=== PATIENT | female | born 1955 | race Caucasian/White ===

== ENCOUNTER 2018-03-23 17:01 | Inpatient (IN) | payer MEDICARE, OTHER ==
[~2018-03-23] VITALS: Ht 162.6 cm; Wt 110.0 kg
--- NOTE | 2018-03-23 17:32 | PHYS DOC ---
Adult General Chief Complaint Chief Complaint: PSYCH EVALUATION HPI HPI 62-year-old female presents here from [facility] secondary to increased agitation, depression lashing out at staff and refusal to take medication. Patient states she has been depressed and has thoughts of harming herself. She states she does not have any particular plan in place. She states this has happened before. She is just recently changed her antidepressant medication but she is not currently wanting to take anything. She denies any illicit drugs.[] Review of Systems Review of Systems Constitutional: Denies fever or chills [] Eyes: Denies change in visual acuity, redness, or eye pain [] HENT: Denies nasal congestion or sore throat [] Respiratory: Denies cough or shortness of breath [] Cardiovascular: No additional information not addressed in HPI [] GI: Denies abdominal pain, nausea, vomiting, bloody stools or diarrhea [] : Denies dysuria or hematuria [] Musculoskeletal: Denies back pain or joint pain [] Integument: Denies rash or skin lesions [] Neurologic: Denies headache, focal weakness or sensory changes [] Endocrine: Denies polyuria or polydipsia [] Psychiatric: As described above All other systems were reviewed and found to be within normal limits, except as documented in this note. Allergies Allergies Allergies Coded Allergies Type Severity Reaction Last Updated Verified erythromycin base Allergy Intermediate 03/23/18 Yes aspirin Allergy Unknown 03/23/18 Yes codeine Allergy Unknown 03/23/18 Yes hydromorphone Allergy Unknown 03/23/18 Yes nalbuphine Allergy Unknown 03/23/18 Yes Uncoded Allergies Type Severity Reaction Last Updated Verified other Allergy Unknown 03/23/18 Physical Exam Physical Exam Constitutional: Well developed, well nourished, no acute distress, non-toxic appearance, a bit disheveled. [] HENT: Normocephalic, atraumatic, bilateral external ears normal, oropharynx moist, no oral exudates, nose normal. [] Eyes: PERRLA, EOMI, conjunctiva normal, no discharge. [] Neck: Normal range of motion, no tenderness, supple, no stridor. [] Cardiovascular:Heart rate regular rhythm, no murmur [] Lungs & Thorax: Bilateral breath sounds clear to auscultation [] Abdomen: Bowel sounds normal, soft, no tenderness, no masses, no pulsatile masses, morbidly obese. [] Skin: Warm, dry, no erythema, no rash. [] Back: No tenderness, no CVA tenderness. [] Extremities: No tenderness, no cyanosis, no clubbing, ROM intact, no edema. [] Neurologic: Alert and oriented X 3, normal motor function, normal sensory function, no focal deficits noted. [] Psychologic: Depressed affect not currently suicidal or homicidal. [] EKG EKG [EKG: Normal sinus rhythm rate of [address]-T changes] Radiology/Procedures Radiology/Procedures [] Course & Med Decision Making Course & Med Decision Making DX : UTI bactrim DS BID [] Dragon Disclaimer Dragon Disclaimer This electronic medical record was generated, in whole or in part, using a voice recognition dictation system. Departure Departure: Impression: Primary Impression: Depression Additional Impression: Agitation Referrals: NON,STAFF (PCP) Problem Qualifiers Primary Impression: Depression Depression Type: major depressive disorder Major depression recurrence: recurrent Active/Remission status: currently active Major depression episode severity: severe Psychotic features: without psychotic features Qualified Codes: F33.2 - Major depressive disorder, recurrent severe without psychotic features CLAUDETTE LECHUGA DO Mar 23, 2018 17:32 SNEHA MCKEON MD Mar 23, 2018 18:55
[2018-03-23 17:48] LABS: BASO # 0.1 x10^3/uL (0.0-0.2); BASO % 1 % (0-3); EOS # 0.3 x10^3/uL (0.0-0.7); EOS % 3 % (0-3); HEMATOCRIT 39.7 % (36.0-47.0); HEMOGLOBIN 13.1 g/dL (12.0-15.5); LYMPH # 2.5 x10^3/uL (1.0-4.8); LYMPH % 23 % (24-48); MEAN CORPUSCULAR HEMOGLOBIN 30 pg (25-35); MEAN CORPUSCULAR HGB CONC 33 g/dL (31-37); MEAN CORPUSCULAR VOLUME 90 fL (79-100); MONO # 0.4 x10^3/uL (0.0-1.1); MONO % 4 % (0-9); NEUT # 7.7 x10^3uL (1.8-7.7); NEUT % 70 % (31-73); PLATELET COUNT 280 x10^3/uL (140-400); RED BLOOD COUNT 4.39 x10^6/uL (3.50-5.40); RED CELL DISTRIBUTION WIDTH 13.9 % (11.5-14.5)
--- NOTE | 2018-03-23 17:48 | EKG ---
[address] [address] Test Date: 2018-03-23 Test Time: 17:36:59 Pat Name: OMAR CAR Department: Room: Gender: F [employer] Team Member: : [id number] Requested By: CLAUDETTE LECHUGA Order Number: [id number] Reading MD: Milad Lorenzo Measurements Intervals [place] Rate: 70 P: 28 AR: 182 QRS: -14 QRSD: 82 T: 25 QT: 402 QTc: 437 Interpretive Statements SINUS RHYTHM LEFTWARD AXIS Electronically Signed On 03-30-2018 11:01:09 [employer] ADMINISTRATOR by Milad Lorenzo
[2018-03-23 18:02] LABS: ALBUMIN 3.6 g/dL (3.4-5.0); ALBUMIN/GLOBULIN RATIO 0.9 (1.0-1.7); CALCIUM 8.9 mg/dL (8.5-10.1); CREATININE 1.4 mg/dL (0.6-1.0); GFR 37.9; POTASSIUM 4.5 mmol/L (3.5-5.1); TOTAL BILIRUBIN 0.3 mg/dL (0.2-1.0); TOTAL PROTEIN 7.5 g/dL (6.4-8.2)
[2018-03-23 18:36] LABS: BILIRUBIN,URINE NEG (NEG); CLARITY,URINE HAZY; COLOR,URINE YELLOW; GLUCOSE,URINE NEG (NEG); NITRITE,URINE POS (NEG); UROBILINOGEN,URINE 0.2 mg/dL (0.2 mg/dL)
[2018-03-23 18:37] LABS: BACTERIA,URINE MANY /HPF (0-FEW); SQUAMOUS EPITHELIAL CELL,UR MOD /LPF
[2018-03-23 18:38] LABS: AMPHETAMINE/METHAMPHETAMINE NEG (NEG); BARBITURATES NEG (NEG); BENZODIAZEPINES NEG (NEG); CANNABINOIDS NEG (NEG); COCAINE NEG (NEG); METHADONE NEG (NEG); OPIATES NEG (NEG); PHENCYCLIDINE NEG (NEG)
[2018-03-23] MEDS ORDERED: SMZ/TMP 800/160MG TABLET. PO ONE (19:00)
[2018-03-23] MEDS ORDERED: MAGNESIUM HYDROXIDE 2,400 MG/30 ML ORAL.SUSP. PO PRN (21:15)
[2018-03-23] MEDS ORDERED: MAG HYDROX/AL HYDROX/SIMETH 30 ML ORAL.SUSP PO PRN (21:15)
[2018-03-23] MEDS ORDERED: BISA5TAB4 PO (21:25)
[2018-03-23] MEDS ORDERED: ALBU2.5V14 NEB (21:25)
[2018-03-23] MEDS ORDERED: ATOR10TA60 PO (21:25)
[2018-03-23] MEDS ORDERED: HYDR-2765 PO (21:25)
[2018-03-23] MEDS ORDERED: ACET325T9 PO (21:44)
[2018-03-23] MEDS ORDERED: BUPR300T4 PO (21:44)
[2018-03-23] MEDS ORDERED: MELA3TAB2 PO (21:44)
[2018-03-23] MEDS ORDERED: D-ME118S2 PO (21:44)
[2018-03-23] MEDS ORDERED: RANI150T21 PO (21:44)
[2018-03-23] MEDS ORDERED: INSU100I17 SQ (21:44)
[2018-03-23] MEDS ORDERED: INSU100I27 SQ (22:14)
[2018-03-23] MEDS ORDERED: CALC200T3 PO (22:14)
[2018-03-23] MEDS ORDERED: CLON0.5T PO (22:14)
[2018-03-23] MEDS ORDERED: CHLO15MO2 MM (22:14)
[2018-03-23] MEDS ORDERED: GABA-585 PO (22:14)
[2018-03-23] MEDS ORDERED: HYDR-3165 PO (22:14)
[2018-03-23] MEDS ORDERED: GUAI-66 PO (22:14)
[2018-03-23] MEDS ORDERED: DULA0.75 SQ (22:14)
[2018-03-23] MEDS ORDERED: HYDR-3136 PO (22:14)
[2018-03-23] MEDS ORDERED: ESOM40CA PO (22:14)
[2018-03-23] MEDS ORDERED: DICY10CA3 PO (22:14)
[2018-03-23] MEDS ORDERED: LEVO100T5 PO (22:14)
[2018-03-23] MEDS ORDERED: CHOL10003 PO (22:14)
[2018-03-23] MEDS ORDERED: MENT118G TP (22:14)
[2018-03-23] MEDS ORDERED: FLUT9.9S NS (22:14)
[2018-03-23] MEDS ORDERED: MIRT15TA3 PO (22:14)
[2018-03-23] MEDS ORDERED: NON FORMULARY ITEM (Albuterol Sulfate (Albuterol Sulfate Conc Neb Soln) 2.5 MG) NEB PRN (22:30)
[2018-03-23] MEDS ORDERED: DICYCLOMINE HCL 10 MG CAPSULE PO PRN (22:30)
[2018-03-23] MEDS ORDERED: PROMETH HCL PO PRN (22:30)
[2018-03-23] MEDS ORDERED: CALCIUM CARBONATE 500 MG TAB.CHEW PO PRN (22:30)
[2018-03-23] MEDS ORDERED: ACETAMINOPHEN 325 MG TABLET PO PRN (22:30)
[2018-03-23] MEDS ORDERED: D METHORPHAN HB PO PRN (22:30)
[2018-03-23] MEDS ORDERED: BISACODYL TAB 5 MG TABLET.DR. PO PRN (22:30)
--- NOTE | 2018-03-23 22:41 | PDOC ---
Exam Note: Luis Note: Please also refer to the separate dictated note~for this date of service dictated separately. Discussed the patient with Nursing staff reviewed the chart.~Reviewed interim history and current functioning. Reviewed vital signs,~ Labs/ Radiology~and current medications noted below. Continue current treatment with the changes noted in the dictated addendum note Assessment: Vital Signs: Vital Signs Date Time Temp Pulse Resp B/P (MAP) Pulse Ox O2 Delivery O2 Flow Rate FiO2 03/23/18 17:25 97.7 96 16 98 Room Air Labs: Laboratory Tests Test 03/23/18 17:27 03/23/18 18:00 03/23/18 18:10 03/23/18 21:52 White Blood Count 11.0 x10^3/uL (4.0-11.0) Red Blood Count 4.39 x10^6/uL (3.50-5.40) Hemoglobin 13.1 g/dL (12.0-15.5) Hematocrit 39.7 % (36.0-47.0) Mean Corpuscular Volume 90 fL (79-100) Mean Corpuscular Hemoglobin 30 pg (25-35) Mean Corpuscular Hemoglobin Concent 33 g/dL (31-37) Red Cell Distribution Width 13.9 % (11.5-14.5) Platelet Count 280 x10^3/uL (140-400) Neutrophils (%) (Auto) 70 % (31-73) Lymphocytes (%) (Auto) 23 % (24-48) L Monocytes (%) (Auto) 4 % (0-9) Eosinophils (%) (Auto) 3 % (0-3) Basophils (%) (Auto) 1 % (0-3) Neutrophils # (Auto) 7.7 x10^3uL (1.8-7.7) Lymphocytes # (Auto) 2.5 x10^3/uL (1.0-4.8) Monocytes # (Auto) 0.4 x10^3/uL (0.0-1.1) Eosinophils # (Auto) 0.3 x10^3/uL (0.0-0.7) Basophils # (Auto) 0.1 x10^3/uL (0.0-0.2) Sodium Level 138 mmol/L (136-145) Potassium Level 4.5 mmol/L (3.5-5.1) Chloride Level 101 mmol/L (98-107) Carbon Dioxide Level 29 mmol/L (21-32) Anion Gap 8 (6-14) Blood Urea Nitrogen 21 mg/dL (7-20) H Creatinine 1.4 mg/dL (0.6-1.0) H Estimated GFR (Cockcroft-Gault) 37.9 BUN/Creatinine Ratio 15 (6-20) Glucose Level 170 mg/dL (70-99) H Calcium Level 8.9 mg/dL (8.5-10.1) Total Bilirubin 0.3 mg/dL (0.2-1.0) Aspartate Amino Transferase (AST) 19 U/L (15-37) Alanine Aminotransferase (ALT) 33 U/L (14-59) Alkaline Phosphatase 133 U/L (46-116) H Total Protein 7.5 g/dL (6.4-8.2) Albumin 3.6 g/dL (3.4-5.0) Albumin/Globulin Ratio 0.9 (1.0-1.7) L Ethyl Alcohol Level < 10 mg/dL (0-10) Magnesium Level 2.0 mg/dL (1.8-2.4) Urine Collection Type Unknown Urine Color Yellow Urine Clarity Hazy Urine pH 5.5 Urine Specific [place] 1.020 Urine Protein Neg (NEG-TRACE) Urine Glucose (UA) Neg mg/dL (NEG) Urine Ketones (Stick) Trace mg/dL (NEG) Urine Blood Neg (NEG) Urine Nitrite Pos (NEG) Urine Bilirubin Neg (NEG) Urine Urobilinogen Dipstick 0.2 mg/dL (0.2 mg/dL) Urine Leukocyte Esterase Trace (NEG) Urine RBC 1-2 /HPF (0-2) Urine WBC 11-20 /HPF (0-4) Urine Squamous Epithelial Cells Mod /LPF Urine Bacteria Many /HPF (0-FEW) Urine Opiates Screen Neg (NEG) Urine Methadone Screen Neg (NEG) Urine Barbiturates Neg (NEG) Urine Phencyclidine Screen Neg (NEG) Urine Amphetamine/Methamphetamine Neg (NEG) Urine Benzodiazepines Screen Neg (NEG) Urine Cocaine Screen Neg (NEG) Urine Cannabinoids Screen Neg (NEG) Urine Ethyl Alcohol Neg (NEG) Glucose (Fingerstick) 206 mg/dL (70-99) H Current Medications: Meds: Current Medications Trimethoprim/ Sulfamethoxazole (Bactrim Ds) 1 tab 1X ONCE PO Last administered on 03/23/18at 18:56; Start 03/23/18 at 19:00; Stop 03/23/18 at 19:09 ; Status DC Acetaminophen (Tylenol) 650 mg PRN Q6HRS PRN PO PAIN / TEMP; Start 03/23/18 at 21:15 Al Hydroxide/Mg Hydroxide (Mylanta Plus Xs) 15 ml PRN AFTMEALHC PRN PO DYSPEPSIA; Start 03/23/18 at 21:15 Magnesium Hydroxide (Milk Of Magnesia) 2,400 mg PRN QHS PRN PO CONSTIPATION; Start 03/23/18 at 21:15 Bupropion HCl (Wellbutrin Xl) 300 mg DAILY PO ; Start 03/24/18 at 09:00; Status UNV Clonazepam (KlonoPIN) 0.5 mg QHS PO ; Start 03/24/18 at 21:00; Status UNV Non-Formulary Medication (Melatonin ) 10 mg DAILY PO ; Start 03/24/18 at 09:00; Status UNV Non-Formulary Medication (Mirtazapine ) 15 mg DAILY PO ; Start 03/24/18 at 09:00 ; Status UNV Acetaminophen (Tylenol) 650 mg PRN Q6HRS PRN PO PAIN / TEMP; Start 03/23/18 at 22:30; Status UNV Bisacodyl (Dulcolax Tab) 10 mg PRN DAILY PRN PO CONSTIPATION; Start 03/23/18 at 22:30; Status UNV Calcium Carbonate/ Glycine (Tums) 500 mg PRN Q8HRS PRN PO HEARTBURN / GAS; Start 03/23/18 at 22:30; Status UNV Chlorhexidine Gluconate (Peridex) 15 ml Q12HR MM ; Start 03/24/18 at 09:00; Status UNV Vitamin D (Vitamin D3) 2,000 unit DAILY PO ; Start 03/24/18 at 09:00; Status UNV Dicyclomine HCl (Bentyl) 10 mg PRN DAILY PRN PO GI SYMPTOMS; Start 03/23/18 at 22:30; Status UNV Gabapentin (Neurontin) 200 mg TID PO ; Start 03/24/18 at 09:00; Status UNV Guaifenesin (Robitussin) 100 mg PRN Q4HRS PRN PO COUGH; Start 03/23/18 at 22:30 ; Status UNV Levothyroxine Sodium (Synthroid) 100 mcg DAILYAC PO ; Start 03/24/18 at 07:30; Status UNV Non-Formulary Medication (Albuterol Sulfate (Albuterol Sulfate Conc Neb Soln)) 2.5 mg PRN Q6HRS PRN NEB SHORTNESS OF BREATH; Start 03/23/18 at 22:30; Status UNV Non-Formulary Medication (Atorvastatin Calcium ) 10 mg DAILY PO ; Start at 09:00; Status UNV Non-Formulary Medication (D-Methorphan Hb/ Prometh Hcl (Promethazine-Dm Syrup)) 5 ml PRN Q6HRS PRN PO COUGH; Start 03/23/18 at 22:30; Status UNV Non-Formulary Medication (Dulaglutide (Trulicity)) 0.75 mg WEEKLY SQ ; Start at 09:00; Status UNV Non-Formulary Medication (Esomeprazole Magnesium (Nexium Capsule)) 40 mg DAILYAC PO ; Start 03/24/18 at 07:30; Status UNV Non-Formulary Medication (Fluticasone Propionate (Flonase Allergy Relief)) 2 sprays PRN DAILY PRN NS NASAL CONGESTION; Start 03/23/18 at 22:30; Status UNV Non-Formulary Medication (Hydrocodone Bit/ Acetaminophen (Holmes 10-325 Tablet)) 1 tab PRN Q6HRS PRN PO PAIN; Start 03/23/18 at 22:30; Status UNV Non-Formulary Medication (Hydrocodone Bit/ Acetaminophen (Holmes 5-325 Tablet)) 1 tab PRN Q6HRS PRN PO PAIN; Start 03/23/18 at 22:30; Status UNV Non-Formulary Medication (Insulin Aspart (Novolog Flexpen)) 10 unit TIDWMEALS SQ ; Start 03/24/18 at 08:00; Status UNV Non-Formulary Medication (Insulin Detemir (Levemir Flextouch)) 60 unit DAILY SQ ; Start 03/24/18 at 09:00; Status UNV Non-Formulary Medication (Menthol (Biofreeze)) 1 nnamdi PRN TID PRN TP MUSCLE PAIN ; Start 03/23/18 at 22:30; Status UNV Non-Formulary Medication (Ranitidine Hcl (Zantac)) 75 mg PRN Q8HRS PRN PO HEARTBURN / GAS; Start 03/23/18 at 22:30; Status UNV Active Scripts Active Reported Mirtazapine 15 Mg Tablet 15 Mg PO DAILY Abbey-Tussin (Guaifenesin) 100 Mg/5 Ml Liquid 100 Mg PO PRN Q4HRS PRN Holmes 5-325 Tablet (Hydrocodone Bit/Acetaminophen) 1 Each Tablet 1 Tab PO PRN Q6HRS PRN Holmes 10-325 Tablet (Hydrocodone Bit/Acetaminophen) 1 Each Tablet 1 Tab PO PRN Q6HRS PRN Peridex (Chlorhexidine Gluconate) 15 Ml Mouthwash 15 Ml MM Q12HR Trulicity (Dulaglutide) 0.75 Mg/0.5 Ml Pen.injctr 0.75 Mg SQ WEEKLY Levemir Flextouch (Insulin Detemir) 100 Unit/1 Ml Insuln.pen 60 Unit SQ DAILY Nexium Capsule (Esomeprazole Magnesium) 40 Mg Capsule.dr 40 Mg PO DAILYAC Vitamin D3 (Cholecalciferol (Vitamin D3)) 1,000 Unit Tablet 2,000 Unit PO DAILY Flonase Allergy Relief (Fluticasone Propionate) 9.9 Ml [place].susp 2 Sprays NS PRN DAILY PRN Dicyclomine Hcl 10 Mg Capsule 10 Mg PO PRN DAILY PRN Biofreeze (Menthol) 118 Ml Gel..ml. 1 Nnamdi TP PRN TID PRN Klonopin (Clonazepam) 0.5 Mg Tablet 0.5 Mg PO QHS Levothyroxine Sodium 100 Mcg Tablet 100 Mcg PO DAILYAC Gabapentin (Gabapentin) 100 Mg Capsule 200 Mg PO TID Tums (Calcium Carbonate) 200 Mg Tab.chew 500 Mg PO PRN Q8HRS PRN Zantac (Ranitidine Hcl) 150 Mg Tablet 75 Mg PO PRN Q8HRS PRN Promethazine-Dm Syrup (D-Methorphan Hb/Prometh Hcl) 118 Ml Syrup 5 Ml PO PRN Q6HRS PRN Tylenol (Acetaminophen) 325 Mg Tablet 650 Mg PO PRN Q6HRS PRN Bupropion Xl (Bupropion Hcl) 300 Mg Tab.er.24h 300 Mg PO DAILY Melatonin 3 Mg Tablet 10 Mg PO DAILY Novolog Flexpen (Insulin Aspart) 100 Unit/1 Ml Insuln.pen 10 Unit SQ TIDWMEALS Albuterol Sulfate Conc Neb Soln (Albuterol Sulfate) 2.5 Mg/0.5 Ml Vial.neb 2.5 Mg NEB PRN Q6HRS PRN Hydrocodone-Apap 7.5-325 (Hydrocodone Bit/Acetaminophen) 1 Each Tablet 1 Tab PO PRN Q6HRS PRN Bisacodyl 5 Mg Tablet.dr 10 Mg PO PRN DAILY PRN Atorvastatin Calcium 10 Mg Tablet 10 Mg PO DAILY I have reviewed the current psychotropics carefully including drug interactions. Risk benefit ratio favors no change other than as noted in my dictated progress note. FAYE MUNGUIA MD Mar 23, 2018 22:41
[2018-03-23] MEDS ORDERED: FAMOTIDINE 20 MG TABLET PO PRN (23:00)
[2018-03-23] MEDS ORDERED: HYDROcodone/APAP 7.5/325MG 1 TAB TABLET PO PRN (23:00)
[2018-03-23] MEDS ORDERED: HYDROcodone/APAP 10/325 1 TAB TABLET PO PRN (23:00)
[2018-03-23] MEDS ORDERED: ALBUTEROL SULFATE 2.5 MG/3 ML NEBU. NEB PRN (23:15)
[2018-03-23] MEDS ORDERED: METHYL SALICYLATE/MENTHOL TOPICAL OINTMENT 29GM TUBE. TP PRN (23:15)
[2018-03-23] MEDS: guaiFENesin 300 MG/15 ML LIQUID PO PRN (23:50)
[2018-03-24 00:52] VITALS: BP 140/85
[2018-03-24 06:14] VITALS: BP 141/77
[2018-03-24] MEDS: LEVOTHYROXINE 100 MCG TABLET PO SCH (06:16)
[2018-03-24] MEDS ORDERED: FLUTICASONE 50MCG/NASAL SPRAY 16GM BOTTLE. NS PRN (09:00)
[2018-03-24] MEDS ORDERED: MIRTAZAPINE 15 MG TABLET PO SCH (09:00)
[2018-03-24] MEDS: CHLORHEXIDINE 0.12% 15 ML MOUTHWASH. MM SCH ×2 (09:11→19:52)
[2018-03-24] MEDS: ATORVASTATIN CALCIUM 10 MG TABLET. PO SCH (09:12)
[2018-03-24] MEDS: GABAPENTIN 100 MG CAPSULE. PO SCH ×3 (09:12→19:52)
[2018-03-24] MEDS: CHOLECALCIFEROL (VITAMIN D3) 1,000 UNIT TABLET PO SCH (09:12)
[2018-03-24] MEDS: PANTOPRAZOLE 40 MG TABLET. PO SCH (09:12)
[2018-03-24] MEDS: buPROPion XL 300 MG TAB.ER.24H. PO SCH (09:12)
[2018-03-24] MEDS: INSULIN GLARGINE 300 UNITS/3 ML INSULN.PEN. SQ SCH (09:14)
[2018-03-24] MEDS: INSULIN LISPRO 300 UNITS/3 ML INSULN.PEN. SQ SCH ×3 (09:15→18:03)
[2018-03-24 14:22] LABS: BASO % 0 % (0-3); EOS # 0.2 x10^3/uL (0.0-0.7); EOS % 2 % (0-3); HEMATOCRIT 37.7 % (36.0-47.0); HEMOGLOBIN 12.5 g/dL (12.0-15.5); LYMPH % 21 % (24-48); MEAN CORPUSCULAR HEMOGLOBIN 30 pg (25-35); MEAN CORPUSCULAR HGB CONC 33 g/dL (31-37); MEAN CORPUSCULAR VOLUME 91 fL (79-100); MONO # 0.4 x10^3/uL (0.0-1.1); MONO % 4 % (0-9); NEUT % 73 % (31-73); PLATELET COUNT 272 x10^3/uL (140-400); RED BLOOD COUNT 4.15 x10^6/uL (3.50-5.40); RED CELL DISTRIBUTION WIDTH 14.3 % (11.5-14.5); WHITE BLOOD COUNT 9.7 x10^3/uL (4.0-11.0)
[2018-03-24 14:31] LABS: ALBUMIN 3.4 g/dL (3.4-5.0); ALBUMIN/GLOBULIN RATIO 0.9 (1.0-1.7); CREATININE 1.4 mg/dL (0.6-1.0); GFR 37.9; POTASSIUM 4.5 mmol/L (3.5-5.1); TOTAL BILIRUBIN 0.2 mg/dL (0.2-1.0); TOTAL PROTEIN 7.2 g/dL (6.4-8.2)
--- NOTE | 2018-03-24 14:59 | RAD ---
AP abdomen 03/24/2018 CLINICAL INDICATION: Abdominal pain and tenderness. COMPARISON: None. FINDINGS: Elevation of the right hemidiaphragm. Right upper quadrant cholecystectomy clips. There is a nonobstructive bowel gas pattern. Examination is not optimized for valuation of pneumoperitoneum. Multiple pelvic phleboliths. IMPRESSION: No radiographic evidence of bowel obstruction. Electronically signed by: David Tellez MD (03/24/2018 2:55 PM) [id number]
[2018-03-24 16:00] VITALS: BP 129/63
[2018-03-24 17:13] LABS: THYROXINE 6.7 ug/dL (4.5-12.0)
[2018-03-24 19:09] LABS: HEMOGLOBIN A1C 9.5 % (4.8-5.6)
[2018-03-24] MEDS: MIRTAZAPINE 15 MG TABLET PO SCH (19:52)
[2018-03-24] MEDS: MELATONIN 3 MG TABLET PO SCH (19:53)
[2018-03-24] MEDS: clonazePAM 0.5 MG TABLET PO SCH (19:53)
[2018-03-24] MEDS: ONDANSETRON ODT 4 MG TAB.RAPDIS PO PRN (20:05)
--- NOTE | 2018-03-24 22:43 | PDOC ---
Exam Note: Luis Note: Please also refer to the separate dictated note~for this date of service dictated separately.~Patient seen individually. Discussed the patient with Nursing staff reviewed the chart.~Reviewed interim history and current functioning. Reviewed vital signs,~Labs/ Radiology~and current medications noted below. Continue current treatment with the changes noted in the dictated addendum note Assessment: Vital Signs: Vital Signs Date Time Temp Pulse Resp B/P (MAP) Pulse Ox O2 Delivery O2 Flow Rate FiO2 03/24/18 16:00 98.1 79 20 129/63 (85) 100 Room Air Labs: Laboratory Tests Test 03/24/18 07:27 03/24/18 11:34 03/24/18 14:05 03/24/18 16:36 Glucose (Fingerstick) 239 mg/dL (70-99) H 221 mg/dL (70-99) H 146 mg/dL (70-99) H White Blood Count 9.7 x10^3/uL (4.0-11.0) Red Blood Count 4.15 x10^6/uL (3.50-5.40) Hemoglobin 12.5 g/dL (12.0-15.5) Hematocrit 37.7 % (36.0-47.0) Mean Corpuscular Volume 91 fL (79-100) Mean Corpuscular Hemoglobin 30 pg (25-35) Mean Corpuscular Hemoglobin Concent 33 g/dL (31-37) Red Cell Distribution Width 14.3 % (11.5-14.5) Platelet Count 272 x10^3/uL (140-400) Neutrophils (%) (Auto) 73 % (31-73) Lymphocytes (%) (Auto) 21 % (24-48) L Monocytes (%) (Auto) 4 % (0-9) Eosinophils (%) (Auto) 2 % (0-3) Basophils (%) (Auto) 0 % (0-3) Neutrophils # (Auto) 7.0 x10^3uL (1.8-7.7) Lymphocytes # (Auto) 2.0 x10^3/uL (1.0-4.8) Monocytes # (Auto) 0.4 x10^3/uL (0.0-1.1) Eosinophils # (Auto) 0.2 x10^3/uL (0.0-0.7) Basophils # (Auto) 0.0 x10^3/uL (0.0-0.2) Sodium Level 139 mmol/L (136-145) Potassium Level 4.5 mmol/L (3.5-5.1) Chloride Level 101 mmol/L (98-107) Carbon Dioxide Level 27 mmol/L (21-32) Anion Gap 11 (6-14) Blood Urea Nitrogen 23 mg/dL (7-20) H Creatinine 1.4 mg/dL (0.6-1.0) H Estimated GFR (Cockcroft-Gault) 37.9 BUN/Creatinine Ratio 16 (6-20) Glucose Level 262 mg/dL (70-99) H Lactic Acid Level 1.8 mmol/L (0.4-2.0) Calcium Level 9.0 mg/dL (8.5-10.1) Total Bilirubin 0.2 mg/dL (0.2-1.0) Aspartate Amino Transferase (AST) 19 U/L (15-37) Alanine Aminotransferase (ALT) 30 U/L (14-59) Alkaline Phosphatase 129 U/L (46-116) H Lactate Dehydrogenase 144 U/L (81-234) Total Protein 7.2 g/dL (6.4-8.2) Albumin 3.4 g/dL (3.4-5.0) Albumin/Globulin Ratio 0.9 (1.0-1.7) L Lipase 320 U/L (73-393) Test 03/24/18 19:25 Glucose (Fingerstick) 153 mg/dL (70-99) H Current Medications: Meds: Current Medications Trimethoprim/ Sulfamethoxazole (Bactrim Ds) 1 tab 1X ONCE PO Last administered on 03/23/18at 18:56; Start 03/23/18 at 19:00; Stop 03/23/18 at 19:09 ; Status DC Acetaminophen (Tylenol) 650 mg PRN Q6HRS PRN PO PAIN / TEMP; Start 03/23/18 at 21:15 Al Hydroxide/Mg Hydroxide (Mylanta Plus Xs) 15 ml PRN AFTMEALHC PRN PO DYSPEPSIA; Start 03/23/18 at 21:15 Magnesium Hydroxide (Milk Of Magnesia) 2,400 mg PRN QHS PRN PO CONSTIPATION; Start 03/23/18 at 21:15 Bupropion HCl (Wellbutrin Xl) 300 mg DAILY PO Last administered on 03/24/18 09 :12; Start 03/24/18 at 09:00 Clonazepam (KlonoPIN) 0.5 mg QHS PO Last administered on 03/24/18at 19:53; Start 03/24/18 at 21:00 Melatonin 9 mg HS PO Last administered on 03/24/18at 19:53; Start 03/24/18 at 21 :00 Mirtazapine (Remeron) 15 mg DAILY PO ; Start 03/24/18 at 09:00; Stop 03/24/18 at 09:16; Status DC Acetaminophen (Tylenol) 650 mg PRN Q6HRS PRN PO PAIN / TEMP; Start 03/23/18 at 22:30; Status UNV Bisacodyl (Dulcolax Tab) 10 mg PRN DAILY PRN PO CONSTIPATION; Start 03/23/18 at 22:30 Calcium Carbonate/ Glycine (Tums) 500 mg PRN Q8HRS PRN PO HEARTBURN / GAS; Start 03/23/18 at 22:30 Chlorhexidine Gluconate (Peridex) 15 ml Q12HR MM Last administered on at 19:52; Start 03/24/18 at 09:00 Vitamin D (Vitamin D3) 2,000 unit DAILY PO Last administered on 03/24/18at 09:12 ; Start 03/24/18 at 09:00 Dicyclomine HCl (Bentyl) 10 mg PRN DAILY PRN PO GI SYMPTOMS; Start 03/23/18 at 22:30 Gabapentin (Neurontin) 200 mg TID PO Last administered on 03/24/18at 19:52; Start 03/24/18 at 09:00 Guaifenesin (Robitussin) 100 mg PRN Q4HRS PRN PO COUGH Last administered on 03/23/18at 23:50; Start 03/23/18 at 22:30 Levothyroxine Sodium (Synthroid) 100 mcg DAILY06 PO Last administered on at 06:16; Start 03/24/18 at 06:00 Non-Formulary Medication (Albuterol Sulfate (Albuterol Sulfate Conc Neb Soln)) 2.5 mg PRN Q6HRS PRN NEB SHORTNESS OF BREATH; Start 03/23/18 at 22:30; Status UNV Atorvastatin Calcium (Lipitor) 10 mg DAILY PO Last administered on 03/24/18at 09 :12; Start 03/24/18 at 09:00 Non-Formulary Medication (D-Methorphan Hb/ Prometh Hcl (Promethazine-Dm Syrup)) 5 ml PRN Q6HRS PRN PO COUGH; Start 03/23/18 at 22:30; Stop 03/23/18 at 23:45; Status DC Non-Formulary Medication (Dulaglutide (Trulicity)) 0.75 mg WEEKLY SQ ; Start at 09:00; Status UNV Pantoprazole Sodium (Protonix) 40 mg DAILYAC PO Last administered on 03/24/18at 09:12; Start 03/24/18 at 07:30 Fluticasone Propionate (Flonase) 2 spray PRN DAILY PRN NS ALLERGIES; Start 03/24/18 at 09:00 Acetaminophen/ Hydrocodone Bitart (Lortab 10/325) 1 tab PRN Q6HRS PRN PO PAIN; Start 03/23/18 at 23:00; Stop 03/23/18 at 23:19; Status DC Acetaminophen/ Hydrocodone Bitart (Lortab 7.5/325) 1 tab PRN Q6HRS PRN PO PAIN ; Start 03/23/18 at 23:00; Stop 03/23/18 at 23:19; Status DC Insulin Human Lispro (HumaLOG) 10 units TIDWMEALS SQ Last administered on at 13:28; Start 03/24/18 at 08:00 Insulin Glargine (Lantus) 60 units DAILY SQ Last administered on 03/24/18at 09: 14; Start 03/24/18 at 09:00 Multi-Ingredient Ointment (Analgesic [place]) 1 nnamdi PRN TID PRN TP MUSCLE PAIN; Start 03/23/18 at 23:15 Famotidine (Pepcid) 20 mg PRN Q8HRS PRN PO HEARTBURN/GAS; Start 03/23/18 at 23: 00 Albuterol Sulfate (Ventolin) 2.5 mg PRN Q6HRS PRN NEB SHORTNESS OF BREATH; Start 03/23/18 at 23:15 Acetaminophen/ Hydrocodone Bitart (Lortab 7.5/325) 2 tab PRN Q6HRS PRN PO PAIN ; Start 03/23/18 at 23:30 Mirtazapine (Remeron) 15 mg HS PO Last administered on 03/24/18at 19:52; Start 03/24/18 at 21:00 Ondansetron HCl (Zofran Odt) 4 mg PRN Q8HRS PRN PO NAUSEA/VOMITING Last administered on 03/24/18at 20:05; Start 03/24/18 at 15:45 Active Scripts Active Reported Mirtazapine 15 Mg Tablet 15 Mg PO DAILY Abbey-Tussin (Guaifenesin) 100 Mg/5 Ml Liquid 100 Mg PO PRN Q4HRS PRN Peridex (Chlorhexidine Gluconate) 15 Ml Mouthwash 15 Ml MM Q12HR Trulicity (Dulaglutide) 0.75 Mg/0.5 Ml Pen.injctr 0.75 Mg SQ WEEKLY Levemir Flextouch (Insulin Detemir) 100 Unit/1 Ml Insuln.pen 60 Unit SQ DAILY Nexium Capsule (Esomeprazole Magnesium) 40 Mg Capsule.dr 40 Mg PO DAILYAC Vitamin D3 (Cholecalciferol (Vitamin D3)) 1,000 Unit Tablet 2,000 Unit PO DAILY Flonase Allergy Relief (Fluticasone Propionate) 9.9 Ml [place].susp 2 Sprays NS PRN DAILY PRN Dicyclomine Hcl 10 Mg Capsule 10 Mg PO PRN DAILY PRN Biofreeze (Menthol) 118 Ml Gel..ml. 1 Nnamdi TP PRN TID PRN Klonopin (Clonazepam) 0.5 Mg Tablet 0.5 Mg PO QHS Levothyroxine Sodium 100 Mcg Tablet 100 Mcg PO DAILYAC Gabapentin (Gabapentin) 100 Mg Capsule 200 Mg PO TID Tums (Calcium Carbonate) 200 Mg Tab.chew 500 Mg PO PRN Q8HRS PRN Zantac (Ranitidine Hcl) 150 Mg Tablet 75 Mg PO PRN Q8HRS PRN Promethazine-Dm Syrup (D-Methorphan Hb/Prometh Hcl) 118 Ml Syrup 5 Ml PO PRN Q6HRS PRN Tylenol (Acetaminophen) 325 Mg Tablet 650 Mg PO PRN Q6HRS PRN Bupropion Xl (Bupropion Hcl) 300 Mg Tab.er.24h 300 Mg PO DAILY Melatonin 3 Mg Tablet 10 Mg PO DAILY Novolog Flexpen (Insulin Aspart) 100 Unit/1 Ml Insuln.pen 10 Unit SQ TIDWMEALS Albuterol Sulfate Conc Neb Soln (Albuterol Sulfate) 2.5 Mg/0.5 Ml Vial.neb 2.5 Mg NEB PRN Q6HRS PRN Hydrocodone-Apap 7.5-325 (Hydrocodone Bit/Acetaminophen) 1 Each Tablet 2 Tab PO PRN Q6HRS PRN Bisacodyl 5 Mg Tablet.dr 10 Mg PO PRN DAILY PRN Atorvastatin Calcium 10 Mg Tablet 10 Mg PO DAILY I have reviewed the current psychotropics carefully including drug interactions. Risk benefit ratio favors no change other than as noted in my dictated progress note. Diagnosis: Problems: (1) Anxiety disorder (2) Bipolar 1 disorder, manic, moderate (3) Impulse control disorder (4) Schizoaffective disorder, bipolar type FAYE MUNGUIA MD Mar 24, 2018 22:43
--- NOTE | 2018-03-24 23:52 | CONS ---
DATE OF CONSULTATION: 03/23/2018 REASON FOR CONSULTATION: Medical management. HISTORY OF PRESENT ILLNESS: The patient is a 62-year-old female patient, a resident at [facility], who was admitted on account of increased agitation, depression, refusing cares, verbally abusive, saying "I will be better off ," all this in a background of schizoaffective and bipolar disorder. When I saw her this afternoon, she was complaining of abdominal pain, mostly in the right upper quadrant and epigastric area. She has been nauseous this morning, although she ate her breakfast and lunch. She stated that she had her gallbladder removed before, but does not recall any history of pancreatitis. PAST MEDICAL HISTORY: Significant for morbid obesity, hypothyroidism, type 2 diabetes, peripheral neuropathy, vitamin D deficiency, hyperlipidemia, chronic cyclic schizophrenia, hypertension, bronchial asthma, irritable bowel syndrome, insomnia, chronic back pain, sciatica, gastroesophageal reflux disease, COPD, renal agenesis, bipolar disorder, posttraumatic stress disorder, ____ shortness of breath, anxiety, muscle weakness, and borderline personality. Other problems include enthesopathy and dermatitis. ALLERGIES: SHE IS ALLERGIC TO ASPIRIN, CODEINE, TAPE, ADHESIVES, DILAUDID, ERYTHROMYCIN, NALBUPHINE. PAST SURGICAL HISTORY: She is status post cholecystectomy. DIET: Carb-controlled diabetic diet. CODE: She is a full code. FAMILY HISTORY: Unremarkable. SOCIAL HISTORY: She is a resident at [facility] and [facility]. She apparently does not smoke, drink alcohol or use recreational drugs. REVIEW OF SYSTEMS: As per history of present illness. MEDICATIONS: When I saw her, she is currently on following medications: She is on dicyclomine 10 mg daily p.r.n., albuterol sulfate by nebulizer every 6 hours, atorvastatin calcium 10 mg daily, hydrocodone/APAP 7.5/325 one tablet every 6 hours, Tylenol 650 every 6 hours, clonazepam for Klonopin 0.5 mg at bedtime, gabapentin 200 mg 3 times a day, Wellbutrin 300 mg daily, mirtazapine 50 mg at bedtime, promethazine, dextromethorphan syrup 5 mL every 6 hours, guaifenesin 100 mg per 5 mL every 4 hours, chlorhexidine gluconate for Peridex 15 mL every 12 hours. She is on Flonase 2 sprays to each nostril once a day, calcium carbonate 500 mg every 8 hours, bisacodyl 10 mg tablet p.o. daily p.r.n. for constipation, ranitidine 150 mg every 8 hours and Nexium 40 mg daily. She is on Trulicity 0.75 mcg subcutaneously weekly. She is also on NovoLog insulin 10 units before meals and Levemir 60 units at bedtime. She is on levothyroxine 100 mcg daily, Biofreeze 1 application 3 times a day, cholecalciferol 2000 international unit once a day, melatonin 10 mg at bedtime. PHYSICAL EXAMINATION: GENERAL: When I saw her this afternoon, she was resting slightly propped up in bed, complaining of nausea and abdominal pain. She was pale, but no jaundice, cyanosis, or thyromegaly. No jugular venous distension. No limb edema. VITAL SIGNS: Her heart rate was 74, blood pressure was 141/77, temperature was 98, respiratory rate was 18 and oxygen saturation was 97% on room air. HEAD, EYES, EARS, NOSE AND THROAT: Showed normocephalic, atraumatic. NECK: Supple. HEART: Showed normal first and second heart sounds. No gallop, rub or murmur. CHEST: Clear to auscultation. No crepitation or rhonchi. ABDOMEN: Distended, soft with tenderness mostly in the epigastric and right upper quadrant. There is no guarding or rigidity. No organomegaly. All hernial orifice intact. Bowel sounds normal. NEUROLOGIC: She is awake, alert, responding appropriately. All cranial nerves intact. EXTREMITIES: She moves extremities without difficulty, she is able to ambulate without assistance or assistive devices. LABORATORY WORK: As of yesterday showed her white cell count was 11,000, hemoglobin 13, hematocrit 39, MCV 90 and platelet count of 280,000 with normal manual differential. Serum sodium was 138, potassium 4.5, chloride 101, bicarbonate 29, anion gap of 8, BUN 21, creatinine 1.4, estimated GFR was 58 mL per minute. Her glucose 170, calcium was 8.9, magnesium 2. Total bilirubin, AST, ALT were normal. Alkaline phosphatase slightly elevated. Total protein was 7.5, albumin was 3.6. Her urinalysis showed the urine was yellow, hazy with a pH of 5.5, specific gravity of 1.020. The urine was negative for protein, glucose. There was trace of ketones, negative for blood, positive for nitrite. There was trace of leukocyte esterase. There was 1-2 rbc's, 11-20 wbc's and too many bacteria. Her toxic screen was essentially negative. IMPRESSION: In summary, this is a 62-year-old female patient, a resident at [facility] in [place], [place], who was admitted on account of increased agitation, depression, refusing cares, verbally abusive, saying "I will be better off ." All this in a background of schizophrenia and bipolar disorder. When I saw her, she complained of nausea and abdominal pain that is of new onset as of this morning. PLAN: My plan is to arrange for her to have some labs to be done stat as well as KUB. We will arrange for her to have a CBC, CMP, LDH, lipase, lactic acid as well as KUB and decide on further management accordingly, as she might be transferred to [address] [place] [address] if necessary. JAYLYN BENÍTEZ MD DR: KAMRYN/aamir JOB#: [id number] / [id number]
[2018-03-25 06:01] VITALS: BP 120/72
[2018-03-25] MEDS: LEVOTHYROXINE 100 MCG TABLET PO SCH (06:15)
[2018-03-25] MEDS: ATORVASTATIN CALCIUM 10 MG TABLET. PO SCH (09:17)
[2018-03-25] MEDS: CHOLECALCIFEROL (VITAMIN D3) 1,000 UNIT TABLET PO SCH (09:17)
[2018-03-25] MEDS: PANTOPRAZOLE 40 MG TABLET. PO SCH (09:17)
[2018-03-25] MEDS: buPROPion XL 300 MG TAB.ER.24H. PO SCH (09:17)
[2018-03-25] MEDS: GABAPENTIN 100 MG CAPSULE. PO SCH ×3 (09:18→19:47)
[2018-03-25] MEDS: INSULIN GLARGINE 300 UNITS/3 ML INSULN.PEN. SQ SCH (09:19)
[2018-03-25] MEDS: INSULIN LISPRO 300 UNITS/3 ML INSULN.PEN. SQ SCH ×3 (09:20→18:03)
[2018-03-25] MEDS: CHLORHEXIDINE 0.12% 15 ML MOUTHWASH. MM SCH ×2 (09:23→19:47)
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
[2018-03-25 16:42] VITALS: BP 112/82
[2018-03-25] MEDS: MELATONIN 3 MG TABLET PO SCH (19:47)
[2018-03-25] MEDS: DIVALPROEX 125 MG CAP.SPRINK PO SCH (19:47)
[2018-03-25] MEDS: clonazePAM 0.5 MG TABLET PO SCH (19:48)
[2018-03-25] MEDS: MIRTAZAPINE 15 MG TABLET PO SCH (19:48)
[2018-03-25] MEDS: HYDROcodone/APAP 7.5/325MG 1 TAB TABLET PO PRN (20:37)
[2018-03-25] MEDS: ONDANSETRON ODT 4 MG TAB.RAPDIS PO PRN (22:27)
--- NOTE | 2018-03-25 22:31 | PDOC ---
Exam Note: Luis Note: Please also refer to the separate dictated note~for this date of service dictated separately.~Patient seen individually. Discussed the patient with Nursing staff reviewed the chart.~Reviewed interim history and current functioning. Reviewed vital signs,~Labs/ Radiology~and current medications noted below. Continue current treatment with the changes noted in the dictated addendum note Assessment: Vital Signs: Vital Signs Date Time Temp Pulse Resp B/P (MAP) Pulse Ox O2 Delivery O2 Flow Rate FiO2 03/25/18 21:37 97 03/25/18 16:42 97.3 94 20 112/82 (92) Room Air I&O Intake and Output 03/25/18 07:00 Intake Total 1440 ml Balance 1440 ml Intake Oral 1440 ml Labs: Laboratory Tests Test 03/25/18 07:20 03/25/18 12:24 03/25/18 17:11 03/25/18 19:10 Glucose (Fingerstick) 244 mg/dL (70-99) H 161 mg/dL (70-99) H 197 mg/dL (70-99) H 263 mg/dL (70-99) H Current Medications: Meds: Current Medications Trimethoprim/ Sulfamethoxazole (Bactrim Ds) 1 tab 1X ONCE PO Last administered on 03/23/18at 18:56; Start 03/23/18 at 19:00; Stop 03/23/18 at 19:09 ; Status DC Acetaminophen (Tylenol) 650 mg PRN Q6HRS PRN PO PAIN / TEMP; Start 03/23/18 at 21:15 Al Hydroxide/Mg Hydroxide (Mylanta Plus Xs) 15 ml PRN AFTMEALHC PRN PO DYSPEPSIA; Start 03/23/18 at 21:15 Magnesium Hydroxide (Milk Of Magnesia) 2,400 mg PRN QHS PRN PO CONSTIPATION; Start 03/23/18 at 21:15 Bupropion HCl (Wellbutrin Xl) 300 mg DAILY PO Last administered on 03/25/18at 09 :17; Start 03/24/18 at 09:00 Clonazepam (KlonoPIN) 0.5 mg QHS PO Last administered on 03/25/18at 19:48; Start 03/24/18 at 21:00 Melatonin 9 mg HS PO Last administered on 03/25/18at 19:47; Start 03/24/18 at 21 :00 Mirtazapine (Remeron) 15 mg DAILY PO ; Start 03/24/18 at 09:00; Stop 03/24/18 at 09:16; Status DC Acetaminophen (Tylenol) 650 mg PRN Q6HRS PRN PO PAIN / TEMP; Start 03/23/18 at 22:30; Status UNV Bisacodyl (Dulcolax Tab) 10 mg PRN DAILY PRN PO CONSTIPATION; Start 03/23/18 at 22:30 Calcium Carbonate/ Glycine (Tums) 500 mg PRN Q8HRS PRN PO HEARTBURN / GAS; Start 03/23/18 at 22:30 Chlorhexidine Gluconate (Peridex) 15 ml Q12HR MM Last administered on at 19:47; Start 03/24/18 at 09:00 Vitamin D (Vitamin D3) 2,000 unit DAILY PO Last administered on 03/25/18at 09:17 ; Start 03/24/18 at 09:00 Dicyclomine HCl (Bentyl) 10 mg PRN DAILY PRN PO GI SYMPTOMS; Start 03/23/18 at 22:30 Gabapentin (Neurontin) 200 mg TID PO Last administered on 03/25/18at 19:47; Start 03/24/18 at 09:00 Guaifenesin (Robitussin) 100 mg PRN Q4HRS PRN PO COUGH Last administered on 03/23/18at 23:50; Start 03/23/18 at 22:30 Levothyroxine Sodium (Synthroid) 100 mcg DAILY06 PO Last administered on at 06:15; Start 03/24/18 at 06:00 Non-Formulary Medication (Albuterol Sulfate (Albuterol Sulfate Conc Neb Soln)) 2.5 mg PRN Q6HRS PRN NEB SHORTNESS OF BREATH; Start 03/23/18 at 22:30; Status UNV Atorvastatin Calcium (Lipitor) 10 mg DAILY PO Last administered on 03/25/18at 09 :17; Start 03/24/18 at 09:00 Non-Formulary Medication (D-Methorphan Hb/ Prometh Hcl (Promethazine-Dm Syrup)) 5 ml PRN Q6HRS PRN PO COUGH; Start 03/23/18 at 22:30; Stop 03/23/18 at 23:45; Status DC Non-Formulary Medication (Dulaglutide (Trulicity)) 0.75 mg WEEKLY SQ ; Start at 09:00; Status UNV Pantoprazole Sodium (Protonix) 40 mg DAILYAC PO Last administered on 03/25/18at 09:17; Start 03/24/18 at 07:30 Fluticasone Propionate (Flonase) 2 spray PRN DAILY PRN NS ALLERGIES; Start 03/24/18 at 09:00 Acetaminophen/ Hydrocodone Bitart (Lortab 10/325) 1 tab PRN Q6HRS PRN PO PAIN; Start 03/23/18 at 23:00; Stop 03/23/18 at 23:19; Status DC Acetaminophen/ Hydrocodone Bitart (Lortab 7.5/325) 1 tab PRN Q6HRS PRN PO PAIN ; Start 03/23/18 at 23:00; Stop 03/23/18 at 23:19; Status DC Insulin Human Lispro (HumaLOG) 10 units TIDWMEALS SQ Last administered on at 18:03; Start 03/24/18 at 08:00 Insulin Glargine (Lantus) 60 units DAILY SQ Last administered on 03/25/18at 09: 19; Start 03/24/18 at 09:00 Multi-Ingredient Ointment (Analgesic Veteran) 1 nnamdi PRN TID PRN TP MUSCLE PAIN; Start 03/23/18 at 23:15 Famotidine (Pepcid) 20 mg PRN Q8HRS PRN PO HEARTBURN/GAS; Start 03/23/18 at 23: 00 Albuterol Sulfate (Ventolin) 2.5 mg PRN Q6HRS PRN NEB SHORTNESS OF BREATH; Start 03/23/18 at 23:15 Acetaminophen/ Hydrocodone Bitart (Lortab 7.5/325) 2 tab PRN Q6HRS PRN PO PAIN Last administered on 03/25/18at 20:37; Start 03/23/18 at 23:30 Mirtazapine (Remeron) 15 mg HS PO Last administered on 03/25/18at 19:48; Start 03/24/18 at 21:00 Ondansetron HCl (Zofran Odt) 4 mg PRN Q8HRS PRN PO NAUSEA/VOMITING Last administered on 03/25/18at 22:27; Start 03/24/18 at 15:45 Divalproex Sodium (Depakote Sprinkles) 500 mg HS PO Last administered on at 19:47; Start 03/25/18 at 21:00 Active Scripts Active Reported Mirtazapine 15 Mg Tablet 15 Mg PO DAILY Abbey-Tussin (Guaifenesin) 100 Mg/5 Ml Liquid 100 Mg PO PRN Q4HRS PRN Peridex (Chlorhexidine Gluconate) 15 Ml Mouthwash 15 Ml MM Q12HR Trulicity (Dulaglutide) 0.75 Mg/0.5 Ml Pen.injctr 0.75 Mg SQ WEEKLY Levemir Flextouch (Insulin Detemir) 100 Unit/1 Ml Insuln.pen 60 Unit SQ DAILY Nexium Capsule (Esomeprazole Magnesium) 40 Mg Capsule.dr 40 Mg PO DAILYAC Vitamin D3 (Cholecalciferol (Vitamin D3)) 1,000 Unit Tablet 2,000 Unit PO DAILY Flonase Allergy Relief (Fluticasone Propionate) 9.9 Ml [place].susp 2 Sprays NS PRN DAILY PRN Dicyclomine Hcl 10 Mg Capsule 10 Mg PO PRN DAILY PRN Biofreeze (Menthol) 118 Ml Gel..ml. 1 Nnamdi TP PRN TID PRN Klonopin (Clonazepam) 0.5 Mg Tablet 0.5 Mg PO QHS Levothyroxine Sodium 100 Mcg Tablet 100 Mcg PO DAILYAC Gabapentin (Gabapentin) 100 Mg Capsule 200 Mg PO TID Tums (Calcium Carbonate) 200 Mg Tab.chew 500 Mg PO PRN Q8HRS PRN Zantac (Ranitidine Hcl) 150 Mg Tablet 75 Mg PO PRN Q8HRS PRN Promethazine-Dm Syrup (D-Methorphan Hb/Prometh Hcl) 118 Ml Syrup 5 Ml PO PRN Q6HRS PRN Tylenol (Acetaminophen) 325 Mg Tablet 650 Mg PO PRN Q6HRS PRN Bupropion Xl (Bupropion Hcl) 300 Mg Tab.er.24h 300 Mg PO DAILY Melatonin 3 Mg Tablet 10 Mg PO DAILY Novolog Flexpen (Insulin Aspart) 100 Unit/1 Ml Insuln.pen 10 Unit SQ TIDWMEALS Albuterol Sulfate Conc Neb Soln (Albuterol Sulfate) 2.5 Mg/0.5 Ml Vial.neb 2.5 Mg NEB PRN Q6HRS PRN Hydrocodone-Apap 7.5-325 (Hydrocodone Bit/Acetaminophen) 1 Each Tablet 2 Tab PO PRN Q6HRS PRN Bisacodyl 5 Mg Tablet.dr 10 Mg PO PRN DAILY PRN Atorvastatin Calcium 10 Mg Tablet 10 Mg PO DAILY I have reviewed the current psychotropics carefully including drug interactions. Risk benefit ratio favors no change other than as noted in my dictated progress note. Diagnosis: Problems: (1) Anxiety disorder (2) Bipolar 1 disorder, manic, moderate (3) Impulse control disorder (4) Schizoaffective disorder, bipolar type FAYE MUNGUIA MD Mar 25, 2018 22:31
[2018-03-26] MEDS: LEVOTHYROXINE 100 MCG TABLET PO SCH (05:33)
[2018-03-26] MEDS: ACETAMINOPHEN 325 MG TABLET PO PRN (05:33)
[2018-03-26 05:49] VITALS: BP 108/72
[2018-03-26] MEDS: PANTOPRAZOLE 40 MG TABLET. PO SCH (08:00)
[2018-03-26] MEDS: INSULIN LISPRO 300 UNITS/3 ML INSULN.PEN. SQ SCH ×3 (08:00→17:27)
[2018-03-26] MEDS: buPROPion XL 300 MG TAB.ER.24H. PO SCH (08:02)
[2018-03-26] MEDS: ATORVASTATIN CALCIUM 10 MG TABLET. PO SCH (08:02)
[2018-03-26] MEDS: CHOLECALCIFEROL (VITAMIN D3) 1,000 UNIT TABLET PO SCH (08:02)
[2018-03-26] MEDS: CHLORHEXIDINE 0.12% 15 ML MOUTHWASH. MM SCH ×2 (08:02→19:41)
[2018-03-26] MEDS: GABAPENTIN 100 MG CAPSULE. PO SCH ×3 (08:02→19:42)
[2018-03-26] MEDS: INSULIN GLARGINE 300 UNITS/3 ML INSULN.PEN. SQ SCH (08:03)
[2018-03-26] MEDS: HYDROcodone/APAP 7.5/325MG 1 TAB TABLET PO PRN (09:23)
[2018-03-26 15:55] VITALS: BP 102/60
[2018-03-26] MEDS: DIVALPROEX 125 MG CAP.SPRINK PO SCH (19:42)
[2018-03-26] MEDS: MELATONIN 3 MG TABLET PO SCH (19:42)
[2018-03-26] MEDS: MIRTAZAPINE 15 MG TABLET PO SCH (19:42)
[2018-03-26] MEDS: clonazePAM 0.5 MG TABLET PO SCH (19:42)
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
--- NOTE | 2018-03-27 00:54 | PN ---
DATE: 03/26/2018 SUBJECTIVE: The patient was seen today, met with the staff, chart reviewed. The patient was admitted from [facility] because of increased agitation, depression, refusing cares, also verbally abusive, making suicidal statements. OBSERVATION: VITAL SIGNS: Temperature 97.9, blood pressure 108/72, pulse 63, respirations 20, O2 sat 99%. Slept about 7 hours last night. The patient's appetite normal. MEDICATIONS: Reviewed. LABORATORY DATA: Also, lab reviewed. The patient is not having any major side effects from the medications. The patient currently on Wellbutrin, gabapentin, Klonopin, Remeron, and Depakote. The patient is also on p.r.n. hydrocodone. ASSESSMENT: Schizoaffective disorder, bipolar type with psychotic features, probable posttraumatic stress disorder. DIMA PETERSON MD DR: MICHELLE/aamir JOB#: [id number] / [id number]
[2018-03-27] MEDS: LEVOTHYROXINE 100 MCG TABLET PO SCH (05:38)
[2018-03-27 06:06] VITALS: BP 95/57
[2018-03-27] MEDS: buPROPion XL 300 MG TAB.ER.24H. PO SCH (08:02)
[2018-03-27] MEDS: CHLORHEXIDINE 0.12% 15 ML MOUTHWASH. MM SCH ×2 (08:02→19:49)
[2018-03-27] MEDS: PANTOPRAZOLE 40 MG TABLET. PO SCH (08:02)
[2018-03-27] MEDS: GABAPENTIN 100 MG CAPSULE. PO SCH ×3 (08:02→19:50)
[2018-03-27] MEDS: ATORVASTATIN CALCIUM 10 MG TABLET. PO SCH (08:02)
[2018-03-27] MEDS: CHOLECALCIFEROL (VITAMIN D3) 1,000 UNIT TABLET PO SCH (08:02)
[2018-03-27] MEDS: INSULIN LISPRO 300 UNITS/3 ML INSULN.PEN. SQ SCH ×3 (08:04→17:31)
[2018-03-27] MEDS: INSULIN GLARGINE 300 UNITS/3 ML INSULN.PEN. SQ SCH (08:04)
[2018-03-27 16:40] VITALS: BP 153/81
[2018-03-27] MEDS: MIRTAZAPINE 15 MG TABLET PO SCH (19:49)
[2018-03-27] MEDS: MELATONIN 3 MG TABLET PO SCH (19:50)
[2018-03-27] MEDS: DIVALPROEX 125 MG CAP.SPRINK PO SCH (19:50)
[2018-03-27] MEDS: clonazePAM 0.5 MG TABLET PO SCH (19:51)
[2018-03-27] MEDS: DOXYCYCLINE HYCLATE 100 MG TABLET PO SCH (19:52)
[2018-03-27] MEDS: LACTOBACILLUS RHAMNOSUS GG 1 CAPSULE. PO SCH (19:53)
--- NOTE | 2018-03-27 22:35 | PN ---
DATE: 03/27/2018 SUBJECTIVE: The patient was seen today, met with the staff, chart reviewed. The patient apparently not presented with any major behavior problems. Continues to have increased anxiety. The patient apparently had problems with the UTI, waiting for the culture and sensitivity. OBSERVATION: VITAL SIGNS: Temperature 97.5, blood pressure 95/97, pulse 62, respiration 18, O2 sat 96%. Slept about 7 hours last night. The patient's medications reviewed, not having any side effects. ASSESSMENT: Schizoaffective disorder, bipolar type with psychotic features, probable post-traumatic stress disorder. PLAN: To continue with the treatment. DIMA PETERSON MD DR: MICHELLE/aamir JOB#: [id number] / [id number]
[2018-03-28] MEDS: LEVOTHYROXINE 100 MCG TABLET PO SCH (04:45)
[2018-03-28 06:07] VITALS: BP 132/82
[2018-03-28] MEDS: PANTOPRAZOLE 40 MG TABLET. PO SCH (08:18)
[2018-03-28] MEDS: INSULIN LISPRO 300 UNITS/3 ML INSULN.PEN. SQ SCH ×3 (08:18→17:00)
[2018-03-28] MEDS: INSULIN GLARGINE 300 UNITS/3 ML INSULN.PEN. SQ SCH (08:19)
[2018-03-28] MEDS: GABAPENTIN 100 MG CAPSULE. PO SCH ×3 (08:20→20:02)
[2018-03-28] MEDS: DOXYCYCLINE HYCLATE 100 MG TABLET PO SCH ×2 (08:20→20:02)
[2018-03-28] MEDS: ATORVASTATIN CALCIUM 10 MG TABLET. PO SCH (08:20)
[2018-03-28] MEDS: CHLORHEXIDINE 0.12% 15 ML MOUTHWASH. MM SCH ×2 (08:20→20:00)
[2018-03-28] MEDS: CHOLECALCIFEROL (VITAMIN D3) 1,000 UNIT TABLET PO SCH (08:20)
[2018-03-28] MEDS: LACTOBACILLUS RHAMNOSUS GG 1 CAPSULE. PO SCH ×2 (08:20→20:00)
[2018-03-28] MEDS: buPROPion XL 300 MG TAB.ER.24H. PO SCH (08:20)
[2018-03-28 15:56] VITALS: BP 132/78
[2018-03-28] MEDS: DIVALPROEX 125 MG CAP.SPRINK PO SCH (20:01)
[2018-03-28] MEDS: MELATONIN 3 MG TABLET PO SCH (20:01)
[2018-03-28] MEDS: MIRTAZAPINE 15 MG TABLET PO SCH (20:02)
[2018-03-28] MEDS: clonazePAM 0.5 MG TABLET PO SCH (20:03)
[2018-03-28] MEDS: guaiFENesin 300 MG/15 ML LIQUID PO PRN (21:49)
[2018-03-29 05:51] VITALS: BP 134/79
[2018-03-29] MEDS: LEVOTHYROXINE 100 MCG TABLET PO SCH (06:03)
[2018-03-29 06:18] LABS: BASO # 0.1 x10^3/uL (0.0-0.2); BASO % 1 % (0-3); EOS # 0.2 x10^3/uL (0.0-0.7); EOS % 3 % (0-3); HEMATOCRIT 37.6 % (36.0-47.0); HEMOGLOBIN 12.3 g/dL (12.0-15.5); LYMPH # 1.9 x10^3/uL (1.0-4.8); LYMPH % 27 % (24-48); MEAN CORPUSCULAR HEMOGLOBIN 30 pg (25-35); MEAN CORPUSCULAR HGB CONC 33 g/dL (31-37); MEAN CORPUSCULAR VOLUME 92 fL (79-100); MONO # 0.3 x10^3/uL (0.0-1.1); MONO % 5 % (0-9); NEUT # 4.5 x10^3uL (1.8-7.7); NEUT % 64 % (31-73); PLATELET COUNT 263 x10^3/uL (140-400); RED BLOOD COUNT 4.09 x10^6/uL (3.50-5.40); RED CELL DISTRIBUTION WIDTH 14.1 % (11.5-14.5); WHITE BLOOD COUNT 6.9 x10^3/uL (4.0-11.0)
[2018-03-29 06:35] LABS: ALBUMIN/GLOBULIN RATIO 0.8 (1.0-1.7); ALK PHOS 110 U/L (46-116); ALT (SGPT) 26 U/L (14-59); ANION GAP 7 (6-14); AST (SGOT) 16 U/L (15-37); BLOOD UREA NITROGEN 16 mg/dL (7-20); BUN/CREATININE RATIO 15 (6-20); CALCIUM 8.6 mg/dL (8.5-10.1); CARBON DIOXIDE 31 mmol/L (21-32); CHLORIDE 104 mmol/L (98-107); CREATININE 1.1 mg/dL (0.6-1.0); GLUCOSE 154 mg/dL (70-99); POTASSIUM 4.3 mmol/L (3.5-5.1); SODIUM 142 mmol/L (136-145); TOTAL BILIRUBIN 0.2 mg/dL (0.2-1.0); TOTAL PROTEIN 6.6 g/dL (6.4-8.2)
[2018-03-29 06:36] LABS: VAL ACID 39 mcg/mL (50-100)
[2018-03-29] MEDS: INSULIN LISPRO 300 UNITS/3 ML INSULN.PEN. SQ SCH ×3 (08:12→17:00)
[2018-03-29] MEDS: ATORVASTATIN CALCIUM 10 MG TABLET. PO SCH (08:13)
[2018-03-29] MEDS: PANTOPRAZOLE 40 MG TABLET. PO SCH (08:13)
[2018-03-29] MEDS: GABAPENTIN 100 MG CAPSULE. PO SCH ×3 (08:13→19:46)
[2018-03-29] MEDS: LACTOBACILLUS RHAMNOSUS GG 1 CAPSULE. PO SCH ×2 (08:13→19:46)
[2018-03-29] MEDS: DOXYCYCLINE HYCLATE 100 MG TABLET PO SCH ×2 (08:14→19:46)
[2018-03-29] MEDS: buPROPion XL 300 MG TAB.ER.24H. PO SCH (08:15)
[2018-03-29] MEDS: CHOLECALCIFEROL (VITAMIN D3) 1,000 UNIT TABLET PO SCH (08:15)
[2018-03-29] MEDS: INSULIN GLARGINE 300 UNITS/3 ML INSULN.PEN. SQ SCH (08:18)
[2018-03-29] MEDS: CHLORHEXIDINE 0.12% 15 ML MOUTHWASH. MM SCH ×2 (09:00→19:51)
--- NOTE | 2018-03-29 09:34 | PN ---
DATE: 03/28/2018 SUBJECTIVE: The patient was seen today, met with the staff, chart reviewed. The patient continues to show increased agitation, refusing care, also having mood swings, irritability, and impulse control problems. The patient recently was treated for UTI with doxycycline. OBSERVATION: VITAL SIGNS: Temperature 97.4, blood pressure 132/82, pulse 59, respirations 18, O2 sat 99%. Slept about 6 hours last night. CURRENT MEDICATIONS: The patient's medications reviewed. The patient is not having any side effects to the medications. The patient is not presenting with any major medical issues at this time except for the UTI. ASSESSMENT: Schizoaffective disorder, bipolar type, with psychotic features, probable posttraumatic stress disorder. PLAN: To continue with the treatment. DIMA PETERSON MD DR: MICHELLE/aamir JOB#: [id number] / [id number]
[2018-03-29 16:26] VITALS: BP 132/81
[2018-03-29] MEDS: MIRTAZAPINE 15 MG TABLET PO SCH (19:46)
[2018-03-29] MEDS: DIVALPROEX 125 MG CAP.SPRINK PO SCH (19:46)
[2018-03-29] MEDS: MELATONIN 3 MG TABLET PO SCH (19:47)
[2018-03-29] MEDS: clonazePAM 0.5 MG TABLET PO SCH (19:51)
--- NOTE | 2018-03-30 04:57 | PN ---
DATE: 03/29/2018 SUBJECTIVE: The patient was seen today, met with the staff, chart reviewed. The patient's behavior remains the same. No major behavior problems. Continues to have mood swings, irritability. OBSERVATION: VITAL SIGNS: Temperature 97.4, blood pressure 134/79, pulse 70, respirations 20, O2 sat 99%. Slept about 5 hours last night. The patient's medications reviewed, labs reviewed. The patient is not having any side effects to the medications. ASSESSMENT: Schizoaffective disorder, bipolar type with psychotic features. PLAN: To continue with the treatment. DIMA PETERSON MD DR: MICHELLE/aamir JOB#: [id number] / [id number]
[2018-03-30] MEDS: LEVOTHYROXINE 100 MCG TABLET PO SCH (05:51)
[2018-03-30 05:59] VITALS: BP 104/62
[2018-03-30] MEDS: PANTOPRAZOLE 40 MG TABLET. PO SCH (08:00)
[2018-03-30] MEDS: DOXYCYCLINE HYCLATE 100 MG TABLET PO SCH ×2 (08:00→21:00)
[2018-03-30] MEDS: buPROPion XL 300 MG TAB.ER.24H. PO SCH (08:00)
[2018-03-30] MEDS: LACTOBACILLUS RHAMNOSUS GG 1 CAPSULE. PO SCH ×2 (08:00→21:00)
[2018-03-30] MEDS: ATORVASTATIN CALCIUM 10 MG TABLET. PO SCH (08:00)
[2018-03-30] MEDS: GABAPENTIN 100 MG CAPSULE. PO SCH ×3 (08:11→21:00)
[2018-03-30] MEDS: CHLORHEXIDINE 0.12% 15 ML MOUTHWASH. MM SCH ×2 (08:11→21:00)
[2018-03-30] MEDS: CHOLECALCIFEROL (VITAMIN D3) 1,000 UNIT TABLET PO SCH (08:11)
[2018-03-30] MEDS: INSULIN LISPRO 300 UNITS/3 ML INSULN.PEN. SQ SCH ×3 (08:16→17:33)
[2018-03-30] MEDS: INSULIN GLARGINE 300 UNITS/3 ML INSULN.PEN. SQ SCH (08:17)
[2018-03-30] MEDS ORDERED: NON FORMULARY ITEM (Dulaglutide (Trulicity) 0.75 MG) SQ SCH (09:00)
[2018-03-30 21:00] VITALS: BP 98/63
[2018-03-30] MEDS: MIRTAZAPINE 15 MG TABLET PO SCH (21:00)
[2018-03-30] MEDS: MELATONIN 3 MG TABLET PO SCH (21:00)
[2018-03-30] MEDS: DIVALPROEX 125 MG CAP.SPRINK PO SCH (21:00)
[2018-03-30] MEDS: clonazePAM 0.5 MG TABLET PO SCH (21:02)
[2018-03-30] MEDS: guaiFENesin 300 MG/15 ML LIQUID PO PRN (21:36)
[2018-03-31] MEDS: LEVOTHYROXINE 100 MCG TABLET PO SCH (05:08)
[2018-03-31] MEDS: guaiFENesin 300 MG/15 ML LIQUID PO PRN (05:08)
[2018-03-31 06:01] VITALS: BP 106/67
[2018-03-31] MEDS: PANTOPRAZOLE 40 MG TABLET. PO SCH (08:44)
[2018-03-31] MEDS: INSULIN LISPRO 300 UNITS/3 ML INSULN.PEN. SQ SCH ×3 (08:46→17:00)
[2018-03-31] MEDS: CHLORHEXIDINE 0.12% 15 ML MOUTHWASH. MM SCH ×2 (08:46→20:13)
[2018-03-31] MEDS: ATORVASTATIN CALCIUM 10 MG TABLET. PO SCH (08:46)
[2018-03-31] MEDS: DOXYCYCLINE HYCLATE 100 MG TABLET PO SCH ×2 (08:47→20:10)
[2018-03-31] MEDS: GABAPENTIN 100 MG CAPSULE. PO SCH ×3 (08:47→20:10)
[2018-03-31] MEDS: CHOLECALCIFEROL (VITAMIN D3) 1,000 UNIT TABLET PO SCH (08:47)
[2018-03-31] MEDS: buPROPion XL 300 MG TAB.ER.24H. PO SCH (08:47)
[2018-03-31] MEDS: LACTOBACILLUS RHAMNOSUS GG 1 CAPSULE. PO SCH ×2 (08:49→20:09)
[2018-03-31] MEDS: INSULIN GLARGINE 300 UNITS/3 ML INSULN.PEN. SQ SCH (08:49)
--- NOTE | 2018-03-31 11:12 | PN ---
DATE: 03/30/2018 SUBJECTIVE: The patient was seen today, met with the staff, chart reviewed. The patient continues to have some mood swings, but no major behavior problems. OBSERVATION: VITAL SIGNS: Temperature 97.7, blood pressure 104/62, pulse 68, respirations 16 and O2 sat 96%. Slept about 7 hours last night. CURRENT MEDICATIONS: The patient's medications reviewed and also lab reviewed. The patient is not exhibiting any side effects to medications. ASSESSMENT: Schizoaffective disorder, bipolar type with psychotic features. PLAN: Continue with the treatment. DIMA PETERSON MD DR: MICHELLE/nts JOB#: [id number] / [id number]
[2018-03-31 16:38] VITALS: BP 126/79
[2018-03-31] MEDS ORDERED: BENZOCAINE/MENTHOL LOZNGE 18'S BOX. PO PRN (18:00)
--- NOTE | 2018-03-31 18:50 | PN ---
DATE: 03/31/2018 SUBJECTIVE: The patient was seen today, met with the staff, chart reviewed. The patient has multiple physical complaints, complains of severe chest pain and coughing, which is productive. The patient also complains of muscle spasms, states she is not feeling good. OBSERVATION: VITAL SIGNS: Temperature 97.5, blood pressure 106/67, pulse 79, respiration 18, O2 sat 99%. GENERAL: Slept about 3 hours last night. CURRENT MEDICATIONS: The patient's medications reviewed. The patient is not having any side effects from the medications. LABORATORY DATA: Reviewed. ASSESSMENT: Schizoaffective disorder, bipolar type with psychotic features. PLAN: Continue with the treatment. Primary care physician will see her with regard to her chest pain and cough. DIMA PETERSON MD DR: MICHELLE/aamir JOB#: [id number] / [id number]
[2018-03-31] MEDS: ALBUTEROL SULFATE 2.5 MG/3 ML NEBU. NEB SCH (20:00)
[2018-03-31] MEDS: DIVALPROEX 125 MG CAP.SPRINK PO SCH (20:09)
[2018-03-31] MEDS: MELATONIN 3 MG TABLET PO SCH (20:09)
[2018-03-31] MEDS: MIRTAZAPINE 15 MG TABLET PO SCH (20:10)
[2018-03-31] MEDS: clonazePAM 0.5 MG TABLET PO SCH (20:13)
[2018-04-01] MEDS: guaiFENesin DM 200MG/20MG 10 ML SYRUP PO PRN ×3 (04:04→20:38)
[2018-04-01] MEDS: ACETAMINOPHEN 325 MG TABLET PO PRN (04:04)
[2018-04-01] MEDS: ALBUTEROL SULFATE 2.5 MG/3 ML NEBU. NEB SCH ×6 (05:25→21:49)
[2018-04-01] MEDS: LEVOTHYROXINE 100 MCG TABLET PO SCH (06:06)
[2018-04-01 06:40] VITALS: BP 150/83
[2018-04-01] MEDS: CHOLECALCIFEROL (VITAMIN D3) 1,000 UNIT TABLET PO SCH (08:06)
[2018-04-01] MEDS: ATORVASTATIN CALCIUM 10 MG TABLET. PO SCH (08:06)
[2018-04-01] MEDS: DOXYCYCLINE HYCLATE 100 MG TABLET PO SCH ×2 (08:06→20:36)
[2018-04-01] MEDS: buPROPion XL 300 MG TAB.ER.24H. PO SCH (08:06)
[2018-04-01] MEDS: PANTOPRAZOLE 40 MG TABLET. PO SCH (08:06)
[2018-04-01] MEDS: LACTOBACILLUS RHAMNOSUS GG 1 CAPSULE. PO SCH ×2 (08:06→20:36)
[2018-04-01] MEDS: CHLORHEXIDINE 0.12% 15 ML MOUTHWASH. MM SCH ×2 (08:07→20:37)
[2018-04-01] MEDS: GABAPENTIN 100 MG CAPSULE. PO SCH ×3 (08:10→20:36)
[2018-04-01] MEDS: INSULIN LISPRO 300 UNITS/3 ML INSULN.PEN. SQ SCH ×3 (08:11→16:45)
[2018-04-01] MEDS: INSULIN GLARGINE 300 UNITS/3 ML INSULN.PEN. SQ SCH (08:13)
[2018-04-01 16:04] VITALS: BP 115/75
[2018-04-01] MEDS: HYDROcodone/APAP 7.5/325MG 1 TAB TABLET PO PRN (16:43)
[2018-04-01] MEDS: clonazePAM 0.5 MG TABLET PO SCH (20:35)
[2018-04-01] MEDS: DIVALPROEX 125 MG CAP.SPRINK PO SCH (20:36)
[2018-04-01] MEDS: MIRTAZAPINE 15 MG TABLET PO SCH (20:36)
[2018-04-01] MEDS: MELATONIN 3 MG TABLET PO SCH (20:36)
--- NOTE | 2018-04-01 21:52 | PN ---
DATE: 04/01/2018 SUBJECTIVE: The patient was seen today, met with the staff, chart reviewed. The patient is not presenting with any major behavioral problems today. The patient denies of having any chest pain and not having problems with a cough, basically improved. The patient is not exhibiting any major behavior problems at this time. OBSERVATION: VITAL SIGNS: Temperature 98.6, blood pressure 115/75, pulse 84, respiration 18, O2 sat 95%. The patient slept about 7 hours last night. CURRENT MEDICATIONS: The patient's medications reviewed. The patient is not having any side effects to medications. LABORATORY DATA: Reviewed. ASSESSMENT: Schizoaffective disorder, bipolar type, with psychotic features. PLAN: To continue with treatment. DIMA PETERSON MD DR: MICHELLE/aamir JOB#: [id number] / [id number]
[2018-04-02] MEDS: LEVOTHYROXINE 100 MCG TABLET PO SCH (02:59)
[2018-04-02] MEDS: ALBUTEROL SULFATE 2.5 MG/3 ML NEBU. NEB SCH ×6 (04:58→20:03)
[2018-04-02 06:02] VITALS: BP 106/68
[2018-04-02] MEDS: PANTOPRAZOLE 40 MG TABLET. PO SCH (07:52)
[2018-04-02] MEDS: LACTOBACILLUS RHAMNOSUS GG 1 CAPSULE. PO SCH ×2 (07:55→19:43)
[2018-04-02] MEDS: INSULIN LISPRO 300 UNITS/3 ML INSULN.PEN. SQ SCH ×3 (07:55→17:08)
[2018-04-02] MEDS: CHLORHEXIDINE 0.12% 15 ML MOUTHWASH. MM SCH ×2 (07:55→19:42)
[2018-04-02] MEDS: DOXYCYCLINE HYCLATE 100 MG TABLET PO SCH ×2 (07:56→19:42)
[2018-04-02] MEDS: CHOLECALCIFEROL (VITAMIN D3) 1,000 UNIT TABLET PO SCH (07:56)
[2018-04-02] MEDS: GABAPENTIN 100 MG CAPSULE. PO SCH ×3 (07:56→19:43)
[2018-04-02] MEDS: ATORVASTATIN CALCIUM 10 MG TABLET. PO SCH (07:56)
[2018-04-02] MEDS: buPROPion XL 300 MG TAB.ER.24H. PO SCH (07:57)
[2018-04-02] MEDS: INSULIN GLARGINE 300 UNITS/3 ML INSULN.PEN. SQ SCH (07:59)
[2018-04-02] MEDS: HYDROcodone/APAP 7.5/325MG 1 TAB TABLET PO PRN ×2 (10:25→19:43)
[2018-04-02 16:13] VITALS: BP 120/76
[2018-04-02] MEDS: DIVALPROEX 125 MG CAP.SPRINK PO SCH (19:42)
[2018-04-02] MEDS: MIRTAZAPINE 15 MG TABLET PO SCH (19:42)
[2018-04-02] MEDS: MELATONIN 3 MG TABLET PO SCH (19:42)
[2018-04-02] MEDS: clonazePAM 0.5 MG TABLET PO SCH (19:44)
[2018-04-03] MEDS: ALBUTEROL SULFATE 2.5 MG/3 ML NEBU. NEB SCH ×6 (04:45→21:21)
[2018-04-03 05:51] VITALS: BP 139/74
[2018-04-03] MEDS: LEVOTHYROXINE 100 MCG TABLET PO SCH (06:01)
[2018-04-03] MEDS: INSULIN LISPRO 300 UNITS/3 ML INSULN.PEN. SQ SCH ×3 (07:48→17:12)
[2018-04-03] MEDS: INSULIN GLARGINE 300 UNITS/3 ML INSULN.PEN. SQ SCH (07:51)
[2018-04-03] MEDS: LACTOBACILLUS RHAMNOSUS GG 1 CAPSULE. PO SCH ×2 (07:57→19:49)
[2018-04-03] MEDS: ATORVASTATIN CALCIUM 10 MG TABLET. PO SCH (07:57)
[2018-04-03] MEDS: DOXYCYCLINE HYCLATE 100 MG TABLET PO SCH ×2 (07:57→19:50)
[2018-04-03] MEDS: buPROPion XL 300 MG TAB.ER.24H. PO SCH (07:57)
[2018-04-03] MEDS: GABAPENTIN 100 MG CAPSULE. PO SCH ×3 (07:57→19:49)
[2018-04-03] MEDS: PANTOPRAZOLE 40 MG TABLET. PO SCH (07:57)
[2018-04-03] MEDS: CHLORHEXIDINE 0.12% 15 ML MOUTHWASH. MM SCH ×2 (07:57→19:50)
[2018-04-03] MEDS: CHOLECALCIFEROL (VITAMIN D3) 1,000 UNIT TABLET PO SCH (07:57)
[2018-04-03 09:30] LABS: BASO % 1 % (0-3); EOS # 0.4 x10^3/uL (0.0-0.7); EOS % 5 % (0-3); HEMATOCRIT 36.3 % (36.0-47.0); HEMOGLOBIN 11.9 g/dL (12.0-15.5); LYMPH # 2.7 x10^3/uL (1.0-4.8); LYMPH % 34 % (24-48); MEAN CORPUSCULAR HEMOGLOBIN 30 pg (25-35); MEAN CORPUSCULAR HGB CONC 33 g/dL (31-37); MEAN CORPUSCULAR VOLUME 92 fL (79-100); MONO # 0.3 x10^3/uL (0.0-1.1); MONO % 4 % (0-9); NEUT # 4.4 x10^3uL (1.8-7.7); NEUT % 56 % (31-73); PLATELET COUNT 244 x10^3/uL (140-400); RED BLOOD COUNT 3.95 x10^6/uL (3.50-5.40); RED CELL DISTRIBUTION WIDTH 14.4 % (11.5-14.5); WHITE BLOOD COUNT 7.9 x10^3/uL (4.0-11.0)
[2018-04-03 09:38] LABS: ALBUMIN 3.2 g/dL (3.4-5.0); ALBUMIN/GLOBULIN RATIO 0.9 (1.0-1.7); CALCIUM 8.4 mg/dL (8.5-10.1); CREATININE 1.2 mg/dL (0.6-1.0); GFR 45.2; POTASSIUM 4.4 mmol/L (3.5-5.1); TOTAL BILIRUBIN 0.3 mg/dL (0.2-1.0); TOTAL PROTEIN 6.9 g/dL (6.4-8.2)
[2018-04-03 17:19] VITALS: BP 123/80
--- NOTE | 2018-04-03 18:35 | PN ---
DATE: 04/03/2018 SUBJECTIVE: The patient was seen today, met with the staff, chart reviewed. The patient's behavior remains the same. The patient is not having any major physical complaints. She is pleasant. Denies of feeling depressed. OBSERVATION: VITAL SIGNS: Temperature 97.6, blood pressure 129/74, pulse 63, respirations 16, O2 sat 95%. Slept about 7 hours last night. CURRENT MEDICATIONS: The patient's medications reviewed. Labs reviewed. The patient denies of any side effects to the medications. ASSESSMENT: Schizoaffective disorder, bipolar type, psychotic features. PLAN: To continue with the treatment. DIMA PETERSON MD DR: MICHELLE/aamir JOB#: [id number] / [id number]
[2018-04-03] MEDS: DIVALPROEX 125 MG CAP.SPRINK PO SCH (19:49)
[2018-04-03] MEDS: MELATONIN 3 MG TABLET PO SCH (19:49)
[2018-04-03] MEDS: clonazePAM 0.5 MG TABLET PO SCH (19:49)
[2018-04-03] MEDS: MIRTAZAPINE 15 MG TABLET PO SCH (19:49)
[2018-04-04] MEDS: ALBUTEROL SULFATE 2.5 MG/3 ML NEBU. NEB SCH ×6 (04:37→20:29)
[2018-04-04 06:13] VITALS: BP 105/58
[2018-04-04] MEDS: LEVOTHYROXINE 100 MCG TABLET PO SCH (06:17)
[2018-04-04] MEDS: INSULIN LISPRO 300 UNITS/3 ML INSULN.PEN. SQ SCH ×3 (08:25→17:19)
[2018-04-04] MEDS: INSULIN GLARGINE 300 UNITS/3 ML INSULN.PEN. SQ SCH (08:26)
[2018-04-04] MEDS: CHLORHEXIDINE 0.12% 15 ML MOUTHWASH. MM SCH ×2 (08:28→19:40)
[2018-04-04] MEDS: LACTOBACILLUS RHAMNOSUS GG 1 CAPSULE. PO SCH ×2 (08:28→19:39)
[2018-04-04] MEDS: PANTOPRAZOLE 40 MG TABLET. PO SCH (08:28)
[2018-04-04] MEDS: ATORVASTATIN CALCIUM 10 MG TABLET. PO SCH (08:29)
[2018-04-04] MEDS: CHOLECALCIFEROL (VITAMIN D3) 1,000 UNIT TABLET PO SCH (08:29)
[2018-04-04] MEDS: buPROPion XL 300 MG TAB.ER.24H. PO SCH (08:29)
[2018-04-04] MEDS: DOXYCYCLINE HYCLATE 100 MG TABLET PO SCH ×2 (08:29→19:38)
[2018-04-04] MEDS: GABAPENTIN 100 MG CAPSULE. PO SCH ×3 (08:29→19:39)
[2018-04-04 15:55] VITALS: BP 147/84
[2018-04-04] MEDS: clonazePAM 0.5 MG TABLET PO SCH (19:38)
[2018-04-04] MEDS: MELATONIN 3 MG TABLET PO SCH (19:38)
[2018-04-04] MEDS: DIVALPROEX 125 MG CAP.SPRINK PO SCH (19:39)
[2018-04-04] MEDS: MIRTAZAPINE 15 MG TABLET PO SCH (19:39)
--- NOTE | 2018-04-04 19:58 | PDOC ---
Exam Note: Luis Note: Please also refer to the separate dictated note~for this date of service dictated separately.~Patient seen individually. Discussed the patient with Nursing staff reviewed the chart.~Reviewed interim history and current functioning. Reviewed vital signs,~Labs/ Radiology~and current medications noted below. Continue current treatment with the changes noted in the dictated addendum note Assessment: Vital Signs: Vital Signs Date Time Temp Pulse Resp B/P (MAP) Pulse Ox O2 Delivery O2 Flow Rate FiO2 04/04/18 16:37 98 Room Air 04/04/18 15:55 97.9 85 20 147/84 (105) I&O Intake and Output 04/04/18 07:00 Intake Total 1560 ml Balance 1560 ml Intake Oral 1560 ml Labs: Laboratory Tests Test 04/04/18 07:18 04/04/18 11:45 04/04/18 17:02 04/04/18 19:23 Glucose (Fingerstick) 165 mg/dL (70-99) H 167 mg/dL (70-99) H 125 mg/dL (70-99) H 169 mg/dL (70-99) H Current Medications: Meds: Current Medications Trimethoprim/ Sulfamethoxazole (Bactrim Ds) 1 tab 1X ONCE PO Last administered on 03/23/18at 18:56; Start 03/23/18 at 19:00; Stop 03/23/18 at 19:09 ; Status DC Acetaminophen (Tylenol) 650 mg PRN Q6HRS PRN PO PAIN / TEMP Last administered on 04/01/18at 04:04; Start 03/23/18 at 21:15 Al Hydroxide/Mg Hydroxide (Mylanta Plus Xs) 15 ml PRN AFTMEALHC PRN PO DYSPEPSIA; Start 03/23/18 at 21:15 Magnesium Hydroxide (Milk Of Magnesia) 2,400 mg PRN QHS PRN PO CONSTIPATION; Start 03/23/18 at 21:15 Bupropion HCl (Wellbutrin Xl) 300 mg DAILY PO Last administered on 04/04/18at 08:29; Start 03/24/18 at 09:00 Clonazepam (KlonoPIN) 0.5 mg QHS PO Last administered on 04/04/18at 19:38; Start 03/24/18 at 21:00 Melatonin 9 mg HS PO Last administered on 04/04/18at 19:38; Start 03/24/18 at 21:00 Mirtazapine (Remeron) 15 mg DAILY PO ; Start 03/24/18 at 09:00; Stop 03/24/18 at 09:16; Status DC Acetaminophen (Tylenol) 650 mg PRN Q6HRS PRN PO PAIN / TEMP; Start 03/23/18 at 22:30; Status UNV Bisacodyl (Dulcolax Tab) 10 mg PRN DAILY PRN PO CONSTIPATION; Start 03/23/18 at 22:30 Calcium Carbonate/ Glycine (Tums) 500 mg PRN Q8HRS PRN PO HEARTBURN / GAS; Start 03/23/18 at 22:30 Chlorhexidine Gluconate (Peridex) 15 ml Q12HR MM Last administered on at 19:40; Start 03/24/18 at 09:00 Vitamin D (Vitamin D3) 2,000 unit DAILY PO Last administered on 04/04/18at 08: 29; Start 03/24/18 at 09:00 Dicyclomine HCl (Bentyl) 10 mg PRN DAILY PRN PO GI SYMPTOMS; Start 03/23/18 at 22:30 Gabapentin (Neurontin) 200 mg TID PO Last administered on 04/04/18at 19:39; Start 03/24/18 at 09:00 Guaifenesin (Robitussin) 100 mg PRN Q4HRS PRN PO COUGH Last administered on at 05:08; Start 03/23/18 at 22:30; Stop 03/31/18 at 17:54; Status DC Levothyroxine Sodium (Synthroid) 100 mcg DAILY06 PO Last administered on at 06:17; Start 03/24/18 at 06:00 Non-Formulary Medication (Albuterol Sulfate (Albuterol Sulfate Conc Neb Soln)) 2.5 mg PRN Q6HRS PRN NEB SHORTNESS OF BREATH; Start 03/23/18 at 22:30; Status UNV Atorvastatin Calcium (Lipitor) 10 mg DAILY PO Last administered on 04/04/18at 08:29; Start 03/24/18 at 09:00 Non-Formulary Medication (D-Methorphan Hb/ Prometh Hcl (Promethazine-Dm Syrup)) 5 ml PRN Q6HRS PRN PO COUGH; Start 03/23/18 at 22:30; Stop 03/23/18 at 23:45; Status DC Non-Formulary Medication (Dulaglutide (Trulicity)) 0.75 mg WEEKLY SQ ; Start at 09:00; Stop 04/01/18 at 10:44; Status DC Pantoprazole Sodium (Protonix) 40 mg DAILYAC PO Last administered on at 08:28; Start 03/24/18 at 07:30 Fluticasone Propionate (Flonase) 2 spray PRN DAILY PRN NS ALLERGIES; Start 03/24/18 at 09:00 Acetaminophen/ Hydrocodone Bitart (Lortab 10/325) 1 tab PRN Q6HRS PRN PO PAIN; Start 03/23/18 at 23:00; Stop 03/23/18 at 23:19; Status DC Acetaminophen/ Hydrocodone Bitart (Lortab 7.5/325) 1 tab PRN Q6HRS PRN PO PAIN ; Start 03/23/18 at 23:00; Stop 03/23/18 at 23:19; Status DC Insulin Human Lispro (HumaLOG) 10 units TIDWMEALS SQ Last administered on 04/04at 17:19; Start 03/24/18 at 08:00 Insulin Glargine (Lantus) 60 units DAILY SQ Last administered on 04/04/18at 08: 26; Start 03/24/18 at 09:00 Multi-Ingredient Ointment (Analgesic [place]) 1 nnamdi PRN TID PRN TP MUSCLE PAIN; Start 03/23/18 at 23:15 Famotidine (Pepcid) 20 mg PRN Q8HRS PRN PO HEARTBURN/GAS; Start 03/23/18 at 23: 00 Albuterol Sulfate (Ventolin) 2.5 mg PRN Q6HRS PRN NEB SHORTNESS OF BREATH; Start 03/23/18 at 23:15; Stop 03/31/18 at 17:50; Status DC Acetaminophen/ Hydrocodone Bitart (Lortab 7.5/325) 2 tab PRN Q6HRS PRN PO PAIN Last administered on 04/02/18at 19:43; Start 03/23/18 at 23:30 Mirtazapine (Remeron) 15 mg HS PO Last administered on 04/04/18 19:39; Start 03/24/18 at 21:00 Ondansetron HCl (Zofran Odt) 4 mg PRN Q8HRS PRN PO NAUSEA/VOMITING Last administered on 03/25/18at 22:27; Start 03/24/18 at 15:45 Divalproex Sodium (Depakote Sprinkles) 500 mg HS PO Last administered on 19:39; Start 03/25/18 at 21:00 Doxycycline Hyclate (Vibra-Tab) 100 mg BID PO Last administered on 04/04/18 19:38; Start 03/27/18 at 21:00; Stop 04/05/18 at 20:59 Lactobacillus Rhamnosus (Culturelle) 1 cap BID PO Last administered on 19:39; Start 03/27/18 at 21:00 Albuterol Sulfate (Ventolin) 2.5 mg Q4HRS NEB Last administered on 04/04/18at 16:37; Start 03/31/18 at 20:00 Throat Lozenges (Cepacol Sore Throat Lozenge) 1 richard PRN Q2HR PRN PO SORE THROAT ; Start 03/31/18 at 18:00 Guaifenesin (Robitussin Dm) 10 ml PRN Q6HRS PRN PO COUGH Last administered on 04/01/18at 20:38; Start 03/31/18 at 18:00 Divalproex Sodium (Depakote Sprinkles) 250 mg DAILY PO ; Start 04/05/18 at 09: 00 Active Scripts Active Reported Mirtazapine 15 Mg Tablet 15 Mg PO DAILY Abbey-Tussin (Guaifenesin) 100 Mg/5 Ml Liquid 100 Mg PO PRN Q4HRS PRN Peridex (Chlorhexidine Gluconate) 15 Ml Mouthwash 15 Ml MM Q12HR Trulicity (Dulaglutide) 0.75 Mg/0.5 Ml Pen.injctr 0.75 Mg SQ WEEKLY Levemir Flextouch (Insulin Detemir) 100 Unit/1 Ml Insuln.pen 60 Unit SQ DAILY Nexium Capsule (Esomeprazole Magnesium) 40 Mg Capsule.dr 40 Mg PO DAILYAC Vitamin D3 (Cholecalciferol (Vitamin D3)) 1,000 Unit Tablet 2,000 Unit PO DAILY Flonase Allergy Relief (Fluticasone Propionate) 9.9 Ml [place].susp 2 Sprays NS PRN DAILY PRN Dicyclomine Hcl 10 Mg Capsule 10 Mg PO PRN DAILY PRN Biofreeze (Menthol) 118 Ml Gel..ml. 1 Nnamdi TP PRN TID PRN Klonopin (Clonazepam) 0.5 Mg Tablet 0.5 Mg PO QHS Levothyroxine Sodium 100 Mcg Tablet 100 Mcg PO DAILYAC Gabapentin (Gabapentin) 100 Mg Capsule 200 Mg PO TID Tums (Calcium Carbonate) 200 Mg Tab.chew 500 Mg PO PRN Q8HRS PRN Zantac (Ranitidine Hcl) 150 Mg Tablet 75 Mg PO PRN Q8HRS PRN Promethazine-Dm Syrup (D-Methorphan Hb/Prometh Hcl) 118 Ml Syrup 5 Ml PO PRN Q6HRS PRN Tylenol (Acetaminophen) 325 Mg Tablet 650 Mg PO PRN Q6HRS PRN Bupropion Xl (Bupropion Hcl) 300 Mg Tab.er.24h 300 Mg PO DAILY Melatonin 3 Mg Tablet 10 Mg PO DAILY Novolog Flexpen (Insulin Aspart) 100 Unit/1 Ml Insuln.pen 10 Unit SQ TIDWMEALS Albuterol Sulfate Conc Neb Soln (Albuterol Sulfate) 2.5 Mg/0.5 Ml Vial.neb 2.5 Mg NEB PRN Q6HRS PRN Hydrocodone-Apap 7.5-325 (Hydrocodone Bit/Acetaminophen) 1 Each Tablet 2 Tab PO PRN Q6HRS PRN Bisacodyl 5 Mg Tablet.dr 10 Mg PO PRN DAILY PRN Atorvastatin Calcium 10 Mg Tablet 10 Mg PO DAILY I have reviewed the current psychotropics carefully including drug interactions. Risk benefit ratio favors no change other than as noted in my dictated progress note. Diagnosis: Problems: (1) Anxiety disorder (2) Bipolar 1 disorder, manic, moderate (3) Impulse control disorder (4) Schizoaffective disorder, bipolar type FAYE MUNGUIA MD Apr 04, 2018 19:58
[2018-04-05] MEDS: ALBUTEROL SULFATE 2.5 MG/3 ML NEBU. NEB SCH ×6 (00:12→20:29)
[2018-04-05] MEDS: LEVOTHYROXINE 100 MCG TABLET PO SCH (06:01)
[2018-04-05 06:38] VITALS: BP 104/71
[2018-04-05] MEDS: ATORVASTATIN CALCIUM 10 MG TABLET. PO SCH (08:11)
[2018-04-05] MEDS: LACTOBACILLUS RHAMNOSUS GG 1 CAPSULE. PO SCH ×2 (08:11→19:34)
[2018-04-05] MEDS: CHOLECALCIFEROL (VITAMIN D3) 1,000 UNIT TABLET PO SCH (08:11)
[2018-04-05] MEDS: PANTOPRAZOLE 40 MG TABLET. PO SCH (08:12)
[2018-04-05] MEDS: buPROPion XL 300 MG TAB.ER.24H. PO SCH (08:12)
[2018-04-05] MEDS: DOXYCYCLINE HYCLATE 100 MG TABLET PO SCH (08:12)
[2018-04-05] MEDS: CHLORHEXIDINE 0.12% 15 ML MOUTHWASH. MM SCH ×2 (08:14→19:39)
[2018-04-05] MEDS: GABAPENTIN 100 MG CAPSULE. PO SCH ×3 (08:14→19:35)
[2018-04-05] MEDS: DIVALPROEX 125 MG CAP.SPRINK PO SCH ×2 (08:15→19:34)
[2018-04-05] MEDS: INSULIN LISPRO 300 UNITS/3 ML INSULN.PEN. SQ SCH ×3 (08:17→16:58)
[2018-04-05] MEDS: INSULIN GLARGINE 300 UNITS/3 ML INSULN.PEN. SQ SCH (08:19)
[2018-04-05] MEDS: HYDROcodone/APAP 7.5/325MG 1 TAB TABLET PO PRN (11:33)
[2018-04-05] MEDS: ACETAMINOPHEN 325 MG TABLET PO PRN (14:15)
[2018-04-05 16:31] VITALS: BP 112/67
[2018-04-05] MEDS: MELATONIN 3 MG TABLET PO SCH (19:35)
[2018-04-05] MEDS: MIRTAZAPINE 15 MG TABLET PO SCH (19:35)
[2018-04-05] MEDS: clonazePAM 0.5 MG TABLET PO SCH (19:39)
--- NOTE | 2018-04-05 19:49 | PDOC ---
Exam Note: Luis Note: Please also refer to the separate dictated note~for this date of service dictated separately.~Patient seen individually. Discussed the patient with Nursing staff reviewed the chart.~Reviewed interim history and current functioning. Reviewed vital signs,~Labs/ Radiology~and current medications noted below. Continue current treatment with the changes noted in the dictated addendum note Assessment: Vital Signs: Vital Signs Date Time Temp Pulse Resp B/P (MAP) Pulse Ox O2 Delivery O2 Flow Rate FiO2 04/05/18 16:46 97 Room Air 04/05/18 16:31 97.6 70 18 112/67 (82) I&O Intake and Output 04/05/18 07:00 Intake Total 1320 ml Balance 1320 ml Intake Oral 1320 ml # Voids 1 Labs: Laboratory Tests Test 04/05/18 07:23 04/05/18 12:01 04/05/18 16:02 04/05/18 19:26 Glucose (Fingerstick) 201 mg/dL (70-99) H 192 mg/dL (70-99) H 240 mg/dL (70-99) H 156 mg/dL (70-99) H Current Medications: Meds: Current Medications Trimethoprim/ Sulfamethoxazole (Bactrim Ds) 1 tab 1X ONCE PO Last administered on 03/23/18at 18:56; Start 03/23/18 at 19:00; Stop 03/23/18 at 19:09 ; Status DC Acetaminophen (Tylenol) 650 mg PRN Q6HRS PRN PO PAIN / TEMP Last administered on 04/05/18at 14:15; Start 03/23/18 at 21:15 Al Hydroxide/Mg Hydroxide (Mylanta Plus Xs) 15 ml PRN AFTMEALHC PRN PO DYSPEPSIA; Start 03/23/18 at 21:15 Magnesium Hydroxide (Milk Of Magnesia) 2,400 mg PRN QHS PRN PO CONSTIPATION; Start 03/23/18 at 21:15 Bupropion HCl (Wellbutrin Xl) 300 mg DAILY PO Last administered on 04/05/18at 08:12; Start 03/24/18 at 09:00 Clonazepam (KlonoPIN) 0.5 mg QHS PO Last administered on 04/05/18at 19:39; Start 03/24/18 at 21:00 Melatonin 9 mg HS PO Last administered on 04/05/18at 19:35; Start 03/24/18 at 21:00 Mirtazapine (Remeron) 15 mg DAILY PO ; Start 03/24/18 at 09:00; Stop 03/24/18 at 09:16; Status DC Acetaminophen (Tylenol) 650 mg PRN Q6HRS PRN PO PAIN / TEMP; Start 03/23/18 at 22:30; Status UNV Bisacodyl (Dulcolax Tab) 10 mg PRN DAILY PRN PO CONSTIPATION; Start 03/23/18 at 22:30 Calcium Carbonate/ Glycine (Tums) 500 mg PRN Q8HRS PRN PO HEARTBURN / GAS Last administered on 04/05/18at 09:05; Start 03/23/18 at 22:30 Chlorhexidine Gluconate (Peridex) 15 ml Q12HR MM Last administered on at 19:39; Start 03/24/18 at 09:00 Vitamin D (Vitamin D3) 2,000 unit DAILY PO Last administered on 04/05/18at 08: 11; Start 03/24/18 at 09:00 Dicyclomine HCl (Bentyl) 10 mg PRN DAILY PRN PO GI SYMPTOMS; Start 03/23/18 at 22:30 Gabapentin (Neurontin) 200 mg TID PO Last administered on 04/05/18at 19:35; Start 03/24/18 at 09:00 Guaifenesin (Robitussin) 100 mg PRN Q4HRS PRN PO COUGH Last administered on at 05:08; Start 03/23/18 at 22:30; Stop 03/31/18 at 17:54; Status DC Levothyroxine Sodium (Synthroid) 100 mcg DAILY06 PO Last administered on at 06:01; Start 03/24/18 at 06:00 Non-Formulary Medication (Albuterol Sulfate (Albuterol Sulfate Conc Neb Soln)) 2.5 mg PRN Q6HRS PRN NEB SHORTNESS OF BREATH; Start 03/23/18 at 22:30; Status UNV Atorvastatin Calcium (Lipitor) 10 mg DAILY PO Last administered on 04/05/18at 08:11; Start 03/24/18 at 09:00 Non-Formulary Medication (D-Methorphan Hb/ Prometh Hcl (Promethazine-Dm Syrup)) 5 ml PRN Q6HRS PRN PO COUGH; Start 03/23/18 at 22:30; Stop 03/23/18 at 23:45; Status DC Non-Formulary Medication (Dulaglutide (Trulicity)) 0.75 mg WEEKLY SQ ; Start at 09:00; Stop 04/01/18 at 10:44; Status DC Pantoprazole Sodium (Protonix) 40 mg DAILYAC PO Last administered on at 08:12; Start 03/24/18 at 07:30 Fluticasone Propionate (Flonase) 2 spray PRN DAILY PRN NS ALLERGIES; Start 03/24/18 at 09:00 Acetaminophen/ Hydrocodone Bitart (Lortab 10/325) 1 tab PRN Q6HRS PRN PO PAIN; Start 03/23/18 at 23:00; Stop 03/23/18 at 23:19; Status DC Acetaminophen/ Hydrocodone Bitart (Lortab 7.5/325) 1 tab PRN Q6HRS PRN PO PAIN ; Start 03/23/18 at 23:00; Stop 03/23/18 at 23:19; Status DC Insulin Human Lispro (HumaLOG) 10 units TIDWMEALS SQ Last administered on 04/05at 16:58; Start 03/24/18 at 08:00 Insulin Glargine (Lantus) 60 units DAILY SQ Last administered on 04/05/18at 08: 19; Start 03/24/18 at 09:00 Multi-Ingredient Ointment (Analgesic [place]) 1 nnamdi PRN TID PRN TP MUSCLE PAIN; Start 03/23/18 at 23:15 Famotidine (Pepcid) 20 mg PRN Q8HRS PRN PO HEARTBURN/GAS; Start 03/23/18 at 23: 00 Albuterol Sulfate (Ventolin) 2.5 mg PRN Q6HRS PRN NEB SHORTNESS OF BREATH; Start 03/23/18 at 23:15; Stop 03/31/18 at 17:50; Status DC Acetaminophen/ Hydrocodone Bitart (Lortab 7.5/325) 2 tab PRN Q6HRS PRN PO PAIN Last administered on 04/05/18at 11:33; Start 03/23/18 at 23:30 Mirtazapine (Remeron) 15 mg HS PO Last administered on 04/05/18at 19:35; Start 03/24/18 at 21:00 Ondansetron HCl (Zofran Odt) 4 mg PRN Q8HRS PRN PO NAUSEA/VOMITING Last administered on 03/25/18at 22:27; Start 03/24/18 at 15:45 Divalproex Sodium (Depakote Sprinkles) 500 mg HS PO Last administered on at 19:34; Start 03/25/18 at 21:00 Doxycycline Hyclate (Vibra-Tab) 100 mg BID PO Last administered on 04/05/18 08:12; Start 03/27/18 at 21:00; Stop 04/05/18 at 20:59 Lactobacillus Rhamnosus (Culturelle) 1 cap BID PO Last administered on at 19:34; Start 03/27/18 at 21:00 Albuterol Sulfate (Ventolin) 2.5 mg Q4HRS NEB Last administered on 04/05/18at 16:46; Start 03/31/18 at 20:00 Throat Lozenges (Cepacol Sore Throat Lozenge) 1 richard PRN Q2HR PRN PO SORE THROAT ; Start 03/31/18 at 18:00 Guaifenesin (Robitussin Dm) 10 ml PRN Q6HRS PRN PO COUGH Last administered on 04/01/18at 20:38; Start 03/31/18 at 18:00 Divalproex Sodium (Depakote Sprinkles) 250 mg DAILY PO Last administered on at 08:15; Start 04/05/18 at 09:00 Active Scripts Active Reported Mirtazapine 15 Mg Tablet 15 Mg PO DAILY Abbey-Tussin (Guaifenesin) 100 Mg/5 Ml Liquid 100 Mg PO PRN Q4HRS PRN Peridex (Chlorhexidine Gluconate) 15 Ml Mouthwash 15 Ml MM Q12HR Trulicity (Dulaglutide) 0.75 Mg/0.5 Ml Pen.injctr 0.75 Mg SQ WEEKLY Levemir Flextouch (Insulin Detemir) 100 Unit/1 Ml Insuln.pen 60 Unit SQ DAILY Nexium Capsule (Esomeprazole Magnesium) 40 Mg Capsule.dr 40 Mg PO DAILYAC Vitamin D3 (Cholecalciferol (Vitamin D3)) 1,000 Unit Tablet 2,000 Unit PO DAILY Flonase Allergy Relief (Fluticasone Propionate) 9.9 Ml [place].susp 2 Sprays NS PRN DAILY PRN Dicyclomine Hcl 10 Mg Capsule 10 Mg PO PRN DAILY PRN Biofreeze (Menthol) 118 Ml Gel..ml. 1 Nnamdi TP PRN TID PRN Klonopin (Clonazepam) 0.5 Mg Tablet 0.5 Mg PO QHS Levothyroxine Sodium 100 Mcg Tablet 100 Mcg PO DAILYAC Gabapentin (Gabapentin) 100 Mg Capsule 200 Mg PO TID Tums (Calcium Carbonate) 200 Mg Tab.chew 500 Mg PO PRN Q8HRS PRN Zantac (Ranitidine Hcl) 150 Mg Tablet 75 Mg PO PRN Q8HRS PRN Promethazine-Dm Syrup (D-Methorphan Hb/Prometh Hcl) 118 Ml Syrup 5 Ml PO PRN Q6HRS PRN Tylenol (Acetaminophen) 325 Mg Tablet 650 Mg PO PRN Q6HRS PRN Bupropion Xl (Bupropion Hcl) 300 Mg Tab.er.24h 300 Mg PO DAILY Melatonin 3 Mg Tablet 10 Mg PO DAILY Novolog Flexpen (Insulin Aspart) 100 Unit/1 Ml Insuln.pen 10 Unit SQ TIDWMEALS Albuterol Sulfate Conc Neb Soln (Albuterol Sulfate) 2.5 Mg/0.5 Ml Vial.neb 2.5 Mg NEB PRN Q6HRS PRN Hydrocodone-Apap 7.5-325 (Hydrocodone Bit/Acetaminophen) 1 Each Tablet 2 Tab PO PRN Q6HRS PRN Bisacodyl 5 Mg Tablet.dr 10 Mg PO PRN DAILY PRN Atorvastatin Calcium 10 Mg Tablet 10 Mg PO DAILY I have reviewed the current psychotropics carefully including drug interactions. Risk benefit ratio favors no change other than as noted in my dictated progress note. Diagnosis: Problems: (1) Anxiety disorder (2) Bipolar 1 disorder, manic, moderate (3) Impulse control disorder (4) Schizoaffective disorder, bipolar type FAYE MUNGUIA MD Apr 05, 2018 19:49
--- NOTE | 2018-04-06 01:27 | PN ---
DATE: 04/04/2018 PSYCHIATRIC PROGRESS NOTE This late entry 04/04/2018 covers elements not covered in my initial note. SUBJECTIVE: I met with the patient in the evening. The patient slept 5-1/2 hours previous night. Discussed with Dr. Seals who had covered for me over the past 1 week or so. She remains somewhat anxious with mood lability, wanting some neurological clarification on her CVA causing some of her psychiatric symptoms. We will consult Dr. Daigle for Neurology. REVIEW OF SYSTEMS: Ambulation impaired with walker. No CV, , pulmonary, eye, ENT system symptoms on review. MENTAL STATUS EXAM: Oriented to herself and situation. Speech coherent, at times a little pressured. Abstraction fair, computation impaired, language function intact, attention span short. Mood and affect remain somewhat labile, anxious. LABORATORY DATA: Reviewed. IMPRESSION: Schizoaffective disorder, bipolar type, mixed with psychotic features; anxiety disorder, unspecified; impulse control disorder, unspecified. Rest unchanged. PLAN: Valproic acid level subtherapeutic at 39; on Depakote Sprinkles 500 at bedtime, we will increase to 250 a.m., 500 at bedtime. Check CBC, CMP, valproic acid level in 3 days. Rest unchanged from initial note including Wellbutrin, melatonin, Neurontin, Klonopin, Remeron. MAN Jose Alfredo MUNGUIA MD DR: MINOR/aamir JOB#: [id number] / [id number]
[2018-04-06] MEDS: LEVOTHYROXINE 100 MCG TABLET PO SCH (04:56)
[2018-04-06] MEDS: ACETAMINOPHEN 325 MG TABLET PO PRN (04:56)
[2018-04-06] MEDS: ALBUTEROL SULFATE 2.5 MG/3 ML NEBU. NEB SCH ×6 (05:19→20:29)
[2018-04-06 05:57] VITALS: BP 133/80
[2018-04-06] MEDS: DIVALPROEX 125 MG CAP.SPRINK PO SCH ×2 (08:04→20:03)
[2018-04-06] MEDS: CHOLECALCIFEROL (VITAMIN D3) 1,000 UNIT TABLET PO SCH (08:05)
[2018-04-06] MEDS: buPROPion XL 300 MG TAB.ER.24H. PO SCH (08:05)
[2018-04-06] MEDS: ATORVASTATIN CALCIUM 10 MG TABLET. PO SCH (08:05)
[2018-04-06] MEDS: LACTOBACILLUS RHAMNOSUS GG 1 CAPSULE. PO SCH ×2 (08:05→20:02)
[2018-04-06] MEDS: GABAPENTIN 100 MG CAPSULE. PO SCH ×3 (08:05→20:05)
[2018-04-06] MEDS: PANTOPRAZOLE 40 MG TABLET. PO SCH (08:07)
[2018-04-06] MEDS: CHLORHEXIDINE 0.12% 15 ML MOUTHWASH. MM SCH ×2 (08:12→20:34)
[2018-04-06] MEDS: INSULIN GLARGINE 300 UNITS/3 ML INSULN.PEN. SQ SCH (08:14)
[2018-04-06] MEDS: INSULIN LISPRO 300 UNITS/3 ML INSULN.PEN. SQ SCH ×3 (08:15→17:38)
[2018-04-06 16:08] VITALS: BP 113/69
[2018-04-06] MEDS: MIRTAZAPINE 15 MG TABLET PO SCH (20:02)
[2018-04-06] MEDS: MELATONIN 3 MG TABLET PO SCH (20:03)
[2018-04-06] MEDS: clonazePAM 0.5 MG TABLET PO SCH (20:05)
--- NOTE | 2018-04-06 20:06 | PDOC ---
Exam Note: Luis Note: Please also refer to the separate dictated note~for this date of service dictated separately.~Patient seen individually. Discussed the patient with Nursing staff reviewed the chart.~Reviewed interim history and current functioning. Reviewed vital signs,~Labs/ Radiology~and current medications noted below. Continue current treatment with the changes noted in the dictated addendum note Assessment: Vital Signs: Vital Signs Date Time Temp Pulse Resp B/P (MAP) Pulse Ox O2 Delivery O2 Flow Rate FiO2 04/06/18 16:39 98 Room Air 04/06/18 16:08 97.8 75 20 113/69 (84) I&O Intake and Output 04/06/18 07:00 Intake Total 1080 ml Balance 1080 ml Intake Oral 1080 ml Labs: Laboratory Tests Test 04/06/18 07:15 04/06/18 11:31 04/06/18 17:11 04/06/18 19:08 Glucose (Fingerstick) 155 mg/dL (70-99) H 140 mg/dL (70-99) H 227 mg/dL (70-99) H 192 mg/dL (70-99) H Current Medications: Meds: Current Medications Trimethoprim/ Sulfamethoxazole (Bactrim Ds) 1 tab 1X ONCE PO Last administered on 03/23/18at 18:56; Start 03/23/18 at 19:00; Stop 03/23/18 at 19:09 ; Status DC Acetaminophen (Tylenol) 650 mg PRN Q6HRS PRN PO PAIN / TEMP Last administered on 04/06/18at 04:56; Start 03/23/18 at 21:15 Al Hydroxide/Mg Hydroxide (Mylanta Plus Xs) 15 ml PRN AFTMEALHC PRN PO DYSPEPSIA; Start 03/23/18 at 21:15 Magnesium Hydroxide (Milk Of Magnesia) 2,400 mg PRN QHS PRN PO CONSTIPATION; Start 03/23/18 at 21:15 Bupropion HCl (Wellbutrin Xl) 300 mg DAILY PO Last administered on 04/06/18at 08:05; Start 03/24/18 at 09:00 Clonazepam (KlonoPIN) 0.5 mg QHS PO Last administered on 04/06/18at 20:05; Start 03/24/18 at 21:00 Melatonin 9 mg HS PO Last administered on 04/06/18at 20:03; Start 03/24/18 at 21:00 Mirtazapine (Remeron) 15 mg DAILY PO ; Start 03/24/18 at 09:00; Stop 03/24/18 at 09:16; Status DC Acetaminophen (Tylenol) 650 mg PRN Q6HRS PRN PO PAIN / TEMP; Start 03/23/18 at 22:30; Status UNV Bisacodyl (Dulcolax Tab) 10 mg PRN DAILY PRN PO CONSTIPATION; Start 03/23/18 at 22:30 Calcium Carbonate/ Glycine (Tums) 500 mg PRN Q8HRS PRN PO HEARTBURN / GAS Last administered on 04/05/18at 09:05; Start 03/23/18 at 22:30 Chlorhexidine Gluconate (Peridex) 15 ml Q12HR MM Last administered on at 08:12; Start 03/24/18 at 09:00 Vitamin D (Vitamin D3) 2,000 unit DAILY PO Last administered on 04/06/18at 08: 05; Start 03/24/18 at 09:00 Dicyclomine HCl (Bentyl) 10 mg PRN DAILY PRN PO GI SYMPTOMS; Start 03/23/18 at 22:30 Gabapentin (Neurontin) 200 mg TID PO Last administered on 04/06/18at 20:05; Start 03/24/18 at 09:00 Guaifenesin (Robitussin) 100 mg PRN Q4HRS PRN PO COUGH Last administered on at 05:08; Start 03/23/18 at 22:30; Stop 03/31/18 at 17:54; Status DC Levothyroxine Sodium (Synthroid) 100 mcg DAILY06 PO Last administered on at 04:56; Start 03/24/18 at 06:00 Non-Formulary Medication (Albuterol Sulfate (Albuterol Sulfate Conc Neb Soln)) 2.5 mg PRN Q6HRS PRN NEB SHORTNESS OF BREATH; Start 03/23/18 at 22:30; Status UNV Atorvastatin Calcium (Lipitor) 10 mg DAILY PO Last administered on 04/06/18at 08:05; Start 03/24/18 at 09:00 Non-Formulary Medication (D-Methorphan Hb/ Prometh Hcl (Promethazine-Dm Syrup)) 5 ml PRN Q6HRS PRN PO COUGH; Start 03/23/18 at 22:30; Stop 03/23/18 at 23:45; Status DC Non-Formulary Medication (Dulaglutide (Trulicity)) 0.75 mg WEEKLY SQ ; Start at 09:00; Stop 04/01/18 at 10:44; Status DC Pantoprazole Sodium (Protonix) 40 mg DAILYAC PO Last administered on at 08:07; Start 03/24/18 at 07:30 Fluticasone Propionate (Flonase) 2 spray PRN DAILY PRN NS ALLERGIES; Start 03/24/18 at 09:00 Acetaminophen/ Hydrocodone Bitart (Lortab 10/325) 1 tab PRN Q6HRS PRN PO PAIN; Start 03/23/18 at 23:00; Stop 03/23/18 at 23:19; Status DC Acetaminophen/ Hydrocodone Bitart (Lortab 7.5/325) 1 tab PRN Q6HRS PRN PO PAIN ; Start 03/23/18 at 23:00; Stop 03/23/18 at 23:19; Status DC Insulin Human Lispro (HumaLOG) 10 units TIDWMEALS SQ Last administered on 04/06at 17:38; Start 03/24/18 at 08:00 Insulin Glargine (Lantus) 60 units DAILY SQ Last administered on 04/06/18at 08: 14; Start 03/24/18 at 09:00 Multi-Ingredient Ointment (Analgesic [place]) 1 nnamdi PRN TID PRN TP MUSCLE PAIN; Start 03/23/18 at 23:15 Famotidine (Pepcid) 20 mg PRN Q8HRS PRN PO HEARTBURN/GAS; Start 03/23/18 at 23: 00 Albuterol Sulfate (Ventolin) 2.5 mg PRN Q6HRS PRN NEB SHORTNESS OF BREATH; Start 03/23/18 at 23:15; Stop 03/31/18 at 17:50; Status DC Acetaminophen/ Hydrocodone Bitart (Lortab 7.5/325) 2 tab PRN Q6HRS PRN PO PAIN Last administered on 04/05/18at 11:33; Start 03/23/18 at 23:30 Mirtazapine (Remeron) 15 mg HS PO Last administered on 04/06/18 20:02; Start 03/24/18 at 21:00 Ondansetron HCl (Zofran Odt) 4 mg PRN Q8HRS PRN PO NAUSEA/VOMITING Last administered on 03/25/18at 22:27; Start 03/24/18 at 15:45 Divalproex Sodium (Depakote Sprinkles) 500 mg HS PO Last administered on at 20:03; Start 03/25/18 at 21:00 Doxycycline Hyclate (Vibra-Tab) 100 mg BID PO Last administered on 04/05/18 08:12; Start 03/27/18 at 21:00; Stop 04/05/18 at 20:59; Status DC Lactobacillus Rhamnosus (Culturelle) 1 cap BID PO Last administered on 20:02; Start 03/27/18 at 21:00 Albuterol Sulfate (Ventolin) 2.5 mg Q4HRS NEB Last administered on 04/06/18at 16:39; Start 03/31/18 at 20:00 Throat Lozenges (Cepacol Sore Throat Lozenge) 1 richard PRN Q2HR PRN PO SORE THROAT ; Start 03/31/18 at 18:00 Guaifenesin (Robitussin Dm) 10 ml PRN Q6HRS PRN PO COUGH Last administered on 04/01/18at 20:38; Start 03/31/18 at 18:00 Divalproex Sodium (Depakote Sprinkles) 250 mg DAILY PO Last administered on at 08:04; Start 04/05/18 at 09:00 Active Scripts Active Reported Mirtazapine 15 Mg Tablet 15 Mg PO DAILY Abbey-Tussin (Guaifenesin) 100 Mg/5 Ml Liquid 100 Mg PO PRN Q4HRS PRN Peridex (Chlorhexidine Gluconate) 15 Ml Mouthwash 15 Ml MM Q12HR Trulicity (Dulaglutide) 0.75 Mg/0.5 Ml Pen.injctr 0.75 Mg SQ WEEKLY Levemir Flextouch (Insulin Detemir) 100 Unit/1 Ml Insuln.pen 60 Unit SQ DAILY Nexium Capsule (Esomeprazole Magnesium) 40 Mg Capsule.dr 40 Mg PO DAILYAC Vitamin D3 (Cholecalciferol (Vitamin D3)) 1,000 Unit Tablet 2,000 Unit PO DAILY Flonase Allergy Relief (Fluticasone Propionate) 9.9 Ml [place].susp 2 Sprays NS PRN DAILY PRN Dicyclomine Hcl 10 Mg Capsule 10 Mg PO PRN DAILY PRN Biofreeze (Menthol) 118 Ml Gel..ml. 1 Nnamdi TP PRN TID PRN Klonopin (Clonazepam) 0.5 Mg Tablet 0.5 Mg PO QHS Levothyroxine Sodium 100 Mcg Tablet 100 Mcg PO DAILYAC Gabapentin (Gabapentin) 100 Mg Capsule 200 Mg PO TID Tums (Calcium Carbonate) 200 Mg Tab.chew 500 Mg PO PRN Q8HRS PRN Zantac (Ranitidine Hcl) 150 Mg Tablet 75 Mg PO PRN Q8HRS PRN Promethazine-Dm Syrup (D-Methorphan Hb/Prometh Hcl) 118 Ml Syrup 5 Ml PO PRN Q6HRS PRN Tylenol (Acetaminophen) 325 Mg Tablet 650 Mg PO PRN Q6HRS PRN Bupropion Xl (Bupropion Hcl) 300 Mg Tab.er.24h 300 Mg PO DAILY Melatonin 3 Mg Tablet 10 Mg PO DAILY Novolog Flexpen (Insulin Aspart) 100 Unit/1 Ml Insuln.pen 10 Unit SQ TIDWMEALS Albuterol Sulfate Conc Neb Soln (Albuterol Sulfate) 2.5 Mg/0.5 Ml Vial.neb 2.5 Mg NEB PRN Q6HRS PRN Hydrocodone-Apap 7.5-325 (Hydrocodone Bit/Acetaminophen) 1 Each Tablet 2 Tab PO PRN Q6HRS PRN Bisacodyl 5 Mg Tablet.dr 10 Mg PO PRN DAILY PRN Atorvastatin Calcium 10 Mg Tablet 10 Mg PO DAILY I have reviewed the current psychotropics carefully including drug interactions. Risk benefit ratio favors no change other than as noted in my dictated progress note. Diagnosis: Problems: (1) Anxiety disorder (2) Bipolar 1 disorder, manic, moderate (3) Impulse control disorder (4) Schizoaffective disorder, bipolar type FAYE MUNGUIA MD Apr 06, 2018 20:06
--- NOTE | 2018-04-06 21:54 | PN ---
DATE: 04/05/2018 PSYCHIATRIC PROGRESS NOTE This late entry 04/05/2018 covers elements not covered in my initial note. SUBJECTIVE: I met with the patient in the evening. The patient slept 8 hours previous night, has been pleasant, trying to get to the day room, but refused to go to groups, went to them later, asking for pain medications. REVIEW OF SYSTEMS: No CV, , pulmonary, eye, ENT system symptoms on review. Reliability varies. MENTAL STATUS EXAM: Oriented to herself and situation. I met with her in her room. Speech coherent, somewhat pressured at times. Abstraction fair, computation impaired, language function intact, attention span short. Mood and affect remain somewhat labile and she is quite distractable. LABORATORY DATA: Reviewed. IMPRESSION: Schizoaffective disorder, bipolar type, mixed with psychotic features; cognitive disorder, unspecified. Rest unchanged. PLAN: Continue psychotropics from initial note. Depakote was increased. We will follow labs level to reach therapeutic levels. FAYE MUNGUIA MD DR: MINOR/aamir JOB#: [id number] / [id number]
[2018-04-07] MEDS: ALBUTEROL SULFATE 2.5 MG/3 ML NEBU. NEB SCH ×6 (05:22→20:25)
[2018-04-07] MEDS: LEVOTHYROXINE 100 MCG TABLET PO SCH (05:33)
[2018-04-07 05:42] VITALS: BP 108/68
[2018-04-07] MEDS: buPROPion XL 300 MG TAB.ER.24H. PO SCH (08:06)
[2018-04-07] MEDS: DIVALPROEX 125 MG CAP.SPRINK PO SCH ×2 (08:06→19:11)
[2018-04-07] MEDS: CHOLECALCIFEROL (VITAMIN D3) 1,000 UNIT TABLET PO SCH (08:06)
[2018-04-07] MEDS: ATORVASTATIN CALCIUM 10 MG TABLET. PO SCH (08:06)
[2018-04-07] MEDS: LACTOBACILLUS RHAMNOSUS GG 1 CAPSULE. PO SCH ×2 (08:10→19:12)
[2018-04-07] MEDS: PANTOPRAZOLE 40 MG TABLET. PO SCH (08:10)
[2018-04-07] MEDS: GABAPENTIN 100 MG CAPSULE. PO SCH ×3 (08:10→19:12)
[2018-04-07] MEDS: CHLORHEXIDINE 0.12% 15 ML MOUTHWASH. MM SCH ×2 (08:10→20:31)
[2018-04-07] MEDS: INSULIN GLARGINE 300 UNITS/3 ML INSULN.PEN. SQ SCH (08:11)
[2018-04-07] MEDS: INSULIN LISPRO 300 UNITS/3 ML INSULN.PEN. SQ SCH ×3 (08:13→17:00)
[2018-04-07] MEDS: guaiFENesin DM 200MG/20MG 10 ML SYRUP PO PRN (10:03)
[2018-04-07 15:45] VITALS: BP 105/72
[2018-04-07] MEDS: MIRTAZAPINE 15 MG TABLET PO SCH (19:11)
[2018-04-07] MEDS: clonazePAM 0.5 MG TABLET PO SCH (19:12)
[2018-04-07] MEDS: MELATONIN 3 MG TABLET PO SCH (19:12)
--- NOTE | 2018-04-07 23:10 | PDOC ---
Exam Note: Luis Note: Please also refer to the separate dictated note~for this date of service dictated separately.~Patient seen individually. Discussed the patient with Nursing staff reviewed the chart.~Reviewed interim history and current functioning. Reviewed vital signs,~Labs/ Radiology~and current medications noted below. Continue current treatment with the changes noted in the dictated addendum note Assessment: Vital Signs: Vital Signs Date Time Temp Pulse Resp B/P (MAP) Pulse Ox O2 Delivery O2 Flow Rate FiO2 04/07/18 19:45 98 Room Air 04/07/18 15:45 98.2 64 18 105/72 (83) I&O Intake and Output 04/07/18 07:01 Intake Total 1080 ml Balance 1080 ml Intake Oral 1080 ml # Voids 1 # Bowel Movements 1 Labs: Laboratory Tests Test 04/07/18 07:13 04/07/18 11:37 04/07/18 16:44 04/07/18 19:16 Glucose (Fingerstick) 139 mg/dL (70-99) H 203 mg/dL (70-99) H 101 mg/dL (70-99) H 142 mg/dL (70-99) H Current Medications: Meds: Current Medications Trimethoprim/ Sulfamethoxazole (Bactrim Ds) 1 tab 1X ONCE PO Last administered on 03/23/18at 18:56; Start 03/23/18 at 19:00; Stop 03/23/18 at 19:09 ; Status DC Acetaminophen (Tylenol) 650 mg PRN Q6HRS PRN PO PAIN / TEMP Last administered on 04/06/18at 04:56; Start 03/23/18 at 21:15 Al Hydroxide/Mg Hydroxide (Mylanta Plus Xs) 15 ml PRN AFTMEALHC PRN PO DYSPEPSIA; Start 03/23/18 at 21:15 Magnesium Hydroxide (Milk Of Magnesia) 2,400 mg PRN QHS PRN PO CONSTIPATION; Start 03/23/18 at 21:15 Bupropion HCl (Wellbutrin Xl) 300 mg DAILY PO Last administered on 04/07/18at 08:06; Start 03/24/18 at 09:00 Clonazepam (KlonoPIN) 0.5 mg QHS PO Last administered on 04/07/18at 19:12; Start 03/24/18 at 21:00 Melatonin 9 mg HS PO Last administered on 04/07/18at 19:12; Start 03/24/18 at 21:00 Mirtazapine (Remeron) 15 mg DAILY PO ; Start 03/24/18 at 09:00; Stop 03/24/18 at 09:16; Status DC Acetaminophen (Tylenol) 650 mg PRN Q6HRS PRN PO PAIN / TEMP; Start 03/23/18 at 22:30; Status UNV Bisacodyl (Dulcolax Tab) 10 mg PRN DAILY PRN PO CONSTIPATION; Start 03/23/18 at 22:30 Calcium Carbonate/ Glycine (Tums) 500 mg PRN Q8HRS PRN PO HEARTBURN / GAS Last administered on 04/05/18at 09:05; Start 03/23/18 at 22:30 Chlorhexidine Gluconate (Peridex) 15 ml Q12HR MM Last administered on at 08:12; Start 03/24/18 at 09:00 Vitamin D (Vitamin D3) 2,000 unit DAILY PO Last administered on 04/07/18at 08: 06; Start 03/24/18 at 09:00 Dicyclomine HCl (Bentyl) 10 mg PRN DAILY PRN PO GI SYMPTOMS; Start 03/23/18 at 22:30 Gabapentin (Neurontin) 200 mg TID PO Last administered on 04/07/18at 19:12; Start 03/24/18 at 09:00 Guaifenesin (Robitussin) 100 mg PRN Q4HRS PRN PO COUGH Last administered on at 05:08; Start 03/23/18 at 22:30; Stop 03/31/18 at 17:54; Status DC Levothyroxine Sodium (Synthroid) 100 mcg DAILY06 PO Last administered on at 05:33; Start 03/24/18 at 06:00 Non-Formulary Medication (Albuterol Sulfate (Albuterol Sulfate Conc Neb Soln)) 2.5 mg PRN Q6HRS PRN NEB SHORTNESS OF BREATH; Start 03/23/18 at 22:30; Status UNV Atorvastatin Calcium (Lipitor) 10 mg DAILY PO Last administered on 04/07/18at 08:06; Start 03/24/18 at 09:00 Non-Formulary Medication (D-Methorphan Hb/ Prometh Hcl (Promethazine-Dm Syrup)) 5 ml PRN Q6HRS PRN PO COUGH; Start 03/23/18 at 22:30; Stop 03/23/18 at 23:45; Status DC Non-Formulary Medication (Dulaglutide (Trulicity)) 0.75 mg WEEKLY SQ ; Start at 09:00; Stop 04/01/18 at 10:44; Status DC Pantoprazole Sodium (Protonix) 40 mg DAILYAC PO Last administered on at 08:10; Start 03/24/18 at 07:30 Fluticasone Propionate (Flonase) 2 spray PRN DAILY PRN NS ALLERGIES; Start 03/24/18 at 09:00 Acetaminophen/ Hydrocodone Bitart (Lortab 10/325) 1 tab PRN Q6HRS PRN PO PAIN; Start 03/23/18 at 23:00; Stop 03/23/18 at 23:19; Status DC Acetaminophen/ Hydrocodone Bitart (Lortab 7.5/325) 1 tab PRN Q6HRS PRN PO PAIN ; Start 03/23/18 at 23:00; Stop 03/23/18 at 23:19; Status DC Insulin Human Lispro (HumaLOG) 10 units TIDWMEALS SQ Last administered on 04/07at 12:35; Start 03/24/18 at 08:00 Insulin Glargine (Lantus) 60 units DAILY SQ Last administered on 04/07/18at 08: 11; Start 03/24/18 at 09:00 Multi-Ingredient Ointment (Analgesic [place]) 1 nnamdi PRN TID PRN TP MUSCLE PAIN; Start 03/23/18 at 23:15 Famotidine (Pepcid) 20 mg PRN Q8HRS PRN PO HEARTBURN/GAS; Start 03/23/18 at 23: 00 Albuterol Sulfate (Ventolin) 2.5 mg PRN Q6HRS PRN NEB SHORTNESS OF BREATH; Start 03/23/18 at 23:15; Stop 03/31/18 at 17:50; Status DC Acetaminophen/ Hydrocodone Bitart (Lortab 7.5/325) 2 tab PRN Q6HRS PRN PO PAIN Last administered on 04/05/18at 11:33; Start 03/23/18 at 23:30 Mirtazapine (Remeron) 15 mg HS PO Last administered on 04/07/18 19:11; Start 03/24/18 at 21:00 Ondansetron HCl (Zofran Odt) 4 mg PRN Q8HRS PRN PO NAUSEA/VOMITING Last administered on 03/25/18at 22:27; Start 03/24/18 at 15:45 Divalproex Sodium (Depakote Sprinkles) 500 mg HS PO Last administered on at 19:11; Start 03/25/18 at 21:00 Doxycycline Hyclate (Vibra-Tab) 100 mg BID PO Last administered on 04/05/18 08:12; Start 03/27/18 at 21:00; Stop 04/05/18 at 20:59; Status DC Lactobacillus Rhamnosus (Culturelle) 1 cap BID PO Last administered on at 19:12; Start 03/27/18 at 21:00 Albuterol Sulfate (Ventolin) 2.5 mg Q4HRS NEB Last administered on 04/07/18at 20:25; Start 03/31/18 at 20:00 Throat Lozenges (Cepacol Sore Throat Lozenge) 1 richard PRN Q2HR PRN PO SORE THROAT ; Start 03/31/18 at 18:00 Guaifenesin (Robitussin Dm) 10 ml PRN Q6HRS PRN PO COUGH Last administered on 04/07/18at 10:03; Start 03/31/18 at 18:00 Divalproex Sodium (Depakote Sprinkles) 250 mg DAILY PO Last administered on at 08:06; Start 04/05/18 at 09:00 Active Scripts Active Reported Mirtazapine 15 Mg Tablet 15 Mg PO DAILY Abbey-Tussin (Guaifenesin) 100 Mg/5 Ml Liquid 100 Mg PO PRN Q4HRS PRN Peridex (Chlorhexidine Gluconate) 15 Ml Mouthwash 15 Ml MM Q12HR Trulicity (Dulaglutide) 0.75 Mg/0.5 Ml Pen.injctr 0.75 Mg SQ WEEKLY Levemir Flextouch (Insulin Detemir) 100 Unit/1 Ml Insuln.pen 60 Unit SQ DAILY Nexium Capsule (Esomeprazole Magnesium) 40 Mg Capsule.dr 40 Mg PO DAILYAC Vitamin D3 (Cholecalciferol (Vitamin D3)) 1,000 Unit Tablet 2,000 Unit PO DAILY Flonase Allergy Relief (Fluticasone Propionate) 9.9 Ml [place].susp 2 Sprays NS PRN DAILY PRN Dicyclomine Hcl 10 Mg Capsule 10 Mg PO PRN DAILY PRN Biofreeze (Menthol) 118 Ml Gel..ml. 1 Nnamdi TP PRN TID PRN Klonopin (Clonazepam) 0.5 Mg Tablet 0.5 Mg PO QHS Levothyroxine Sodium 100 Mcg Tablet 100 Mcg PO DAILYAC Gabapentin (Gabapentin) 100 Mg Capsule 200 Mg PO TID Tums (Calcium Carbonate) 200 Mg Tab.chew 500 Mg PO PRN Q8HRS PRN Zantac (Ranitidine Hcl) 150 Mg Tablet 75 Mg PO PRN Q8HRS PRN Promethazine-Dm Syrup (D-Methorphan Hb/Prometh Hcl) 118 Ml Syrup 5 Ml PO PRN Q6HRS PRN Tylenol (Acetaminophen) 325 Mg Tablet 650 Mg PO PRN Q6HRS PRN Bupropion Xl (Bupropion Hcl) 300 Mg Tab.er.24h 300 Mg PO DAILY Melatonin 3 Mg Tablet 10 Mg PO DAILY Novolog Flexpen (Insulin Aspart) 100 Unit/1 Ml Insuln.pen 10 Unit SQ TIDWMEALS Albuterol Sulfate Conc Neb Soln (Albuterol Sulfate) 2.5 Mg/0.5 Ml Vial.neb 2.5 Mg NEB PRN Q6HRS PRN Hydrocodone-Apap 7.5-325 (Hydrocodone Bit/Acetaminophen) 1 Each Tablet 2 Tab PO PRN Q6HRS PRN Bisacodyl 5 Mg Tablet.dr 10 Mg PO PRN DAILY PRN Atorvastatin Calcium 10 Mg Tablet 10 Mg PO DAILY I have reviewed the current psychotropics carefully including drug interactions. Risk benefit ratio favors no change other than as noted in my dictated progress note. Diagnosis: Problems: (1) Anxiety disorder (2) Bipolar 1 disorder, manic, moderate (3) Impulse control disorder (4) Schizoaffective disorder, bipolar type FAYE MUNGUIA MD Apr 07, 2018 23:10
[2018-04-08] MEDS ORDERED: BENZ1LOZ48 MM (02:37)
[2018-04-08] MEDS ORDERED: DIVA125C2 PO ×2 (02:41→02:42)
[2018-04-08] MEDS ORDERED: LACT1CAP19 PO (02:52)
[2018-04-08] MEDS ORDERED: MAG30ORA2 PO (02:53)
[2018-04-08] MEDS ORDERED: MAGN400O7 PO (02:54)
[2018-04-08] MEDS ORDERED: ONDA4TAB7 PO (03:00)
[2018-04-08] MEDS ORDERED: GUAI5SYR PO (03:05)
[2018-04-08] MEDS: guaiFENesin DM 200MG/20MG 10 ML SYRUP PO PRN (04:27)
[2018-04-08] MEDS: ALBUTEROL SULFATE 2.5 MG/3 ML NEBU. NEB SCH ×2 (05:07)
[2018-04-08] MEDS: LEVOTHYROXINE 100 MCG TABLET PO SCH (05:55)
[2018-04-08 06:35] VITALS: BP 105/70
[2018-04-08 07:08] LABS: BASO % 0 % (0-3); EOS # 0.2 x10^3/uL (0.0-0.7); EOS % 3 % (0-3); HEMATOCRIT 36.8 % (36.0-47.0); HEMOGLOBIN 12.3 g/dL (12.0-15.5); LYMPH # 1.9 x10^3/uL (1.0-4.8); LYMPH % 25 % (24-48); MEAN CORPUSCULAR HEMOGLOBIN 30 pg (25-35); MEAN CORPUSCULAR HGB CONC 34 g/dL (31-37); MEAN CORPUSCULAR VOLUME 91 fL (79-100); MONO # 0.4 x10^3/uL (0.0-1.1); MONO % 6 % (0-9); NEUT # 4.8 x10^3uL (1.8-7.7); NEUT % 66 % (31-73); PLATELET COUNT 207 x10^3/uL (140-400); RED BLOOD COUNT 4.05 x10^6/uL (3.50-5.40); RED CELL DISTRIBUTION WIDTH 13.9 % (11.5-14.5); WHITE BLOOD COUNT 7.3 x10^3/uL (4.0-11.0)
[2018-04-08 07:23] LABS: ALBUMIN 3.1 g/dL (3.4-5.0); ALBUMIN/GLOBULIN RATIO 0.9 (1.0-1.7); ALK PHOS 93 U/L (46-116); ALT (SGPT) 24 U/L (14-59); ANION GAP 6 (6-14); AST (SGOT) 14 U/L (15-37); BLOOD UREA NITROGEN 16 mg/dL (7-20); BUN/CREATININE RATIO 13 (6-20); CALCIUM 8.9 mg/dL (8.5-10.1); CARBON DIOXIDE 32 mmol/L (21-32); CHLORIDE 104 mmol/L (98-107); CREATININE 1.2 mg/dL (0.6-1.0); GFR 45.2; GLUCOSE 137 mg/dL (70-99); POTASSIUM 4.4 mmol/L (3.5-5.1); SODIUM 142 mmol/L (136-145); TOTAL BILIRUBIN 0.3 mg/dL (0.2-1.0); TOTAL PROTEIN 6.6 g/dL (6.4-8.2)
[2018-04-08 07:25] LABS: VAL ACID 52 mcg/mL (50-100)
[2018-04-08] MEDS: PANTOPRAZOLE 40 MG TABLET. PO SCH (07:43)
[2018-04-08] MEDS: DIVALPROEX 125 MG CAP.SPRINK PO SCH (08:02)
[2018-04-08] MEDS: LACTOBACILLUS RHAMNOSUS GG 1 CAPSULE. PO SCH (08:03)
[2018-04-08] MEDS: GABAPENTIN 100 MG CAPSULE. PO SCH (08:03)
[2018-04-08] MEDS: CHOLECALCIFEROL (VITAMIN D3) 1,000 UNIT TABLET PO SCH (08:03)
[2018-04-08] MEDS: ATORVASTATIN CALCIUM 10 MG TABLET. PO SCH (08:03)
[2018-04-08] MEDS: buPROPion XL 300 MG TAB.ER.24H. PO SCH (08:03)
[2018-04-08] MEDS: CHLORHEXIDINE 0.12% 15 ML MOUTHWASH. MM SCH (08:03)
[2018-04-08] MEDS: INSULIN GLARGINE 300 UNITS/3 ML INSULN.PEN. SQ SCH (08:06)
[2018-04-08] MEDS: INSULIN LISPRO 300 UNITS/3 ML INSULN.PEN. SQ SCH (08:17)
--- NOTE | 2018-04-08 09:09 | RAD ---
Right lower extremity venous doppler ultrasound History: Lower extremity swelling bilaterally, history of 2 right ankle surgeries Comparison: None Findings: Multiple grayscale, color, and duplex spectral analysis sonographic images were acquired of the right lower extremity veins to evaluate for the presence of DVT. There is normal phasicity. Normal compression, color-flow, and augmentation is demonstrated from the right common femoral to the popliteal veins. There is normal color flow of the proximal greater saphenous and profunda femoris veins. There is normal color flow of segments of the calf veins. Impression: 1. There is no evidence of deep venous thrombosis from the right common femoral to popliteal veins. Electronically signed by: Khai Layne MD (04/08/2018 9:06 AM) [id number]
[2018-04-08] MEDS ORDERED: FAMO20TA5 PO (09:49)
--- NOTE | 2018-04-08 21:35 | PN ---
DATE: 04/07/2018 This late entry 04/07/2018 covers elements not covered in my initial note. SUBJECTIVE: I met with the patient in the evening and staffed at a treatment team meeting with the entire team in the morning. The patient slept reasonably well previous night. Reviewed her history and she has been treated at the [facility] in the past with a diagnosis of bipolar disorder and borderline personality. REVIEW OF SYSTEMS: Ambulation impaired with walker. No CV, , pulmonary, eye system symptoms on review. MENTAL STATUS EXAM: Oriented to herself and situation. Speech, low in volume. Abstraction fair, computation impaired, language function intact, attention span short. Mood and affect somewhat anxious, labile. LABORATORY DATA: Reviewed. IMPRESSION: Unchanged from initial note. PLAN: No change from initial note. She does have a UTI and is currently doxycycline. MAN Jose Alfredo MUNGUIA MD DR: MINOR/aamir JOB#: [id number] / [id number]
--- NOTE | 2018-04-09 11:43 | PN ---
DATE: 04/06/2018 PSYCHIATRIC PROGRESS NOTE This late entry 04/06/2018 covers elements not covered in my initial note. SUBJECTIVE: I met with the patient in the evening. The patient slept 7 hours previous night. She has attended some groups and done some puzzles. REVIEW OF SYSTEMS: No CV, , pulmonary, eye system symptoms on review. MENTAL STATUS EXAM: Oriented to herself and situation. Speech is low in volume, at times a little pressured. Abstraction fair, computation impaired, language function intact, attention span short. Mood and affect remain somewhat anxious, labile. LABORATORY DATA: Reviewed. IMPRESSION: Schizoaffective disorder, bipolar type, mixed with psychotic features, in partial remission; cognitive disorder, unspecified. PLAN: No change from initial note. MAN Jose Alfredo MUNGUIA MD DR: MINOR/aamir JOB#: [id number] / [id number]
--- NOTE | 2018-04-09 21:56 | PDOC ---
Exam Note: Luis Note: Late entry for date of service March.Please also refer to the separate dictated note~for this date of service dictated separately.~Patient seen individually. Discussed the patient with Nursing staff reviewed the chart.~ Reviewed interim history and current functioning. Reviewed vital signs,~Labs/ Radiology~and current medications noted below. Continue current treatment with the changes noted in the dictated addendum note Assessment: Vital Signs: VS - Last 72 Hours, by Label Date Time Temp Pulse Resp B/P (MAP) Pulse Ox O2 Delivery O2 Flow Rate FiO2 04/08/18 06:35 97.6 75 20 105/70 (82) 95 Room Air 04/08/18 04:55 96 Room Air 04/07/18 19:45 98 Room Air 04/07/18 15:45 98.2 64 18 105/72 (83) 98 Room Air 04/07/18 10:47 97 Room Air 04/07/18 05:42 97.4 61 21 108/68 (81) 96 04/07/18 04:58 98 Room Air Vital Signs Date Time Temp Pulse Resp B/P (MAP) Pulse Ox O2 Delivery O2 Flow Rate FiO2 04/08/18 06:35 97.6 75 20 105/70 (82) 95 Room Air I&O Intake and Output 04/09/18 07:01 Intake Total 360 ml Balance 360 ml Intake Oral 360 ml Current Medications: Meds: Current Medications Trimethoprim/ Sulfamethoxazole (Bactrim Ds) 1 tab 1X ONCE PO Last administered on 03/23/18at 18:56; Start 03/23/18 at 19:00; Stop 03/23/18 at 19:09 ; Status DC Acetaminophen (Tylenol) 650 mg PRN Q6HRS PRN PO PAIN / TEMP Last administered on 04/06/18at 04:56; Start 03/23/18 at 21:15; Stop 04/08/18 at 10:48; Status DC Al Hydroxide/Mg Hydroxide (Mylanta Plus Xs) 15 ml PRN AFTMEALHC PRN PO DYSPEPSIA; Start 03/23/18 at 21:15; Stop 04/08/18 at 10:48; Status DC Magnesium Hydroxide (Milk Of Magnesia) 2,400 mg PRN QHS PRN PO CONSTIPATION; Start 03/23/18 at 21:15; Stop 04/08/18 at 10:48; Status DC Bupropion HCl (Wellbutrin Xl) 300 mg DAILY PO Last administered on 04/08/18at 08:03; Start 03/24/18 at 09:00; Stop 04/08/18 at 10:48; Status DC Clonazepam (KlonoPIN) 0.5 mg QHS PO Last administered on 04/07/18at 19:12; Start 03/24/18 at 21:00; Stop 04/08/18 at 10:48; Status DC Melatonin 9 mg HS PO Last administered on 04/07/18at 19:12; Start 03/24/18 at 21:00; Stop 04/08/18 at 10:48; Status DC Mirtazapine (Remeron) 15 mg DAILY PO ; Start 03/24/18 at 09:00; Stop 03/24/18 at 09:16; Status DC Acetaminophen (Tylenol) 650 mg PRN Q6HRS PRN PO PAIN / TEMP; Start 03/23/18 at 22:30; Status UNV Bisacodyl (Dulcolax Tab) 10 mg PRN DAILY PRN PO CONSTIPATION; Start 03/23/18 at 22:30; Stop 04/08/18 at 10:48; Status DC Calcium Carbonate/ Glycine (Tums) 500 mg PRN Q8HRS PRN PO HEARTBURN / GAS Last administered on 04/05/18at 09:05; Start 03/23/18 at 22:30; Stop 04/08/18 at 10: 48; Status DC Chlorhexidine Gluconate (Peridex) 15 ml Q12HR MM Last administered on at 08:03; Start 03/24/18 at 09:00; Stop 04/08/18 at 10:48; Status DC Vitamin D (Vitamin D3) 2,000 unit DAILY PO Last administered on 04/08/18at 08: 03; Start 03/24/18 at 09:00; Stop 04/08/18 at 10:48; Status DC Dicyclomine HCl (Bentyl) 10 mg PRN DAILY PRN PO GI SYMPTOMS Last administered on 04/08/18at 09:27; Start 03/23/18 at 22:30; Stop 04/08/18 at 10:48; Status DC Gabapentin (Neurontin) 200 mg TID PO Last administered on 04/08/18at 08:03; Start 03/24/18 at 09:00; Stop 04/08/18 at 10:48; Status DC Guaifenesin (Robitussin) 100 mg PRN Q4HRS PRN PO COUGH Last administered on at 05:08; Start 03/23/18 at 22:30; Stop 03/31/18 at 17:54; Status DC Levothyroxine Sodium (Synthroid) 100 mcg DAILY06 PO Last administered on at 05:55; Start 03/24/18 at 06:00; Stop 04/08/18 at 10:48; Status DC Non-Formulary Medication (Albuterol Sulfate (Albuterol Sulfate Conc Neb Soln)) 2.5 mg PRN Q6HRS PRN NEB SHORTNESS OF BREATH; Start 03/23/18 at 22:30; Status UNV Atorvastatin Calcium (Lipitor) 10 mg DAILY PO Last administered on 04/08/18at 08:03; Start 03/24/18 at 09:00; Stop 04/08/18 at 10:48; Status DC Non-Formulary Medication (D-Methorphan Hb/ Prometh Hcl (Promethazine-Dm Syrup)) 5 ml PRN Q6HRS PRN PO COUGH; Start 03/23/18 at 22:30; Stop 03/23/18 at 23:45; Status DC Non-Formulary Medication (Dulaglutide (Trulicity)) 0.75 mg WEEKLY SQ ; Start at 09:00; Stop 04/01/18 at 10:44; Status DC Pantoprazole Sodium (Protonix) 40 mg DAILYAC PO Last administered on at 07:43; Start 03/24/18 at 07:30; Stop 04/08/18 at 10:48; Status DC Fluticasone Propionate (Flonase) 2 spray PRN DAILY PRN NS ALLERGIES; Start 03/24/18 at 09:00; Stop 04/08/18 at 10:48; Status DC Acetaminophen/ Hydrocodone Bitart (Lortab 10/325) 1 tab PRN Q6HRS PRN PO PAIN; Start 03/23/18 at 23:00; Stop 03/23/18 at 23:19; Status DC Acetaminophen/ Hydrocodone Bitart (Lortab 7.5/325) 1 tab PRN Q6HRS PRN PO PAIN ; Start 03/23/18 at 23:00; Stop 03/23/18 at 23:19; Status DC Insulin Human Lispro (HumaLOG) 10 units TIDWMEALS SQ Last administered on 04/08at 08:17; Start 03/24/18 at 08:00; Stop 04/08/18 at 10:48; Status DC Insulin Glargine (Lantus) 60 units DAILY SQ Last administered on 04/08/18at 08: 06; Start 03/24/18 at 09:00; Stop 04/08/18 at 10:48; Status DC Multi-Ingredient Ointment (Analgesic [place]) 1 nnamdi PRN TID PRN TP MUSCLE PAIN; Start 03/23/18 at 23:15; Stop 04/08/18 at 10:48; Status DC Famotidine (Pepcid) 20 mg PRN Q8HRS PRN PO HEARTBURN/GAS; Start 03/23/18 at 23: 00; Stop 04/08/18 at 10:48; Status DC Albuterol Sulfate (Ventolin) 2.5 mg PRN Q6HRS PRN NEB SHORTNESS OF BREATH; Start 03/23/18 at 23:15; Stop 03/31/18 at 17:50; Status DC Acetaminophen/ Hydrocodone Bitart (Lortab 7.5/325) 2 tab PRN Q6HRS PRN PO PAIN Last administered on 04/05/18at 11:33; Start 03/23/18 at 23:30; Stop 04/08/18 at 10:48; Status DC Mirtazapine (Remeron) 15 mg HS PO Last administered on 04/07/18at 19:11; Start 03/24/18 at 21:00; Stop 04/08/18 at 10:48; Status DC Ondansetron HCl (Zofran Odt) 4 mg PRN Q8HRS PRN PO NAUSEA/VOMITING Last administered on 03/25/18at 22:27; Start 03/24/18 at 15:45; Stop 04/08/18 at 10: 48; Status DC Divalproex Sodium (Depakote Sprinkles) 500 mg HS PO Last administered on at 19:11; Start 03/25/18 at 21:00; Stop 04/08/18 at 10:48; Status DC Doxycycline Hyclate (Vibra-Tab) 100 mg BID PO Last administered on 04/05/18at 08:12; Start 03/27/18 at 21:00; Stop 04/05/18 at 20:59; Status DC Lactobacillus Rhamnosus (Culturelle) 1 cap BID PO Last administered on at 08:03; Start 03/27/18 at 21:00; Stop 04/08/18 at 10:48; Status DC Albuterol Sulfate (Ventolin) 2.5 mg Q4HRS NEB Last administered on 04/08/18at 05:07; Start 03/31/18 at 20:00; Stop 04/08/18 at 10:48; Status DC Throat Lozenges (Cepacol Sore Throat Lozenge) 1 richard PRN Q2HR PRN PO SORE THROAT ; Start 03/31/18 at 18:00; Stop 04/08/18 at 10:48; Status DC Guaifenesin (Robitussin Dm) 10 ml PRN Q6HRS PRN PO COUGH Last administered on 04/08/18at 04:27; Start 03/31/18 at 18:00; Stop 04/08/18 at 10:48; Status DC Divalproex Sodium (Depakote Sprinkles) 250 mg DAILY PO Last administered on at 08:02; Start 04/05/18 at 09:00; Stop 04/08/18 at 10:48; Status DC Active Scripts Active Reported Famotidine 20 Mg Tablet 20 Mg PO Q8HRS PRN Guaifenesin Dm Syrup (Guaifenesin/Dextromethorphan) 5 Ml Syrup 10 Ml PO PRN Q6- 8HRS PRN Zofran (Ondansetron Hcl) 4 Mg Tablet 4 Mg PO PRN Q8HRS PRN Milk Of Magnesia (Magnesium Hydroxide) 400 Mg/5 Ml Oral.susp 2,400 Mg PO PRN QHS PRN Mag-Al Plus Xs Suspension (Mag Hydrox/Al Hydrox/Simeth) 30 Ml Oral.susp 15 Ml PO PRN AFTMEALHC PRN Culturelle (Lactobacillus Rhamnosus Gg) 1 Each Cap.sprink 1 Each PO BID Depakote Sprinkle (Divalproex Sodium) 125 Mg Cap.sprink 250 Mg PO DAILY Depakote Sprinkle (Divalproex Sodium) 125 Mg Cap.sprink 500 Mg PO QHS Cepacol Sore Throat Lozenge (Benzocaine/Menthol) 1 Each Lozenge 1 Each MM PRN Q2HR PRN Mirtazapine 15 Mg Tablet 15 Mg PO DAILY Peridex (Chlorhexidine Gluconate) 15 Ml Mouthwash 15 Ml MM Q12HR Levemir Flextouch (Insulin Detemir) 100 Unit/1 Ml Insuln.pen 60 Unit SQ DAILY Nexium Capsule (Esomeprazole Magnesium) 40 Mg Capsule.dr 40 Mg PO DAILYAC Vitamin D3 (Cholecalciferol (Vitamin D3)) 1,000 Unit Tablet 2,000 Unit PO DAILY Flonase Allergy Relief (Fluticasone Propionate) 9.9 Ml [place].susp 2 Sprays NS PRN DAILY PRN Dicyclomine Hcl 10 Mg Capsule 10 Mg PO PRN DAILY PRN Biofreeze (Menthol) 118 Ml Gel..ml. 1 Nnamdi TP PRN TID PRN Klonopin (Clonazepam) 0.5 Mg Tablet 0.5 Mg PO QHS Levothyroxine Sodium 100 Mcg Tablet 100 Mcg PO DAILYAC Gabapentin (Gabapentin) 100 Mg Capsule 200 Mg PO TID Tums (Calcium Carbonate) 200 Mg Tab.chew 500 Mg PO PRN Q8HRS PRN Zantac (Ranitidine Hcl) 150 Mg Tablet 75 Mg PO PRN Q8HRS PRN Tylenol (Acetaminophen) 325 Mg Tablet 650 Mg PO PRN Q6HRS PRN Bupropion Xl (Bupropion Hcl) 300 Mg Tab.er.24h 300 Mg PO DAILY Melatonin 3 Mg Tablet 10 Mg PO DAILY Novolog Flexpen (Insulin Aspart) 100 Unit/1 Ml Insuln.pen 10 Unit SQ TIDWMEALS Albuterol Sulfate Conc Neb Soln (Albuterol Sulfate) 2.5 Mg/0.5 Ml Vial.neb 2.5 Mg NEB PRN Q4HRS PRN Hydrocodone-Apap 7.5-325 (Hydrocodone Bit/Acetaminophen) 1 Each Tablet 2 Tab PO PRN Q6HRS PRN Bisacodyl 5 Mg Tablet.dr 10 Mg PO PRN DAILY PRN Atorvastatin Calcium 10 Mg Tablet 10 Mg PO DAILY I have reviewed the current psychotropics carefully including drug interactions. Risk benefit ratio favors no change other than as noted in my dictated progress note. Diagnosis: Problems: (1) Anxiety disorder (2) Bipolar 1 disorder, manic, moderate (3) Impulse control disorder (4) Schizoaffective disorder, bipolar type FAYE MUNGUIA MD Apr 09, 2018 21:56
--- NOTE | 2018-04-10 10:11 | DS ---
DATE OF DISCHARGE: 04/08/2018 DISCHARGE SUMMARY/PSYCHIATRIC PROGRESS NOTE This is a late entry, date of service 04/08/2018, covers elements not covered in my initial note. IDENTIFYING DATA: The patient is a 62-year-old female referred to us from [facility] by her primary care physician on account of an exacerbation of her schizoaffective disorder, bipolar type. She has been getting increasingly agitated, depressed, refusing cares, verbally abusive and making statements, "I would be better off ." SIGNIFICANT FINDINGS AND CLINICAL COURSE: Following admission, the patient was seen daily individually from a psychiatric standpoint by myself and by Dr. Odonnell during my absence. She is followed medically per Dr. Aguilera. She was noted to be depressed. She did have a UTI, which was treated on doxycycline. She was withdrawn, isolative, admitted to feeling hopeless and worthless. Adjustments were made in her psychotropics and she seemed to respond to a combination of Wellbutrin-XL 300 mg a day, Neurontin 200 mg 3 times a day, melatonin 9 mg at bedtime, Klonopin 0.5 mg at bedtime, Remeron 15 mg at bedtime, Depakote Sprinkles 250 a.m., 500 at bedtime with a valproic acid level of 39. Gradually mood appeared to improve. She was more interactive, cooperative. Denied suicidal ideation and was discharged back to [facility] with outpatient followup at [facility]. CONDITION AT DISCHARGE: Improved. REVIEW OF SYSTEMS: Prior to discharge, ambulation impaired with walker. No CV, , pulmonary, eye, ENT system symptoms on review. MENTAL STATUS EXAM: Oriented to herself and situation. Speech coherent, abstraction fair, computation impaired, language function intact, attention span short. Mood and affect less labile. No suicidal or homicidal ideation. LABORATORY DATA: Reviewed. FINAL DIAGNOSES: Schizoaffective disorder, bipolar type, mixed with psychotic features, in partial remission; anxiety disorder, unspecified; impulse control disorder, unspecified; history of borderline personality disorder. Rest unchanged from admission. DISCHARGE MEDICATIONS: Please refer to the [facility]. DISCHARGE INSTRUCTIONS: Outpatient psychiatric and [facility] at [facility]. Time for discharge day management greater than 30 minutes. MAN Jose Alfredo MUNGUIA MD DR: Zara JOB#: [id number] / [id number]
== END 2018-04-08 10:35 | DRG 885 ==
LOC: ER 17:01 → GEROPSY 20:46 → ER 20:47 → GEROPSY 03-25 21:10
PROVIDERS: ADMIT Psychiatry & Neurology Psychiatry; ATTEND Psychiatry & Neurology Psychiatry
DX: F25.0 Schizoaffective disorder, bipolar type (principal); Q60.2 Renal agenesis, unspecified; E03.9 Hypothyroidism, unspecified; E11.42 Type 2 diabetes mellitus with diabetic polyneuropathy; E78.5 Hyperlipidemia, unspecified; F09 Unspecified mental disorder due to known physiological condition; F43.10 Post-traumatic stress disorder, unspecified; F60.3 Borderline personality disorder; F63.9 Impulse disorder, unspecified; G40.909 Epilepsy, unspecified, not intractable, without status epilepticus; I10 Essential (primary) hypertension; J44.9 Chronic obstructive pulmonary disease, unspecified; K21.9 Gastro-esophageal reflux disease without esophagitis; K58.9 Irritable bowel syndrome, unspecified; Z90.49 Acquired absence of other specified parts of digestive tract; E66.01 Morbid (severe) obesity due to excess calories; G47.00 Insomnia, unspecified; G89.29 Other chronic pain; Z87.440 Personal history of urinary (tract) infections; Z88.8 Allergy status to other drugs, medicaments and biological substances
CPT/HCPCS: 36415; 74018; 80053; 80061; 80164; 80307; 81001; 82306; 82607; 82947; 83036; 83540; 83550; 83605; 83615; 83690; 83735; 84436; 84443; 84480; 85025; 86592; 87086; 87186; 93005; 93971; 94640; G0480; J1815; J7613; Q0162; 99285-25

== ENCOUNTER 2018-05-30 17:54 | Inpatient (IN) | payer MEDICAID, MEDICARE, OTHER ==
[~2018-05-30] VITALS: Ht 162.6 cm; Wt 117.9 kg
[~2018-05-30 17:54] MED LIST: ACET325T9 PO; ALBU2.5V14 NEB; ATOR10TA60 PO; BENZ1LOZ48 MM; BISA5TAB4 PO; BUPR300T4 PO; CALC200T3 PO; CHLO15MO2 MM; CHOL10003 PO; CLON0.5T PO; D-ME118S2 PO; DICY10CA3 PO; DIVA125C2 PO; DULA0.75 SQ; ESOM40CA PO; FAMO20TA5 PO; FLUT9.9S NS; GABA-585 PO; GUAI-66 PO; GUAI5SYR PO; HYDR-2765 PO; HYDR-3136 PO; HYDR-3165 PO; INSU100I17 SQ; INSU100I27 SQ; LACT1CAP19 PO; LEVO100T5 PO; MAG30ORA2 PO; MAGN400O7 PO; MELA3TAB2 PO; MENT118G TP; MIRT15TA3 PO; ONDA4TAB7 PO; RANI150T21 PO
[2018-05-30] MEDS ORDERED: IV RINGERS SOLUTION,LACTATED 1,000 ML IV SCH (18:15)
--- NOTE | 2018-05-30 18:40 | ED.ADGEN ---
Past History Past Medical History: Anxiety, Bipolar, COPD, Dementia, Depression, Diabetes, GERD, IBS, Seizure, Schizophrenia, UTI Past Surgical History: Cholecystectomy Alcohol Use: Occasionally Drug Use: None Adult General Chief Complaint Chief Complaint "... " Whatever... I am here...".." I ve been thinking about cutting my wrists... long and deep..." HPI HPI Patient is a 62 year old female who presents with mental status change. A resident of [facility] since 01/01/2017. . Patient has a history of schizophrenia affective disorder, bipolar, psychosis, anxiety, borderline personality, hypothyroid, seizure disorder, deconditioning, COPD, diabetes, PTSD, insomnia, diabetic neuropathy, GERD, depression, impulsive and aggressive behavior. Patient presents emergency department for medical evaluation before admission to [facility]. Patient recently reportedly increased depression and suicidal ideation. Does admit to lots of cutting her wrist. No history significant trauma. No history of baseline med changes at her half-way. No recent travel. No specific ill contacts. Patient normally follows with Dr. Grajeda. Patient has been previously admitted for her depressive episodes. Review of Systems Review of Systems Constitutional: Denies fever or chills [] Eyes: Denies change in visual acuity, redness, or eye pain [] HENT: Denies nasal congestion or sore throat [] Respiratory: Denies cough or shortness of breath [] Cardiovascular: No additional information not addressed in HPI [] GI: Denies abdominal pain, nausea, vomiting, bloody stools or diarrhea [] : Denies dysuria or hematuria [] Musculoskeletal: Denies back pain or joint pain []complains of generalized fatigue Integument: Denies rash or skin lesions [] Neurologic: Denies headache, focal weakness or sensory changes [] Endocrine: Denies polyuria or polydipsia [] All other systems were reviewed and found to be within normal limits, except as documented in this note. Family History Family History Not currently supplied by the Pt. - refuses to talk about family. Current Medications Current Medications Current Medications Medications (Trade) Dose Ordered Sig/Jayme Start Time Stop Time Status Last Admin Dose Admin Cephalexin HCl (Keflex) 500 mg TID 05/30/18 21:00 UNV Lactated Ringer's 1,000 ml @ 100 mls/hr Q10H 2/11/19 18:15 05/31/18 04:14 Allergies Allergies Allergies Coded Allergies Type Severity Reaction Last Updated Verified aspirin Allergy Intermediate 03/30/18 Yes codeine Allergy Intermediate 03/30/18 Yes erythromycin base Allergy Intermediate 03/23/18 Yes hydromorphone Allergy Intermediate 03/30/18 Yes nalbuphine Allergy Intermediate 03/30/18 Yes Physical Exam Physical Exam Constitutional: Moderate emotional distress, non-toxic appearance. [] HENT: Normocephalic, atraumatic, bilateral external ears normal, oropharynx moist, no oral exudates, nose normal. [] Eyes: PERRLA, EOMI, conjunctiva normal, no discharge. [] Neck: Normal range of motion, no tenderness, supple, no stridor. [] Cardiovascular:Heart rate regular rhythm, no murmur []PMI to the left Lungs & Thorax: Bilateral breath sounds equal at apexes on auscultation [] Abdomen: Bowel sounds normal, soft, no tenderness, no masses, no pulsatile masses. Obese. Old surgery scars Skin: Warm, dry, no erythema, no rash. Poor turgor Back: No tenderness, no CVA tenderness. [] Extremities: No tenderness, no cyanosis, no clubbing, ROM intact, ankle edema. [ Arthritic complaints Neurologic: Alert and oriented X 3, moves extremities on request , some plantar sensory loss, no gross focal deficits noted. [] Psychologic: Affect flat, depressed mood Current Patient Data Lab Results Laboratory Tests Test 05/30/18 18:32 White Blood Count 10.3 x10^3/uL (4.0-11.0) Red Blood Count 4.35 x10^6/uL (3.50-5.40) Hemoglobin 13.3 g/dL (12.0-15.5) Hematocrit 40.2 % (36.0-47.0) Mean Corpuscular Volume 92 fL (79-100) Mean Corpuscular Hemoglobin 31 pg (25-35) Mean Corpuscular Hemoglobin Concent 33 g/dL (31-37) Red Cell Distribution Width 14.8 % (11.5-14.5) H Platelet Count 215 x10^3/uL (140-400) Neutrophils (%) (Auto) 74 % (31-73) H Lymphocytes (%) (Auto) 19 % (24-48) L Monocytes (%) (Auto) 5 % (0-9) Eosinophils (%) (Auto) 2 % (0-3) Basophils (%) (Auto) 0 % (0-3) Neutrophils # (Auto) 7.5 x10^3uL (1.8-7.7) Lymphocytes # (Auto) 2.0 x10^3/uL (1.0-4.8) Monocytes # (Auto) 0.5 x10^3/uL (0.0-1.1) Eosinophils # (Auto) 0.2 x10^3/uL (0.0-0.7) Basophils # (Auto) 0.0 x10^3/uL (0.0-0.2) Erythrocyte Sedimentation Rate 24 (0-25) Prothrombin Time 9.8 SEC (9.4-11.4) Prothrombin Time INR 1.0 (0.9-1.1) PTT 28 SEC (23-33) Urine Collection Type Unknown Urine Color Straw Urine Clarity Cloudy Urine pH 6.0 Urine Specific [place] 1.025 Urine Protein Neg (NEG-TRACE) Urine Glucose (UA) Neg mg/dL (NEG) Urine Ketones (Stick) Neg mg/dL (NEG) Urine Blood Mod (NEG) Urine Nitrite Pos (NEG) Urine Bilirubin Neg (NEG) Urine Urobilinogen Dipstick 0.2 mg/dL (0.2 mg/dL) Urine Leukocyte Esterase Trace (NEG) Urine RBC 3-5 /HPF (0-2) Urine WBC 1-4 /HPF (0-4) Urine Squamous Epithelial Cells Few /LPF Urine Bacteria Many /HPF (0-FEW) Urine Mucus Slight /LPF Sodium Level 140 mmol/L (136-145) Potassium Level 4.4 mmol/L (3.5-5.1) Chloride Level 103 mmol/L (98-107) Carbon Dioxide Level 29 mmol/L (21-32) Anion Gap 8 (6-14) Blood Urea Nitrogen 24 mg/dL (7-20) H Creatinine 1.4 mg/dL (0.6-1.0) H Estimated GFR (Cockcroft-Gault) 37.9 Glucose Level 164 mg/dL (70-99) H Calcium Level 8.6 mg/dL (8.5-10.1) Magnesium Level 2.3 mg/dL (1.8-2.4) Total Bilirubin 0.2 mg/dL (0.2-1.0) Direct Bilirubin 0.1 mg/dL (0.0-0.2) Aspartate Amino Transferase (AST) 18 U/L (15-37) Alanine Aminotransferase (ALT) 23 U/L (14-59) Alkaline Phosphatase 109 U/L (46-116) Creatine Kinase 126 U/L (26-192) Troponin I Quantitative < 0.017 ng/mL (0-0.055) LV-Ioy-O-Type Natriuretic Peptide 21 pg/mL (0-124) Total Protein 7.3 g/dL (6.4-8.2) Albumin 3.8 g/dL (3.4-5.0) Lipase 267 U/L (73-393) Salicylates Level 0.7 mg/dL (2.8-20.0) L Salicylate Last Dose Date Unknown Salicylate Last Dose Time Unknown Urine Opiates Screen Neg (NEG) Urine Methadone Screen Neg (NEG) Acetaminophen Level < 2.0 mcg/mL (10-30) L Acetaminophen Last Dose Date Unknown Acetaminophen Last Dose Time Unknown Urine Barbiturates Neg (NEG) Urine Phencyclidine Screen Neg (NEG) Urine Amphetamine/Methamphetamine Neg (NEG) Urine Benzodiazepines Screen Neg (NEG) Urine Cocaine Screen Neg (NEG) Urine Cannabinoids Screen Neg (NEG) Ethyl Alcohol Level < 10 mg/dL (0-10) Urine Ethyl Alcohol Neg (NEG) EKG EKG My interpretation EKG shows a sinus rhythm at 74 bpm. Mild leftward axis. No acute findings of STEMI with contralateral changes.[] Radiology/Procedures Radiology/Procedures My interpretation of chest x-ray shows chronic changes consistent with COPD no large infiltrate no acute blockage sensations Cardiomegaly. My interpretation CT head shows no shift, mass, edema, bleed, or fracture. Does have some nonspecific chronic white matter disease changes. See formal report when available[] Course & Med Decision Making Course & Med Decision Making Pertinent Labs and Imaging studies reviewed. (See chart for details) Patient admitted to Dr.Anand SANDOVAL - Dr. Aguilera consult for medical issues. [] Final Impression Final Impression 1.Depression 2.Suicidal Ideation 3. Mental Status change 4. Dementia 5. Elevated Creat/ Bun =Dehydration 6. UTI[] 7. Hypothyroid - TSH 22,346 8. Subtherapeutic valproic level of 44 Dragon Disclaimer Dragon Disclaimer This electronic medical record was generated, in whole or in part, using a voice recognition dictation system. Dragon Disclaimer This chart was dictated in whole or in part using Voice Recognition software in a busy, high-work load, and often noisy Emergency Department environment. It may contain unintended and wholly unrecognized errors or omissions. Discharge Summary Brief Hospital Course Allergies Allergies Coded Allergies Type Severity Reaction Last Updated Verified aspirin Allergy Intermediate 03/30/18 Yes codeine Allergy Intermediate 03/30/18 Yes erythromycin base Allergy Intermediate 03/23/18 Yes hydromorphone Allergy Intermediate 03/30/18 Yes nalbuphine Allergy Intermediate 03/30/18 Yes Vital Signs Vital Signs Date Time Temp Pulse Resp B/P (MAP) Pulse Ox O2 Delivery O2 Flow Rate FiO2 05/31/18 15:07 97.4 82 20 106/57 (73) 96 05/30/18 18:10 Room Air Lab Results Laboratory Tests Test 05/30/18 18:25 05/30/18 18:32 05/30/18 22:30 05/31/18 07:15 Iron Level 46 ug/dL (50-170) Total Iron Binding Capacity 347 ug/dL (250-450) Iron Saturation 13 % (15-34) Triglycerides Level 138 mg/dL (0-150) Cholesterol Level 142 mg/dL (0-200) LDL Cholesterol, Calculated 69 mg/dL (0-100) VLDL Cholesterol, Calculated 27 mg/dL (0-40) Non-HDL Cholesterol Calculated 96 mg/dL (0-129) HDL Cholesterol 46 mg/dL (40-60) Cholesterol/HDL Ratio 3.0 25-Hydroxy Vitamin D Total 31.0 ng/mL (30-100) Thyroxine (T4) 6.4 ug/dL (4.5-12.0) Total Triiodothyronine 69 ng/dL (71-180) Valproic Acid (Depakene) Level 44 mcg/mL (50-100) Valproic Acid Last Dose Date 05/29/2018 Valproic Acid Last Dose Time 2100 Treponema pallidum Antibody Nonreactive (Nonreactive) White Blood Count 10.3 x10^3/uL (4.0-11.0) Red Blood Count 4.35 x10^6/uL (3.50-5.40) Hemoglobin 13.3 g/dL (12.0-15.5) Hematocrit 40.2 % (36.0-47.0) Mean Corpuscular Volume 92 fL (79-100) Mean Corpuscular Hemoglobin 31 pg (25-35) Mean Corpuscular Hemoglobin Concent 33 g/dL (31-37) Red Cell Distribution Width 14.8 % (11.5-14.5) Platelet Count 215 x10^3/uL (140-400) Neutrophils (%) (Auto) 74 % (31-73) Lymphocytes (%) (Auto) 19 % (24-48) Monocytes (%) (Auto) 5 % (0-9) Eosinophils (%) (Auto) 2 % (0-3) Basophils (%) (Auto) 0 % (0-3) Neutrophils # (Auto) 7.5 x10^3uL (1.8-7.7) Lymphocytes # (Auto) 2.0 x10^3/uL (1.0-4.8) Monocytes # (Auto) 0.5 x10^3/uL (0.0-1.1) Eosinophils # (Auto) 0.2 x10^3/uL (0.0-0.7) Basophils # (Auto) 0.0 x10^3/uL (0.0-0.2) Erythrocyte Sedimentation Rate 24 (0-25) Prothrombin Time 9.8 SEC (9.4-11.4) Prothromb Time International Ratio 1.0 (0.9-1.1) Activated Partial Thromboplast Time 28 SEC (23-33) Urine Collection Type Unknown Urine Color Straw Urine Clarity Cloudy Urine pH 6.0 Urine Specific [place] 1.025 Urine Protein Neg (NEG-TRACE) Urine Glucose (UA) Neg mg/dL (NEG) Urine Ketones (Stick) Neg mg/dL (NEG) Urine Blood Mod (NEG) Urine Nitrite Pos (NEG) Urine Bilirubin Neg (NEG) Urine Urobilinogen Dipstick 0.2 mg/dL (0.2 mg/dL) Urine Leukocyte Esterase Trace (NEG) Urine RBC 3-5 /HPF (0-2) Urine WBC 1-4 /HPF (0-4) Urine Squamous Epithelial Cells Few /LPF Urine Bacteria Many /HPF (0-FEW) Urine Mucus Slight /LPF Sodium Level 140 mmol/L (136-145) Potassium Level 4.4 mmol/L (3.5-5.1) Chloride Level 103 mmol/L (98-107) Carbon Dioxide Level 29 mmol/L (21-32) Anion Gap 8 (6-14) Blood Urea Nitrogen 24 mg/dL (7-20) Creatinine 1.4 mg/dL (0.6-1.0) Estimated GFR (Cockcroft-Gault) 37.9 Glucose Level 164 mg/dL (70-99) Calcium Level 8.6 mg/dL (8.5-10.1) Magnesium Level 2.3 mg/dL (1.8-2.4) Total Bilirubin 0.2 mg/dL (0.2-1.0) Direct Bilirubin 0.1 mg/dL (0.0-0.2) Aspartate Amino Transf (AST/SGOT) 18 U/L (15-37) Alanine Aminotransferase (ALT/SGPT) 23 U/L (14-59) Alkaline Phosphatase 109 U/L (46-116) Creatine Kinase 126 U/L (26-192) Troponin I Quantitative < 0.017 ng/mL (0-0.055) SS-Zyz-A-Type Natriuretic Peptide 21 pg/mL (0-124) Total Protein 7.3 g/dL (6.4-8.2) Albumin 3.8 g/dL (3.4-5.0) Lipase 267 U/L (73-393) Thyroid Stimulating Hormone (TSH) 22.346 uIU/mL (0.358-3.740) Salicylates Level 0.7 mg/dL (2.8-20.0) Salicylate Last Dose Date Unknown Salicylate Last Dose Time Unknown Urine Opiates Screen Neg (NEG) Urine Methadone Screen Neg (NEG) Acetaminophen Level < 2.0 mcg/mL (10-30) Acetaminophen Last Dose Date Unknown Acetaminophen Last Dose Time Unknown Urine Barbiturates Neg (NEG) Urine Phencyclidine Screen Neg (NEG) Urine Amphetamine/Methamphetamine Neg (NEG) Urine Benzodiazepines Screen Neg (NEG) Urine Cocaine Screen Neg (NEG) Urine Cannabinoids Screen Neg (NEG) Ethyl Alcohol Level < 10 mg/dL (0-10) Urine Ethyl Alcohol Neg (NEG) Glucose (Fingerstick) 122 mg/dL (70-99) 216 mg/dL (70-99) Test 05/31/18 11:49 05/31/18 17:03 05/31/18 19:32 Glucose (Fingerstick) 143 mg/dL (70-99) 87 mg/dL (70-99) 100 mg/dL (70-99) Brief Hospital Course Ms. Drew is a 62 old female who presented with mental status changes and SI . Admitted to [facility]. Dr. Aguilera consult for medical issues. Discharge Information Condition at Discharge: Stable Dischare Medications Current Medications Lactated Ringer's 1,000 ml @ 100 mls/hr Q10H IV ; Start 05/30/18 at 18:15; Stop 05/31/18 at 02:26; Status DC Cephalexin HCl (Keflex) 500 mg 1X ONCE PO Last administered on 05/30/18at 20:47 ; Start 05/30/18 at 20:45; Stop 05/30/18 at 20:46; Status DC Cephalexin HCl (Keflex) 500 mg TID PO Last administered on 05/31/18at 20:45; Start 05/31/18 at 09:00 Bupropion HCl (Wellbutrin Xl) 300 mg DAILY PO Last administered on 05/31/18at 09 :38; Start 05/31/18 at 09:00 Clonazepam (KlonoPIN) 0.5 mg PRN DAILY PRN PO ANXIETY / AGITATION; Start at 21:30 Divalproex Sodium (Depakote Sprinkles) 250 mg DAILY PO Last administered on 04/06at 09:37; Start 05/31/18 at 09:00; Stop 05/31/18 at 17:19; Status DC Divalproex Sodium (Depakote Sprinkles) 500 mg BID PO Last administered on at 20:49; Start 05/31/18 at 21:00 Melatonin 9 mg QHS PO Last administered on 05/31/18 20:49; Start 05/31/18 at 21:00 Mirtazapine (Remeron) 15 mg QHS PO Last administered on 05/31/18 20:49; Start 05/31/18 at 21:00 Acetaminophen (Tylenol) 650 mg PRN Q6HRS PRN PO PAIN / TEMP Last administered on 05/31/18 11:16; Start 05/30/18 at 21:45 Throat Lozenges (Cepacol Sore Throat Lozenge) 1 richard PRN Q2HR PRN MM sore throat ; Start 05/30/18 at 21:45 Bisacodyl (Dulcolax Tab) 10 mg PRN DAILY PRN PO CONSTIPATION; Start 05/30/18 at 21:45 Calcium Carbonate/ Glycine (Tums) 500 mg PRN Q8HRS PRN PO HEARTBURN / GAS; Start 05/30/18 at 21:45 Vitamin D (Vitamin D3) 2,000 unit DAILY PO Last administered on 05/31/18 09:37 ; Start 05/31/18 at 09:00 Dicyclomine HCl (Bentyl) 10 mg DAILY PO Last administered on 05/31/18 09:37; Start 05/31/18 at 09:00 Gabapentin (Neurontin) 200 mg TID PO Last administered on 05/31/18at 20:46; Start 05/31/18 at 09:00 Guaifenesin (Robitussin Dm) 10 ml PRN Q6HRS PRN PO COUGH; Start 05/30/18 at 21: 45 Lactobacillus Rhamnosus (Culturelle) 1 cap BID PO Last administered on at 20:45; Start 05/31/18 at 09:00 Levothyroxine Sodium (Synthroid) 100 mcg DAILY06 PO Last administered on at 05:47; Start 05/31/18 at 06:00 Magnesium Hydroxide (Milk Of Magnesia) 2,400 mg PRN QHS PRN PO CONSTIPATION; Start 05/30/18 at 21:45 Albuterol Sulfate (Ventolin) 2.5 mg PRN Q4HRS PRN NEB SHORTNESS OF BREATH; Start 05/30/18 at 21:45 Atorvastatin Calcium (Lipitor) 10 mg QHS PO Last administered on 05/31/18at 20: 49; Start 05/31/18 at 21:00 Pantoprazole Sodium (Protonix) 40 mg DAILYAC PO Last administered on 05/31/18at 09:38; Start 05/31/18 at 07:30 Famotidine (Pepcid) 20 mg PRN Q8HRS PRN PO HEARTBURN / GAS; Start 05/30/18 at 21:45 Fluticasone Propionate (Flonase) 2 spray PRN DAILY PRN NS NASAL INFLAMATION; Start 05/30/18 at 21:45 Insulin Human Lispro (HumaLOG) 10 units TIDWMEALS SQ Last administered on at 17:34; Start 05/31/18 at 08:00 Insulin Glargine (Lantus) 60 units DAILY SQ Last administered on 05/31/18at 09: 39; Start 05/31/18 at 09:00 Multi-Ingredient Ointment (Analgesic [place]) 1 nnamdi PRN TID PRN TP MUSCLE PAIN Last administered on 05/31/18at 11:16; Start 05/31/18 at 07:45 Ondansetron HCl (Zofran Odt) 4 mg PRN Q8HRS PRN PO NAUSEA/VOMITING; Start 05/30 at 21:45 Non-Formulary Medication (Ranitidine Hcl (Zantac)) 75 mg PRN Q8HRS PRN PO HEARTBURN / GAS; Start 05/30/18 at 21:45; Status UNV Acetaminophen (Tylenol) 650 mg PRN Q6HRS PRN PO PAIN / TEMP; Start 05/30/18 at 21:45; Status Cancel Al Hydroxide/Mg Hydroxide (Mylanta Plus Xs) 15 ml PRN AFTMEALHC PRN PO DYSPEPSIA; Start 05/30/18 at 21:45 Magnesium Hydroxide (Milk Of Magnesia) 2,400 mg PRN QHS PRN PO CONSTIPATION; Start 05/30/18 at 21:45; Status Cancel Insulin Human Lispro (HumaLOG) 0-5 UNITS TIDWMEALS SQ ; Start 05/31/18 at 17:00 Dextrose 12.5 gm PRN Q15MIN PRN IV SEE COMMENTS; Start 05/31/18 at 15:30 Active Scripts Active Reported Famotidine 20 Mg Tablet 20 Mg PO Q8HRS PRN Guaifenesin Dm Syrup (Guaifenesin/Dextromethorphan) 5 Ml Syrup 10 Ml PO PRN Q6HRS PRN Zofran (Ondansetron Hcl) 4 Mg Tablet 4 Mg PO PRN Q8HRS PRN Milk Of Magnesia (Magnesium Hydroxide) 400 Mg/5 Ml Oral.susp 2,400 Mg PO PRN QHS PRN Culturelle (Lactobacillus Rhamnosus Gg) 1 Each Cap.sprink 1 Each PO BID Depakote Sprinkle (Divalproex Sodium) 125 Mg Cap.sprink 250 Mg PO DAILY Depakote Sprinkle (Divalproex Sodium) 125 Mg Cap.sprink 500 Mg PO QHS Cepacol Sore Throat Lozenge (Benzocaine/Menthol) 1 Each Lozenge 1 Each MM PRN Q2HR PRN Mirtazapine 15 Mg Tablet 15 Mg PO QHS Levemir Flextouch (Insulin Detemir) 100 Unit/1 Ml Insuln.pen 60 Unit SQ DAILY Nexium Capsule (Esomeprazole Magnesium) 40 Mg Capsule.dr 40 Mg PO DAILYAC Vitamin D3 (Cholecalciferol (Vitamin D3)) 1,000 Unit Tablet 2,000 Unit PO DAILY Flonase Allergy Relief (Fluticasone Propionate) 9.9 Ml [place].susp 2 Sprays NS PRN DAILY PRN Dicyclomine Hcl 10 Mg Capsule 10 Mg PO DAILY Biofreeze (Menthol) 118 Ml Gel..ml. 1 Nnamdi TP PRN TID PRN Klonopin (Clonazepam) 0.5 Mg Tablet 0.5 Mg PO PRN DAILY PRN Levothyroxine Sodium 100 Mcg Tablet 100 Mcg PO DAILYAC Gabapentin (Gabapentin) 100 Mg Capsule 200 Mg PO TID Tums (Calcium Carbonate) 200 Mg Tab.chew 500 Mg PO PRN Q8HRS PRN Zantac (Ranitidine Hcl) 150 Mg Tablet 75 Mg PO PRN Q8HRS PRN Tylenol (Acetaminophen) 325 Mg Tablet 650 Mg PO PRN Q6HRS PRN Bupropion Xl (Bupropion Hcl) 300 Mg Tab.er.24h 300 Mg PO DAILY Melatonin 3 Mg Tablet 10 Mg PO DAILY Novolog Flexpen (Insulin Aspart) 100 Unit/1 Ml Insuln.pen 10 Unit SQ TIDWMEALS Albuterol Sulfate Conc Neb Soln (Albuterol Sulfate) 2.5 Mg/0.5 Ml Vial.neb 2.5 Mg NEB PRN Q4HRS PRN Hydrocodone-Apap 7.5-325 (Hydrocodone Bit/Acetaminophen) 1 Each Tablet 2 Tab PO PRN Q6HRS PRN Bisacodyl 5 Mg Tablet.dr 10 Mg PO PRN DAILY PRN Atorvastatin Calcium 10 Mg Tablet 10 Mg PO QHS MEETA HOPKINS MD May 30, 2018 18:40
[2018-05-30 18:49] LABS: BASO % 0 % (0-3); EOS # 0.2 x10^3/uL (0.0-0.7); EOS % 2 % (0-3); HEMATOCRIT 40.2 % (36.0-47.0); HEMOGLOBIN 13.3 g/dL (12.0-15.5); LYMPH % 19 % (24-48); MEAN CORPUSCULAR HEMOGLOBIN 31 pg (25-35); MEAN CORPUSCULAR HGB CONC 33 g/dL (31-37); MEAN CORPUSCULAR VOLUME 92 fL (79-100); MONO # 0.5 x10^3/uL (0.0-1.1); MONO % 5 % (0-9); NEUT # 7.5 x10^3uL (1.8-7.7); NEUT % 74 % (31-73); PLATELET COUNT 215 x10^3/uL (140-400); RED BLOOD COUNT 4.35 x10^6/uL (3.50-5.40); RED CELL DISTRIBUTION WIDTH 14.8 % (11.5-14.5); WHITE BLOOD COUNT 10.3 x10^3/uL (4.0-11.0)
[2018-05-30 18:52] LABS: AMPHETAMINE/METHAMPHETAMINE NEG (NEG); BARBITURATES NEG (NEG); BENZODIAZEPINES NEG (NEG); CANNABINOIDS NEG (NEG); COCAINE NEG (NEG); METHADONE NEG (NEG); OPIATES NEG (NEG); PHENCYCLIDINE NEG (NEG)
[2018-05-30 19:04] LABS: COLOR,URINE STRAW
[2018-05-30 19:05] LABS: BACTERIA,URINE MANY /HPF (0-FEW); BILIRUBIN,URINE NEG (NEG); CLARITY,URINE CLOUDY; GLUCOSE,URINE NEG (NEG); NITRITE,URINE POS (NEG); SQUAMOUS EPITHELIAL CELL,UR FEW /LPF; UROBILINOGEN,URINE 0.2 mg/dL (0.2 mg/dL)
[2018-05-30 19:07] LABS: ETHANOL < 10 mg/dL (0-10); SALIC 0.7 mg/dL (2.8-20.0)
[2018-05-30 19:15] LABS: ALBUMIN 3.8 g/dL (3.4-5.0); CALCIUM 8.6 mg/dL (8.5-10.1); CREATININE 1.4 mg/dL (0.6-1.0); DIRECT BILIRUBIN 0.1 mg/dL (0.0-0.2); GFR 37.9; MAGNESIUM 2.3 mg/dL (1.8-2.4); POTASSIUM 4.4 mmol/L (3.5-5.1); TOTAL BILIRUBIN 0.2 mg/dL (0.2-1.0); TOTAL PROTEIN 7.3 g/dL (6.4-8.2)
[2018-05-30 19:19] LABS: ACETAMIN < 2.0 mcg/mL (10-30)
[2018-05-30 19:53] LABS: SEDIMENTATION RATE 24 (0-25)
[2018-05-30] MEDS ORDERED: CEPHALEXIN 250 MG CAPSULE PO ONE (20:45)
[2018-05-30] MEDS ORDERED: clonazePAM 0.5 MG TABLET PO PRN (21:30)
[2018-05-30] MEDS ORDERED: BISACODYL TAB 5 MG TABLET.DR. PO PRN (21:45)
[2018-05-30] MEDS ORDERED: ONDANSETRON ODT 4 MG TAB.RAPDIS PO PRN (21:45)
[2018-05-30] MEDS ORDERED: FLUTICASONE 50MCG/NASAL SPRAY 16GM BOTTLE. NS PRN (21:45)
[2018-05-30] MEDS ORDERED: guaiFENesin DM 200MG/20MG 10 ML SYRUP PO PRN (21:45)
[2018-05-30] MEDS ORDERED: ACETAMINOPHEN 325 MG TABLET PO PRN (21:45)
[2018-05-30] MEDS ORDERED: BENZOCAINE/MENTHOL LOZNGE 18'S BOX. MM PRN (21:45)
[2018-05-30] MEDS ORDERED: ALBUTEROL SULFATE 2.5 MG/3 ML NEBU. NEB PRN (21:45)
[2018-05-30] MEDS ORDERED: MAGNESIUM HYDROXIDE 2,400 MG/30 ML ORAL.SUSP. PO PRN ×2 (21:45)
[2018-05-30] MEDS ORDERED: MAG HYDROX/AL HYDROX/SIMETH 30 ML ORAL.SUSP PO PRN (21:45)
[2018-05-30] MEDS ORDERED: CALCIUM CARBONATE 500 MG TAB.CHEW PO PRN (21:45)
[2018-05-30] MEDS ORDERED: RANITIDINE HCL 75 MG PO PRN (21:45)
--- NOTE | 2018-05-31 01:31 | RAD ---
CT HEAD WO CONTRAST History: Mental status changes Comparison: None. Technique: Noncontrast CT imaging was performed of the head. Exposure: One or more of the following individualized dose reduction techniques were utilized for this examination: 1. Automated exposure control 2. Adjustment of the mA and/or kV according to patient size 3. Use of iterative reconstruction technique. Findings: No acute extra-axial or parenchymal hemorrhage is identified. There is no significant intra-axial mass effect, midline shift, or extra-axial fluid collection. The singh-white differentiation of the major vascular territories is preserved. The ventricles, sulci, and cisterns are within normal limits in size and configuration. The mastoid air cells and the visualized paranasal sinuses are aerated. No acute calvarial abnormality is identified. Impression: 1. No acute intracranial abnormality is identified. Electronically signed by: Khai Layne MD (05/30/2018 9:47 PM) [facility]
--- NOTE | 2018-05-31 01:31 | RAD ---
PORTABLE CHEST 1V History: Cough Comparison: None. Findings: AP view the chest is submitted. There is no infiltrate, pleural fluid or pneumothorax. Heart size is within normal limits. There is mild elevation of the right hemidiaphragm. Impression: 1. No acute radiographic abnormality is identified. Electronically signed by: Khai Layne MD (05/30/2018 10:11 PM) [facility]
[2018-05-31 02:26] VITALS: BP 125/76
[2018-05-31 03:25] LABS: VAL ACID 44 mcg/mL (50-100)
[2018-05-31 05:44] VITALS: BP 106/63
[2018-05-31] MEDS: LEVOTHYROXINE 100 MCG TABLET PO SCH (05:47)
[2018-05-31] MEDS ORDERED: DIVALPROEX 125 MG CAP.SPRINK PO SCH (09:00)
--- NOTE | 2018-05-31 09:16 | PDOC ---
Exam Note: Luis Note: Late entry for DOS 05.30.2018. Please also refer to the separate dictated note~ for this date of service dictated separately.~Patient seen individually. Discussed the patient with Nursing staff reviewed the chart.~Reviewed interim history and current functioning. Reviewed vital signs,~Labs/ Radiology~and current medications noted below. Continue current treatment with the changes noted in the dictated addendum note Assessment: Vital Signs: VS - Last 72 Hours, by Label Date Time Temp Pulse Resp B/P (MAP) Pulse Ox O2 Delivery O2 Flow Rate FiO2 05/31/18 05:44 97.5 68 20 106/63 (77) 96 05/31/18 02:26 98.0 70 18 125/76 (92) 96 05/30/18 18:10 98.1 78 20 95 Room Air Vital Signs Date Time Temp Pulse Resp B/P (MAP) Pulse Ox O2 Delivery O2 Flow Rate FiO2 05/31/18 05:44 97.5 68 20 106/63 (77) 96 05/30/18 18:10 Room Air Labs: Laboratory Tests Test 05/30/18 18:25 05/30/18 18:32 05/30/18 22:30 05/31/18 07:15 Valproic Acid Level 44 mcg/mL (50-100) L Valproic Acid Last Dose Date 05/29/2018 Valproic Acid Last Dose Time 2100 White Blood Count 10.3 x10^3/uL (4.0-11.0) Red Blood Count 4.35 x10^6/uL (3.50-5.40) Hemoglobin 13.3 g/dL (12.0-15.5) Hematocrit 40.2 % (36.0-47.0) Mean Corpuscular Volume 92 fL (79-100) Mean Corpuscular Hemoglobin 31 pg (25-35) Mean Corpuscular Hemoglobin Concent 33 g/dL (31-37) Red Cell Distribution Width 14.8 % (11.5-14.5) H Platelet Count 215 x10^3/uL (140-400) Neutrophils (%) (Auto) 74 % (31-73) H Lymphocytes (%) (Auto) 19 % (24-48) L Monocytes (%) (Auto) 5 % (0-9) Eosinophils (%) (Auto) 2 % (0-3) Basophils (%) (Auto) 0 % (0-3) Neutrophils # (Auto) 7.5 x10^3uL (1.8-7.7) Lymphocytes # (Auto) 2.0 x10^3/uL (1.0-4.8) Monocytes # (Auto) 0.5 x10^3/uL (0.0-1.1) Eosinophils # (Auto) 0.2 x10^3/uL (0.0-0.7) Basophils # (Auto) 0.0 x10^3/uL (0.0-0.2) Erythrocyte Sedimentation Rate 24 (0-25) Prothrombin Time 9.8 SEC (9.4-11.4) Prothrombin Time INR 1.0 (0.9-1.1) PTT 28 SEC (23-33) Urine Collection Type Unknown Urine Color Straw Urine Clarity Cloudy Urine pH 6.0 Urine Specific [place] 1.025 Urine Protein Neg (NEG-TRACE) Urine Glucose (UA) Neg mg/dL (NEG) Urine Ketones (Stick) Neg mg/dL (NEG) Urine Blood Mod (NEG) Urine Nitrite Pos (NEG) Urine Bilirubin Neg (NEG) Urine Urobilinogen Dipstick 0.2 mg/dL (0.2 mg/dL) Urine Leukocyte Esterase Trace (NEG) Urine RBC 3-5 /HPF (0-2) Urine WBC 1-4 /HPF (0-4) Urine Squamous Epithelial Cells Few /LPF Urine Bacteria Many /HPF (0-FEW) Urine Mucus Slight /LPF Sodium Level 140 mmol/L (136-145) Potassium Level 4.4 mmol/L (3.5-5.1) Chloride Level 103 mmol/L (98-107) Carbon Dioxide Level 29 mmol/L (21-32) Anion Gap 8 (6-14) Blood Urea Nitrogen 24 mg/dL (7-20) H Creatinine 1.4 mg/dL (0.6-1.0) H Estimated GFR (Cockcroft-Gault) 37.9 Glucose Level 164 mg/dL (70-99) H Calcium Level 8.6 mg/dL (8.5-10.1) Magnesium Level 2.3 mg/dL (1.8-2.4) Total Bilirubin 0.2 mg/dL (0.2-1.0) Direct Bilirubin 0.1 mg/dL (0.0-0.2) Aspartate Amino Transferase (AST) 18 U/L (15-37) Alanine Aminotransferase (ALT) 23 U/L (14-59) Alkaline Phosphatase 109 U/L (46-116) Creatine Kinase 126 U/L (26-192) Troponin I Quantitative < 0.017 ng/mL (0-0.055) GE-Wgs-F-Type Natriuretic Peptide 21 pg/mL (0-124) Total Protein 7.3 g/dL (6.4-8.2) Albumin 3.8 g/dL (3.4-5.0) Lipase 267 U/L (73-393) Salicylates Level 0.7 mg/dL (2.8-20.0) L Salicylate Last Dose Date Unknown Salicylate Last Dose Time Unknown Urine Opiates Screen Neg (NEG) Urine Methadone Screen Neg (NEG) Acetaminophen Level < 2.0 mcg/mL (10-30) L Acetaminophen Last Dose Date Unknown Acetaminophen Last Dose Time Unknown Urine Barbiturates Neg (NEG) Urine Phencyclidine Screen Neg (NEG) Urine Amphetamine/Methamphetamine Neg (NEG) Urine Benzodiazepines Screen Neg (NEG) Urine Cocaine Screen Neg (NEG) Urine Cannabinoids Screen Neg (NEG) Ethyl Alcohol Level < 10 mg/dL (0-10) Urine Ethyl Alcohol Neg (NEG) Glucose (Fingerstick) 122 mg/dL (70-99) H 216 mg/dL (70-99) H Current Medications: Meds: Current Medications Lactated Ringer's 1,000 ml @ 100 mls/hr Q10H IV ; Start 05/30/18 at 18:15; Stop 05/31/18 at 02:26; Status DC Cephalexin HCl (Keflex) 500 mg 1X ONCE PO Last administered on 05/30/18at 20:47 ; Start 05/30/18 at 20:45; Stop 05/30/18 at 20:46; Status DC Cephalexin HCl (Keflex) 500 mg TID PO ; Start 05/31/18 at 09:00 Bupropion HCl (Wellbutrin Xl) 300 mg DAILY PO ; Start 05/31/18 at 09:00 Clonazepam (KlonoPIN) 0.5 mg PRN DAILY PRN PO ANXIETY / AGITATION; Start at 21:30 Divalproex Sodium (Depakote Sprinkles) 250 mg DAILY PO ; Start 05/31/18 at 09:00 Divalproex Sodium (Depakote Sprinkles) 500 mg QHS PO ; Start 05/31/18 at 21:00 Melatonin 9 mg QHS PO ; Start 05/31/18 at 21:00 Mirtazapine (Remeron) 15 mg QHS PO ; Start 05/31/18 at 21:00 Acetaminophen (Tylenol) 650 mg PRN Q6HRS PRN PO PAIN / TEMP; Start 05/30/18 at 21:45 Throat Lozenges (Cepacol Sore Throat Lozenge) 1 richard PRN Q2HR PRN MM sore throat ; Start 05/30/18 at 21:45 Bisacodyl (Dulcolax Tab) 10 mg PRN DAILY PRN PO CONSTIPATION; Start 05/30/18 at 21:45 Calcium Carbonate/ Glycine (Tums) 500 mg PRN Q8HRS PRN PO HEARTBURN / GAS; Start 05/30/18 at 21:45 Vitamin D (Vitamin D3) 2,000 unit DAILY PO ; Start 05/31/18 at 09:00 Dicyclomine HCl (Bentyl) 10 mg DAILY PO ; Start 05/31/18 at 09:00 Gabapentin (Neurontin) 200 mg TID PO ; Start 05/31/18 at 09:00 Guaifenesin (Robitussin Dm) 10 ml PRN Q6HRS PRN PO COUGH; Start 05/30/18 at 21: 45 Lactobacillus Rhamnosus (Culturelle) 1 cap BID PO ; Start 05/31/18 at 09:00 Levothyroxine Sodium (Synthroid) 100 mcg DAILY06 PO Last administered on at 05:47; Start 05/31/18 at 06:00 Magnesium Hydroxide (Milk Of Magnesia) 2,400 mg PRN QHS PRN PO CONSTIPATION; Start 05/30/18 at 21:45 Albuterol Sulfate (Ventolin) 2.5 mg PRN Q4HRS PRN NEB SHORTNESS OF BREATH; Start 05/30/18 at 21:45 Atorvastatin Calcium (Lipitor) 10 mg QHS PO ; Start 05/31/18 at 21:00 Pantoprazole Sodium (Protonix) 40 mg DAILYAC PO ; Start 05/31/18 at 07:30 Famotidine (Pepcid) 20 mg PRN Q8HRS PRN PO HEARTBURN / GAS; Start 05/30/18 at 21:45 Fluticasone Propionate (Flonase) 2 spray PRN DAILY PRN NS NASAL INFLAMATION; Start 05/30/18 at 21:45 Insulin Human Lispro (HumaLOG) 10 units TIDWMEALS SQ ; Start 05/31/18 at 08:00 Insulin Glargine (Lantus) 60 units DAILY SQ ; Start 05/31/18 at 09:00 Multi-Ingredient Ointment (Analgesic [place]) 1 nnamdi PRN TID PRN TP MUSCLE PAIN; Start 05/31/18 at 07:45 Ondansetron HCl (Zofran Odt) 4 mg PRN Q8HRS PRN PO NAUSEA/VOMITING; Start 05/30 at 21:45 Non-Formulary Medication (Ranitidine Hcl (Zantac)) 75 mg PRN Q8HRS PRN PO HEARTBURN / GAS; Start 05/30/18 at 21:45; Status UNV Acetaminophen (Tylenol) 650 mg PRN Q6HRS PRN PO PAIN / TEMP; Start 05/30/18 at 21:45; Status Cancel Al Hydroxide/Mg Hydroxide (Mylanta Plus Xs) 15 ml PRN AFTMEALHC PRN PO DYSPEPSIA; Start 05/30/18 at 21:45 Magnesium Hydroxide (Milk Of Magnesia) 2,400 mg PRN QHS PRN PO CONSTIPATION; Start 05/30/18 at 21:45; Status Cancel Active Scripts Active Reported Famotidine 20 Mg Tablet 20 Mg PO Q8HRS PRN Guaifenesin Dm Syrup (Guaifenesin/Dextromethorphan) 5 Ml Syrup 10 Ml PO PRN Q6HRS PRN Zofran (Ondansetron Hcl) 4 Mg Tablet 4 Mg PO PRN Q8HRS PRN Milk Of Magnesia (Magnesium Hydroxide) 400 Mg/5 Ml Oral.susp 2,400 Mg PO PRN QHS PRN Culturelle (Lactobacillus Rhamnosus Gg) 1 Each Cap.sprink 1 Each PO BID Depakote Sprinkle (Divalproex Sodium) 125 Mg Cap.sprink 250 Mg PO DAILY Depakote Sprinkle (Divalproex Sodium) 125 Mg Cap.sprink 500 Mg PO QHS Cepacol Sore Throat Lozenge (Benzocaine/Menthol) 1 Each Lozenge 1 Each MM PRN Q2HR PRN Mirtazapine 15 Mg Tablet 15 Mg PO QHS Levemir Flextouch (Insulin Detemir) 100 Unit/1 Ml Insuln.pen 60 Unit SQ DAILY Nexium Capsule (Esomeprazole Magnesium) 40 Mg Capsule.dr 40 Mg PO DAILYAC Vitamin D3 (Cholecalciferol (Vitamin D3)) 1,000 Unit Tablet 2,000 Unit PO DAILY Flonase Allergy Relief (Fluticasone Propionate) 9.9 Ml [place].susp 2 Sprays NS PRN DAILY PRN Dicyclomine Hcl 10 Mg Capsule 10 Mg PO DAILY Biofreeze (Menthol) 118 Ml Gel..ml. 1 Nnamdi TP PRN TID PRN Klonopin (Clonazepam) 0.5 Mg Tablet 0.5 Mg PO PRN DAILY PRN Levothyroxine Sodium 100 Mcg Tablet 100 Mcg PO DAILYAC Gabapentin (Gabapentin) 100 Mg Capsule 200 Mg PO TID Tums (Calcium Carbonate) 200 Mg Tab.chew 500 Mg PO PRN Q8HRS PRN Zantac (Ranitidine Hcl) 150 Mg Tablet 75 Mg PO PRN Q8HRS PRN Tylenol (Acetaminophen) 325 Mg Tablet 650 Mg PO PRN Q6HRS PRN Bupropion Xl (Bupropion Hcl) 300 Mg Tab.er.24h 300 Mg PO DAILY Melatonin 3 Mg Tablet 10 Mg PO DAILY Novolog Flexpen (Insulin Aspart) 100 Unit/1 Ml Insuln.pen 10 Unit SQ TIDWMEALS Albuterol Sulfate Conc Neb Soln (Albuterol Sulfate) 2.5 Mg/0.5 Ml Vial.neb 2.5 Mg NEB PRN Q4HRS PRN Hydrocodone-Apap 7.5-325 (Hydrocodone Bit/Acetaminophen) 1 Each Tablet 2 Tab PO PRN Q6HRS PRN Bisacodyl 5 Mg Tablet.dr 10 Mg PO PRN DAILY PRN Atorvastatin Calcium 10 Mg Tablet 10 Mg PO QHS I have reviewed the current psychotropics carefully including drug interactions. Risk benefit ratio favors no change other than as noted in my dictated progress note. Diagnosis: Problems: (1) Anxiety disorder (2) Bipolar 1 disorder, manic, moderate (3) Impulse control disorder (4) Schizoaffective disorder, bipolar type EZRA,MAN M MD May 31, 2018 09:16
[2018-05-31] MEDS: GABAPENTIN 100 MG CAPSULE. PO SCH ×3 (09:37→20:46)
[2018-05-31] MEDS: CHOLECALCIFEROL (VITAMIN D3) 1,000 UNIT TABLET PO SCH (09:37)
[2018-05-31] MEDS: DICYCLOMINE HCL 10 MG CAPSULE PO SCH (09:37)
[2018-05-31] MEDS: PANTOPRAZOLE 40 MG TABLET. PO SCH (09:38)
[2018-05-31] MEDS: LACTOBACILLUS RHAMNOSUS GG 1 CAPSULE. PO SCH ×2 (09:38→20:45)
[2018-05-31] MEDS: CEPHALEXIN 250 MG CAPSULE PO SCH ×3 (09:38→20:45)
[2018-05-31] MEDS: buPROPion XL 300 MG TAB.ER.24H. PO SCH (09:38)
[2018-05-31] MEDS: INSULIN GLARGINE 300 UNITS/3 ML INSULN.PEN. SQ SCH (09:39)
[2018-05-31] MEDS: INSULIN LISPRO 300 UNITS/3 ML INSULN.PEN. SQ SCH ×4 (09:41→17:34)
[2018-05-31] MEDS: METHYL SALICYLATE/MENTHOL TOPICAL OINTMENT 29GM TUBE. TP PRN ×2 (11:16→22:30)
[2018-05-31] MEDS: ACETAMINOPHEN 325 MG TABLET PO PRN (11:16)
[2018-05-31 15:07] VITALS: BP 106/57
[2018-05-31] MEDS ORDERED: DEXTROSE 50% 25 GM / 50ML DISP.SYRIN. IV PRN (15:30)
--- NOTE | 2018-05-31 17:41 | EKG ---
[address] [address] Test Date: 2018-05-30 Test Time: 18:17:53 Pat Name: OMAR CAR Department: Room: [address] [place] [address] Gender: F Software Applications Architect: : [id number] Requested By: MEETA HOPKINS Order Number: [id number] Reading MD: Jani Mathur MD Measurements Intervals [place] Rate: 74 P: 30 TX: 188 QRS: -13 QRSD: 86 T: 91 QT: 392 QTc: 436 Interpretive Statements SINUS RHYTHM Electronically Signed On 06-02-2018 13:50:18 HE[employer]ARE FACILITIES INSPECTOR by Jani Mathur MD
[2018-05-31 18:07] LABS: THYROXINE 6.4 ug/dL (4.5-12.0)
[2018-05-31] MEDS: MELATONIN 3 MG TABLET PO SCH (20:49)
[2018-05-31] MEDS: ATORVASTATIN CALCIUM 10 MG TABLET. PO SCH (20:49)
[2018-05-31] MEDS: DIVALPROEX 125 MG CAP.SPRINK PO SCH (20:49)
[2018-05-31] MEDS: MIRTAZAPINE 15 MG TABLET PO SCH (20:49)
--- NOTE | 2018-05-31 22:39 | PDOC ---
Exam Note: Luis Note: Please also refer to the separate dictated note~for this date of service dictated separately.~Patient seen individually. Discussed the patient with Nursing staff reviewed the chart.~Reviewed interim history and current functioning. Reviewed vital signs,~Labs/ Radiology~and current medications noted below. Continue current treatment with the changes noted in the dictated addendum note Assessment: Vital Signs: Vital Signs Date Time Temp Pulse Resp B/P (MAP) Pulse Ox O2 Delivery O2 Flow Rate FiO2 05/31/18 15:07 97.4 82 20 106/57 (73) 96 05/30/18 18:10 Room Air Labs: Laboratory Tests Test 05/31/18 07:15 05/31/18 11:49 05/31/18 17:03 05/31/18 19:32 Glucose (Fingerstick) 216 mg/dL (70-99) H 143 mg/dL (70-99) H 87 mg/dL (70-99) 100 mg/dL (70-99) H Current Medications: Meds: Current Medications Lactated Ringer's 1,000 ml @ 100 mls/hr Q10H IV ; Start 05/30/18 at 18:15; Stop 05/31/18 at 02:26; Status DC Cephalexin HCl (Keflex) 500 mg 1X ONCE PO Last administered on 05/30/18at 20:47 ; Start 05/30/18 at 20:45; Stop 05/30/18 at 20:46; Status DC Cephalexin HCl (Keflex) 500 mg TID PO Last administered on 05/31/18at 20:45; Start 05/31/18 at 09:00 Bupropion HCl (Wellbutrin Xl) 300 mg DAILY PO Last administered on 05/31/18at 09 :38; Start 05/31/18 at 09:00 Clonazepam (KlonoPIN) 0.5 mg PRN DAILY PRN PO ANXIETY / AGITATION; Start at 21:30 Divalproex Sodium (Depakote Sprinkles) 250 mg DAILY PO Last administered on 04/06at 09:37; Start 05/31/18 at 09:00; Stop 05/31/18 at 17:19; Status DC Divalproex Sodium (Depakote Sprinkles) 500 mg BID PO Last administered on at 20:49; Start 05/31/18 at 21:00 Melatonin 9 mg QHS PO Last administered on 05/31/18 20:49; Start 05/31/18 at 21:00 Mirtazapine (Remeron) 15 mg QHS PO Last administered on 05/31/18 20:49; Start 05/31/18 at 21:00 Acetaminophen (Tylenol) 650 mg PRN Q6HRS PRN PO PAIN / TEMP Last administered on 05/31/18 11:16; Start 05/30/18 at 21:45 Throat Lozenges (Cepacol Sore Throat Lozenge) 1 richard PRN Q2HR PRN MM sore throat ; Start 05/30/18 at 21:45 Bisacodyl (Dulcolax Tab) 10 mg PRN DAILY PRN PO CONSTIPATION; Start 05/30/18 at 21:45 Calcium Carbonate/ Glycine (Tums) 500 mg PRN Q8HRS PRN PO HEARTBURN / GAS; Start 05/30/18 at 21:45 Vitamin D (Vitamin D3) 2,000 unit DAILY PO Last administered on 05/31/18 09:37 ; Start 05/31/18 at 09:00 Dicyclomine HCl (Bentyl) 10 mg DAILY PO Last administered on 05/31/18 09:37; Start 05/31/18 at 09:00 Gabapentin (Neurontin) 200 mg TID PO Last administered on 05/31/18 20:46; Start 05/31/18 at 09:00 Guaifenesin (Robitussin Dm) 10 ml PRN Q6HRS PRN PO COUGH; Start 05/30/18 at 21: 45 Lactobacillus Rhamnosus (Culturelle) 1 cap BID PO Last administered on 20:45; Start 05/31/18 at 09:00 Levothyroxine Sodium (Synthroid) 100 mcg DAILY06 PO Last administered on 05:47; Start 05/31/18 at 06:00 Magnesium Hydroxide (Milk Of Magnesia) 2,400 mg PRN QHS PRN PO CONSTIPATION; Start 05/30/18 at 21:45 Albuterol Sulfate (Ventolin) 2.5 mg PRN Q4HRS PRN NEB SHORTNESS OF BREATH; Start 05/30/18 at 21:45 Atorvastatin Calcium (Lipitor) 10 mg QHS PO Last administered on 05/31/18at 20: 49; Start 05/31/18 at 21:00 Pantoprazole Sodium (Protonix) 40 mg DAILYAC PO Last administered on 05/31/18at 09:38; Start 05/31/18 at 07:30 Famotidine (Pepcid) 20 mg PRN Q8HRS PRN PO HEARTBURN / GAS; Start 05/30/18 at 21:45 Fluticasone Propionate (Flonase) 2 spray PRN DAILY PRN NS NASAL INFLAMATION; Start 05/30/18 at 21:45 Insulin Human Lispro (HumaLOG) 10 units TIDWMEALS SQ Last administered on at 17:34; Start 05/31/18 at 08:00 Insulin Glargine (Lantus) 60 units DAILY SQ Last administered on 05/31/18at 09: 39; Start 05/31/18 at 09:00 Multi-Ingredient Ointment (Analgesic [place]) 1 nnamdi PRN TID PRN TP MUSCLE PAIN Last administered on 05/31/18at 22:30; Start 05/31/18 at 07:45 Ondansetron HCl (Zofran Odt) 4 mg PRN Q8HRS PRN PO NAUSEA/VOMITING; Start 05/30 at 21:45 Non-Formulary Medication (Ranitidine Hcl (Zantac)) 75 mg PRN Q8HRS PRN PO HEARTBURN / GAS; Start 05/30/18 at 21:45; Status UNV Acetaminophen (Tylenol) 650 mg PRN Q6HRS PRN PO PAIN / TEMP; Start 05/30/18 at 21:45; Status Cancel Al Hydroxide/Mg Hydroxide (Mylanta Plus Xs) 15 ml PRN AFTMEALHC PRN PO DYSPEPSIA; Start 05/30/18 at 21:45 Magnesium Hydroxide (Milk Of Magnesia) 2,400 mg PRN QHS PRN PO CONSTIPATION; Start 05/30/18 at 21:45; Status Cancel Insulin Human Lispro (HumaLOG) 0-5 UNITS TIDWMEALS SQ ; Start 05/31/18 at 17:00 Dextrose 12.5 gm PRN Q15MIN PRN IV SEE COMMENTS; Start 2/12/19 at 15:30 Active Scripts Active Reported Famotidine 20 Mg Tablet 20 Mg PO Q8HRS PRN Guaifenesin Dm Syrup (Guaifenesin/Dextromethorphan) 5 Ml Syrup 10 Ml PO PRN Q6HRS PRN Zofran (Ondansetron Hcl) 4 Mg Tablet 4 Mg PO PRN Q8HRS PRN Milk Of Magnesia (Magnesium Hydroxide) 400 Mg/5 Ml Oral.susp 2,400 Mg PO PRN QHS PRN Culturelle (Lactobacillus Rhamnosus Gg) 1 Each Cap.sprink 1 Each PO BID Depakote Sprinkle (Divalproex Sodium) 125 Mg Cap.sprink 250 Mg PO DAILY Depakote Sprinkle (Divalproex Sodium) 125 Mg Cap.sprink 500 Mg PO QHS Cepacol Sore Throat Lozenge (Benzocaine/Menthol) 1 Each Lozenge 1 Each MM PRN Q2HR PRN Mirtazapine 15 Mg Tablet 15 Mg PO QHS Levemir Flextouch (Insulin Detemir) 100 Unit/1 Ml Insuln.pen 60 Unit SQ DAILY Nexium Capsule (Esomeprazole Magnesium) 40 Mg Capsule.dr 40 Mg PO DAILYAC Vitamin D3 (Cholecalciferol (Vitamin D3)) 1,000 Unit Tablet 2,000 Unit PO DAILY Flonase Allergy Relief (Fluticasone Propionate) 9.9 Ml [place].susp 2 Sprays NS PRN DAILY PRN Dicyclomine Hcl 10 Mg Capsule 10 Mg PO DAILY Biofreeze (Menthol) 118 Ml Gel..ml. 1 Nnamdi TP PRN TID PRN Klonopin (Clonazepam) 0.5 Mg Tablet 0.5 Mg PO PRN DAILY PRN Levothyroxine Sodium 100 Mcg Tablet 100 Mcg PO DAILYAC Gabapentin (Gabapentin) 100 Mg Capsule 200 Mg PO TID Tums (Calcium Carbonate) 200 Mg Tab.chew 500 Mg PO PRN Q8HRS PRN Zantac (Ranitidine Hcl) 150 Mg Tablet 75 Mg PO PRN Q8HRS PRN Tylenol (Acetaminophen) 325 Mg Tablet 650 Mg PO PRN Q6HRS PRN Bupropion Xl (Bupropion Hcl) 300 Mg Tab.er.24h 300 Mg PO DAILY Melatonin 3 Mg Tablet 10 Mg PO DAILY Novolog Flexpen (Insulin Aspart) 100 Unit/1 Ml Insuln.pen 10 Unit SQ TIDWMEALS Albuterol Sulfate Conc Neb Soln (Albuterol Sulfate) 2.5 Mg/0.5 Ml Vial.neb 2.5 Mg NEB PRN Q4HRS PRN Hydrocodone-Apap 7.5-325 (Hydrocodone Bit/Acetaminophen) 1 Each Tablet 2 Tab PO PRN Q6HRS PRN Bisacodyl 5 Mg Tablet.dr 10 Mg PO PRN DAILY PRN Atorvastatin Calcium 10 Mg Tablet 10 Mg PO QHS I have reviewed the current psychotropics carefully including drug interactions. Risk benefit ratio favors no change other than as noted in my dictated progress note. Diagnosis: Problems: (1) Anxiety disorder (2) Bipolar 1 disorder, manic, moderate (3) Impulse control disorder (4) Schizoaffective disorder, bipolar type FAYE MUNGUIA MD May 31, 2018 22:39
[2018-05-31 23:07] LABS: HEMOGLOBIN A1C 8.4 % (4.8-5.6)
--- NOTE | 2018-05-31 23:25 | HP ---
ADMIT DATE: 05/30/2018 PSYCHIATRIC ADMISSION HISTORY/EVALUATION This note covers elements not covered in my initial note of 05/30/2018. IDENTIFYING DATA: The patient is a 62-year-old female referred to us back from [facility] by her primary care physician, Dr. Elisabet Grajeda and from the [facility] where she has been followed by the psychiatrist for her bipolar disorder. The patient was voicing suicidal with a plan to slash her wrist and throat, was increasingly withdrawn, isolative, intermittently noncompliant with the treatment, extremely distractible, anxious. Having failed outpatient psychiatric interventions especially since she was voicing suicidal ideation, she is referred back for inpatient psychiatric stabilization. CHIEF COMPLAINT: "I get frustrated with the people there." I have reviewed current past records, met with the patient individually in her room, discussed with nursing staff on a couple of occasions, and Tammie Thrasher, membership coordinator, as well on a couple of occasions" HISTORY OF PRESENT ILLNESS: The patient has a history of bipolar disorder mixed with psychotic features, schizoaffective disorder, PTSD, borderline personality disorder. She has been here with us in the past 03/2018 and was returned back to the facility. Over the last several days, she has been increasingly anxious, depressed with marked mood lability, voicing suicidal ideation. She has had sleep and appetite changes, withdrawal, isolativeness. No active homicidal ideation. Cognitively, she is reasonably intact. PAST PSYCHIATRIC HISTORY: As noted above. PAST MEDICAL HISTORY: Medical history is positive for obesity, diabetes mellitus, neuropathy, gastroesophageal reflux disease, chronic diarrhea with irritable bowel syndrome, gastritis, duodenal ulcer, unilateral kidney, renal agenesis, recurrent UTIs, hypothyroidism, seizure disorder, last known seizure 20 years ago, no meds for this. She has a history of cholecystectomy, vitamin D deficiency, chronic back pain, sciatica, chronic obstructive pulmonary disease, dermatitis, hyperlipidemia. Accu-Cheks: A.c. and bedtime. CODE STATUS: Full code. ALLERGIES: ASPIRIN, TAPE, CODEINE, ERYTHROMYCIN BASE, NUBAIN. FAMILY HISTORY: Noncontributory. CURRENT PSYCHOTROPICS: Klonopin 0.5 mg at bedtime, melatonin 10 mg at bedtime, Remeron 15 mg at bedtime, Wellbutrin XL 300 mg daily, Depakote Sprinkles 500 b.i.d. FAMILY HISTORY: Noncontributory. SOCIAL HISTORY: No history of alcohol, drug abuse, physical, sexual or elder abuse history is noted. Not known to be a perpetrator. REACTION TO HOSPITALIZATION: The patient accepting of it. ASSETS: Stable living at the above facility. The patient is being admitted voluntarily. REVIEW OF SYSTEMS: No CV, , pulmonary, eye, ENT system symptoms on review. MENTAL STATUS EXAMINATION: Oriented to herself and situation. Speech is coherent, abstraction fair, computation impaired, language function intact, attention span short. Mood and affect remain somewhat depressed, anxious, labile at times and she was quite verbal, open, forthcoming about it, but denied active suicidal ideation. Attention span is short. Language function is intact. LABORATORY DATA: Reviewed. IMPRESSION: Bipolar 1 disorder, mixed with psychotic features; history of schizoaffective disorder, bipolar type; posttraumatic stress disorder; borderline personality disorder; anxiety disorder, unspecified. Rest as above. PLAN: Admit to Geropsychiatry Unit at [facility]. I will see the patient daily individually from a psychiatric standpoint, medical followup with Dr. Aguilera. Continue the patient on her current psychotropics. Check a valproic acid level, at the time of this dictation level is 44 subtherapeutic. We will gradually adjust the Depakote and the rest of her psychotropics. Estimated length of stay is 10-12 days. DISPOSITION: Plan back to [facility] at discharge. FAYE MUNGUIA MD DR: MINOR/aamir JOB#: [id number] / [id number]
--- NOTE | 2018-06-01 03:47 | CONS ---
DATE OF CONSULTATION: REASON FOR CONSULTATION: Consult for medical management. HISTORY OF PRESENT ILLNESS: The patient is a 62-year-old female patient, a resident at [facility], who was admitted on account of suicidal ideation with the plan to slit her wrist or throat, decreased interest in activities and poor appetite, all these on the background of bipolar disorder, schizoaffective, posttraumatic stress disorder, and borderline personality. However, when I saw her this afternoon, her main complaint was pain in her left shoulder, inability to lift the shoulder up and pain severe at nighttime that she cannot find a comfortable position. PAST MEDICAL HISTORY: Her past medical history is significant for morbid obesity, hypothyroidism, type 2 diabetes, peripheral neuropathy, vitamin D deficiency, hyperlipidemia, chronic cyclic schizophrenia, hypertension, bronchial asthma, irritable bowel syndrome, insomnia, chronic back pain, sciatica, gastroesophageal reflux disease, chronic obstructive pulmonary disease, renal agenesis, bipolar disorder, posttraumatic disorder, shortness of breath, anxiety, muscle weakness, and borderline personality. She also has enthesopathy and dermatitis. PAST SURGICAL HISTORY: Past surgical history is positive for cholecystectomy. ALLERGIES: She is ALLERGIC TO ASPIRIN, CODEINE, TAPE, ADHESIVES, DILAUDID, ERYTHROMYCIN, and NALBUPHINE. FAMILY HISTORY: Unremarkable. SOCIAL HISTORY: She is a resident at [facility]. She apparently does not smoke, drink alcohol, or use any recreational drugs. REVIEW OF SYSTEMS: As per the history of present illness. MEDICATIONS: She is currently on following medication: She is on dicyclomine 10 mg daily, albuterol sulfate 2.5 mg by nebulizer every 4 hours, atorvastatin calcium 10 mg at bedtime, hydrocodone/APAP 7.5/325 two tablets every 6 hours, Tylenol 650 mg every 6 hours, clonazepam 0.5 mg daily, divalproex sodium 500 mg at bedtime, divalproex sodium 250 mg daily, gabapentin 200 mg 3 times a day, Wellbutrin 300 mg daily, mirtazapine 15 mg p.o. at bedtime. She is on guaifenesin/dextromethorphan 10 mL every 6 hours, Flonase 2 sprays to each nostril once a day, benzocaine, menthol, Cepacol sore throat lozenges 1 every 2 hours, calcium carbonate 500 mg every 8 hours, bisacodyl 10 mg p.o. daily p.r.n. for constipation, magnesium hydroxide for milk of magnesia 30 mL p.o. daily p.r.n. for constipation, ondansetron 4 mg every 8 hours as needed, famotidine 20 mg every 8 hours, ranitidine 75 mg every 8 hours, and Nexium 40 mg daily before meals. She is on NovoLog FlexPen 10 units subcutaneously 3 times a day and detemir insulin 60 units daily. She is on levothyroxine sodium 100 mcg once a day, Biofreeze 1 application 3 times a day, cholecalciferol 2000 units p.o. daily, and melatonin 3 mg at bedtime. PHYSICAL EXAMINATION: GENERAL: When I saw her, she was resting comfortably in her chair, in no apparent respiratory distress. There was no pallor, jaundice, cyanosis, or thyromegaly. No jugular venous distension. No lower limb edema. VITAL SIGNS: Heart rate was 82, blood pressure was 106/57, temperature was 97.4, respiratory rate 20 and oxygen saturation was 96%. HEENT: Examination of the head, eyes, ears, nose and throat showed normocephalic, atraumatic. NECK: Supple. HEART: Showed normal first and second heart sounds. No gallop, rub, or murmur. CHEST: Clear to auscultation. No crepitation or rhonchi. ABDOMEN: Distended, soft, nontender. No guarding or rigidity. No organomegaly. Her hernial orifices are intact and bowel sounds are normal. NEUROLOGIC: She was awake, alert, responding appropriately. All her cranial nerves are intact. EXTREMITIES: She moves extremities without difficulty. She ambulates without assistance or assistive devices. She does have pain and limitation of movement to her left shoulder. LABORATORY DATA AND IMAGING STUDIES: Her lab work showed a white cell count of 10,300, hemoglobin 13.3, hematocrit 40, MCV 92, and platelet count 215,000 with normal manual differential. Her chemistry showed that her serum sodium was 140, potassium 4.4, chloride 103, bicarbonate 29, anion gap of 8, BUN 24, creatinine 1.4, estimated GFR was 58 mL per minute, glucose 164, calcium was 8.6, magnesium was 2.3, serum iron 46, TIBC was high at 447. Iron saturation was 13. Total bilirubin, AST, ALT, alkaline phosphatase were normal. Her total protein was 7.3, albumin 3.8. Serum triglycerides were 138, total cholesterol 142, LDL cholesterol was 69, VLDL was 27, HDL cholesterol was 46, serum lipase was 267, 25-hydroxy vitamin D was 31. She was within normal range. Her TSH is high at 22.346. Her prothrombin time, INR, and aPTT are all within normal range. Her urinalysis showed the urine was straw colored and cloudy, with a pH of 6 and specific gravity of 1.025. The urine was negative for glucose, ketones, and blood. However, it was positive for nitrite. There was trace leukocyte esterase, 3-5 rbc's, 1-4 wbc's, and many bacteria. Her Treponema pallidum antibodies were nonreactive. Toxic screen showed that her valproic acid was only 44, it was otherwise negative for other drugs. IMAGING STUDIES: She has had the CT scan of the head, which basically shows no acute extraaxial or parenchymal hemorrhage is identified. There is no significant intraaxial mass effect, midline shift, or extraaxial fluid collection. The singh-white differentiation of the major vascular territory is preserved. Ventricles, sulci, and cisterns are all within normal limits in size and configuration. The mastoid air cells and visualized paranasal sinuses are aerated. No acute calvarial abnormalities are identified. The chest x-ray shows there is no infiltrate, pleural effusion, or pneumothorax. The heart size is within normal limits. There is mild elevation of the right hemidiaphragm. IMPRESSION AND PLAN: So, in summary, this is a 62-year-old female patient who was admitted to from [facility] in [place], [place], on account of suicidal ideation with the plan to slit her wrist or throat, decreased interest in activities, and decrease meal intake. Medically, she has a multitude of medical problems, including hypertension, hyperlipidemia, morbid obesity, type 2 diabetes, peripheral neuropathy, and chronic obstructive pulmonary disease. However, reviewing her vital signs, they seem to be well within acceptable range. Her thyroid function and kidney function are slightly impaired. Her TSH was high at 22. I would wait for the result of the T3, T4, free T4, and as far as her kidney function is concerned, her serum creatinine has been at the same level when she was here in 03/2018. I will obviously follow all her labs that are still pending and make any necessary adjustment or recommendation. Thank you, Dr. Harper, for allowing me to participate in the care of this patient. JAYLYN BENÍTEZ MD DR: KAMRNY/aamir JOB#: [id number] / [id number]
[2018-06-01 05:58] VITALS: BP 120/78
[2018-06-01] MEDS: LEVOTHYROXINE 100 MCG TABLET PO SCH (06:04)
[2018-06-01] MEDS: ACETAMINOPHEN 325 MG TABLET PO PRN (06:04)
[2018-06-01] MEDS: buPROPion XL 300 MG TAB.ER.24H. PO SCH (07:58)
[2018-06-01] MEDS: LACTOBACILLUS RHAMNOSUS GG 1 CAPSULE. PO SCH ×2 (07:59→20:55)
[2018-06-01] MEDS: CEPHALEXIN 250 MG CAPSULE PO SCH ×3 (07:59→20:55)
[2018-06-01] MEDS: CHOLECALCIFEROL (VITAMIN D3) 1,000 UNIT TABLET PO SCH (07:59)
[2018-06-01] MEDS: DICYCLOMINE HCL 10 MG CAPSULE PO SCH (07:59)
[2018-06-01] MEDS: PANTOPRAZOLE 40 MG TABLET. PO SCH (07:59)
[2018-06-01] MEDS: DIVALPROEX 125 MG CAP.SPRINK PO SCH ×2 (08:00→20:55)
[2018-06-01] MEDS: GABAPENTIN 100 MG CAPSULE. PO SCH ×3 (08:02→20:55)
[2018-06-01] MEDS: INSULIN GLARGINE 300 UNITS/3 ML INSULN.PEN. SQ SCH (08:03)
[2018-06-01] MEDS: INSULIN LISPRO 300 UNITS/3 ML INSULN.PEN. SQ SCH ×6 (08:05→17:40)
[2018-06-01 16:10] VITALS: BP 151/79
[2018-06-01] MEDS: ATORVASTATIN CALCIUM 10 MG TABLET. PO SCH (20:54)
[2018-06-01] MEDS: MIRTAZAPINE 15 MG TABLET PO SCH (20:54)
[2018-06-01] MEDS: MELATONIN 3 MG TABLET PO SCH (20:54)
[2018-06-01] MEDS: risperiDONE 0.5 MG TABLET. PO SCH (20:55)
--- NOTE | 2018-06-01 22:19 | PDOC ---
Exam Note: Luis Note: Please also refer to the separate dictated note~for this date of service dictated separately.~Patient seen individually. Discussed the patient with Nursing staff reviewed the chart.~Reviewed interim history and current functioning. Reviewed vital signs,~Labs/ Radiology~and current medications noted below. Continue current treatment with the changes noted in the dictated addendum note Assessment: Vital Signs: Vital Signs Date Time Temp Pulse Resp B/P (MAP) Pulse Ox O2 Delivery O2 Flow Rate FiO2 06/01/18 16:10 98.1 86 20 151/79 (103) 98 05/30/18 18:10 Room Air I&O Intake and Output 06/01/18 07:00 Intake Total 960 ml Balance 960 ml Intake Oral 960 ml Labs: Laboratory Tests Test 06/01/18 05:42 06/01/18 07:41 06/01/18 11:33 06/01/18 16:28 Glucose (Fingerstick) 90 mg/dL (70-99) 158 mg/dL (70-99) H 71 mg/dL (70-99) 131 mg/dL (70-99) H Test 06/01/18 19:18 Glucose (Fingerstick) 184 mg/dL (70-99) H Current Medications: Meds: Current Medications Lactated Ringer's 1,000 ml @ 100 mls/hr Q10H IV ; Start 05/30/18 at 18:15; Stop 05/31/18 at 02:26; Status DC Cephalexin HCl (Keflex) 500 mg 1X ONCE PO Last administered on 05/30/18at 20:47 ; Start 05/30/18 at 20:45; Stop 05/30/18 at 20:46; Status DC Cephalexin HCl (Keflex) 500 mg TID PO Last administered on 06/01/18at 20:55; Start 05/31/18 at 09:00 Bupropion HCl (Wellbutrin Xl) 300 mg DAILY PO Last administered on 06/01/18at 07 :58; Start 05/31/18 at 09:00 Clonazepam (KlonoPIN) 0.5 mg PRN DAILY PRN PO ANXIETY / AGITATION; Start at 21:30 Divalproex Sodium (Depakote Sprinkles) 250 mg DAILY PO Last administered on 04/06at 09:37; Start 05/31/18 at 09:00; Stop 05/31/18 at 17:19; Status DC Divalproex Sodium (Depakote Sprinkles) 500 mg BID PO Last administered on 20:55; Start 05/31/18 at 21:00 Melatonin 9 mg QHS PO Last administered on 06/01/18 20:54; Start 05/31/18 at 21:00 Mirtazapine (Remeron) 15 mg QHS PO Last administered on 06/01/18 20:54; Start 05/31/18 at 21:00 Acetaminophen (Tylenol) 650 mg PRN Q6HRS PRN PO PAIN / TEMP Last administered on 06/01/18 06:04; Start 05/30/18 at 21:45 Throat Lozenges (Cepacol Sore Throat Lozenge) 1 richard PRN Q2HR PRN MM sore throat ; Start 05/30/18 at 21:45 Bisacodyl (Dulcolax Tab) 10 mg PRN DAILY PRN PO CONSTIPATION; Start 05/30/18 at 21:45 Calcium Carbonate/ Glycine (Tums) 500 mg PRN Q8HRS PRN PO HEARTBURN / GAS; Start 05/30/18 at 21:45 Vitamin D (Vitamin D3) 2,000 unit DAILY PO Last administered on 06/01/18 07:59 ; Start 05/31/18 at 09:00 Dicyclomine HCl (Bentyl) 10 mg DAILY PO Last administered on 06/01/18 07:59; Start 05/31/18 at 09:00 Gabapentin (Neurontin) 200 mg TID PO Last administered on 06/01/18 20:55; Start 05/31/18 at 09:00 Guaifenesin (Robitussin Dm) 10 ml PRN Q6HRS PRN PO COUGH; Start 05/30/18 at 21: 45 Lactobacillus Rhamnosus (Culturelle) 1 cap BID PO Last administered on 20:55; Start 05/31/18 at 09:00 Levothyroxine Sodium (Synthroid) 100 mcg DAILY06 PO Last administered on 06:04; Start 05/31/18 at 06:00 Magnesium Hydroxide (Milk Of Magnesia) 2,400 mg PRN QHS PRN PO CONSTIPATION; Start 05/30/18 at 21:45 Albuterol Sulfate (Ventolin) 2.5 mg PRN Q4HRS PRN NEB SHORTNESS OF BREATH; Start 05/30/18 at 21:45 Atorvastatin Calcium (Lipitor) 10 mg QHS PO Last administered on 06/01/18at 20: 54; Start 05/31/18 at 21:00 Pantoprazole Sodium (Protonix) 40 mg DAILYAC PO Last administered on 06/01/18at 07:59; Start 05/31/18 at 07:30 Famotidine (Pepcid) 20 mg PRN Q8HRS PRN PO HEARTBURN / GAS; Start 05/30/18 at 21:45 Fluticasone Propionate (Flonase) 2 spray PRN DAILY PRN NS NASAL INFLAMATION; Start 05/30/18 at 21:45 Insulin Human Lispro (HumaLOG) 10 units TIDWMEALS SQ Last administered on at 08:05; Start 05/31/18 at 08:00 Insulin Glargine (Lantus) 60 units DAILY SQ Last administered on 06/01/18at 08: 03; Start 05/31/18 at 09:00 Multi-Ingredient Ointment (Analgesic [place]) 1 nnamdi PRN TID PRN TP MUSCLE PAIN Last administered on 05/31/18at 22:30; Start 05/31/18 at 07:45 Ondansetron HCl (Zofran Odt) 4 mg PRN Q8HRS PRN PO NAUSEA/VOMITING; Start 05/30 at 21:45 Non-Formulary Medication (Ranitidine Hcl (Zantac)) 75 mg PRN Q8HRS PRN PO HEARTBURN / GAS; Start 05/30/18 at 21:45; Status UNV Acetaminophen (Tylenol) 650 mg PRN Q6HRS PRN PO PAIN / TEMP; Start 05/30/18 at 21:45; Status Cancel Al Hydroxide/Mg Hydroxide (Mylanta Plus Xs) 15 ml PRN AFTMEALHC PRN PO DYSPEPSIA; Start 05/30/18 at 21:45 Magnesium Hydroxide (Milk Of Magnesia) 2,400 mg PRN QHS PRN PO CONSTIPATION; Start 05/30/18 at 21:45; Status Cancel Insulin Human Lispro (HumaLOG) 0-5 UNITS TIDWMEALS SQ Last administered on 06/01at 08:06; Start 05/31/18 at 17:00 Dextrose 12.5 gm PRN Q15MIN PRN IV SEE COMMENTS; Start 05/31/18 at 15:30 Risperidone (RisperDAL) 0.5 mg HS PO Last administered on 06/01/18at 20:55; Start 06/01/18 at 21:00 Active Scripts Active Reported Famotidine 20 Mg Tablet 20 Mg PO Q8HRS PRN Guaifenesin Dm Syrup (Guaifenesin/Dextromethorphan) 5 Ml Syrup 10 Ml PO PRN Q6HRS PRN Zofran (Ondansetron Hcl) 4 Mg Tablet 4 Mg PO PRN Q8HRS PRN Milk Of Magnesia (Magnesium Hydroxide) 400 Mg/5 Ml Oral.susp 2,400 Mg PO PRN QHS PRN Culturelle (Lactobacillus Rhamnosus Gg) 1 Each Cap.sprink 1 Each PO BID Depakote Sprinkle (Divalproex Sodium) 125 Mg Cap.sprink 250 Mg PO DAILY Depakote Sprinkle (Divalproex Sodium) 125 Mg Cap.sprink 500 Mg PO QHS Cepacol Sore Throat Lozenge (Benzocaine/Menthol) 1 Each Lozenge 1 Each MM PRN Q2HR PRN Mirtazapine 15 Mg Tablet 15 Mg PO QHS Levemir Flextouch (Insulin Detemir) 100 Unit/1 Ml Insuln.pen 60 Unit SQ DAILY Nexium Capsule (Esomeprazole Magnesium) 40 Mg Capsule.dr 40 Mg PO DAILYAC Vitamin D3 (Cholecalciferol (Vitamin D3)) 1,000 Unit Tablet 2,000 Unit PO DAILY Flonase Allergy Relief (Fluticasone Propionate) 9.9 Ml [place].susp 2 Sprays NS PRN DAILY PRN Dicyclomine Hcl 10 Mg Capsule 10 Mg PO DAILY Biofreeze (Menthol) 118 Ml Gel..ml. 1 Nnamdi TP PRN TID PRN Klonopin (Clonazepam) 0.5 Mg Tablet 0.5 Mg PO PRN DAILY PRN Levothyroxine Sodium 100 Mcg Tablet 100 Mcg PO DAILYAC Gabapentin (Gabapentin) 100 Mg Capsule 200 Mg PO TID Tums (Calcium Carbonate) 200 Mg Tab.chew 500 Mg PO PRN Q8HRS PRN Zantac (Ranitidine Hcl) 150 Mg Tablet 75 Mg PO PRN Q8HRS PRN Tylenol (Acetaminophen) 325 Mg Tablet 650 Mg PO PRN Q6HRS PRN Bupropion Xl (Bupropion Hcl) 300 Mg Tab.er.24h 300 Mg PO DAILY Melatonin 3 Mg Tablet 10 Mg PO DAILY Novolog Flexpen (Insulin Aspart) 100 Unit/1 Ml Insuln.pen 10 Unit SQ TIDWMEALS Albuterol Sulfate Conc Neb Soln (Albuterol Sulfate) 2.5 Mg/0.5 Ml Vial.neb 2.5 Mg NEB PRN Q4HRS PRN Hydrocodone-Apap 7.5-325 (Hydrocodone Bit/Acetaminophen) 1 Each Tablet 2 Tab PO PRN Q6HRS PRN Bisacodyl 5 Mg Tablet.dr 10 Mg PO PRN DAILY PRN Atorvastatin Calcium 10 Mg Tablet 10 Mg PO QHS I have reviewed the current psychotropics carefully including drug interactions. Risk benefit ratio favors no change other than as noted in my dictated progress note. Diagnosis: Problems: (1) Anxiety disorder (2) Bipolar 1 disorder, manic, moderate (3) Impulse control disorder (4) Schizoaffective disorder, bipolar type FAYE MUNGUIA MD Jun 01, 2018 22:19
[2018-06-02 05:42] VITALS: BP 100/64
[2018-06-02] MEDS: LEVOTHYROXINE 100 MCG TABLET PO SCH (06:26)
[2018-06-02] MEDS: DIVALPROEX 125 MG CAP.SPRINK PO SCH ×2 (07:48→20:13)
[2018-06-02] MEDS: CEPHALEXIN 250 MG CAPSULE PO SCH ×3 (07:48→20:13)
[2018-06-02] MEDS: DICYCLOMINE HCL 10 MG CAPSULE PO SCH (07:48)
[2018-06-02] MEDS: PANTOPRAZOLE 40 MG TABLET. PO SCH (07:48)
[2018-06-02] MEDS: buPROPion XL 300 MG TAB.ER.24H. PO SCH (07:48)
[2018-06-02] MEDS: LACTOBACILLUS RHAMNOSUS GG 1 CAPSULE. PO SCH ×2 (07:48→20:12)
[2018-06-02] MEDS: CHOLECALCIFEROL (VITAMIN D3) 1,000 UNIT TABLET PO SCH (07:48)
[2018-06-02] MEDS: GABAPENTIN 100 MG CAPSULE. PO SCH ×3 (07:55→20:14)
[2018-06-02] MEDS: INSULIN LISPRO 300 UNITS/3 ML INSULN.PEN. SQ SCH ×6 (08:00→18:34)
[2018-06-02] MEDS: FAMOTIDINE 20 MG TABLET PO PRN (09:14)
[2018-06-02] MEDS: INSULIN GLARGINE 300 UNITS/3 ML INSULN.PEN. SQ SCH (09:17)
[2018-06-02 16:36] VITALS: BP 100/60
[2018-06-02] MEDS: MELATONIN 3 MG TABLET PO SCH (20:12)
[2018-06-02] MEDS: risperiDONE 0.5 MG TABLET. PO SCH (20:12)
[2018-06-02] MEDS: MIRTAZAPINE 15 MG TABLET PO SCH (20:12)
[2018-06-02] MEDS: ATORVASTATIN CALCIUM 10 MG TABLET. PO SCH (20:13)
--- NOTE | 2018-06-02 22:39 | PDOC ---
Exam Note: Luis Note: Please also refer to the separate dictated note~for this date of service dictated separately.~Patient seen individually. Discussed the patient with Nursing staff reviewed the chart.~Reviewed interim history and current functioning. Reviewed vital signs,~Labs/ Radiology~and current medications noted below. Continue current treatment with the changes noted in the dictated addendum note Assessment: Vital Signs: Vital Signs Date Time Temp Pulse Resp B/P (MAP) Pulse Ox O2 Delivery O2 Flow Rate FiO2 06/02/18 16:36 97.2 64 20 100/60 (73) 97 05/30/18 18:10 Room Air I&O Intake and Output 06/02/18 06:59 Intake Total 960 ml Balance 960 ml Intake Oral 960 ml Labs: Laboratory Tests Test 06/02/18 07:19 06/02/18 11:57 06/02/18 16:50 06/02/18 19:20 Glucose (Fingerstick) 96 mg/dL (70-99) 85 mg/dL (70-99) 117 mg/dL (70-99) H 165 mg/dL (70-99) H Current Medications: Meds: Current Medications Lactated Ringer's 1,000 ml @ 100 mls/hr Q10H IV ; Start 05/30/18 at 18:15; Stop 05/31/18 at 02:26; Status DC Cephalexin HCl (Keflex) 500 mg 1X ONCE PO Last administered on 05/30/18at 20:47 ; Start 05/30/18 at 20:45; Stop 05/30/18 at 20:46; Status DC Cephalexin HCl (Keflex) 500 mg TID PO Last administered on 06/02/18at 20:13; Start 05/31/18 at 09:00 Bupropion HCl (Wellbutrin Xl) 300 mg DAILY PO Last administered on 06/02/18at 07 :48; Start 05/31/18 at 09:00 Clonazepam (KlonoPIN) 0.5 mg PRN DAILY PRN PO ANXIETY / AGITATION; Start at 21:30 Divalproex Sodium (Depakote Sprinkles) 250 mg DAILY PO Last administered on 04/06at 09:37; Start 05/31/18 at 09:00; Stop 05/31/18 at 17:19; Status DC Divalproex Sodium (Depakote Sprinkles) 500 mg BID PO Last administered on 20:13; Start 05/31/18 at 21:00 Melatonin 9 mg QHS PO Last administered on 06/02/18 20:12; Start 05/31/18 at 21:00 Mirtazapine (Remeron) 15 mg QHS PO Last administered on 06/02/18 20:12; Start 05/31/18 at 21:00 Acetaminophen (Tylenol) 650 mg PRN Q6HRS PRN PO PAIN / TEMP Last administered on 06/01/18 06:04; Start 05/30/18 at 21:45 Throat Lozenges (Cepacol Sore Throat Lozenge) 1 richard PRN Q2HR PRN MM sore throat ; Start 05/30/18 at 21:45 Bisacodyl (Dulcolax Tab) 10 mg PRN DAILY PRN PO CONSTIPATION; Start 05/30/18 at 21:45 Calcium Carbonate/ Glycine (Tums) 500 mg PRN Q8HRS PRN PO HEARTBURN / GAS; Start 05/30/18 at 21:45 Vitamin D (Vitamin D3) 2,000 unit DAILY PO Last administered on 06/02/18 07:48 ; Start 05/31/18 at 09:00 Dicyclomine HCl (Bentyl) 10 mg DAILY PO Last administered on 06/02/18 07:48; Start 05/31/18 at 09:00 Gabapentin (Neurontin) 200 mg TID PO Last administered on 06/02/18 20:14; Start 05/31/18 at 09:00 Guaifenesin (Robitussin Dm) 10 ml PRN Q6HRS PRN PO COUGH; Start 05/30/18 at 21: 45 Lactobacillus Rhamnosus (Culturelle) 1 cap BID PO Last administered on 20:12; Start 05/31/18 at 09:00 Levothyroxine Sodium (Synthroid) 100 mcg DAILY06 PO Last administered on 06:26; Start 05/31/18 at 06:00 Magnesium Hydroxide (Milk Of Magnesia) 2,400 mg PRN QHS PRN PO CONSTIPATION; Start 05/30/18 at 21:45 Albuterol Sulfate (Ventolin) 2.5 mg PRN Q4HRS PRN NEB SHORTNESS OF BREATH; Start 05/30/18 at 21:45 Atorvastatin Calcium (Lipitor) 10 mg QHS PO Last administered on 06/02/18 20: 13; Start 05/31/18 at 21:00 Pantoprazole Sodium (Protonix) 40 mg DAILYAC PO Last administered on 06/02/18 07:48; Start 05/31/18 at 07:30 Famotidine (Pepcid) 20 mg PRN Q8HRS PRN PO HEARTBURN / GAS Last administered on 06/02/18 09:14; Start 05/30/18 at 21:45 Fluticasone Propionate (Flonase) 2 spray PRN DAILY PRN NS NASAL INFLAMATION; Start 05/30/18 at 21:45 Insulin Human Lispro (HumaLOG) 10 units TIDWMEALS SQ Last administered on 18:34; Start 05/31/18 at 08:00 Insulin Glargine (Lantus) 60 units DAILY SQ Last administered on 06/02/18 09: 17; Start 05/31/18 at 09:00 Multi-Ingredient Ointment (Analgesic [place]) 1 nnamdi PRN TID PRN TP MUSCLE PAIN Last administered on 05/31/18 22:30; Start 05/31/18 at 07:45 Ondansetron HCl (Zofran Odt) 4 mg PRN Q8HRS PRN PO NAUSEA/VOMITING; Start 05/30 at 21:45 Non-Formulary Medication (Ranitidine Hcl (Zantac)) 75 mg PRN Q8HRS PRN PO HEARTBURN / GAS; Start 05/30/18 at 21:45; Status UNV Acetaminophen (Tylenol) 650 mg PRN Q6HRS PRN PO PAIN / TEMP; Start 05/30/18 at 21:45; Status Cancel Al Hydroxide/Mg Hydroxide (Mylanta Plus Xs) 15 ml PRN AFTMEALHC PRN PO DYSPEPSIA; Start 05/30/18 at 21:45 Magnesium Hydroxide (Milk Of Magnesia) 2,400 mg PRN QHS PRN PO CONSTIPATION; Start 05/30/18 at 21:45; Status Cancel Insulin Human Lispro (HumaLOG) 0-5 UNITS TIDWMEALS SQ Last administered on 06/01at 08:06; Start 05/31/18 at 17:00 Dextrose 12.5 gm PRN Q15MIN PRN IV SEE COMMENTS; Start 05/31/18 at 15:30 Risperidone (RisperDAL) 0.5 mg HS PO Last administered on 06/02/18at 20:12; Start 06/01/18 at 21:00 Active Scripts Active Reported Famotidine 20 Mg Tablet 20 Mg PO Q8HRS PRN Guaifenesin Dm Syrup (Guaifenesin/Dextromethorphan) 5 Ml Syrup 10 Ml PO PRN Q6HRS PRN Zofran (Ondansetron Hcl) 4 Mg Tablet 4 Mg PO PRN Q8HRS PRN Milk Of Magnesia (Magnesium Hydroxide) 400 Mg/5 Ml Oral.susp 2,400 Mg PO PRN QHS PRN Culturelle (Lactobacillus Rhamnosus Gg) 1 Each Cap.sprink 1 Each PO BID Depakote Sprinkle (Divalproex Sodium) 125 Mg Cap.sprink 250 Mg PO DAILY Depakote Sprinkle (Divalproex Sodium) 125 Mg Cap.sprink 500 Mg PO QHS Cepacol Sore Throat Lozenge (Benzocaine/Menthol) 1 Each Lozenge 1 Each MM PRN Q2HR PRN Mirtazapine 15 Mg Tablet 15 Mg PO QHS Levemir Flextouch (Insulin Detemir) 100 Unit/1 Ml Insuln.pen 60 Unit SQ DAILY Nexium Capsule (Esomeprazole Magnesium) 40 Mg Capsule.dr 40 Mg PO DAILYAC Vitamin D3 (Cholecalciferol (Vitamin D3)) 1,000 Unit Tablet 2,000 Unit PO DAILY Flonase Allergy Relief (Fluticasone Propionate) 9.9 Ml [place].susp 2 Sprays NS PRN DAILY PRN Dicyclomine Hcl 10 Mg Capsule 10 Mg PO DAILY Biofreeze (Menthol) 118 Ml Gel..ml. 1 Nnamdi TP PRN TID PRN Klonopin (Clonazepam) 0.5 Mg Tablet 0.5 Mg PO PRN DAILY PRN Levothyroxine Sodium 100 Mcg Tablet 100 Mcg PO DAILYAC Gabapentin (Gabapentin) 100 Mg Capsule 200 Mg PO TID Tums (Calcium Carbonate) 200 Mg Tab.chew 500 Mg PO PRN Q8HRS PRN Zantac (Ranitidine Hcl) 150 Mg Tablet 75 Mg PO PRN Q8HRS PRN Tylenol (Acetaminophen) 325 Mg Tablet 650 Mg PO PRN Q6HRS PRN Bupropion Xl (Bupropion Hcl) 300 Mg Tab.er.24h 300 Mg PO DAILY Melatonin 3 Mg Tablet 10 Mg PO DAILY Novolog Flexpen (Insulin Aspart) 100 Unit/1 Ml Insuln.pen 10 Unit SQ TIDWMEALS Albuterol Sulfate Conc Neb Soln (Albuterol Sulfate) 2.5 Mg/0.5 Ml Vial.neb 2.5 Mg NEB PRN Q4HRS PRN Hydrocodone-Apap 7.5-325 (Hydrocodone Bit/Acetaminophen) 1 Each Tablet 2 Tab PO PRN Q6HRS PRN Bisacodyl 5 Mg Tablet.dr 10 Mg PO PRN DAILY PRN Atorvastatin Calcium 10 Mg Tablet 10 Mg PO QHS I have reviewed the current psychotropics carefully including drug interactions. Risk benefit ratio favors no change other than as noted in my dictated progress note. Diagnosis: Problems: (1) Anxiety disorder (2) Bipolar 1 disorder, manic, moderate (3) Impulse control disorder (4) Schizoaffective disorder, bipolar type FAYE MUNGUIA MD Jun 02, 2018 22:39
[2018-06-03] MEDS: LEVOTHYROXINE 100 MCG TABLET PO SCH (05:01)
[2018-06-03 06:24] VITALS: BP 94/61
[2018-06-03 07:53] LABS: BASO % 1 % (0-3); EOS # 0.3 x10^3/uL (0.0-0.7); EOS % 3 % (0-3); HEMATOCRIT 40.5 % (36.0-47.0); HEMOGLOBIN 13.4 g/dL (12.0-15.5); LYMPH # 2.1 x10^3/uL (1.0-4.8); LYMPH % 27 % (24-48); MEAN CORPUSCULAR HEMOGLOBIN 31 pg (25-35); MEAN CORPUSCULAR HGB CONC 33 g/dL (31-37); MEAN CORPUSCULAR VOLUME 92 fL (79-100); MONO # 0.3 x10^3/uL (0.0-1.1); MONO % 4 % (0-9); NEUT # 5.3 x10^3uL (1.8-7.7); NEUT % 66 % (31-73); PLATELET COUNT 213 x10^3/uL (140-400); RED BLOOD COUNT 4.39 x10^6/uL (3.50-5.40); RED CELL DISTRIBUTION WIDTH 14.7 % (11.5-14.5)
[2018-06-03] MEDS: INSULIN LISPRO 300 UNITS/3 ML INSULN.PEN. SQ SCH ×6 (08:00→17:00)
[2018-06-03 08:12] LABS: ALBUMIN 3.5 g/dL (3.4-5.0); ALBUMIN/GLOBULIN RATIO 0.9 (1.0-1.7); ALK PHOS 89 U/L (46-116); ALT (SGPT) 23 U/L (14-59); ANION GAP 5 (6-14); AST (SGOT) 18 U/L (15-37); BLOOD UREA NITROGEN 23 mg/dL (7-20); BUN/CREATININE RATIO 19 (6-20); CALCIUM 8.5 mg/dL (8.5-10.1); CARBON DIOXIDE 33 mmol/L (21-32); CHLORIDE 104 mmol/L (98-107); CREATININE 1.2 mg/dL (0.6-1.0); GFR 45.2; GLUCOSE 119 mg/dL (70-99); POTASSIUM 4.5 mmol/L (3.5-5.1); SODIUM 142 mmol/L (136-145); TOTAL BILIRUBIN 0.3 mg/dL (0.2-1.0); TOTAL PROTEIN 7.3 g/dL (6.4-8.2)
[2018-06-03 08:15] LABS: VAL ACID 51 mcg/mL (50-100)
[2018-06-03] MEDS: buPROPion XL 300 MG TAB.ER.24H. PO SCH (09:16)
[2018-06-03] MEDS: PANTOPRAZOLE 40 MG TABLET. PO SCH (09:16)
[2018-06-03] MEDS: DICYCLOMINE HCL 10 MG CAPSULE PO SCH (09:16)
[2018-06-03] MEDS: LACTOBACILLUS RHAMNOSUS GG 1 CAPSULE. PO SCH ×2 (09:16→20:36)
[2018-06-03] MEDS: CEPHALEXIN 250 MG CAPSULE PO SCH ×3 (09:17→20:36)
[2018-06-03] MEDS: CHOLECALCIFEROL (VITAMIN D3) 1,000 UNIT TABLET PO SCH (09:17)
[2018-06-03] MEDS: DIVALPROEX 125 MG CAP.SPRINK PO SCH ×2 (09:17→20:35)
[2018-06-03] MEDS: INSULIN GLARGINE 300 UNITS/3 ML INSULN.PEN. SQ SCH (09:19)
[2018-06-03] MEDS: GABAPENTIN 100 MG CAPSULE. PO SCH ×3 (09:19→20:36)
[2018-06-03 16:50] VITALS: BP 109/75
[2018-06-03] MEDS: MIRTAZAPINE 15 MG TABLET PO SCH (20:36)
[2018-06-03] MEDS: MELATONIN 3 MG TABLET PO SCH (20:36)
[2018-06-03] MEDS: ATORVASTATIN CALCIUM 10 MG TABLET. PO SCH (20:36)
[2018-06-03] MEDS: risperiDONE 0.5 MG TABLET. PO SCH (20:36)
--- NOTE | 2018-06-03 22:38 | PDOC ---
Exam Note: Luis Note: Please also refer to the separate dictated note~for this date of service dictated separately.~Patient seen individually. Discussed the patient with Nursing staff reviewed the chart.~Reviewed interim history and current functioning. Reviewed vital signs,~Labs/ Radiology~and current medications noted below. Continue current treatment with the changes noted in the dictated addendum note Assessment: Vital Signs: Vital Signs Date Time Temp Pulse Resp B/P (MAP) Pulse Ox O2 Delivery O2 Flow Rate FiO2 06/03/18 16:50 98.4 69 18 109/75 (86) 98 Room Air I&O Intake and Output 06/03/18 07:00 Intake Total 1205 ml Balance 1205 ml Intake Oral 1205 ml Labs: Laboratory Tests Test 06/03/18 07:05 06/03/18 07:18 06/03/18 07:21 06/03/18 11:42 Glucose (Fingerstick) 93 mg/dL (70-99) 137 mg/dL (70-99) H White Blood Count 8.0 x10^3/uL (4.0-11.0) Red Blood Count 4.39 x10^6/uL (3.50-5.40) Hemoglobin 13.4 g/dL (12.0-15.5) Hematocrit 40.5 % (36.0-47.0) Mean Corpuscular Volume 92 fL (79-100) Mean Corpuscular Hemoglobin 31 pg (25-35) Mean Corpuscular Hemoglobin Concent 33 g/dL (31-37) Red Cell Distribution Width 14.7 % (11.5-14.5) H Platelet Count 213 x10^3/uL (140-400) Neutrophils (%) (Auto) 66 % (31-73) Lymphocytes (%) (Auto) 27 % (24-48) Monocytes (%) (Auto) 4 % (0-9) Eosinophils (%) (Auto) 3 % (0-3) Basophils (%) (Auto) 1 % (0-3) Neutrophils # (Auto) 5.3 x10^3uL (1.8-7.7) Lymphocytes # (Auto) 2.1 x10^3/uL (1.0-4.8) Monocytes # (Auto) 0.3 x10^3/uL (0.0-1.1) Eosinophils # (Auto) 0.3 x10^3/uL (0.0-0.7) Basophils # (Auto) 0.0 x10^3/uL (0.0-0.2) Sodium Level 142 mmol/L (136-145) Potassium Level 4.5 mmol/L (3.5-5.1) Chloride Level 104 mmol/L (98-107) Carbon Dioxide Level 33 mmol/L (21-32) H Anion Gap 5 (6-14) L Blood Urea Nitrogen 23 mg/dL (7-20) H Creatinine 1.2 mg/dL (0.6-1.0) H Estimated GFR (Cockcroft-Gault) 45.2 BUN/Creatinine Ratio 19 (6-20) Glucose Level 119 mg/dL (70-99) H Calcium Level 8.5 mg/dL (8.5-10.1) Total Bilirubin 0.3 mg/dL (0.2-1.0) Aspartate Amino Transferase (AST) 18 U/L (15-37) Alanine Aminotransferase (ALT) 23 U/L (14-59) Alkaline Phosphatase 89 U/L (46-116) Total Protein 7.3 g/dL (6.4-8.2) Albumin 3.5 g/dL (3.4-5.0) Albumin/Globulin Ratio 0.9 (1.0-1.7) L Valproic Acid Level 51 mcg/mL (50-100) Valproic Acid Last Dose Date 06/02/18 Valproic Acid Last Dose Time 2100 Test 06/03/18 17:18 06/03/18 19:34 Glucose (Fingerstick) 87 mg/dL (70-99) 148 mg/dL (70-99) H Current Medications: Meds: Current Medications Lactated Ringer's 1,000 ml @ 100 mls/hr Q10H IV ; Start 05/30/18 at 18:15; Stop 05/31/18 at 02:26; Status DC Cephalexin HCl (Keflex) 500 mg 1X ONCE PO Last administered on 05/30/18at 20:47 ; Start 05/30/18 at 20:45; Stop 05/30/18 at 20:46; Status DC Cephalexin HCl (Keflex) 500 mg TID PO Last administered on 06/03/18at 20:36; Start 05/31/18 at 09:00 Bupropion HCl (Wellbutrin Xl) 300 mg DAILY PO Last administered on 06/03/18 09 :16; Start 05/31/18 at 09:00 Clonazepam (KlonoPIN) 0.5 mg PRN DAILY PRN PO ANXIETY / AGITATION; Start at 21:30 Divalproex Sodium (Depakote Sprinkles) 250 mg DAILY PO Last administered on 09:37; Start 05/31/18 at 09:00; Stop 05/31/18 at 17:19; Status DC Divalproex Sodium (Depakote Sprinkles) 500 mg BID PO Last administered on 20:35; Start 05/31/18 at 21:00 Melatonin 9 mg QHS PO Last administered on 06/03/18 20:36; Start 05/31/18 at 21:00 Mirtazapine (Remeron) 15 mg QHS PO Last administered on 06/03/18 20:36; Start 05/31/18 at 21:00 Acetaminophen (Tylenol) 650 mg PRN Q6HRS PRN PO PAIN / TEMP Last administered on 06/01/18 06:04; Start 05/30/18 at 21:45 Throat Lozenges (Cepacol Sore Throat Lozenge) 1 richard PRN Q2HR PRN MM sore throat ; Start 05/30/18 at 21:45 Bisacodyl (Dulcolax Tab) 10 mg PRN DAILY PRN PO CONSTIPATION; Start 05/30/18 at 21:45 Calcium Carbonate/ Glycine (Tums) 500 mg PRN Q8HRS PRN PO HEARTBURN / GAS; Start 05/30/18 at 21:45 Vitamin D (Vitamin D3) 2,000 unit DAILY PO Last administered on 06/03/18 09:17 ; Start 05/31/18 at 09:00 Dicyclomine HCl (Bentyl) 10 mg DAILY PO Last administered on 06/03/18 09:16; Start 05/31/18 at 09:00 Gabapentin (Neurontin) 200 mg TID PO Last administered on 06/03/18 20:36; Start 05/31/18 at 09:00 Guaifenesin (Robitussin Dm) 10 ml PRN Q6HRS PRN PO COUGH; Start 05/30/18 at 21: 45 Lactobacillus Rhamnosus (Culturelle) 1 cap BID PO Last administered on 20:36; Start 05/31/18 at 09:00 Levothyroxine Sodium (Synthroid) 100 mcg DAILY06 PO Last administered on 05:01; Start 05/31/18 at 06:00 Magnesium Hydroxide (Milk Of Magnesia) 2,400 mg PRN QHS PRN PO CONSTIPATION; Start 05/30/18 at 21:45 Albuterol Sulfate (Ventolin) 2.5 mg PRN Q4HRS PRN NEB SHORTNESS OF BREATH; Start 05/30/18 at 21:45 Atorvastatin Calcium (Lipitor) 10 mg QHS PO Last administered on 06/03/18 20: 36; Start 05/31/18 at 21:00 Pantoprazole Sodium (Protonix) 40 mg DAILYAC PO Last administered on 06/03/18 09:16; Start 05/31/18 at 07:30 Famotidine (Pepcid) 20 mg PRN Q8HRS PRN PO HEARTBURN / GAS Last administered on 06/02/18 09:14; Start 05/30/18 at 21:45 Fluticasone Propionate (Flonase) 2 spray PRN DAILY PRN NS NASAL INFLAMATION; Start 05/30/18 at 21:45 Insulin Human Lispro (HumaLOG) 10 units TIDWMEALS SQ Last administered on 12:31; Start 05/31/18 at 08:00 Insulin Glargine (Lantus) 60 units DAILY SQ Last administered on 06/03/18 09: 19; Start 05/31/18 at 09:00 Multi-Ingredient Ointment (Analgesic [place]) 1 nnamdi PRN TID PRN TP MUSCLE PAIN Last administered on 05/31/18 22:30; Start 05/31/18 at 07:45 Ondansetron HCl (Zofran Odt) 4 mg PRN Q8HRS PRN PO NAUSEA/VOMITING; Start 05/30 at 21:45 Non-Formulary Medication (Ranitidine Hcl (Zantac)) 75 mg PRN Q8HRS PRN PO HEARTBURN / GAS; Start 05/30/18 at 21:45; Status UNV Acetaminophen (Tylenol) 650 mg PRN Q6HRS PRN PO PAIN / TEMP; Start 05/30/18 at 21:45; Status Cancel Al Hydroxide/Mg Hydroxide (Mylanta Plus Xs) 15 ml PRN AFTMEALHC PRN PO DYSPEPSIA; Start 05/30/18 at 21:45 Magnesium Hydroxide (Milk Of Magnesia) 2,400 mg PRN QHS PRN PO CONSTIPATION; Start 05/30/18 at 21:45; Status Cancel Insulin Human Lispro (HumaLOG) 0-5 UNITS TIDWMEALS SQ Last administered on 06/01at 08:06; Start 05/31/18 at 17:00 Dextrose 12.5 gm PRN Q15MIN PRN IV SEE COMMENTS; Start 05/31/18 at 15:30 Risperidone (RisperDAL) 0.5 mg HS PO Last administered on 06/03/18at 20:36; Start 06/01/18 at 21:00 Active Scripts Active Reported Famotidine 20 Mg Tablet 20 Mg PO Q8HRS PRN Guaifenesin Dm Syrup (Guaifenesin/Dextromethorphan) 5 Ml Syrup 10 Ml PO PRN Q6HRS PRN Zofran (Ondansetron Hcl) 4 Mg Tablet 4 Mg PO PRN Q8HRS PRN Milk Of Magnesia (Magnesium Hydroxide) 400 Mg/5 Ml Oral.susp 2,400 Mg PO PRN QHS PRN Culturelle (Lactobacillus Rhamnosus Gg) 1 Each Cap.sprink 1 Each PO BID Depakote Sprinkle (Divalproex Sodium) 125 Mg Cap.sprink 250 Mg PO DAILY Depakote Sprinkle (Divalproex Sodium) 125 Mg Cap.sprink 500 Mg PO QHS Cepacol Sore Throat Lozenge (Benzocaine/Menthol) 1 Each Lozenge 1 Each MM PRN Q2HR PRN Mirtazapine 15 Mg Tablet 15 Mg PO QHS Levemir Flextouch (Insulin Detemir) 100 Unit/1 Ml Insuln.pen 60 Unit SQ DAILY Nexium Capsule (Esomeprazole Magnesium) 40 Mg Capsule.dr 40 Mg PO DAILYAC Vitamin D3 (Cholecalciferol (Vitamin D3)) 1,000 Unit Tablet 2,000 Unit PO DAILY Flonase Allergy Relief (Fluticasone Propionate) 9.9 Ml [place].susp 2 Sprays NS PRN DAILY PRN Dicyclomine Hcl 10 Mg Capsule 10 Mg PO DAILY Biofreeze (Menthol) 118 Ml Gel..ml. 1 Nnamdi TP PRN TID PRN Klonopin (Clonazepam) 0.5 Mg Tablet 0.5 Mg PO PRN DAILY PRN Levothyroxine Sodium 100 Mcg Tablet 100 Mcg PO DAILYAC Gabapentin (Gabapentin) 100 Mg Capsule 200 Mg PO TID Tums (Calcium Carbonate) 200 Mg Tab.chew 500 Mg PO PRN Q8HRS PRN Zantac (Ranitidine Hcl) 150 Mg Tablet 75 Mg PO PRN Q8HRS PRN Tylenol (Acetaminophen) 325 Mg Tablet 650 Mg PO PRN Q6HRS PRN Bupropion Xl (Bupropion Hcl) 300 Mg Tab.er.24h 300 Mg PO DAILY Melatonin 3 Mg Tablet 10 Mg PO DAILY Novolog Flexpen (Insulin Aspart) 100 Unit/1 Ml Insuln.pen 10 Unit SQ TIDWMEALS Albuterol Sulfate Conc Neb Soln (Albuterol Sulfate) 2.5 Mg/0.5 Ml Vial.neb 2.5 Mg NEB PRN Q4HRS PRN Hydrocodone-Apap 7.5-325 (Hydrocodone Bit/Acetaminophen) 1 Each Tablet 2 Tab PO PRN Q6HRS PRN Bisacodyl 5 Mg Tablet.dr 10 Mg PO PRN DAILY PRN Atorvastatin Calcium 10 Mg Tablet 10 Mg PO QHS I have reviewed the current psychotropics carefully including drug interactions. Risk benefit ratio favors no change other than as noted in my dictated progress note. Diagnosis: Problems: (1) Anxiety disorder (2) Bipolar 1 disorder, manic, moderate (3) Impulse control disorder (4) Schizoaffective disorder, bipolar type FAYE MUNGUIA MD Jun 03, 2018 22:38
--- NOTE | 2018-06-04 00:21 | PN ---
DATE: 06/02/2018 PSYCHIATRIC PROGRESS NOTE This late entry 06/02/2018 covers elements not covered in my initial note. SUBJECTIVE: I met with the patient in the evening and staffed at treatment team meeting with the entire team in the morning. Reviewed her history, diagnosis, progress at length. The patient slept 7-1/4 hours previous night. Appetite is fair. Complains of some nausea with medications and I addressed this with her individually. Educated her on her psychotropics. We discussed the situation, option, consequences, choices, protocol as well for cognitive behavioral therapy to help improve impulse control. REVIEW OF SYSTEMS: No CV, , pulmonary, eye system symptoms on review. MENTAL STATUS EXAM: Oriented reasonably. Speech is coherent, a little pressured at times. Abstraction fair, computation impaired, language function intact, attention span short. Mood and affect remain somewhat anxious, labile, but improved. LABORATORY DATA: Reviewed. IMPRESSION: Unchanged from initial note. PLAN: No change from initial note. FAYE MUNGUIA MD DR: MINOR/aamir JOB#: [id number] / [id number]
[2018-06-04] MEDS: LEVOTHYROXINE 100 MCG TABLET PO SCH (06:07)
[2018-06-04 06:52] VITALS: BP 127/77
[2018-06-04] MEDS: LACTOBACILLUS RHAMNOSUS GG 1 CAPSULE. PO SCH ×2 (07:48→20:01)
[2018-06-04] MEDS: DICYCLOMINE HCL 10 MG CAPSULE PO SCH (07:48)
[2018-06-04] MEDS: PANTOPRAZOLE 40 MG TABLET. PO SCH (07:48)
[2018-06-04] MEDS: CEPHALEXIN 250 MG CAPSULE PO SCH ×3 (07:48→20:01)
[2018-06-04] MEDS: CHOLECALCIFEROL (VITAMIN D3) 1,000 UNIT TABLET PO SCH (07:49)
[2018-06-04] MEDS: GABAPENTIN 100 MG CAPSULE. PO SCH ×3 (07:49→20:01)
[2018-06-04] MEDS: buPROPion XL 300 MG TAB.ER.24H. PO SCH (07:49)
[2018-06-04] MEDS: DIVALPROEX 125 MG CAP.SPRINK PO SCH ×2 (07:49→20:01)
[2018-06-04] MEDS: INSULIN GLARGINE 300 UNITS/3 ML INSULN.PEN. SQ SCH (07:52)
[2018-06-04] MEDS: INSULIN LISPRO 300 UNITS/3 ML INSULN.PEN. SQ SCH ×6 (07:53→17:23)
[2018-06-04] MEDS: ACETAMINOPHEN 325 MG TABLET PO PRN (09:28)
[2018-06-04 16:09] VITALS: BP 109/75
[2018-06-04] MEDS: MIRTAZAPINE 15 MG TABLET PO SCH (20:01)
[2018-06-04] MEDS: risperiDONE 0.5 MG TABLET. PO SCH (20:01)
[2018-06-04] MEDS: ATORVASTATIN CALCIUM 10 MG TABLET. PO SCH (20:01)
[2018-06-04] MEDS: MELATONIN 3 MG TABLET PO SCH (20:01)
--- NOTE | 2018-06-04 21:54 | PDOC ---
Exam Note: Luis Note: Please also refer to the separate dictated note~for this date of service dictated separately.~Patient seen individually. Discussed the patient with Nursing staff reviewed the chart.~Reviewed interim history and current functioning. Reviewed vital signs,~Labs/ Radiology~and current medications noted below. Continue current treatment with the changes noted in the dictated addendum note Assessment: Vital Signs: Vital Signs Date Time Temp Pulse Resp B/P (MAP) Pulse Ox O2 Delivery O2 Flow Rate FiO2 06/04/18 16:09 98.3 67 20 109/75 (86) 97 06/03/18 16:50 Room Air I&O Intake and Output 06/04/18 07:00 Intake Total 1205 ml Balance 1205 ml Intake Oral 1205 ml Labs: Laboratory Tests Test 06/04/18 07:18 06/04/18 11:53 06/04/18 16:42 06/04/18 19:16 Glucose (Fingerstick) 92 mg/dL (70-99) 154 mg/dL (70-99) H 75 mg/dL (70-99) 116 mg/dL (70-99) H Current Medications: Meds: Current Medications Lactated Ringer's 1,000 ml @ 100 mls/hr Q10H IV ; Start 05/30/18 at 18:15; Stop 05/31/18 at 02:26; Status DC Cephalexin HCl (Keflex) 500 mg 1X ONCE PO Last administered on 05/30/18at 20:47 ; Start 05/30/18 at 20:45; Stop 05/30/18 at 20:46; Status DC Cephalexin HCl (Keflex) 500 mg TID PO Last administered on 06/04/18at 20:01; Start 05/31/18 at 09:00 Bupropion HCl (Wellbutrin Xl) 300 mg DAILY PO Last administered on 06/04/18at 07 :49; Start 05/31/18 at 09:00 Clonazepam (KlonoPIN) 0.5 mg PRN DAILY PRN PO ANXIETY / AGITATION; Start at 21:30 Divalproex Sodium (Depakote Sprinkles) 250 mg DAILY PO Last administered on 04/06at 09:37; Start 05/31/18 at 09:00; Stop 05/31/18 at 17:19; Status DC Divalproex Sodium (Depakote Sprinkles) 500 mg BID PO Last administered on 20:01; Start 05/31/18 at 21:00 Melatonin 9 mg QHS PO Last administered on 06/04/18 20:01; Start 05/31/18 at 21:00 Mirtazapine (Remeron) 15 mg QHS PO Last administered on 06/04/18 20:01; Start 05/31/18 at 21:00 Acetaminophen (Tylenol) 650 mg PRN Q6HRS PRN PO PAIN / TEMP Last administered on 06/04/18 09:28; Start 05/30/18 at 21:45 Throat Lozenges (Cepacol Sore Throat Lozenge) 1 richard PRN Q2HR PRN MM sore throat ; Start 05/30/18 at 21:45 Bisacodyl (Dulcolax Tab) 10 mg PRN DAILY PRN PO CONSTIPATION; Start 05/30/18 at 21:45 Calcium Carbonate/ Glycine (Tums) 500 mg PRN Q8HRS PRN PO HEARTBURN / GAS; Start 05/30/18 at 21:45 Vitamin D (Vitamin D3) 2,000 unit DAILY PO Last administered on 06/04/18 07:49 ; Start 05/31/18 at 09:00 Dicyclomine HCl (Bentyl) 10 mg DAILY PO Last administered on 06/04/18 07:48; Start 05/31/18 at 09:00 Gabapentin (Neurontin) 200 mg TID PO Last administered on 06/04/18 20:01; Start 05/31/18 at 09:00 Guaifenesin (Robitussin Dm) 10 ml PRN Q6HRS PRN PO COUGH; Start 05/30/18 at 21: 45 Lactobacillus Rhamnosus (Culturelle) 1 cap BID PO Last administered on 20:01; Start 05/31/18 at 09:00 Levothyroxine Sodium (Synthroid) 100 mcg DAILY06 PO Last administered on 06:07; Start 05/31/18 at 06:00 Magnesium Hydroxide (Milk Of Magnesia) 2,400 mg PRN QHS PRN PO CONSTIPATION; Start 05/30/18 at 21:45 Albuterol Sulfate (Ventolin) 2.5 mg PRN Q4HRS PRN NEB SHORTNESS OF BREATH; Start 05/30/18 at 21:45 Atorvastatin Calcium (Lipitor) 10 mg QHS PO Last administered on 06/04/18at 20: 01; Start 05/31/18 at 21:00 Pantoprazole Sodium (Protonix) 40 mg DAILYAC PO Last administered on 06/04/18at 07:48; Start 05/31/18 at 07:30 Famotidine (Pepcid) 20 mg PRN Q8HRS PRN PO HEARTBURN / GAS Last administered on 06/02/18at 09:14; Start 05/30/18 at 21:45 Fluticasone Propionate (Flonase) 2 spray PRN DAILY PRN NS NASAL INFLAMATION; Start 05/30/18 at 21:45 Insulin Human Lispro (HumaLOG) 10 units TIDWMEALS SQ Last administered on 17:23; Start 05/31/18 at 08:00 Insulin Glargine (Lantus) 60 units DAILY SQ Last administered on 06/04/18 07: 52; Start 05/31/18 at 09:00 Multi-Ingredient Ointment (Analgesic [place]) 1 nnamdi PRN TID PRN TP MUSCLE PAIN Last administered on 05/31/18 22:30; Start 05/31/18 at 07:45 Ondansetron HCl (Zofran Odt) 4 mg PRN Q8HRS PRN PO NAUSEA/VOMITING; Start 05/30 at 21:45 Non-Formulary Medication (Ranitidine Hcl (Zantac)) 75 mg PRN Q8HRS PRN PO HEARTBURN / GAS; Start 05/30/18 at 21:45; Status UNV Acetaminophen (Tylenol) 650 mg PRN Q6HRS PRN PO PAIN / TEMP; Start 05/30/18 at 21:45; Status Cancel Al Hydroxide/Mg Hydroxide (Mylanta Plus Xs) 15 ml PRN AFTMEALHC PRN PO DYSPEPSIA; Start 05/30/18 at 21:45 Magnesium Hydroxide (Milk Of Magnesia) 2,400 mg PRN QHS PRN PO CONSTIPATION; Start 05/30/18 at 21:45; Status Cancel Insulin Human Lispro (HumaLOG) 0-5 UNITS TIDWMEALS SQ Last administered on 06/04at 12:02; Start 05/31/18 at 17:00 Dextrose 12.5 gm PRN Q15MIN PRN IV SEE COMMENTS; Start 05/31/18 at 15:30 Risperidone (RisperDAL) 0.5 mg HS PO Last administered on 06/04/18at 20:01; Start 06/01/18 at 21:00 Active Scripts Active Reported Famotidine 20 Mg Tablet 20 Mg PO Q8HRS PRN Guaifenesin Dm Syrup (Guaifenesin/Dextromethorphan) 5 Ml Syrup 10 Ml PO PRN Q6HRS PRN Zofran (Ondansetron Hcl) 4 Mg Tablet 4 Mg PO PRN Q8HRS PRN Milk Of Magnesia (Magnesium Hydroxide) 400 Mg/5 Ml Oral.susp 2,400 Mg PO PRN QHS PRN Culturelle (Lactobacillus Rhamnosus Gg) 1 Each Cap.sprink 1 Each PO BID Depakote Sprinkle (Divalproex Sodium) 125 Mg Cap.sprink 250 Mg PO DAILY Depakote Sprinkle (Divalproex Sodium) 125 Mg Cap.sprink 500 Mg PO QHS Cepacol Sore Throat Lozenge (Benzocaine/Menthol) 1 Each Lozenge 1 Each MM PRN Q2HR PRN Mirtazapine 15 Mg Tablet 15 Mg PO QHS Levemir Flextouch (Insulin Detemir) 100 Unit/1 Ml Insuln.pen 60 Unit SQ DAILY Nexium Capsule (Esomeprazole Magnesium) 40 Mg Capsule.dr 40 Mg PO DAILYAC Vitamin D3 (Cholecalciferol (Vitamin D3)) 1,000 Unit Tablet 2,000 Unit PO DAILY Flonase Allergy Relief (Fluticasone Propionate) 9.9 Ml [place].susp 2 Sprays NS PRN DAILY PRN Dicyclomine Hcl 10 Mg Capsule 10 Mg PO DAILY Biofreeze (Menthol) 118 Ml Gel..ml. 1 Nnamdi TP PRN TID PRN Klonopin (Clonazepam) 0.5 Mg Tablet 0.5 Mg PO PRN DAILY PRN Levothyroxine Sodium 100 Mcg Tablet 100 Mcg PO DAILYAC Gabapentin (Gabapentin) 100 Mg Capsule 200 Mg PO TID Tums (Calcium Carbonate) 200 Mg Tab.chew 500 Mg PO PRN Q8HRS PRN Zantac (Ranitidine Hcl) 150 Mg Tablet 75 Mg PO PRN Q8HRS PRN Tylenol (Acetaminophen) 325 Mg Tablet 650 Mg PO PRN Q6HRS PRN Bupropion Xl (Bupropion Hcl) 300 Mg Tab.er.24h 300 Mg PO DAILY Melatonin 3 Mg Tablet 10 Mg PO DAILY Novolog Flexpen (Insulin Aspart) 100 Unit/1 Ml Insuln.pen 10 Unit SQ TIDWMEALS Albuterol Sulfate Conc Neb Soln (Albuterol Sulfate) 2.5 Mg/0.5 Ml Vial.neb 2.5 Mg NEB PRN Q4HRS PRN Hydrocodone-Apap 7.5-325 (Hydrocodone Bit/Acetaminophen) 1 Each Tablet 2 Tab PO PRN Q6HRS PRN Bisacodyl 5 Mg Tablet.dr 10 Mg PO PRN DAILY PRN Atorvastatin Calcium 10 Mg Tablet 10 Mg PO QHS I have reviewed the current psychotropics carefully including drug interactions. Risk benefit ratio favors no change other than as noted in my dictated progress note. Diagnosis: Problems: (1) Anxiety disorder (2) Bipolar 1 disorder, manic, moderate (3) Impulse control disorder (4) Schizoaffective disorder, bipolar type FAYE MUNGUIA MD Jun 04, 2018 21:54
[2018-06-05] MEDS: ACETAMINOPHEN 325 MG TABLET PO PRN (00:43)
[2018-06-05 05:54] VITALS: BP 102/67
[2018-06-05] MEDS: LEVOTHYROXINE 100 MCG TABLET PO SCH (06:14)
[2018-06-05] MEDS: PANTOPRAZOLE 40 MG TABLET. PO SCH (07:38)
[2018-06-05] MEDS: INSULIN LISPRO 300 UNITS/3 ML INSULN.PEN. SQ SCH ×6 (07:46→17:13)
[2018-06-05] MEDS: LACTOBACILLUS RHAMNOSUS GG 1 CAPSULE. PO SCH ×2 (08:45→20:02)
[2018-06-05] MEDS: CEPHALEXIN 250 MG CAPSULE PO SCH ×3 (08:46→20:02)
[2018-06-05] MEDS: CHOLECALCIFEROL (VITAMIN D3) 1,000 UNIT TABLET PO SCH (08:46)
[2018-06-05] MEDS: DIVALPROEX 125 MG CAP.SPRINK PO SCH ×2 (08:46→20:02)
[2018-06-05] MEDS: DICYCLOMINE HCL 10 MG CAPSULE PO SCH (08:46)
[2018-06-05] MEDS: buPROPion XL 300 MG TAB.ER.24H. PO SCH (08:46)
[2018-06-05] MEDS: GABAPENTIN 100 MG CAPSULE. PO SCH (08:47)
[2018-06-05] MEDS: INSULIN GLARGINE 300 UNITS/3 ML INSULN.PEN. SQ SCH (08:50)
[2018-06-05 16:14] VITALS: BP 118/75
--- NOTE | 2018-06-05 16:40 | RAD ---
Left foot 3 views: Reason for examination: Left great toe pain. No acute fracture or dislocation is seen. The bone density is normal. No abnormal periosteal reaction is seen. There is an exostosis present medially on the distal phalanx of the great toe. Joint spaces are maintained. There is calcaneal spurring on the plantar surface of the calcaneus and in the region of the Achilles tendon. IMPRESSION: Spurs on the calcaneus. Exostosis on the distal phalanx of the great toe medially. No other focal abnormality seen in the left foot. Electronically signed by: Tanja Enciso MD (06/05/2018 4:37 PM) [facility]
[2018-06-05] MEDS: MIRTAZAPINE 15 MG TABLET PO SCH (20:01)
[2018-06-05] MEDS: risperiDONE 0.5 MG TABLET. PO SCH (20:02)
[2018-06-05] MEDS: ATORVASTATIN CALCIUM 10 MG TABLET. PO SCH (20:02)
[2018-06-05] MEDS: MELATONIN 3 MG TABLET PO SCH (20:02)
[2018-06-05] MEDS: GABAPENTIN 400 MG CAPSULE. PO SCH (20:03)
--- NOTE | 2018-06-05 22:37 | PDOC ---
Exam Note: Luis Note: Please also refer to the separate dictated note~for this date of service dictated separately.~Patient seen individually. Discussed the patient with Nursing staff reviewed the chart.~Reviewed interim history and current functioning. Reviewed vital signs,~Labs/ Radiology~and current medications noted below. Continue current treatment with the changes noted in the dictated addendum note Assessment: Vital Signs: Vital Signs Date Time Temp Pulse Resp B/P (MAP) Pulse Ox O2 Delivery O2 Flow Rate FiO2 06/05/18 16:14 97.8 70 18 118/75 (89) 99 06/03/18 16:50 Room Air I&O Intake and Output 06/05/18 07:00 Intake Total 1320 ml Balance 1320 ml Intake Oral 1320 ml Labs: Laboratory Tests Test 06/05/18 07:32 06/05/18 11:05 06/05/18 16:48 06/05/18 19:18 Glucose (Fingerstick) 96 mg/dL (70-99) 124 mg/dL (70-99) H 117 mg/dL (70-99) H 121 mg/dL (70-99) H Current Medications: Meds: Current Medications Lactated Ringer's 1,000 ml @ 100 mls/hr Q10H IV ; Start 05/30/18 at 18:15; Stop 05/31/18 at 02:26; Status DC Cephalexin HCl (Keflex) 500 mg 1X ONCE PO Last administered on 05/30/18at 20:47 ; Start 05/30/18 at 20:45; Stop 05/30/18 at 20:46; Status DC Cephalexin HCl (Keflex) 500 mg TID PO Last administered on 06/05/18at 20:02; Start 05/31/18 at 09:00 Bupropion HCl (Wellbutrin Xl) 300 mg DAILY PO Last administered on 06/05/18at 08 :46; Start 05/31/18 at 09:00 Clonazepam (KlonoPIN) 0.5 mg PRN DAILY PRN PO ANXIETY / AGITATION; Start at 21:30 Divalproex Sodium (Depakote Sprinkles) 250 mg DAILY PO Last administered on 04/06at 09:37; Start 05/31/18 at 09:00; Stop 05/31/18 at 17:19; Status DC Divalproex Sodium (Depakote Sprinkles) 500 mg BID PO Last administered on 20:02; Start 05/31/18 at 21:00 Melatonin 9 mg QHS PO Last administered on 06/05/18 20:02; Start 05/31/18 at 21:00 Mirtazapine (Remeron) 15 mg QHS PO Last administered on 06/05/18at 20:01; Start 05/31/18 at 21:00 Acetaminophen (Tylenol) 650 mg PRN Q6HRS PRN PO PAIN / TEMP Last administered on 06/05/18at 00:43; Start 05/30/18 at 21:45 Throat Lozenges (Cepacol Sore Throat Lozenge) 1 richard PRN Q2HR PRN MM sore throat ; Start 05/30/18 at 21:45 Bisacodyl (Dulcolax Tab) 10 mg PRN DAILY PRN PO CONSTIPATION; Start 05/30/18 at 21:45 Calcium Carbonate/ Glycine (Tums) 500 mg PRN Q8HRS PRN PO HEARTBURN / GAS; Start 05/30/18 at 21:45 Vitamin D (Vitamin D3) 2,000 unit DAILY PO Last administered on 06/05/18 08:46 ; Start 05/31/18 at 09:00 Dicyclomine HCl (Bentyl) 10 mg DAILY PO Last administered on 06/05/18at 08:46; Start 05/31/18 at 09:00 Gabapentin (Neurontin) 200 mg TID PO Last administered on 06/05/18 08:47; Start 05/31/18 at 09:00; Stop 06/05/18 at 14:05; Status DC Guaifenesin (Robitussin Dm) 10 ml PRN Q6HRS PRN PO COUGH; Start 05/30/18 at 21: 45 Lactobacillus Rhamnosus (Culturelle) 1 cap BID PO Last administered on at 20:02; Start 05/31/18 at 09:00 Levothyroxine Sodium (Synthroid) 100 mcg DAILY06 PO Last administered on 06:14; Start 05/31/18 at 06:00 Magnesium Hydroxide (Milk Of Magnesia) 2,400 mg PRN QHS PRN PO CONSTIPATION; Start 05/30/18 at 21:45 Albuterol Sulfate (Ventolin) 2.5 mg PRN Q4HRS PRN NEB SHORTNESS OF BREATH; Start 05/30/18 at 21:45 Atorvastatin Calcium (Lipitor) 10 mg QHS PO Last administered on 06/05/18at 20: 02; Start 05/31/18 at 21:00 Pantoprazole Sodium (Protonix) 40 mg DAILYAC PO Last administered on 06/05/18at 07:38; Start 05/31/18 at 07:30 Famotidine (Pepcid) 20 mg PRN Q8HRS PRN PO HEARTBURN / GAS Last administered on 06/02/18at 09:14; Start 05/30/18 at 21:45 Fluticasone Propionate (Flonase) 2 spray PRN DAILY PRN NS NASAL INFLAMATION; Start 05/30/18 at 21:45 Insulin Human Lispro (HumaLOG) 10 units TIDWMEALS SQ Last administered on at 17:13; Start 05/31/18 at 08:00 Insulin Glargine (Lantus) 60 units DAILY SQ Last administered on 06/05/18at 08: 50; Start 05/31/18 at 09:00 Multi-Ingredient Ointment (Analgesic [place]) 1 nnamdi PRN TID PRN TP MUSCLE PAIN Last administered on 05/31/18at 22:30; Start 05/31/18 at 07:45 Ondansetron HCl (Zofran Odt) 4 mg PRN Q8HRS PRN PO NAUSEA/VOMITING; Start 05/30 at 21:45 Non-Formulary Medication (Ranitidine Hcl (Zantac)) 75 mg PRN Q8HRS PRN PO HEARTBURN / GAS; Start 05/30/18 at 21:45; Status UNV Acetaminophen (Tylenol) 650 mg PRN Q6HRS PRN PO PAIN / TEMP; Start 05/30/18 at 21:45; Status Cancel Al Hydroxide/Mg Hydroxide (Mylanta Plus Xs) 15 ml PRN AFTMEALHC PRN PO DYSPEPSIA; Start 05/30/18 at 21:45 Magnesium Hydroxide (Milk Of Magnesia) 2,400 mg PRN QHS PRN PO CONSTIPATION; Start 05/30/18 at 21:45; Status Cancel Insulin Human Lispro (HumaLOG) 0-5 UNITS TIDWMEALS SQ Last administered on 06/04at 12:02; Start 05/31/18 at 17:00 Dextrose 12.5 gm PRN Q15MIN PRN IV SEE COMMENTS; Start 05/31/18 at 15:30 Risperidone (RisperDAL) 0.5 mg HS PO Last administered on 06/05/18at 20:02; Start 06/01/18 at 21:00 Gabapentin (Neurontin) 400 mg TID PO Last administered on 06/05/18at 20:03; Start 06/05/18 at 21:00 Trazodone HCl (Desyrel) 50 mg PRN QHS PRN PO INSOMNIA, MAY REPEAT X1; Start at 22:30 Active Scripts Active Reported Famotidine 20 Mg Tablet 20 Mg PO Q8HRS PRN Guaifenesin Dm Syrup (Guaifenesin/Dextromethorphan) 5 Ml Syrup 10 Ml PO PRN Q6HRS PRN Zofran (Ondansetron Hcl) 4 Mg Tablet 4 Mg PO PRN Q8HRS PRN Milk Of Magnesia (Magnesium Hydroxide) 400 Mg/5 Ml Oral.susp 2,400 Mg PO PRN QHS PRN Culturelle (Lactobacillus Rhamnosus Gg) 1 Each Cap.sprink 1 Each PO BID Depakote Sprinkle (Divalproex Sodium) 125 Mg Cap.sprink 250 Mg PO DAILY Depakote Sprinkle (Divalproex Sodium) 125 Mg Cap.sprink 500 Mg PO QHS Cepacol Sore Throat Lozenge (Benzocaine/Menthol) 1 Each Lozenge 1 Each MM PRN Q2HR PRN Mirtazapine 15 Mg Tablet 15 Mg PO QHS Levemir Flextouch (Insulin Detemir) 100 Unit/1 Ml Insuln.pen 60 Unit SQ DAILY Nexium Capsule (Esomeprazole Magnesium) 40 Mg Capsule.dr 40 Mg PO DAILYAC Vitamin D3 (Cholecalciferol (Vitamin D3)) 1,000 Unit Tablet 2,000 Unit PO DAILY Flonase Allergy Relief (Fluticasone Propionate) 9.9 Ml [place].susp 2 Sprays NS PRN DAILY PRN Dicyclomine Hcl 10 Mg Capsule 10 Mg PO DAILY Biofreeze (Menthol) 118 Ml Gel..ml. 1 Nnamdi TP PRN TID PRN Klonopin (Clonazepam) 0.5 Mg Tablet 0.5 Mg PO PRN DAILY PRN Levothyroxine Sodium 100 Mcg Tablet 100 Mcg PO DAILYAC Gabapentin (Gabapentin) 100 Mg Capsule 200 Mg PO TID Tums (Calcium Carbonate) 200 Mg Tab.chew 500 Mg PO PRN Q8HRS PRN Zantac (Ranitidine Hcl) 150 Mg Tablet 75 Mg PO PRN Q8HRS PRN Tylenol (Acetaminophen) 325 Mg Tablet 650 Mg PO PRN Q6HRS PRN Bupropion Xl (Bupropion Hcl) 300 Mg Tab.er.24h 300 Mg PO DAILY Melatonin 3 Mg Tablet 10 Mg PO DAILY Novolog Flexpen (Insulin Aspart) 100 Unit/1 Ml Insuln.pen 10 Unit SQ TIDWMEALS Albuterol Sulfate Conc Neb Soln (Albuterol Sulfate) 2.5 Mg/0.5 Ml Vial.neb 2.5 Mg NEB PRN Q4HRS PRN Hydrocodone-Apap 7.5-325 (Hydrocodone Bit/Acetaminophen) 1 Each Tablet 2 Tab PO PRN Q6HRS PRN Bisacodyl 5 Mg Tablet.dr 10 Mg PO PRN DAILY PRN Atorvastatin Calcium 10 Mg Tablet 10 Mg PO QHS I have reviewed the current psychotropics carefully including drug interactions. Risk benefit ratio favors no change other than as noted in my dictated progress note. Diagnosis: Problems: (1) Anxiety disorder (2) Bipolar 1 disorder, manic, moderate (3) Impulse control disorder (4) Schizoaffective disorder, bipolar type FAYE MUNGUIA MD Jun 05, 2018 22:37
--- NOTE | 2018-06-05 23:58 | PN ---
DATE: 06/04/2018 PSYCHIATRIC PROGRESS NOTE This late entry 06/04/2018 covers elements not covered in my initial note. SUBJECTIVE: I met with the patient in the evening. The patient slept 6 hours previous evening. Overall, she has been appropriate, doing well on the unit. She gets a little impulsive still and we again discussed the situation options, consequence, choice protocol and she was very appreciative of this. REVIEW OF SYSTEMS: No CV, , pulmonary, eye, ENT system symptoms on review. MENTAL STATUS EXAM: Oriented to herself, situation, date, time, well oriented. Speech is coherent, has some latency. Abstraction fair, computation impaired, language function intact, attention span short. Mood and affect is improved. No suicidal or homicidal ideation. LABORATORY DATA: Reviewed. IMPRESSION: Unchanged from initial note. PLAN: No change from initial note. Maintain Depakote. Valproic acid level therapeutic. Continue melatonin, Klonopin, Remeron, Wellbutrin, Risperdal at current dosage. MAN Jose Alfredo MUNGUIA MD DR: MINOR/aamir JOB#: [id number] / [id number]
--- NOTE | 2018-06-05 23:58 | PN ---
DATE: 06/03/2018 PSYCHIATRIC PROGRESS NOTE This late entry 06/03/2018 covers elements not covered in my initial note. SUBJECTIVE: I met with the patient in the evening. The patient generally has done well. She slept well the previous night. Valproic acid level was 51 on 06/03/2018, therapeutic. She gets a little anxious, impulsive and we processed situation options consequence, choices, behavior modification protocol at some length. No CV, , pulmonary, eye system symptoms on review. MENTAL STATUS EXAM: Oriented to herself reasonably. Speech is coherent, abstraction fair, computation impaired, language function intact, attention span short. Mood and affect were improved. LABORATORY DATA: Reviewed. IMPRESSION: Unchanged from initial note. PLAN: No change from initial note. MAN Jose Alfredo MUNGUIA MD DR: MINOR/aamir JOB#: [id number] / [id number]
[2018-06-06] MEDS: LEVOTHYROXINE 100 MCG TABLET PO SCH (06:08)
[2018-06-06 06:15] VITALS: BP 117/59
[2018-06-06 07:12] LABS: BASO % 1 % (0-3); EOS # 0.3 x10^3/uL (0.0-0.7); EOS % 4 % (0-3); HEMATOCRIT 39.9 % (36.0-47.0); HEMOGLOBIN 13.3 g/dL (12.0-15.5); LYMPH # 1.8 x10^3/uL (1.0-4.8); LYMPH % 24 % (24-48); MEAN CORPUSCULAR HEMOGLOBIN 31 pg (25-35); MEAN CORPUSCULAR HGB CONC 34 g/dL (31-37); MEAN CORPUSCULAR VOLUME 92 fL (79-100); MONO # 0.4 x10^3/uL (0.0-1.1); MONO % 5 % (0-9); NEUT # 5.2 x10^3uL (1.8-7.7); NEUT % 67 % (31-73); PLATELET COUNT 195 x10^3/uL (140-400); RED BLOOD COUNT 4.34 x10^6/uL (3.50-5.40); RED CELL DISTRIBUTION WIDTH 14.7 % (11.5-14.5); WHITE BLOOD COUNT 7.7 x10^3/uL (4.0-11.0)
[2018-06-06 07:25] LABS: ALBUMIN 3.4 g/dL (3.4-5.0); ALBUMIN/GLOBULIN RATIO 0.9 (1.0-1.7); C REACTIVE PROTEIN 10.5 mg/L (0-3.3); CALCIUM 8.6 mg/dL (8.5-10.1); CREATININE 1.2 mg/dL (0.6-1.0); GFR 45.2; POTASSIUM 4.5 mmol/L (3.5-5.1); TOTAL BILIRUBIN 0.4 mg/dL (0.2-1.0); TOTAL PROTEIN 7.1 g/dL (6.4-8.2); URIC ACID 6.4 mg/dL (2.6-6.0)
[2018-06-06] MEDS: LACTOBACILLUS RHAMNOSUS GG 1 CAPSULE. PO SCH ×2 (07:44→20:18)
[2018-06-06] MEDS: buPROPion XL 300 MG TAB.ER.24H. PO SCH (07:44)
[2018-06-06] MEDS: PANTOPRAZOLE 40 MG TABLET. PO SCH (07:44)
[2018-06-06] MEDS: DICYCLOMINE HCL 10 MG CAPSULE PO SCH (07:44)
[2018-06-06] MEDS: CEPHALEXIN 250 MG CAPSULE PO SCH ×3 (07:44→20:18)
[2018-06-06] MEDS: CHOLECALCIFEROL (VITAMIN D3) 1,000 UNIT TABLET PO SCH (07:44)
[2018-06-06] MEDS: GABAPENTIN 400 MG CAPSULE. PO SCH ×3 (07:44→20:19)
[2018-06-06] MEDS: DIVALPROEX 125 MG CAP.SPRINK PO SCH ×2 (07:45→20:18)
[2018-06-06] MEDS: INSULIN LISPRO 300 UNITS/3 ML INSULN.PEN. SQ SCH ×6 (07:45→17:52)
[2018-06-06 08:21] LABS: SEDIMENTATION RATE 19 (0-25)
[2018-06-06] MEDS: INSULIN GLARGINE 300 UNITS/3 ML INSULN.PEN. SQ SCH (08:48)
[2018-06-06 16:21] VITALS: BP 138/81
[2018-06-06] MEDS: MIRTAZAPINE 15 MG TABLET PO SCH (20:18)
[2018-06-06] MEDS: MELATONIN 3 MG TABLET PO SCH (20:18)
[2018-06-06] MEDS: ATORVASTATIN CALCIUM 10 MG TABLET. PO SCH (20:18)
[2018-06-06] MEDS: risperiDONE 0.5 MG TABLET. PO SCH (20:18)
[2018-06-06] MEDS: traZODone 50 MG TABLET. PO PRN (20:33)
--- NOTE | 2018-06-06 22:25 | PDOC ---
Exam Note: Luis Note: Please also refer to the separate dictated note~for this date of service dictated separately.~Patient seen individually. Discussed the patient with Nursing staff reviewed the chart.~Reviewed interim history and current functioning. Reviewed vital signs,~Labs/ Radiology~and current medications noted below. Continue current treatment with the changes noted in the dictated addendum note Assessment: Vital Signs: Vital Signs Date Time Temp Pulse Resp B/P (MAP) Pulse Ox O2 Delivery O2 Flow Rate FiO2 06/06/18 16:21 97.4 75 18 138/81 (100) 97 06/03/18 16:50 Room Air I&O Intake and Output 06/06/18 07:00 Intake Total 1320 ml Balance 1320 ml Intake Oral 1320 ml Labs: Laboratory Tests Test 06/06/18 07:01 06/06/18 07:02 06/06/18 11:39 06/06/18 16:40 Glucose (Fingerstick) 95 mg/dL (70-99) 98 mg/dL (70-99) 122 mg/dL (70-99) H White Blood Count 7.7 x10^3/uL (4.0-11.0) Red Blood Count 4.34 x10^6/uL (3.50-5.40) Hemoglobin 13.3 g/dL (12.0-15.5) Hematocrit 39.9 % (36.0-47.0) Mean Corpuscular Volume 92 fL (79-100) Mean Corpuscular Hemoglobin 31 pg (25-35) Mean Corpuscular Hemoglobin Concent 34 g/dL (31-37) Red Cell Distribution Width 14.7 % (11.5-14.5) H Platelet Count 195 x10^3/uL (140-400) Neutrophils (%) (Auto) 67 % (31-73) Lymphocytes (%) (Auto) 24 % (24-48) Monocytes (%) (Auto) 5 % (0-9) Eosinophils (%) (Auto) 4 % (0-3) H Basophils (%) (Auto) 1 % (0-3) Neutrophils # (Auto) 5.2 x10^3uL (1.8-7.7) Lymphocytes # (Auto) 1.8 x10^3/uL (1.0-4.8) Monocytes # (Auto) 0.4 x10^3/uL (0.0-1.1) Eosinophils # (Auto) 0.3 x10^3/uL (0.0-0.7) Basophils # (Auto) 0.0 x10^3/uL (0.0-0.2) Erythrocyte Sedimentation Rate 19 (0-25) Sodium Level 143 mmol/L (136-145) Potassium Level 4.5 mmol/L (3.5-5.1) Chloride Level 105 mmol/L (98-107) Carbon Dioxide Level 33 mmol/L (21-32) H Anion Gap 5 (6-14) L Blood Urea Nitrogen 21 mg/dL (7-20) H Creatinine 1.2 mg/dL (0.6-1.0) H Estimated GFR (Cockcroft-Gault) 45.2 BUN/Creatinine Ratio 18 (6-20) Glucose Level 113 mg/dL (70-99) H Uric Acid 6.4 mg/dL (2.6-6.0) H Calcium Level 8.6 mg/dL (8.5-10.1) Total Bilirubin 0.4 mg/dL (0.2-1.0) Aspartate Amino Transferase (AST) 18 U/L (15-37) Alanine Aminotransferase (ALT) 26 U/L (14-59) Alkaline Phosphatase 89 U/L (46-116) C-Reactive Protein 10.5 mg/L (0-3.3) H Total Protein 7.1 g/dL (6.4-8.2) Albumin 3.4 g/dL (3.4-5.0) Albumin/Globulin Ratio 0.9 (1.0-1.7) L Test 06/06/18 19:17 Glucose (Fingerstick) 137 mg/dL (70-99) H Current Medications: Meds: Current Medications Lactated Ringer's 1,000 ml @ 100 mls/hr Q10H IV ; Start 05/30/18 at 18:15; Stop 05/31/18 at 02:26; Status DC Cephalexin HCl (Keflex) 500 mg 1X ONCE PO Last administered on 05/30/18at 20:47 ; Start 05/30/18 at 20:45; Stop 05/30/18 at 20:46; Status DC Cephalexin HCl (Keflex) 500 mg TID PO Last administered on 06/06/18 20:18; Start 05/31/18 at 09:00 Bupropion HCl (Wellbutrin Xl) 300 mg DAILY PO Last administered on 06/06/18 07 :44; Start 05/31/18 at 09:00 Clonazepam (KlonoPIN) 0.5 mg PRN DAILY PRN PO ANXIETY / AGITATION; Start at 21:30 Divalproex Sodium (Depakote Sprinkles) 250 mg DAILY PO Last administered on 04/06at 09:37; Start 05/31/18 at 09:00; Stop 05/31/18 at 17:19; Status DC Divalproex Sodium (Depakote Sprinkles) 500 mg BID PO Last administered on 20:18; Start 05/31/18 at 21:00 Melatonin 9 mg QHS PO Last administered on 06/06/18 20:18; Start 05/31/18 at 21:00 Mirtazapine (Remeron) 15 mg QHS PO Last administered on 06/06/18 20:18; Start 05/31/18 at 21:00 Acetaminophen (Tylenol) 650 mg PRN Q6HRS PRN PO PAIN / TEMP Last administered on 06/05/18 00:43; Start 05/30/18 at 21:45 Throat Lozenges (Cepacol Sore Throat Lozenge) 1 richard PRN Q2HR PRN MM sore throat ; Start 05/30/18 at 21:45 Bisacodyl (Dulcolax Tab) 10 mg PRN DAILY PRN PO CONSTIPATION; Start 05/30/18 at 21:45 Calcium Carbonate/ Glycine (Tums) 500 mg PRN Q8HRS PRN PO HEARTBURN / GAS; Start 05/30/18 at 21:45 Vitamin D (Vitamin D3) 2,000 unit DAILY PO Last administered on 06/06/18 07:44 ; Start 05/31/18 at 09:00 Dicyclomine HCl (Bentyl) 10 mg DAILY PO Last administered on 06/06/18 07:44; Start 05/31/18 at 09:00 Gabapentin (Neurontin) 200 mg TID PO Last administered on 06/05/18 08:47; Start 05/31/18 at 09:00; Stop 06/05/18 at 14:05; Status DC Guaifenesin (Robitussin Dm) 10 ml PRN Q6HRS PRN PO COUGH; Start 05/30/18 at 21: 45 Lactobacillus Rhamnosus (Culturelle) 1 cap BID PO Last administered on at 20:18; Start 05/31/18 at 09:00 Levothyroxine Sodium (Synthroid) 100 mcg DAILY06 PO Last administered on 06:08; Start 05/31/18 at 06:00 Magnesium Hydroxide (Milk Of Magnesia) 2,400 mg PRN QHS PRN PO CONSTIPATION; Start 05/30/18 at 21:45 Albuterol Sulfate (Ventolin) 2.5 mg PRN Q4HRS PRN NEB SHORTNESS OF BREATH; Start 05/30/18 at 21:45 Atorvastatin Calcium (Lipitor) 10 mg QHS PO Last administered on 06/06/18at 20: 18; Start 05/31/18 at 21:00 Pantoprazole Sodium (Protonix) 40 mg DAILYAC PO Last administered on 06/06/18at 07:44; Start 05/31/18 at 07:30 Famotidine (Pepcid) 20 mg PRN Q8HRS PRN PO HEARTBURN / GAS Last administered on 06/02/18at 09:14; Start 05/30/18 at 21:45 Fluticasone Propionate (Flonase) 2 spray PRN DAILY PRN NS NASAL INFLAMATION; Start 05/30/18 at 21:45 Insulin Human Lispro (HumaLOG) 10 units TIDWMEALS SQ Last administered on 17:52; Start 05/31/18 at 08:00 Insulin Glargine (Lantus) 60 units DAILY SQ Last administered on 06/06/18 08: 48; Start 05/31/18 at 09:00 Multi-Ingredient Ointment (Analgesic [place]) 1 nnamdi PRN TID PRN TP MUSCLE PAIN Last administered on 05/31/18at 22:30; Start 05/31/18 at 07:45 Ondansetron HCl (Zofran Odt) 4 mg PRN Q8HRS PRN PO NAUSEA/VOMITING; Start 05/30 at 21:45 Non-Formulary Medication (Ranitidine Hcl (Zantac)) 75 mg PRN Q8HRS PRN PO HEARTBURN / GAS; Start 05/30/18 at 21:45; Status UNV Acetaminophen (Tylenol) 650 mg PRN Q6HRS PRN PO PAIN / TEMP; Start 05/30/18 at 21:45; Status Cancel Al Hydroxide/Mg Hydroxide (Mylanta Plus Xs) 15 ml PRN AFTMEALHC PRN PO DYSPEPSIA; Start 05/30/18 at 21:45 Magnesium Hydroxide (Milk Of Magnesia) 2,400 mg PRN QHS PRN PO CONSTIPATION; Start 05/30/18 at 21:45; Status Cancel Insulin Human Lispro (HumaLOG) 0-5 UNITS TIDWMEALS SQ Last administered on 06/04at 12:02; Start 05/31/18 at 17:00 Dextrose 12.5 gm PRN Q15MIN PRN IV SEE COMMENTS; Start 05/31/18 at 15:30 Risperidone (RisperDAL) 0.5 mg HS PO Last administered on 06/06/18at 20:18; Start 06/01/18 at 21:00 Gabapentin (Neurontin) 400 mg TID PO Last administered on 06/06/18at 20:19; Start 06/05/18 at 21:00 Trazodone HCl (Desyrel) 50 mg PRN QHS PRN PO INSOMNIA, MAY REPEAT X1 Last administered on 06/06/18at 20:33; Start 06/05/18 at 22:30 Active Scripts Active Reported Famotidine 20 Mg Tablet 20 Mg PO Q8HRS PRN Guaifenesin Dm Syrup (Guaifenesin/Dextromethorphan) 5 Ml Syrup 10 Ml PO PRN Q6HRS PRN Zofran (Ondansetron Hcl) 4 Mg Tablet 4 Mg PO PRN Q8HRS PRN Milk Of Magnesia (Magnesium Hydroxide) 400 Mg/5 Ml Oral.susp 2,400 Mg PO PRN QHS PRN Culturelle (Lactobacillus Rhamnosus Gg) 1 Each Cap.sprink 1 Each PO BID Depakote Sprinkle (Divalproex Sodium) 125 Mg Cap.sprink 250 Mg PO DAILY Depakote Sprinkle (Divalproex Sodium) 125 Mg Cap.sprink 500 Mg PO QHS Cepacol Sore Throat Lozenge (Benzocaine/Menthol) 1 Each Lozenge 1 Each MM PRN Q2HR PRN Mirtazapine 15 Mg Tablet 15 Mg PO QHS Levemir Flextouch (Insulin Detemir) 100 Unit/1 Ml Insuln.pen 60 Unit SQ DAILY Nexium Capsule (Esomeprazole Magnesium) 40 Mg Capsule.dr 40 Mg PO DAILYAC Vitamin D3 (Cholecalciferol (Vitamin D3)) 1,000 Unit Tablet 2,000 Unit PO DAILY Flonase Allergy Relief (Fluticasone Propionate) 9.9 Ml [place].susp 2 Sprays NS PRN DAILY PRN Dicyclomine Hcl 10 Mg Capsule 10 Mg PO DAILY Biofreeze (Menthol) 118 Ml Gel..ml. 1 Nnamdi TP PRN TID PRN Klonopin (Clonazepam) 0.5 Mg Tablet 0.5 Mg PO PRN DAILY PRN Levothyroxine Sodium 100 Mcg Tablet 100 Mcg PO DAILYAC Gabapentin (Gabapentin) 100 Mg Capsule 200 Mg PO TID Tums (Calcium Carbonate) 200 Mg Tab.chew 500 Mg PO PRN Q8HRS PRN Zantac (Ranitidine Hcl) 150 Mg Tablet 75 Mg PO PRN Q8HRS PRN Tylenol (Acetaminophen) 325 Mg Tablet 650 Mg PO PRN Q6HRS PRN Bupropion Xl (Bupropion Hcl) 300 Mg Tab.er.24h 300 Mg PO DAILY Melatonin 3 Mg Tablet 10 Mg PO DAILY Novolog Flexpen (Insulin Aspart) 100 Unit/1 Ml Insuln.pen 10 Unit SQ TIDWMEALS Albuterol Sulfate Conc Neb Soln (Albuterol Sulfate) 2.5 Mg/0.5 Ml Vial.neb 2.5 Mg NEB PRN Q4HRS PRN Hydrocodone-Apap 7.5-325 (Hydrocodone Bit/Acetaminophen) 1 Each Tablet 2 Tab PO PRN Q6HRS PRN Bisacodyl 5 Mg Tablet.dr 10 Mg PO PRN DAILY PRN Atorvastatin Calcium 10 Mg Tablet 10 Mg PO QHS I have reviewed the current psychotropics carefully including drug interactions. Risk benefit ratio favors no change other than as noted in my dictated progress note. Diagnosis: Problems: (1) Anxiety disorder (2) Bipolar 1 disorder, manic, moderate (3) Impulse control disorder (4) Schizoaffective disorder, bipolar type FAYE MUNGUIA MDb 18, 2019 22:25
[2018-06-07] MEDS: ACETAMINOPHEN 325 MG TABLET PO PRN (04:31)
[2018-06-07] MEDS: LEVOTHYROXINE 100 MCG TABLET PO SCH (04:32)
[2018-06-07 05:57] VITALS: BP 112/64
[2018-06-07] MEDS: INSULIN LISPRO 300 UNITS/3 ML INSULN.PEN. SQ SCH ×6 (08:00→17:00)
[2018-06-07] MEDS: GABAPENTIN 400 MG CAPSULE. PO SCH ×3 (08:38→20:22)
[2018-06-07] MEDS: buPROPion XL 300 MG TAB.ER.24H. PO SCH (08:38)
[2018-06-07] MEDS: DIVALPROEX 125 MG CAP.SPRINK PO SCH ×2 (08:38→20:20)
[2018-06-07] MEDS: DICYCLOMINE HCL 10 MG CAPSULE PO SCH (08:39)
[2018-06-07] MEDS: CHOLECALCIFEROL (VITAMIN D3) 1,000 UNIT TABLET PO SCH (08:39)
[2018-06-07] MEDS: PANTOPRAZOLE 40 MG TABLET. PO SCH (08:39)
[2018-06-07] MEDS: LACTOBACILLUS RHAMNOSUS GG 1 CAPSULE. PO SCH ×2 (08:39→20:20)
[2018-06-07] MEDS: CEPHALEXIN 250 MG CAPSULE PO SCH ×3 (08:39→20:20)
[2018-06-07] MEDS: INSULIN GLARGINE 300 UNITS/3 ML INSULN.PEN. SQ SCH (09:00)
[2018-06-07 16:29] VITALS: BP 106/73
[2018-06-07 17:02] LABS: ALBUMIN 3.5 g/dL (3.4-5.0); ALBUMIN/GLOBULIN RATIO 0.9 (1.0-1.7); CALCIUM 8.8 mg/dL (8.5-10.1); CREATININE 1.4 mg/dL (0.6-1.0); GFR 37.9; POTASSIUM 4.2 mmol/L (3.5-5.1); TOTAL BILIRUBIN 0.2 mg/dL (0.2-1.0); TOTAL PROTEIN 7.3 g/dL (6.4-8.2)
[2018-06-07 17:07] LABS: HEMOGLOBIN 12.8 g/dL (12.0-15.5); RED BLOOD COUNT 4.23 x10^6/uL (3.50-5.40); RED CELL DISTRIBUTION WIDTH 14.5 % (11.5-14.5); WHITE BLOOD COUNT 8.5 x10^3/uL (4.0-11.0)
[2018-06-07] MEDS: risperiDONE 0.5 MG TABLET. PO SCH (20:20)
[2018-06-07] MEDS: MELATONIN 3 MG TABLET PO SCH (20:20)
[2018-06-07] MEDS: ATORVASTATIN CALCIUM 10 MG TABLET. PO SCH (20:20)
[2018-06-07] MEDS: MIRTAZAPINE 15 MG TABLET PO SCH (20:22)
--- NOTE | 2018-06-07 22:15 | PN ---
DATE: 06/06/2018 PSYCHIATRIC PROGRESS NOTE This late entry OF 06/06/2018 covers elements not covered in my initial note. SUBJECTIVE: I met with the patient in the evening. The patient slept 4-1/2 hours previous night. She has been somewhat anxious, attention seeking per nursing report, but appropriate. She has been coloring and was showing me several of the pictures she had colored very, very nicely. REVIEW OF SYSTEMS: No CV, , pulmonary, eye, ENT system symptoms on review. She seems well focused. MENTAL STATUS EXAM: Oriented reasonably. Speech is coherent, has some latency. Abstraction fair, computation impaired, language function intact, attention span short. Mood and affect showing improvement, less labile. LABORATORY DATA: Reviewed. IMPRESSION: Unchanged from initial note. PLAN: No change from initial note. MAN Jose Alfredo MUNGUIA MD DR: MINOR/aamir JOB#: [id number] / [id number]
--- NOTE | 2018-06-07 22:16 | PN ---
DATE: 06/05/2018 PSYCHIATRIC PROGRESS NOTE This late entry of 06/05/2018 covers elements not covered in my initial note. SUBJECTIVE: I met with the patient in the evening. The patient slept 3-3/4 hours previous night, compliant with medications, somewhat attention seeking per nursing report. She does have symptoms of neuropathy, gabapentin has been increased for this. REVIEW OF SYSTEMS: No CV, , pulmonary, eye system symptoms on review. MENTAL STATUS EXAM: Oriented to herself, reasonably oriented. Speech is coherent, abstraction fair, computation impaired, language function intact, attention span short. Mood and affect is improved and we processed the situation options, consequences, choice, behavior modification at some length individually. LABORATORY DATA: Reviewed. IMPRESSION: Unchanged from initial note. PLAN: No change from initial note. Start trazodone 50 mg at bedtime, may repeat x 1 for insomnia. Rest unchanged. MAN Jose Alfredo MUNGUIA MD DR: MINOR/aamir JOB#: [id number] / [id number]
[2018-06-07] MEDS: traZODone 50 MG TABLET. PO PRN (22:26)
--- NOTE | 2018-06-07 22:40 | PDOC ---
Exam Note: Luis Note: Please also refer to the separate dictated note~for this date of service dictated separately.~Patient seen individually. Discussed the patient with Nursing staff reviewed the chart.~Reviewed interim history and current functioning. Reviewed vital signs,~Labs/ Radiology~and current medications noted below. Continue current treatment with the changes noted in the dictated addendum note Assessment: Vital Signs: Vital Signs Date Time Temp Pulse Resp B/P (MAP) Pulse Ox O2 Delivery O2 Flow Rate FiO2 06/07/18 16:29 97.4 68 18 106/73 (84) 98 Room Air I&O Intake and Output 06/07/18 07:00 Intake Total 1560 ml Balance 1560 ml Intake Oral 1560 ml Labs: Laboratory Tests Test 06/07/18 07:28 06/07/18 11:44 06/07/18 16:36 06/07/18 17:07 Glucose (Fingerstick) 107 mg/dL (70-99) H 123 mg/dL (70-99) H 73 mg/dL (70-99) White Blood Count 8.5 x10^3/uL (4.0-11.0) Red Blood Count 4.23 x10^6/uL (3.50-5.40) Hemoglobin 12.8 g/dL (12.0-15.5) Hematocrit 39.0 % (36.0-47.0) Mean Corpuscular Volume 92 fL (79-100) Mean Corpuscular Hemoglobin 30 pg (25-35) Mean Corpuscular Hemoglobin Concent 33 g/dL (31-37) Red Cell Distribution Width 14.5 % (11.5-14.5) Platelet Count 208 x10^3/uL (140-400) Sodium Level 142 mmol/L (136-145) Potassium Level 4.2 mmol/L (3.5-5.1) Chloride Level 103 mmol/L (98-107) Carbon Dioxide Level 33 mmol/L (21-32) H Anion Gap 6 (6-14) Blood Urea Nitrogen 24 mg/dL (7-20) H Creatinine 1.4 mg/dL (0.6-1.0) H Estimated GFR (Cockcroft-Gault) 37.9 BUN/Creatinine Ratio 17 (6-20) Glucose Level 71 mg/dL (70-99) Calcium Level 8.8 mg/dL (8.5-10.1) Total Bilirubin 0.2 mg/dL (0.2-1.0) Aspartate Amino Transferase (AST) 19 U/L (15-37) Alanine Aminotransferase (ALT) 25 U/L (14-59) Alkaline Phosphatase 92 U/L (46-116) Lactate Dehydrogenase 173 U/L (81-234) Total Protein 7.3 g/dL (6.4-8.2) Albumin 3.5 g/dL (3.4-5.0) Albumin/Globulin Ratio 0.9 (1.0-1.7) L Lipase 211 U/L (73-393) Test 06/07/18 19:21 Glucose (Fingerstick) 120 mg/dL (70-99) H Current Medications: Meds: Current Medications Lactated Ringer's 1,000 ml @ 100 mls/hr Q10H IV ; Start 05/30/18 at 18:15; Stop 05/31/18 at 02:26; Status DC Cephalexin HCl (Keflex) 500 mg 1X ONCE PO Last administered on 05/30/18at 20:47 ; Start 05/30/18 at 20:45; Stop 05/30/18 at 20:46; Status DC Cephalexin HCl (Keflex) 500 mg TID PO Last administered on 06/07/18 20:20; Start 05/31/18 at 09:00 Bupropion HCl (Wellbutrin Xl) 300 mg DAILY PO Last administered on 06/07/18at 08 :38; Start 05/31/18 at 09:00 Clonazepam (KlonoPIN) 0.5 mg PRN DAILY PRN PO ANXIETY / AGITATION Last administered on 06/07/18at 22:26; Start 05/30/18 at 21:30 Divalproex Sodium (Depakote Sprinkles) 250 mg DAILY PO Last administered on 04/06at 09:37; Start 05/31/18 at 09:00; Stop 05/31/18 at 17:19; Status DC Divalproex Sodium (Depakote Sprinkles) 500 mg BID PO Last administered on 20:20; Start 05/31/18 at 21:00 Melatonin 9 mg QHS PO Last administered on 06/07/18at 20:20; Start 05/31/18 at 21:00 Mirtazapine (Remeron) 15 mg QHS PO Last administered on 06/07/18 20:22; Start 05/31/18 at 21:00 Acetaminophen (Tylenol) 650 mg PRN Q6HRS PRN PO PAIN / TEMP Last administered on 06/07/18 04:31; Start 05/30/18 at 21:45 Throat Lozenges (Cepacol Sore Throat Lozenge) 1 richard PRN Q2HR PRN MM sore throat ; Start 05/30/18 at 21:45 Bisacodyl (Dulcolax Tab) 10 mg PRN DAILY PRN PO CONSTIPATION; Start 05/30/18 at 21:45 Calcium Carbonate/ Glycine (Tums) 500 mg PRN Q8HRS PRN PO HEARTBURN / GAS; Start 05/30/18 at 21:45 Vitamin D (Vitamin D3) 2,000 unit DAILY PO Last administered on 06/07/18 08:39 ; Start 05/31/18 at 09:00 Dicyclomine HCl (Bentyl) 10 mg DAILY PO Last administered on 06/07/18 08:39; Start 05/31/18 at 09:00 Gabapentin (Neurontin) 200 mg TID PO Last administered on 06/05/18 08:47; Start 05/31/18 at 09:00; Stop 06/05/18 at 14:05; Status DC Guaifenesin (Robitussin Dm) 10 ml PRN Q6HRS PRN PO COUGH; Start 05/30/18 at 21: 45 Lactobacillus Rhamnosus (Culturelle) 1 cap BID PO Last administered on 20:20; Start 05/31/18 at 09:00 Levothyroxine Sodium (Synthroid) 100 mcg DAILY06 PO Last administered on 04:32; Start 05/31/18 at 06:00 Magnesium Hydroxide (Milk Of Magnesia) 2,400 mg PRN QHS PRN PO CONSTIPATION; Start 05/30/18 at 21:45 Albuterol Sulfate (Ventolin) 2.5 mg PRN Q4HRS PRN NEB SHORTNESS OF BREATH; Start 05/30/18 at 21:45 Atorvastatin Calcium (Lipitor) 10 mg QHS PO Last administered on 06/07/18 20: 20; Start 05/31/18 at 21:00 Pantoprazole Sodium (Protonix) 40 mg DAILYAC PO Last administered on 06/07/18at 08:39; Start 05/31/18 at 07:30 Famotidine (Pepcid) 20 mg PRN Q8HRS PRN PO HEARTBURN / GAS Last administered on 06/02/18 09:14; Start 05/30/18 at 21:45 Fluticasone Propionate (Flonase) 2 spray PRN DAILY PRN NS NASAL INFLAMATION; Start 05/30/18 at 21:45 Insulin Human Lispro (HumaLOG) 10 units TIDWMEALS SQ Last administered on 12:11; Start 05/31/18 at 08:00 Insulin Glargine (Lantus) 60 units DAILY SQ Last administered on 06/07/18 09: 00; Start 05/31/18 at 09:00 Multi-Ingredient Ointment (Analgesic [place]) 1 nnamdi PRN TID PRN TP MUSCLE PAIN Last administered on 05/31/18at 22:30; Start 05/31/18 at 07:45 Ondansetron HCl (Zofran Odt) 4 mg PRN Q8HRS PRN PO NAUSEA/VOMITING; Start 05/30 at 21:45 Non-Formulary Medication (Ranitidine Hcl (Zantac)) 75 mg PRN Q8HRS PRN PO HEARTBURN / GAS; Start 05/30/18 at 21:45; Status UNV Acetaminophen (Tylenol) 650 mg PRN Q6HRS PRN PO PAIN / TEMP; Start 05/30/18 at 21:45; Status Cancel Al Hydroxide/Mg Hydroxide (Mylanta Plus Xs) 15 ml PRN AFTMEALHC PRN PO DYSPEPSIA; Start 05/30/18 at 21:45 Magnesium Hydroxide (Milk Of Magnesia) 2,400 mg PRN QHS PRN PO CONSTIPATION; Start 05/30/18 at 21:45; Status Cancel Insulin Human Lispro (HumaLOG) 0-5 UNITS TIDWMEALS SQ Last administered on 06/04at 12:02; Start 05/31/18 at 17:00 Dextrose 12.5 gm PRN Q15MIN PRN IV SEE COMMENTS; Start 05/31/18 at 15:30 Risperidone (RisperDAL) 0.5 mg HS PO Last administered on 06/07/18at 20:20; Start 06/01/18 at 21:00 Gabapentin (Neurontin) 400 mg TID PO Last administered on 06/07/18at 20:22; Start 06/05/18 at 21:00 Trazodone HCl (Desyrel) 50 mg PRN QHS PRN PO INSOMNIA, MAY REPEAT X1 Last administered on 06/07/18at 22:26; Start 06/05/18 at 22:30 Active Scripts Active Reported Famotidine 20 Mg Tablet 20 Mg PO Q8HRS PRN Guaifenesin Dm Syrup (Guaifenesin/Dextromethorphan) 5 Ml Syrup 10 Ml PO PRN Q6HRS PRN Zofran (Ondansetron Hcl) 4 Mg Tablet 4 Mg PO PRN Q8HRS PRN Milk Of Magnesia (Magnesium Hydroxide) 400 Mg/5 Ml Oral.susp 2,400 Mg PO PRN QHS PRN Culturelle (Lactobacillus Rhamnosus Gg) 1 Each Cap.sprink 1 Each PO BID Depakote Sprinkle (Divalproex Sodium) 125 Mg Cap.sprink 250 Mg PO DAILY Depakote Sprinkle (Divalproex Sodium) 125 Mg Cap.sprink 500 Mg PO QHS Cepacol Sore Throat Lozenge (Benzocaine/Menthol) 1 Each Lozenge 1 Each MM PRN Q2HR PRN Mirtazapine 15 Mg Tablet 15 Mg PO QHS Levemir Flextouch (Insulin Detemir) 100 Unit/1 Ml Insuln.pen 60 Unit SQ DAILY Nexium Capsule (Esomeprazole Magnesium) 40 Mg Capsule.dr 40 Mg PO DAILYAC Vitamin D3 (Cholecalciferol (Vitamin D3)) 1,000 Unit Tablet 2,000 Unit PO DAILY Flonase Allergy Relief (Fluticasone Propionate) 9.9 Ml [place].susp 2 Sprays NS PRN DAILY PRN Dicyclomine Hcl 10 Mg Capsule 10 Mg PO DAILY Biofreeze (Menthol) 118 Ml Gel..ml. 1 Nnamdi TP PRN TID PRN Klonopin (Clonazepam) 0.5 Mg Tablet 0.5 Mg PO PRN DAILY PRN Levothyroxine Sodium 100 Mcg Tablet 100 Mcg PO DAILYAC Gabapentin (Gabapentin) 100 Mg Capsule 200 Mg PO TID Tums (Calcium Carbonate) 200 Mg Tab.chew 500 Mg PO PRN Q8HRS PRN Zantac (Ranitidine Hcl) 150 Mg Tablet 75 Mg PO PRN Q8HRS PRN Tylenol (Acetaminophen) 325 Mg Tablet 650 Mg PO PRN Q6HRS PRN Bupropion Xl (Bupropion Hcl) 300 Mg Tab.er.24h 300 Mg PO DAILY Melatonin 3 Mg Tablet 10 Mg PO DAILY Novolog Flexpen (Insulin Aspart) 100 Unit/1 Ml Insuln.pen 10 Unit SQ TIDWMEALS Albuterol Sulfate Conc Neb Soln (Albuterol Sulfate) 2.5 Mg/0.5 Ml Vial.neb 2.5 Mg NEB PRN Q4HRS PRN Hydrocodone-Apap 7.5-325 (Hydrocodone Bit/Acetaminophen) 1 Each Tablet 2 Tab PO PRN Q6HRS PRN Bisacodyl 5 Mg Tablet.dr 10 Mg PO PRN DAILY PRN Atorvastatin Calcium 10 Mg Tablet 10 Mg PO QHS I have reviewed the current psychotropics carefully including drug interactions. Risk benefit ratio favors no change other than as noted in my dictated progress note. Diagnosis: Problems: (1) Anxiety disorder (2) Bipolar 1 disorder, manic, moderate (3) Impulse control disorder (4) Schizoaffective disorder, bipolar type FAYE MUNGUIA MD Jun 07, 2018 22:40
[2018-06-08 05:47] VITALS: BP 96/62
[2018-06-08] MEDS: LEVOTHYROXINE 100 MCG TABLET PO SCH (06:10)
[2018-06-08] MEDS: DICYCLOMINE HCL 10 MG CAPSULE PO SCH (07:38)
[2018-06-08] MEDS: CEPHALEXIN 250 MG CAPSULE PO SCH ×3 (07:38→19:47)
[2018-06-08] MEDS: PANTOPRAZOLE 40 MG TABLET. PO SCH (07:38)
[2018-06-08] MEDS: buPROPion XL 300 MG TAB.ER.24H. PO SCH (07:38)
[2018-06-08] MEDS: DIVALPROEX 125 MG CAP.SPRINK PO SCH ×2 (07:38→19:46)
[2018-06-08] MEDS: LACTOBACILLUS RHAMNOSUS GG 1 CAPSULE. PO SCH ×2 (07:38→19:47)
[2018-06-08] MEDS: GABAPENTIN 400 MG CAPSULE. PO SCH ×3 (07:38→19:48)
[2018-06-08] MEDS: CHOLECALCIFEROL (VITAMIN D3) 1,000 UNIT TABLET PO SCH (07:40)
[2018-06-08] MEDS: INSULIN LISPRO 300 UNITS/3 ML INSULN.PEN. SQ SCH ×6 (08:00→17:22)
[2018-06-08] MEDS: INSULIN GLARGINE 300 UNITS/3 ML INSULN.PEN. SQ SCH (09:09)
--- NOTE | 2018-06-08 09:28 | RAD ---
KUB, 06/08/2018: HISTORY: Abdominal pain The abdominal gas pattern is unremarkable. There is chronic elevation of the right hemidiaphragm. Surgical clips are present in the right upper quadrant compatible with a previous cholecystectomy. Lower pelvic calcifications are likely phleboliths. Moderate multilevel degenerative change is present in the lumbar spine. IMPRESSION: No acute abdominal abnormality is detected. Electronically signed by: Kevin Valenzuela MD (06/08/2018 9:25 AM) [facility]
[2018-06-08 15:18] VITALS: BP 116/72
[2018-06-08] MEDS: MELATONIN 3 MG TABLET PO SCH (19:46)
[2018-06-08] MEDS: MIRTAZAPINE 15 MG TABLET PO SCH (19:47)
[2018-06-08] MEDS: ATORVASTATIN CALCIUM 10 MG TABLET. PO SCH (19:47)
[2018-06-08] MEDS: risperiDONE 0.5 MG TABLET. PO SCH (19:47)
--- NOTE | 2018-06-08 22:18 | PDOC ---
Exam Note: Luis Note: Please also refer to the separate dictated note~for this date of service dictated separately.~Patient seen individually. Discussed the patient with Nursing staff reviewed the chart.~Reviewed interim history and current functioning. Reviewed vital signs,~Labs/ Radiology~and current medications noted below. Continue current treatment with the changes noted in the dictated addendum note Assessment: Vital Signs: Vital Signs Date Time Temp Pulse Resp B/P (MAP) Pulse Ox O2 Delivery O2 Flow Rate FiO2 06/08/18 15:18 97.4 68 18 116/72 (87) 96 06/08/18 05:47 Room Air I&O Intake and Output 06/08/18 07:00 Intake Total 1920 ml Balance 1920 ml Intake Oral 1920 ml # Bowel Movements 2 Labs: Laboratory Tests Test 06/08/18 07:31 06/08/18 11:32 06/08/18 16:55 06/08/18 19:09 Glucose (Fingerstick) 92 mg/dL (70-99) 108 mg/dL (70-99) H 94 mg/dL (70-99) 160 mg/dL (70-99) H Current Medications: Meds: Current Medications Lactated Ringer's 1,000 ml @ 100 mls/hr Q10H IV ; Start 05/30/18 at 18:15; Stop 05/31/18 at 02:26; Status DC Cephalexin HCl (Keflex) 500 mg 1X ONCE PO Last administered on 05/30/18at 20:47 ; Start 05/30/18 at 20:45; Stop 05/30/18 at 20:46; Status DC Cephalexin HCl (Keflex) 500 mg TID PO Last administered on 06/08/18at 19:47; Start 05/31/18 at 09:00; Stop 06/10/18 at 08:59 Bupropion HCl (Wellbutrin Xl) 300 mg DAILY PO Last administered on 06/08/18at 07 :38; Start 05/31/18 at 09:00 Clonazepam (KlonoPIN) 0.5 mg PRN DAILY PRN PO ANXIETY / AGITATION Last administered on 06/07/18at 22:26; Start 05/30/18 at 21:30 Divalproex Sodium (Depakote Sprinkles) 250 mg DAILY PO Last administered on 04/06at 09:37; Start 05/31/18 at 09:00; Stop 05/31/18 at 17:19; Status DC Divalproex Sodium (Depakote Sprinkles) 500 mg BID PO Last administered on at 19:46; Start 05/31/18 at 21:00 Melatonin 9 mg QHS PO Last administered on 06/08/18 19:46; Start 05/31/18 at 21:00 Mirtazapine (Remeron) 15 mg QHS PO Last administered on 06/08/18 19:47; Start 05/31/18 at 21:00 Acetaminophen (Tylenol) 650 mg PRN Q6HRS PRN PO PAIN / TEMP Last administered on 06/07/18at 04:31; Start 05/30/18 at 21:45 Throat Lozenges (Cepacol Sore Throat Lozenge) 1 richard PRN Q2HR PRN MM sore throat ; Start 05/30/18 at 21:45 Bisacodyl (Dulcolax Tab) 10 mg PRN DAILY PRN PO CONSTIPATION; Start 05/30/18 at 21:45 Calcium Carbonate/ Glycine (Tums) 500 mg PRN Q8HRS PRN PO HEARTBURN / GAS; Start 05/30/18 at 21:45 Vitamin D (Vitamin D3) 2,000 unit DAILY PO Last administered on 06/08/18at 07:40 ; Start 05/31/18 at 09:00 Dicyclomine HCl (Bentyl) 10 mg DAILY PO Last administered on 06/08/18at 07:38; Start 05/31/18 at 09:00 Gabapentin (Neurontin) 200 mg TID PO Last administered on 06/05/18at 08:47; Start 05/31/18 at 09:00; Stop 06/05/18 at 14:05; Status DC Guaifenesin (Robitussin Dm) 10 ml PRN Q6HRS PRN PO COUGH; Start 05/30/18 at 21: 45 Lactobacillus Rhamnosus (Culturelle) 1 cap BID PO Last administered on at 19:47; Start 05/31/18 at 09:00 Levothyroxine Sodium (Synthroid) 100 mcg DAILY06 PO Last administered on at 06:10; Start 05/31/18 at 06:00 Magnesium Hydroxide (Milk Of Magnesia) 2,400 mg PRN QHS PRN PO CONSTIPATION; Start 05/30/18 at 21:45 Albuterol Sulfate (Ventolin) 2.5 mg PRN Q4HRS PRN NEB SHORTNESS OF BREATH; Start 05/30/18 at 21:45 Atorvastatin Calcium (Lipitor) 10 mg QHS PO Last administered on 06/08/18at 19: 47; Start 05/31/18 at 21:00 Pantoprazole Sodium (Protonix) 40 mg DAILYAC PO Last administered on 06/08/18at 07:38; Start 05/31/18 at 07:30 Famotidine (Pepcid) 20 mg PRN Q8HRS PRN PO HEARTBURN / GAS Last administered on 06/02/18at 09:14; Start 05/30/18 at 21:45 Fluticasone Propionate (Flonase) 2 spray PRN DAILY PRN NS NASAL INFLAMATION; Start 05/30/18 at 21:45 Insulin Human Lispro (HumaLOG) 10 units TIDWMEALS SQ Last administered on at 17:22; Start 05/31/18 at 08:00 Insulin Glargine (Lantus) 60 units DAILY SQ Last administered on 06/08/18 09: 09; Start 05/31/18 at 09:00 Multi-Ingredient Ointment (Analgesic [place]) 1 nnamdi PRN TID PRN TP MUSCLE PAIN Last administered on 05/31/18at 22:30; Start 05/31/18 at 07:45 Ondansetron HCl (Zofran Odt) 4 mg PRN Q8HRS PRN PO NAUSEA/VOMITING; Start 05/30 at 21:45 Non-Formulary Medication (Ranitidine Hcl (Zantac)) 75 mg PRN Q8HRS PRN PO HEARTBURN / GAS; Start 05/30/18 at 21:45; Status UNV Acetaminophen (Tylenol) 650 mg PRN Q6HRS PRN PO PAIN / TEMP; Start 05/30/18 at 21:45; Status Cancel Al Hydroxide/Mg Hydroxide (Mylanta Plus Xs) 15 ml PRN AFTMEALHC PRN PO DYSPEPSIA; Start 05/30/18 at 21:45 Magnesium Hydroxide (Milk Of Magnesia) 2,400 mg PRN QHS PRN PO CONSTIPATION; Start 05/30/18 at 21:45; Status Cancel Insulin Human Lispro (HumaLOG) 0-5 UNITS TIDWMEALS SQ Last administered on 06/04at 12:02; Start 05/31/18 at 17:00 Dextrose 12.5 gm PRN Q15MIN PRN IV SEE COMMENTS; Start 05/31/18 at 15:30 Risperidone (RisperDAL) 0.5 mg HS PO Last administered on 06/08/18at 19:47; Start 06/01/18 at 21:00 Gabapentin (Neurontin) 400 mg TID PO Last administered on 06/08/18at 19:48; Start 06/05/18 at 21:00 Trazodone HCl (Desyrel) 50 mg PRN QHS PRN PO INSOMNIA, MAY REPEAT X1 Last administered on 06/07/18at 22:26; Start 06/05/18 at 22:30 Active Scripts Active Reported Famotidine 20 Mg Tablet 20 Mg PO Q8HRS PRN Guaifenesin Dm Syrup (Guaifenesin/Dextromethorphan) 5 Ml Syrup 10 Ml PO PRN Q6HRS PRN Zofran (Ondansetron Hcl) 4 Mg Tablet 4 Mg PO PRN Q8HRS PRN Milk Of Magnesia (Magnesium Hydroxide) 400 Mg/5 Ml Oral.susp 2,400 Mg PO PRN QHS PRN Culturelle (Lactobacillus Rhamnosus Gg) 1 Each Cap.sprink 1 Each PO BID Depakote Sprinkle (Divalproex Sodium) 125 Mg Cap.sprink 250 Mg PO DAILY Depakote Sprinkle (Divalproex Sodium) 125 Mg Cap.sprink 500 Mg PO QHS Cepacol Sore Throat Lozenge (Benzocaine/Menthol) 1 Each Lozenge 1 Each MM PRN Q2HR PRN Mirtazapine 15 Mg Tablet 15 Mg PO QHS Levemir Flextouch (Insulin Detemir) 100 Unit/1 Ml Insuln.pen 60 Unit SQ DAILY Nexium Capsule (Esomeprazole Magnesium) 40 Mg Capsule.dr 40 Mg PO DAILYAC Vitamin D3 (Cholecalciferol (Vitamin D3)) 1,000 Unit Tablet 2,000 Unit PO DAILY Flonase Allergy Relief (Fluticasone Propionate) 9.9 Ml [place].susp 2 Sprays NS PRN DAILY PRN Dicyclomine Hcl 10 Mg Capsule 10 Mg PO DAILY Biofreeze (Menthol) 118 Ml Gel..ml. 1 Nnamdi TP PRN TID PRN Klonopin (Clonazepam) 0.5 Mg Tablet 0.5 Mg PO PRN DAILY PRN Levothyroxine Sodium 100 Mcg Tablet 100 Mcg PO DAILYAC Gabapentin (Gabapentin) 100 Mg Capsule 200 Mg PO TID Tums (Calcium Carbonate) 200 Mg Tab.chew 500 Mg PO PRN Q8HRS PRN Zantac (Ranitidine Hcl) 150 Mg Tablet 75 Mg PO PRN Q8HRS PRN Tylenol (Acetaminophen) 325 Mg Tablet 650 Mg PO PRN Q6HRS PRN Bupropion Xl (Bupropion Hcl) 300 Mg Tab.er.24h 300 Mg PO DAILY Melatonin 3 Mg Tablet 10 Mg PO DAILY Novolog Flexpen (Insulin Aspart) 100 Unit/1 Ml Insuln.pen 10 Unit SQ TIDWMEALS Albuterol Sulfate Conc Neb Soln (Albuterol Sulfate) 2.5 Mg/0.5 Ml Vial.neb 2.5 Mg NEB PRN Q4HRS PRN Hydrocodone-Apap 7.5-325 (Hydrocodone Bit/Acetaminophen) 1 Each Tablet 2 Tab PO PRN Q6HRS PRN Bisacodyl 5 Mg Tablet.dr 10 Mg PO PRN DAILY PRN Atorvastatin Calcium 10 Mg Tablet 10 Mg PO QHS I have reviewed the current psychotropics carefully including drug interactions. Risk benefit ratio favors no change other than as noted in my dictated progress note. Diagnosis: Problems: (1) Anxiety disorder (2) Bipolar 1 disorder, manic, moderate (3) Impulse control disorder (4) Schizoaffective disorder, bipolar type FAYE MUNGUIA MD Jun 08, 2018 22:18
--- NOTE | 2018-06-09 01:42 | PN ---
DATE: 06/07/2018 PSYCHIATRIC PROGRESS NOTE This late entry 06/07/2018 covers elements not covered in my initial note. SUBJECTIVE: I met with the patient at some length in the evening of 06/07/2018. The patient slept 7-1/2 hours previous night. She has been cooperative, has had some GI symptoms. Dr. Aguilera has ordered KUB to be completed to 06/08/2018. REVIEW OF SYSTEMS: Other than this, no CV, , pulmonary, eye, ENT system symptoms on review. She has been working on the situation options, consequences, choice protocol and seems to be very diligent with this and I addressed this with her individually. MENTAL STATUS EXAM: Oriented reasonably. Speech is coherent, abstraction fair, computation reasonable, language function intact, attention span short. Mood and affect, lability is improved. LABORATORY DATA: Reviewed. IMPRESSION: Bipolar 1 disorder, mixed anxiety disorder, unspecified; history of borderline personality disorder. PLAN: Continue psychotropics from initial note. Received informed consent from her. MAN Jose Alfredo MUNGUIA MD DR: MINOR/aamir JOB#: [id number] / [id number]
[2018-06-09] MEDS: ACETAMINOPHEN 325 MG TABLET PO PRN ×2 (04:49→16:15)
[2018-06-09] MEDS: LEVOTHYROXINE 100 MCG TABLET PO SCH (04:49)
[2018-06-09 06:11] VITALS: BP 113/77
[2018-06-09] MEDS: INSULIN LISPRO 300 UNITS/3 ML INSULN.PEN. SQ SCH ×6 (08:00→17:52)
[2018-06-09] MEDS: GABAPENTIN 400 MG CAPSULE. PO SCH ×3 (08:24→19:42)
[2018-06-09] MEDS: CEPHALEXIN 250 MG CAPSULE PO SCH ×3 (08:24→19:42)
[2018-06-09] MEDS: PANTOPRAZOLE 40 MG TABLET. PO SCH (08:24)
[2018-06-09] MEDS: LACTOBACILLUS RHAMNOSUS GG 1 CAPSULE. PO SCH ×2 (08:24→19:40)
[2018-06-09] MEDS: CHOLECALCIFEROL (VITAMIN D3) 1,000 UNIT TABLET PO SCH (08:24)
[2018-06-09] MEDS: DIVALPROEX 125 MG CAP.SPRINK PO SCH ×2 (08:25→19:40)
[2018-06-09] MEDS: DICYCLOMINE HCL 10 MG CAPSULE PO SCH (08:25)
[2018-06-09] MEDS: buPROPion XL 300 MG TAB.ER.24H. PO SCH (08:25)
[2018-06-09] MEDS: INSULIN GLARGINE 300 UNITS/3 ML INSULN.PEN. SQ SCH (08:28)
[2018-06-09] MEDS: FAMOTIDINE 20 MG TABLET PO PRN (10:06)
[2018-06-09 16:03] VITALS: BP 104/68
[2018-06-09] MEDS: ATORVASTATIN CALCIUM 10 MG TABLET. PO SCH (19:39)
[2018-06-09] MEDS: MIRTAZAPINE 15 MG TABLET PO SCH (19:39)
[2018-06-09] MEDS: risperiDONE 0.5 MG TABLET. PO SCH (19:40)
[2018-06-09] MEDS: MELATONIN 3 MG TABLET PO SCH (19:42)
[2018-06-09] MEDS: traZODone 50 MG TABLET. PO PRN (20:00)
--- NOTE | 2018-06-09 22:14 | PDOC ---
Exam Note: Luis Note: Please also refer to the separate dictated note~for this date of service dictated separately.~Patient seen individually. Discussed the patient with Nursing staff reviewed the chart.~Reviewed interim history and current functioning. Reviewed vital signs,~Labs/ Radiology~and current medications noted below. Continue current treatment with the changes noted in the dictated addendum note Assessment: Vital Signs: Vital Signs Date Time Temp Pulse Resp B/P (MAP) Pulse Ox O2 Delivery O2 Flow Rate FiO2 06/09/18 16:03 97.4 76 18 104/68 (80) 98 06/08/18 05:47 Room Air I&O Intake and Output 06/09/18 07:00 Intake Total 1080 ml Balance 1080 ml Intake Oral 1080 ml Labs: Laboratory Tests Test 06/09/18 07:08 06/09/18 11:56 06/09/18 16:22 06/09/18 19:15 Glucose (Fingerstick) 116 mg/dL (70-99) H 111 mg/dL (70-99) H 129 mg/dL (70-99) H 178 mg/dL (70-99) H Current Medications: Meds: Current Medications Lactated Ringer's 1,000 ml @ 100 mls/hr Q10H IV ; Start 05/30/18 at 18:15; Stop 05/31/18 at 02:26; Status DC Cephalexin HCl (Keflex) 500 mg 1X ONCE PO Last administered on 05/30/18at 20:47 ; Start 05/30/18 at 20:45; Stop 05/30/18 at 20:46; Status DC Cephalexin HCl (Keflex) 500 mg TID PO Last administered on 06/09/18at 19:42; Start 05/31/18 at 09:00; Stop 06/10/18 at 08:59 Bupropion HCl (Wellbutrin Xl) 300 mg DAILY PO Last administered on 06/09/18at 08 :25; Start 05/31/18 at 09:00 Clonazepam (KlonoPIN) 0.5 mg PRN DAILY PRN PO ANXIETY / AGITATION Last administered on 06/07/18at 22:26; Start 05/30/18 at 21:30 Divalproex Sodium (Depakote Sprinkles) 250 mg DAILY PO Last administered on 04/06at 09:37; Start 05/31/18 at 09:00; Stop 05/31/18 at 17:19; Status DC Divalproex Sodium (Depakote Sprinkles) 500 mg BID PO Last administered on 19:40; Start 05/31/18 at 21:00 Melatonin 9 mg QHS PO Last administered on 06/09/18 19:42; Start 05/31/18 at 21:00 Mirtazapine (Remeron) 15 mg QHS PO Last administered on 06/09/18 19:39; Start 05/31/18 at 21:00 Acetaminophen (Tylenol) 650 mg PRN Q6HRS PRN PO PAIN / TEMP Last administered on 06/09/18 16:15; Start 05/30/18 at 21:45 Throat Lozenges (Cepacol Sore Throat Lozenge) 1 richard PRN Q2HR PRN MM sore throat ; Start 05/30/18 at 21:45 Bisacodyl (Dulcolax Tab) 10 mg PRN DAILY PRN PO CONSTIPATION; Start 05/30/18 at 21:45 Calcium Carbonate/ Glycine (Tums) 500 mg PRN Q8HRS PRN PO HEARTBURN / GAS; Start 05/30/18 at 21:45 Vitamin D (Vitamin D3) 2,000 unit DAILY PO Last administered on 06/09/18 08:24 ; Start 05/31/18 at 09:00 Dicyclomine HCl (Bentyl) 10 mg DAILY PO Last administered on 06/09/18at 08:25; Start 05/31/18 at 09:00 Gabapentin (Neurontin) 200 mg TID PO Last administered on 06/05/18at 08:47; Start 05/31/18 at 09:00; Stop 06/05/18 at 14:05; Status DC Guaifenesin (Robitussin Dm) 10 ml PRN Q6HRS PRN PO COUGH; Start 05/30/18 at 21: 45 Lactobacillus Rhamnosus (Culturelle) 1 cap BID PO Last administered on 19:40; Start 05/31/18 at 09:00 Levothyroxine Sodium (Synthroid) 100 mcg DAILY06 PO Last administered on at 04:49; Start 05/31/18 at 06:00 Magnesium Hydroxide (Milk Of Magnesia) 2,400 mg PRN QHS PRN PO CONSTIPATION; Start 05/30/18 at 21:45 Albuterol Sulfate (Ventolin) 2.5 mg PRN Q4HRS PRN NEB SHORTNESS OF BREATH; Start 05/30/18 at 21:45 Atorvastatin Calcium (Lipitor) 10 mg QHS PO Last administered on 06/09/18at 19: 39; Start 05/31/18 at 21:00 Pantoprazole Sodium (Protonix) 40 mg DAILYAC PO Last administered on 06/09/18at 08:24; Start 05/31/18 at 07:30 Famotidine (Pepcid) 20 mg PRN Q8HRS PRN PO HEARTBURN / GAS Last administered on 06/09/18at 10:06; Start 05/30/18 at 21:45 Fluticasone Propionate (Flonase) 2 spray PRN DAILY PRN NS NASAL INFLAMATION; Start 05/30/18 at 21:45 Insulin Human Lispro (HumaLOG) 10 units TIDWMEALS SQ Last administered on at 17:52; Start 05/31/18 at 08:00 Insulin Glargine (Lantus) 60 units DAILY SQ Last administered on 06/09/18 08: 28; Start 05/31/18 at 09:00 Multi-Ingredient Ointment (Analgesic [place]) 1 nnamdi PRN TID PRN TP MUSCLE PAIN Last administered on 05/31/18 22:30; Start 05/31/18 at 07:45 Ondansetron HCl (Zofran Odt) 4 mg PRN Q8HRS PRN PO NAUSEA/VOMITING; Start 05/30 at 21:45 Non-Formulary Medication (Ranitidine Hcl (Zantac)) 75 mg PRN Q8HRS PRN PO HEARTBURN / GAS; Start 05/30/18 at 21:45; Status UNV Acetaminophen (Tylenol) 650 mg PRN Q6HRS PRN PO PAIN / TEMP; Start 05/30/18 at 21:45; Status Cancel Al Hydroxide/Mg Hydroxide (Mylanta Plus Xs) 15 ml PRN AFTMEALHC PRN PO DYSPEPSIA; Start 05/30/18 at 21:45 Magnesium Hydroxide (Milk Of Magnesia) 2,400 mg PRN QHS PRN PO CONSTIPATION; Start 05/30/18 at 21:45; Status Cancel Insulin Human Lispro (HumaLOG) 0-5 UNITS TIDWMEALS SQ Last administered on 06/04at 12:02; Start 05/31/18 at 17:00 Dextrose 12.5 gm PRN Q15MIN PRN IV SEE COMMENTS; Start 05/31/18 at 15:30 Risperidone (RisperDAL) 0.5 mg HS PO Last administered on 06/09/18at 19:40; Start 06/01/18 at 21:00 Gabapentin (Neurontin) 400 mg TID PO Last administered on 06/09/18at 19:42; Start 06/05/18 at 21:00 Trazodone HCl (Desyrel) 50 mg PRN QHS PRN PO INSOMNIA, MAY REPEAT X1 Last administered on 06/09/18at 20:00; Start 06/05/18 at 22:30 Active Scripts Active Reported Famotidine 20 Mg Tablet 20 Mg PO Q8HRS PRN Guaifenesin Dm Syrup (Guaifenesin/Dextromethorphan) 5 Ml Syrup 10 Ml PO PRN Q6HRS PRN Zofran (Ondansetron Hcl) 4 Mg Tablet 4 Mg PO PRN Q8HRS PRN Milk Of Magnesia (Magnesium Hydroxide) 400 Mg/5 Ml Oral.susp 2,400 Mg PO PRN QHS PRN Culturelle (Lactobacillus Rhamnosus Gg) 1 Each Cap.sprink 1 Each PO BID Depakote Sprinkle (Divalproex Sodium) 125 Mg Cap.sprink 250 Mg PO DAILY Depakote Sprinkle (Divalproex Sodium) 125 Mg Cap.sprink 500 Mg PO QHS Cepacol Sore Throat Lozenge (Benzocaine/Menthol) 1 Each Lozenge 1 Each MM PRN Q2HR PRN Mirtazapine 15 Mg Tablet 15 Mg PO QHS Levemir Flextouch (Insulin Detemir) 100 Unit/1 Ml Insuln.pen 60 Unit SQ DAILY Nexium Capsule (Esomeprazole Magnesium) 40 Mg Capsule.dr 40 Mg PO DAILYAC Vitamin D3 (Cholecalciferol (Vitamin D3)) 1,000 Unit Tablet 2,000 Unit PO DAILY Flonase Allergy Relief (Fluticasone Propionate) 9.9 Ml [place].susp 2 Sprays NS PRN DAILY PRN Dicyclomine Hcl 10 Mg Capsule 10 Mg PO DAILY Biofreeze (Menthol) 118 Ml Gel..ml. 1 Nnamdi TP PRN TID PRN Klonopin (Clonazepam) 0.5 Mg Tablet 0.5 Mg PO PRN DAILY PRN Levothyroxine Sodium 100 Mcg Tablet 100 Mcg PO DAILYAC Gabapentin (Gabapentin) 100 Mg Capsule 200 Mg PO TID Tums (Calcium Carbonate) 200 Mg Tab.chew 500 Mg PO PRN Q8HRS PRN Zantac (Ranitidine Hcl) 150 Mg Tablet 75 Mg PO PRN Q8HRS PRN Tylenol (Acetaminophen) 325 Mg Tablet 650 Mg PO PRN Q6HRS PRN Bupropion Xl (Bupropion Hcl) 300 Mg Tab.er.24h 300 Mg PO DAILY Melatonin 3 Mg Tablet 10 Mg PO DAILY Novolog Flexpen (Insulin Aspart) 100 Unit/1 Ml Insuln.pen 10 Unit SQ TIDWMEALS Albuterol Sulfate Conc Neb Soln (Albuterol Sulfate) 2.5 Mg/0.5 Ml Vial.neb 2.5 Mg NEB PRN Q4HRS PRN Hydrocodone-Apap 7.5-325 (Hydrocodone Bit/Acetaminophen) 1 Each Tablet 2 Tab PO PRN Q6HRS PRN Bisacodyl 5 Mg Tablet.dr 10 Mg PO PRN DAILY PRN Atorvastatin Calcium 10 Mg Tablet 10 Mg PO QHS I have reviewed the current psychotropics carefully including drug interactions. Risk benefit ratio favors no change other than as noted in my dictated progress note. Diagnosis: Problems: (1) Anxiety disorder (2) Bipolar 1 disorder, manic, moderate (3) Impulse control disorder (4) Schizoaffective disorder, bipolar type FAYE MUNGUIA MD Jun 09, 2018 22:13
[2018-06-10] MEDS: LEVOTHYROXINE 100 MCG TABLET PO SCH (05:44)
[2018-06-10 06:25] VITALS: BP 109/54
[2018-06-10] MEDS: INSULIN LISPRO 300 UNITS/3 ML INSULN.PEN. SQ SCH ×6 (08:00→17:00)
[2018-06-10] MEDS: CHOLECALCIFEROL (VITAMIN D3) 1,000 UNIT TABLET PO SCH (08:12)
[2018-06-10] MEDS: DIVALPROEX 125 MG CAP.SPRINK PO SCH ×2 (08:12→20:17)
[2018-06-10] MEDS: LACTOBACILLUS RHAMNOSUS GG 1 CAPSULE. PO SCH ×2 (08:13→20:17)
[2018-06-10] MEDS: buPROPion XL 300 MG TAB.ER.24H. PO SCH (08:13)
[2018-06-10] MEDS: CEPHALEXIN 250 MG CAPSULE PO SCH (08:13)
[2018-06-10] MEDS: DICYCLOMINE HCL 10 MG CAPSULE PO SCH (08:13)
[2018-06-10] MEDS: PANTOPRAZOLE 40 MG TABLET. PO SCH (08:13)
[2018-06-10] MEDS: INSULIN GLARGINE 300 UNITS/3 ML INSULN.PEN. SQ SCH (08:17)
[2018-06-10] MEDS: GABAPENTIN 400 MG CAPSULE. PO SCH ×3 (08:19→20:17)
--- NOTE | 2018-06-10 10:32 | PN ---
DATE: 06/08/2018 PSYCHIATRIC PROGRESS NOTE This late entry 06/08/2018, covers elements not covered in my initial note. SUBJECTIVE: I met with the patient in the evening and staffed at treatment team meeting with the entire team earlier in the day. The patient's appetite 100%, sleeping average, 5-3/4 hours, slept 6-3/4 hours previous night, received trazodone and Klonopin, compliant with medications. She is still somewhat grandiose with some mood lability, but much improved. She is showing greater inside working on the situation options, consequences, choice protocol and we addressed this again at some length individually. REVIEW OF SYSTEMS: No CV, , pulmonary, eye, ENT system symptoms on review. MENTAL STATUS EXAM: Reasonably oriented. Speech is coherent, had some latency. Abstraction fair, computation impaired, language function intact, attention span short. Mood and affect somewhat anxious, labile at times, but improved. No psychotic symptoms. LABORATORY DATA: Reviewed. IMPRESSION: Unchanged from initial note. PLAN: No change from initial note. FAYE MUNGUIA MD DR: MINOR/aamir JOB#: [id number] / [id number]
[2018-06-10 15:58] VITALS: BP 98/65
[2018-06-10] MEDS: MIRTAZAPINE 15 MG TABLET PO SCH (20:17)
[2018-06-10] MEDS: MELATONIN 3 MG TABLET PO SCH (20:17)
[2018-06-10] MEDS: ATORVASTATIN CALCIUM 10 MG TABLET. PO SCH (20:17)
[2018-06-10] MEDS: risperiDONE 0.5 MG TABLET. PO SCH (20:17)
[2018-06-10] MEDS: traZODone 50 MG TABLET. PO PRN (20:18)
--- NOTE | 2018-06-10 22:29 | PN ---
DATE: 06/09/2018 PSYCHIATRIC PROGRESS NOTE This late entry 06/09/2018 covers elements not covered in my initial note. SUBJECTIVE: I met with the patient in the evening. The patient slept 6-1/2 hours previous night. She is compliant with her medications, has been coloring quite actively on the unit and I sat with her individually. We processed the situation options, consequences, Choice Program again and she was very insightful, able to do it without writing it down on paper. She has had some somatic complaints of arm pain. No CV, , pulmonary, eye system symptoms on review. MENTAL STATUS EXAM: Reasonably oriented. Speech is coherent, abstraction fair, computation somewhat impaired, language function intact, attention span short. Mood and affect is improved. LABORATORY DATA: Reviewed. IMPRESSION: Unchanged from initial note. PLAN: No change from initial note. MAN Jose Alfredo MUNGUIA MD DR: MINOR/aamir JOB#: [id number] / [id number]
--- NOTE | 2018-06-10 22:41 | PDOC ---
Exam Note: Luis Note: Please also refer to the separate dictated note~for this date of service dictated separately.~Patient seen individually. Discussed the patient with Nursing staff reviewed the chart.~Reviewed interim history and current functioning. Reviewed vital signs,~Labs/ Radiology~and current medications noted below. Continue current treatment with the changes noted in the dictated addendum note Assessment: Vital Signs: Vital Signs Date Time Temp Pulse Resp B/P (MAP) Pulse Ox O2 Delivery O2 Flow Rate FiO2 06/10/18 15:58 98.5 72 18 98/65 (76) 94 06/10/18 06:25 Room Air I&O Intake and Output 06/10/18 07:00 Intake Total 1200 ml Balance 1200 ml Intake Oral 1200 ml Labs: Laboratory Tests Test 06/10/18 07:09 06/10/18 10:44 06/10/18 11:57 06/10/18 17:10 Glucose (Fingerstick) 104 mg/dL (70-99) H 70 mg/dL (70-99) 99 mg/dL (70-99) 122 mg/dL (70-99) H Test 06/10/18 19:05 Glucose (Fingerstick) 107 mg/dL (70-99) H Current Medications: Meds: Current Medications Lactated Ringer's 1,000 ml @ 100 mls/hr Q10H IV ; Start 05/30/18 at 18:15; Stop 05/31/18 at 02:26; Status DC Cephalexin HCl (Keflex) 500 mg 1X ONCE PO Last administered on 05/30/18at 20:47 ; Start 05/30/18 at 20:45; Stop 05/30/18 at 20:46; Status DC Cephalexin HCl (Keflex) 500 mg TID PO Last administered on 06/10/18at 08:13; Start 05/31/18 at 09:00; Stop 06/10/18 at 08:59; Status DC Bupropion HCl (Wellbutrin Xl) 300 mg DAILY PO Last administered on 06/10/18at 08 :13; Start 05/31/18 at 09:00 Clonazepam (KlonoPIN) 0.5 mg PRN DAILY PRN PO ANXIETY / AGITATION Last administered on 06/07/18at 22:26; Start 05/30/18 at 21:30 Divalproex Sodium (Depakote Sprinkles) 250 mg DAILY PO Last administered on 04/06at 09:37; Start 05/31/18 at 09:00; Stop 05/31/18 at 17:19; Status DC Divalproex Sodium (Depakote Sprinkles) 500 mg BID PO Last administered on 20:17; Start 05/31/18 at 21:00 Melatonin 9 mg QHS PO Last administered on 06/10/18 20:17; Start 05/31/18 at 21:00 Mirtazapine (Remeron) 15 mg QHS PO Last administered on 06/10/18 20:17; Start 05/31/18 at 21:00 Acetaminophen (Tylenol) 650 mg PRN Q6HRS PRN PO PAIN / TEMP Last administered on 06/09/18 16:15; Start 05/30/18 at 21:45 Throat Lozenges (Cepacol Sore Throat Lozenge) 1 richard PRN Q2HR PRN MM sore throat ; Start 05/30/18 at 21:45 Bisacodyl (Dulcolax Tab) 10 mg PRN DAILY PRN PO CONSTIPATION; Start 05/30/18 at 21:45 Calcium Carbonate/ Glycine (Tums) 500 mg PRN Q8HRS PRN PO HEARTBURN / GAS; Start 05/30/18 at 21:45 Vitamin D (Vitamin D3) 2,000 unit DAILY PO Last administered on 06/10/18at 08:12 ; Start 05/31/18 at 09:00 Dicyclomine HCl (Bentyl) 10 mg DAILY PO Last administered on 06/10/18 08:13; Start 05/31/18 at 09:00 Gabapentin (Neurontin) 200 mg TID PO Last administered on 06/05/18at 08:47; Start 05/31/18 at 09:00; Stop 06/05/18 at 14:05; Status DC Guaifenesin (Robitussin Dm) 10 ml PRN Q6HRS PRN PO COUGH; Start 05/30/18 at 21: 45 Lactobacillus Rhamnosus (Culturelle) 1 cap BID PO Last administered on 20:17; Start 05/31/18 at 09:00 Levothyroxine Sodium (Synthroid) 100 mcg DAILY06 PO Last administered on 2/22/ 19at 05:44; Start 05/31/18 at 06:00 Magnesium Hydroxide (Milk Of Magnesia) 2,400 mg PRN QHS PRN PO CONSTIPATION; Start 05/30/18 at 21:45 Albuterol Sulfate (Ventolin) 2.5 mg PRN Q4HRS PRN NEB SHORTNESS OF BREATH; Start 05/30/18 at 21:45 Atorvastatin Calcium (Lipitor) 10 mg QHS PO Last administered on 06/10/18at 20: 17; Start 05/31/18 at 21:00 Pantoprazole Sodium (Protonix) 40 mg DAILYAC PO Last administered on 06/10/18 08:13; Start 05/31/18 at 07:30 Famotidine (Pepcid) 20 mg PRN Q8HRS PRN PO HEARTBURN / GAS Last administered on 06/09/18at 10:06; Start 05/30/18 at 21:45 Fluticasone Propionate (Flonase) 2 spray PRN DAILY PRN NS NASAL INFLAMATION; Start 05/30/18 at 21:45 Insulin Human Lispro (HumaLOG) 10 units TIDWMEALS SQ Last administered on 17:00; Start 05/31/18 at 08:00 Insulin Glargine (Lantus) 60 units DAILY SQ Last administered on 06/10/18 08: 17; Start 05/31/18 at 09:00 Multi-Ingredient Ointment (Analgesic [place]) 1 nnamdi PRN TID PRN TP MUSCLE PAIN Last administered on 05/31/18at 22:30; Start 05/31/18 at 07:45 Ondansetron HCl (Zofran Odt) 4 mg PRN Q8HRS PRN PO NAUSEA/VOMITING; Start 05/30 at 21:45 Non-Formulary Medication (Ranitidine Hcl (Zantac)) 75 mg PRN Q8HRS PRN PO HEARTBURN / GAS; Start 05/30/18 at 21:45; Status UNV Acetaminophen (Tylenol) 650 mg PRN Q6HRS PRN PO PAIN / TEMP; Start 05/30/18 at 21:45; Status Cancel Al Hydroxide/Mg Hydroxide (Mylanta Plus Xs) 15 ml PRN AFTMEALHC PRN PO DYSPEPSIA; Start 05/30/18 at 21:45 Magnesium Hydroxide (Milk Of Magnesia) 2,400 mg PRN QHS PRN PO CONSTIPATION; Start 05/30/18 at 21:45; Status Cancel Insulin Human Lispro (HumaLOG) 0-5 UNITS TIDWMEALS SQ Last administered on 06/04at 12:02; Start 05/31/18 at 17:00 Dextrose 12.5 gm PRN Q15MIN PRN IV SEE COMMENTS; Start 05/31/18 at 15:30 Risperidone (RisperDAL) 0.5 mg HS PO Last administered on 06/10/18at 20:17; Start 06/01/18 at 21:00 Gabapentin (Neurontin) 400 mg TID PO Last administered on 06/10/18at 20:17; Start 06/05/18 at 21:00 Trazodone HCl (Desyrel) 50 mg PRN QHS PRN PO INSOMNIA, MAY REPEAT X1 Last administered on 06/10/18at 20:18; Start 06/05/18 at 22:30 Active Scripts Active Reported Famotidine 20 Mg Tablet 20 Mg PO Q8HRS PRN Guaifenesin Dm Syrup (Guaifenesin/Dextromethorphan) 5 Ml Syrup 10 Ml PO PRN Q6HRS PRN Zofran (Ondansetron Hcl) 4 Mg Tablet 4 Mg PO PRN Q8HRS PRN Milk Of Magnesia (Magnesium Hydroxide) 400 Mg/5 Ml Oral.susp 2,400 Mg PO PRN QHS PRN Culturelle (Lactobacillus Rhamnosus Gg) 1 Each Cap.sprink 1 Each PO BID Depakote Sprinkle (Divalproex Sodium) 125 Mg Cap.sprink 250 Mg PO DAILY Depakote Sprinkle (Divalproex Sodium) 125 Mg Cap.sprink 500 Mg PO QHS Cepacol Sore Throat Lozenge (Benzocaine/Menthol) 1 Each Lozenge 1 Each MM PRN Q2HR PRN Mirtazapine 15 Mg Tablet 15 Mg PO QHS Levemir Flextouch (Insulin Detemir) 100 Unit/1 Ml Insuln.pen 60 Unit SQ DAILY Nexium Capsule (Esomeprazole Magnesium) 40 Mg Capsule.dr 40 Mg PO DAILYAC Vitamin D3 (Cholecalciferol (Vitamin D3)) 1,000 Unit Tablet 2,000 Unit PO DAILY Flonase Allergy Relief (Fluticasone Propionate) 9.9 Ml [place].susp 2 Sprays NS PRN DAILY PRN Dicyclomine Hcl 10 Mg Capsule 10 Mg PO DAILY Biofreeze (Menthol) 118 Ml Gel..ml. 1 Nnamdi TP PRN TID PRN Klonopin (Clonazepam) 0.5 Mg Tablet 0.5 Mg PO PRN DAILY PRN Levothyroxine Sodium 100 Mcg Tablet 100 Mcg PO DAILYAC Gabapentin (Gabapentin) 100 Mg Capsule 200 Mg PO TID Tums (Calcium Carbonate) 200 Mg Tab.chew 500 Mg PO PRN Q8HRS PRN Zantac (Ranitidine Hcl) 150 Mg Tablet 75 Mg PO PRN Q8HRS PRN Tylenol (Acetaminophen) 325 Mg Tablet 650 Mg PO PRN Q6HRS PRN Bupropion Xl (Bupropion Hcl) 300 Mg Tab.er.24h 300 Mg PO DAILY Melatonin 3 Mg Tablet 10 Mg PO DAILY Novolog Flexpen (Insulin Aspart) 100 Unit/1 Ml Insuln.pen 10 Unit SQ TIDWMEALS Albuterol Sulfate Conc Neb Soln (Albuterol Sulfate) 2.5 Mg/0.5 Ml Vial.neb 2.5 Mg NEB PRN Q4HRS PRN Hydrocodone-Apap 7.5-325 (Hydrocodone Bit/Acetaminophen) 1 Each Tablet 2 Tab PO PRN Q6HRS PRN Bisacodyl 5 Mg Tablet.dr 10 Mg PO PRN DAILY PRN Atorvastatin Calcium 10 Mg Tablet 10 Mg PO QHS I have reviewed the current psychotropics carefully including drug interactions. Risk benefit ratio favors no change other than as noted in my dictated progress note. Diagnosis: Problems: (1) Anxiety disorder (2) Bipolar 1 disorder, manic, moderate (3) Impulse control disorder (4) Schizoaffective disorder, bipolar type FAYE MUNGUIA MD Jun 10, 2018 22:41
[2018-06-11] MEDS: LEVOTHYROXINE 100 MCG TABLET PO SCH (04:59)
[2018-06-11 05:13] VITALS: BP 101/66
[2018-06-11] MEDS: INSULIN LISPRO 300 UNITS/3 ML INSULN.PEN. SQ SCH ×6 (07:49→17:00)
[2018-06-11] MEDS: CHOLECALCIFEROL (VITAMIN D3) 1,000 UNIT TABLET PO SCH (07:51)
[2018-06-11] MEDS: INSULIN GLARGINE 300 UNITS/3 ML INSULN.PEN. SQ SCH (07:51)
[2018-06-11] MEDS: buPROPion XL 300 MG TAB.ER.24H. PO SCH (07:51)
[2018-06-11] MEDS: GABAPENTIN 400 MG CAPSULE. PO SCH ×3 (07:51→20:09)
[2018-06-11] MEDS: PANTOPRAZOLE 40 MG TABLET. PO SCH (07:51)
[2018-06-11] MEDS: DICYCLOMINE HCL 10 MG CAPSULE PO SCH (07:51)
[2018-06-11] MEDS: LACTOBACILLUS RHAMNOSUS GG 1 CAPSULE. PO SCH ×2 (07:51→20:08)
[2018-06-11] MEDS: DIVALPROEX 125 MG CAP.SPRINK PO SCH ×2 (07:52→20:09)
[2018-06-11 15:42] VITALS: BP 100/63
[2018-06-11] MEDS: risperiDONE 0.5 MG TABLET. PO SCH (20:09)
[2018-06-11] MEDS: MIRTAZAPINE 15 MG TABLET PO SCH (20:09)
[2018-06-11] MEDS: MELATONIN 3 MG TABLET PO SCH (20:09)
[2018-06-11] MEDS: ATORVASTATIN CALCIUM 10 MG TABLET. PO SCH (20:09)
[2018-06-11] MEDS: traZODone 50 MG TABLET. PO PRN (20:10)
--- NOTE | 2018-06-11 21:36 | PDOC ---
Exam Note: Luis Note: Please also refer to the separate dictated note~for this date of service dictated separately.~Patient seen individually. Discussed the patient with Nursing staff reviewed the chart.~Reviewed interim history and current functioning. Reviewed vital signs,~Labs/ Radiology~and current medications noted below. Continue current treatment with the changes noted in the dictated addendum note Assessment: Vital Signs: Vital Signs Date Time Temp Pulse Resp B/P (MAP) Pulse Ox O2 Delivery O2 Flow Rate FiO2 06/11/18 15:42 97.2 74 20 100/63 (75) 97 06/10/18 06:25 Room Air I&O Intake and Output 06/11/18 07:00 Intake Total 720 ml Balance 720 ml Intake Oral 720 ml Labs: Laboratory Tests Test 06/11/18 07:07 06/11/18 12:20 06/11/18 16:31 06/11/18 19:20 Glucose (Fingerstick) 105 mg/dL (70-99) H 67 mg/dL (70-99) L 129 mg/dL (70-99) H 96 mg/dL (70-99) Current Medications: Meds: Current Medications Lactated Ringer's 1,000 ml @ 100 mls/hr Q10H IV ; Start 05/30/18 at 18:15; Stop 05/31/18 at 02:26; Status DC Cephalexin HCl (Keflex) 500 mg 1X ONCE PO Last administered on 05/30/18at 20:47 ; Start 05/30/18 at 20:45; Stop 05/30/18 at 20:46; Status DC Cephalexin HCl (Keflex) 500 mg TID PO Last administered on 06/10/18at 08:13; Start 05/31/18 at 09:00; Stop 06/10/18 at 08:59; Status DC Bupropion HCl (Wellbutrin Xl) 300 mg DAILY PO Last administered on 06/11/18at 07 :51; Start 05/31/18 at 09:00 Clonazepam (KlonoPIN) 0.5 mg PRN DAILY PRN PO ANXIETY / AGITATION Last administered on 06/07/18at 22:26; Start 05/30/18 at 21:30 Divalproex Sodium (Depakote Sprinkles) 250 mg DAILY PO Last administered on 04/06at 09:37; Start 05/31/18 at 09:00; Stop 05/31/18 at 17:19; Status DC Divalproex Sodium (Depakote Sprinkles) 500 mg BID PO Last administered on 20:09; Start 05/31/18 at 21:00 Melatonin 9 mg QHS PO Last administered on 06/11/18 20:09; Start 05/31/18 at 21:00 Mirtazapine (Remeron) 15 mg QHS PO Last administered on 06/11/18 20:09; Start 05/31/18 at 21:00 Acetaminophen (Tylenol) 650 mg PRN Q6HRS PRN PO PAIN / TEMP Last administered on 06/09/18 16:15; Start 05/30/18 at 21:45 Throat Lozenges (Cepacol Sore Throat Lozenge) 1 richard PRN Q2HR PRN MM sore throat ; Start 05/30/18 at 21:45 Bisacodyl (Dulcolax Tab) 10 mg PRN DAILY PRN PO CONSTIPATION; Start 05/30/18 at 21:45 Calcium Carbonate/ Glycine (Tums) 500 mg PRN Q8HRS PRN PO HEARTBURN / GAS; Start 05/30/18 at 21:45 Vitamin D (Vitamin D3) 2,000 unit DAILY PO Last administered on 06/11/18 07:51 ; Start 05/31/18 at 09:00 Dicyclomine HCl (Bentyl) 10 mg DAILY PO Last administered on 06/11/18 07:51; Start 05/31/18 at 09:00 Gabapentin (Neurontin) 200 mg TID PO Last administered on 06/05/18 08:47; Start 05/31/18 at 09:00; Stop 06/05/18 at 14:05; Status DC Guaifenesin (Robitussin Dm) 10 ml PRN Q6HRS PRN PO COUGH; Start 05/30/18 at 21: 45 Lactobacillus Rhamnosus (Culturelle) 1 cap BID PO Last administered on 20:08; Start 05/31/18 at 09:00 Levothyroxine Sodium (Synthroid) 100 mcg DAILY06 PO Last administered on 04:59; Start 05/31/18 at 06:00 Magnesium Hydroxide (Milk Of Magnesia) 2,400 mg PRN QHS PRN PO CONSTIPATION; Start 05/30/18 at 21:45 Albuterol Sulfate (Ventolin) 2.5 mg PRN Q4HRS PRN NEB SHORTNESS OF BREATH; Start 05/30/18 at 21:45 Atorvastatin Calcium (Lipitor) 10 mg QHS PO Last administered on 06/11/18 20: 09; Start 05/31/18 at 21:00 Pantoprazole Sodium (Protonix) 40 mg DAILYAC PO Last administered on 06/11/18 07:51; Start 05/31/18 at 07:30 Famotidine (Pepcid) 20 mg PRN Q8HRS PRN PO HEARTBURN / GAS Last administered on 06/09/18 10:06; Start 05/30/18 at 21:45 Fluticasone Propionate (Flonase) 2 spray PRN DAILY PRN NS NASAL INFLAMATION; Start 05/30/18 at 21:45 Insulin Human Lispro (HumaLOG) 10 units TIDWMEALS SQ Last administered on 17:00; Start 05/31/18 at 08:00 Insulin Glargine (Lantus) 60 units DAILY SQ Last administered on 06/11/18 07: 51; Start 05/31/18 at 09:00 Multi-Ingredient Ointment (Analgesic [place]) 1 nnamdi PRN TID PRN TP MUSCLE PAIN Last administered on 05/31/18 22:30; Start 05/31/18 at 07:45 Ondansetron HCl (Zofran Odt) 4 mg PRN Q8HRS PRN PO NAUSEA/VOMITING; Start 05/30 at 21:45 Non-Formulary Medication (Ranitidine Hcl (Zantac)) 75 mg PRN Q8HRS PRN PO HEARTBURN / GAS; Start 05/30/18 at 21:45; Status UNV Acetaminophen (Tylenol) 650 mg PRN Q6HRS PRN PO PAIN / TEMP; Start 05/30/18 at 21:45; Status Cancel Al Hydroxide/Mg Hydroxide (Mylanta Plus Xs) 15 ml PRN AFTMEALHC PRN PO DYSPEPSIA; Start 05/30/18 at 21:45 Magnesium Hydroxide (Milk Of Magnesia) 2,400 mg PRN QHS PRN PO CONSTIPATION; Start 05/30/18 at 21:45; Status Cancel Insulin Human Lispro (HumaLOG) 0-5 UNITS TIDWMEALS SQ Last administered on 06/04at 12:02; Start 05/31/18 at 17:00 Dextrose 12.5 gm PRN Q15MIN PRN IV SEE COMMENTS; Start 05/31/18 at 15:30 Risperidone (RisperDAL) 0.5 mg HS PO Last administered on 06/11/18at 20:09; Start 06/01/18 at 21:00 Gabapentin (Neurontin) 400 mg TID PO Last administered on 06/11/18at 20:09; Start 06/05/18 at 21:00 Trazodone HCl (Desyrel) 50 mg PRN QHS PRN PO INSOMNIA, MAY REPEAT X1 Last administered on 06/11/18at 20:10; Start 06/05/18 at 22:30 Active Scripts Active Reported Famotidine 20 Mg Tablet 20 Mg PO Q8HRS PRN Guaifenesin Dm Syrup (Guaifenesin/Dextromethorphan) 5 Ml Syrup 10 Ml PO PRN Q6HRS PRN Zofran (Ondansetron Hcl) 4 Mg Tablet 4 Mg PO PRN Q8HRS PRN Milk Of Magnesia (Magnesium Hydroxide) 400 Mg/5 Ml Oral.susp 2,400 Mg PO PRN QHS PRN Culturelle (Lactobacillus Rhamnosus Gg) 1 Each Cap.sprink 1 Each PO BID Depakote Sprinkle (Divalproex Sodium) 125 Mg Cap.sprink 250 Mg PO DAILY Depakote Sprinkle (Divalproex Sodium) 125 Mg Cap.sprink 500 Mg PO QHS Cepacol Sore Throat Lozenge (Benzocaine/Menthol) 1 Each Lozenge 1 Each MM PRN Q2HR PRN Mirtazapine 15 Mg Tablet 15 Mg PO QHS Levemir Flextouch (Insulin Detemir) 100 Unit/1 Ml Insuln.pen 60 Unit SQ DAILY Nexium Capsule (Esomeprazole Magnesium) 40 Mg Capsule.dr 40 Mg PO DAILYAC Vitamin D3 (Cholecalciferol (Vitamin D3)) 1,000 Unit Tablet 2,000 Unit PO DAILY Flonase Allergy Relief (Fluticasone Propionate) 9.9 Ml [place].susp 2 Sprays NS PRN DAILY PRN Dicyclomine Hcl 10 Mg Capsule 10 Mg PO DAILY Biofreeze (Menthol) 118 Ml Gel..ml. 1 Nnamdi TP PRN TID PRN Klonopin (Clonazepam) 0.5 Mg Tablet 0.5 Mg PO PRN DAILY PRN Levothyroxine Sodium 100 Mcg Tablet 100 Mcg PO DAILYAC Gabapentin (Gabapentin) 100 Mg Capsule 200 Mg PO TID Tums (Calcium Carbonate) 200 Mg Tab.chew 500 Mg PO PRN Q8HRS PRN Zantac (Ranitidine Hcl) 150 Mg Tablet 75 Mg PO PRN Q8HRS PRN Tylenol (Acetaminophen) 325 Mg Tablet 650 Mg PO PRN Q6HRS PRN Bupropion Xl (Bupropion Hcl) 300 Mg Tab.er.24h 300 Mg PO DAILY Melatonin 3 Mg Tablet 10 Mg PO DAILY Novolog Flexpen (Insulin Aspart) 100 Unit/1 Ml Insuln.pen 10 Unit SQ TIDWMEALS Albuterol Sulfate Conc Neb Soln (Albuterol Sulfate) 2.5 Mg/0.5 Ml Vial.neb 2.5 Mg NEB PRN Q4HRS PRN Hydrocodone-Apap 7.5-325 (Hydrocodone Bit/Acetaminophen) 1 Each Tablet 2 Tab PO PRN Q6HRS PRN Bisacodyl 5 Mg Tablet.dr 10 Mg PO PRN DAILY PRN Atorvastatin Calcium 10 Mg Tablet 10 Mg PO QHS I have reviewed the current psychotropics carefully including drug interactions. Risk benefit ratio favors no change other than as noted in my dictated progress note. Diagnosis: Problems: (1) Anxiety disorder (2) Bipolar 1 disorder, manic, moderate (3) Impulse control disorder (4) Schizoaffective disorder, bipolar type FAYE MUNGUIA MD Jun 11, 2018 21:36
[2018-06-12] MEDS: LEVOTHYROXINE 100 MCG TABLET PO SCH (04:58)
[2018-06-12 06:09] VITALS: BP 112/74
[2018-06-12] MEDS: INSULIN GLARGINE 300 UNITS/3 ML INSULN.PEN. SQ SCH (07:58)
[2018-06-12] MEDS: DICYCLOMINE HCL 10 MG CAPSULE PO SCH (07:58)
[2018-06-12] MEDS: PANTOPRAZOLE 40 MG TABLET. PO SCH (07:58)
[2018-06-12] MEDS: DIVALPROEX 125 MG CAP.SPRINK PO SCH ×2 (07:59→20:51)
[2018-06-12] MEDS: LACTOBACILLUS RHAMNOSUS GG 1 CAPSULE. PO SCH ×2 (07:59→20:51)
[2018-06-12] MEDS: buPROPion XL 300 MG TAB.ER.24H. PO SCH (07:59)
[2018-06-12] MEDS: CHOLECALCIFEROL (VITAMIN D3) 1,000 UNIT TABLET PO SCH (07:59)
[2018-06-12] MEDS: INSULIN LISPRO 300 UNITS/3 ML INSULN.PEN. SQ SCH ×6 (08:00→17:41)
[2018-06-12] MEDS: GABAPENTIN 400 MG CAPSULE. PO SCH ×3 (08:02→20:51)
--- NOTE | 2018-06-12 14:37 | PN ---
DATE: 06/10/2018 PSYCHIATRIC PROGRESS NOTE This late entry 06/10/2018 covers elements not covered in my initial note. SUBJECTIVE: I met with the patient in the evening. The patient slept 7-1/2 hours previous night. Per nursing report, she remains somewhat somatically preoccupied, but more cooperative, appropriate on the unit and working on the situation option, consequence, choice, protocol that I have discussed with her. REVIEW OF SYSTEMS: No CV, , pulmonary, eye, ENT system symptoms on review. MENTAL STATUS EXAM: Oriented reasonably. Speech is coherent, less pressured. Abstraction fair, computation impaired, language function intact, attention span short. Mood and affect less labile, less anxious. LABORATORY DATA: Reviewed. IMPRESSION: Unchanged from initial note. PLAN: No change from initial note. MAN Jose Alfredo MUNGUIA MD DR: MINOR/aamir JOB#: [id number] / [id number]
[2018-06-12] MEDS ORDERED: GABA-587 PO (16:10)
[2018-06-12] MEDS ORDERED: MAG355OR12 PO (16:11)
[2018-06-12] MEDS ORDERED: INSU100I17 SQ (16:13)
[2018-06-12 16:14] VITALS: BP 100/60
[2018-06-12] MEDS ORDERED: TRAZ-120 PO (16:15)
[2018-06-12] MEDS ORDERED: RISP0.5T24 PO (16:15)
--- NOTE | 2018-06-12 19:43 | PDOC ---
Exam Note: Luis Note: Please also refer to the separate dictated note~for this date of service dictated separately.~Patient seen individually. Discussed the patient with Nursing staff reviewed the chart.~Reviewed interim history and current functioning. Reviewed vital signs,~Labs/ Radiology~and current medications noted below. Continue current treatment with the changes noted in the dictated addendum note Assessment: Vital Signs: Vital Signs Date Time Temp Pulse Resp B/P (MAP) Pulse Ox O2 Delivery O2 Flow Rate FiO2 06/12/18 16:14 97.2 67 18 100/60 (73) 99 06/10/18 06:25 Room Air I&O Intake and Output 06/12/18 06:59 Intake Total 1180 ml Balance 1180 ml Intake Oral 1180 ml Labs: Laboratory Tests Test 06/12/18 07:16 06/12/18 11:42 06/12/18 16:39 06/12/18 19:10 Glucose (Fingerstick) 105 mg/dL (70-99) H 131 mg/dL (70-99) H 159 mg/dL (70-99) H 172 mg/dL (70-99) H Current Medications: Meds: Current Medications Lactated Ringer's 1,000 ml @ 100 mls/hr Q10H IV ; Start 05/30/18 at 18:15; Stop 05/31/18 at 02:26; Status DC Cephalexin HCl (Keflex) 500 mg 1X ONCE PO Last administered on 05/30/18at 20:47 ; Start 05/30/18 at 20:45; Stop 05/30/18 at 20:46; Status DC Cephalexin HCl (Keflex) 500 mg TID PO Last administered on 06/10/18at 08:13; Start 05/31/18 at 09:00; Stop 06/10/18 at 08:59; Status DC Bupropion HCl (Wellbutrin Xl) 300 mg DAILY PO Last administered on 06/12/18at 07 :59; Start 05/31/18 at 09:00 Clonazepam (KlonoPIN) 0.5 mg PRN DAILY PRN PO ANXIETY / AGITATION Last administered on 06/07/18at 22:26; Start 05/30/18 at 21:30 Divalproex Sodium (Depakote Sprinkles) 250 mg DAILY PO Last administered on 04/06at 09:37; Start 05/31/18 at 09:00; Stop 05/31/18 at 17:19; Status DC Divalproex Sodium (Depakote Sprinkles) 500 mg BID PO Last administered on 07:59; Start 05/31/18 at 21:00 Melatonin 9 mg QHS PO Last administered on 06/11/18 20:09; Start 05/31/18 at 21:00 Mirtazapine (Remeron) 15 mg QHS PO Last administered on 06/11/18 20:09; Start 05/31/18 at 21:00 Acetaminophen (Tylenol) 650 mg PRN Q6HRS PRN PO PAIN / TEMP Last administered on 06/09/18 16:15; Start 05/30/18 at 21:45 Throat Lozenges (Cepacol Sore Throat Lozenge) 1 richard PRN Q2HR PRN MM sore throat ; Start 05/30/18 at 21:45 Bisacodyl (Dulcolax Tab) 10 mg PRN DAILY PRN PO CONSTIPATION; Start 05/30/18 at 21:45 Calcium Carbonate/ Glycine (Tums) 500 mg PRN Q8HRS PRN PO HEARTBURN / GAS; Start 05/30/18 at 21:45 Vitamin D (Vitamin D3) 2,000 unit DAILY PO Last administered on 06/12/18 07:59 ; Start 05/31/18 at 09:00 Dicyclomine HCl (Bentyl) 10 mg DAILY PO Last administered on 06/12/18 07:58; Start 05/31/18 at 09:00 Gabapentin (Neurontin) 200 mg TID PO Last administered on 06/05/18 08:47; Start 05/31/18 at 09:00; Stop 06/05/18 at 14:05; Status DC Guaifenesin (Robitussin Dm) 10 ml PRN Q6HRS PRN PO COUGH; Start 05/30/18 at 21: 45 Lactobacillus Rhamnosus (Culturelle) 1 cap BID PO Last administered on 07:59; Start 05/31/18 at 09:00 Levothyroxine Sodium (Synthroid) 100 mcg DAILY06 PO Last administered on 04:58; Start 05/31/18 at 06:00 Magnesium Hydroxide (Milk Of Magnesia) 2,400 mg PRN QHS PRN PO CONSTIPATION; Start 05/30/18 at 21:45 Albuterol Sulfate (Ventolin) 2.5 mg PRN Q4HRS PRN NEB SHORTNESS OF BREATH; Start 05/30/18 at 21:45 Atorvastatin Calcium (Lipitor) 10 mg QHS PO Last administered on 06/11/18at 20: 09; Start 05/31/18 at 21:00 Pantoprazole Sodium (Protonix) 40 mg DAILYAC PO Last administered on 06/12/18 07:58; Start 05/31/18 at 07:30 Famotidine (Pepcid) 20 mg PRN Q8HRS PRN PO HEARTBURN / GAS Last administered on 06/09/18 10:06; Start 05/30/18 at 21:45 Fluticasone Propionate (Flonase) 2 spray PRN DAILY PRN NS NASAL INFLAMATION; Start 05/30/18 at 21:45 Insulin Human Lispro (HumaLOG) 10 units TIDWMEALS SQ Last administered on 17:41; Start 05/31/18 at 08:00 Insulin Glargine (Lantus) 60 units DAILY SQ Last administered on 06/12/18 07: 58; Start 05/31/18 at 09:00 Multi-Ingredient Ointment (Analgesic [place]) 1 nnamdi PRN TID PRN TP MUSCLE PAIN Last administered on 05/31/18 22:30; Start 05/31/18 at 07:45 Ondansetron HCl (Zofran Odt) 4 mg PRN Q8HRS PRN PO NAUSEA/VOMITING; Start 05/30 at 21:45 Non-Formulary Medication (Ranitidine Hcl (Zantac)) 75 mg PRN Q8HRS PRN PO HEARTBURN / GAS; Start 05/30/18 at 21:45; Status UNV Acetaminophen (Tylenol) 650 mg PRN Q6HRS PRN PO PAIN / TEMP; Start 05/30/18 at 21:45; Status Cancel Al Hydroxide/Mg Hydroxide (Mylanta Plus Xs) 15 ml PRN AFTMEALHC PRN PO DYSPEPSIA; Start 05/30/18 at 21:45 Magnesium Hydroxide (Milk Of Magnesia) 2,400 mg PRN QHS PRN PO CONSTIPATION; Start 05/30/18 at 21:45; Status Cancel Insulin Human Lispro (HumaLOG) 0-5 UNITS TIDWMEALS SQ Last administered on 06/04at 12:02; Start 05/31/18 at 17:00 Dextrose 12.5 gm PRN Q15MIN PRN IV SEE COMMENTS; Start 05/31/18 at 15:30 Risperidone (RisperDAL) 0.5 mg HS PO Last administered on 06/11/18at 20:09; Start 06/01/18 at 21:00 Gabapentin (Neurontin) 400 mg TID PO Last administered on 06/12/18at 13:04; Start 06/05/18 at 21:00 Trazodone HCl (Desyrel) 50 mg PRN QHS PRN PO INSOMNIA, MAY REPEAT X1 Last administered on 06/11/18at 20:10; Start 06/05/18 at 22:30 Active Scripts Active Reported Trazodone Hcl 50 Mg Tablet 50 Mg PO PRN QHS PRN Risperdal (Risperidone) 0.5 Mg Tablet 0.5 Mg PO QHS Novolog Flexpen (Insulin Aspart) 100 Unit/1 Ml Insuln.pen 0-5 Unit SQ PRN BFRMEAL PRN Maalox Maximum Strength Susp (Mag Hydrox/Al Hydrox/Simeth) 355 Ml Oral.susp 15 Ml PO PRN AFTMEALHC PRN Gabapentin (Gabapentin) 400 Mg Capsule 400 Mg PO TID Famotidine 20 Mg Tablet 20 Mg PO Q8HRS PRN Guaifenesin Dm Syrup (Guaifenesin/Dextromethorphan) 5 Ml Syrup 10 Ml PO PRN Q6HRS PRN Zofran (Ondansetron Hcl) 4 Mg Tablet 4 Mg PO PRN Q8HRS PRN Milk Of Magnesia (Magnesium Hydroxide) 400 Mg/5 Ml Oral.susp 2,400 Mg PO PRN QHS PRN Culturelle (Lactobacillus Rhamnosus Gg) 1 Each Cap.sprink 1 Each PO BID Depakote Sprinkle (Divalproex Sodium) 125 Mg Cap.sprink 250 Mg PO DAILY Depakote Sprinkle (Divalproex Sodium) 125 Mg Cap.sprink 500 Mg PO QHS Cepacol Sore Throat Lozenge (Benzocaine/Menthol) 1 Each Lozenge 1 Each MM PRN Q2HR PRN Mirtazapine 15 Mg Tablet 15 Mg PO QHS Levemir Flextouch (Insulin Detemir) 100 Unit/1 Ml Insuln.pen 60 Unit SQ DAILY Nexium Capsule (Esomeprazole Magnesium) 40 Mg Capsule.dr 40 Mg PO DAILYAC Vitamin D3 (Cholecalciferol (Vitamin D3)) 1,000 Unit Tablet 2,000 Unit PO DAILY Flonase Allergy Relief (Fluticasone Propionate) 9.9 Ml [place].susp 2 Sprays NS PRN DAILY PRN Dicyclomine Hcl 10 Mg Capsule 10 Mg PO DAILY Biofreeze (Menthol) 118 Ml Gel..ml. 1 Nnamdi TP PRN TID PRN Klonopin (Clonazepam) 0.5 Mg Tablet 0.5 Mg PO PRN DAILY PRN Levothyroxine Sodium 100 Mcg Tablet 100 Mcg PO DAILYAC Gabapentin (Gabapentin) 100 Mg Capsule 200 Mg PO TID Tums (Calcium Carbonate) 200 Mg Tab.chew 500 Mg PO PRN Q8HRS PRN Zantac (Ranitidine Hcl) 150 Mg Tablet 75 Mg PO PRN Q8HRS PRN Tylenol (Acetaminophen) 325 Mg Tablet 650 Mg PO PRN Q6HRS PRN Bupropion Xl (Bupropion Hcl) 300 Mg Tab.er.24h 300 Mg PO DAILY Melatonin 3 Mg Tablet 10 Mg PO DAILY Novolog Flexpen (Insulin Aspart) 100 Unit/1 Ml Insuln.pen 10 Unit SQ TIDWMEALS Albuterol Sulfate Conc Neb Soln (Albuterol Sulfate) 2.5 Mg/0.5 Ml Vial.neb 2.5 Mg NEB PRN Q4HRS PRN Hydrocodone-Apap 7.5-325 (Hydrocodone Bit/Acetaminophen) 1 Each Tablet 2 Tab PO PRN Q6HRS PRN Bisacodyl 5 Mg Tablet. 10 Mg PO PRN DAILY PRN Atorvastatin Calcium 10 Mg Tablet 10 Mg PO QHS I have reviewed the current psychotropics carefully including drug interactions. Risk benefit ratio favors no change other than as noted in my dictated progress note. Diagnosis: Problems: (1) Anxiety disorder (2) Bipolar 1 disorder, manic, moderate (3) Impulse control disorder (4) Schizoaffective disorder, bipolar type FAYE MUNGUIA MD Jun 12, 2018 19:43
[2018-06-12] MEDS: MELATONIN 3 MG TABLET PO SCH (20:51)
[2018-06-12] MEDS: risperiDONE 0.5 MG TABLET. PO SCH (20:51)
[2018-06-12] MEDS: MIRTAZAPINE 15 MG TABLET PO SCH (20:51)
[2018-06-12] MEDS: ATORVASTATIN CALCIUM 10 MG TABLET. PO SCH (20:51)
[2018-06-12] MEDS: FAMOTIDINE 20 MG TABLET PO PRN (21:07)
[2018-06-13] MEDS: ACETAMINOPHEN 325 MG TABLET PO PRN (05:40)
[2018-06-13] MEDS: LEVOTHYROXINE 100 MCG TABLET PO SCH (05:40)
[2018-06-13 06:12] VITALS: BP 93/57
[2018-06-13] MEDS: INSULIN LISPRO 300 UNITS/3 ML INSULN.PEN. SQ SCH ×6 (08:00→17:38)
[2018-06-13] MEDS: CHOLECALCIFEROL (VITAMIN D3) 1,000 UNIT TABLET PO SCH (08:01)
[2018-06-13] MEDS: GABAPENTIN 400 MG CAPSULE. PO SCH ×3 (08:01→21:11)
[2018-06-13] MEDS: PANTOPRAZOLE 40 MG TABLET. PO SCH (08:01)
[2018-06-13] MEDS: DICYCLOMINE HCL 10 MG CAPSULE PO SCH (08:01)
[2018-06-13] MEDS: buPROPion XL 300 MG TAB.ER.24H. PO SCH (08:01)
[2018-06-13] MEDS: LACTOBACILLUS RHAMNOSUS GG 1 CAPSULE. PO SCH ×2 (08:01→21:11)
[2018-06-13] MEDS: DIVALPROEX 125 MG CAP.SPRINK PO SCH ×2 (08:02→21:11)
[2018-06-13] MEDS: INSULIN GLARGINE 300 UNITS/3 ML INSULN.PEN. SQ SCH (08:04)
[2018-06-13 15:54] VITALS: BP 113/72
[2018-06-13] MEDS ORDERED: CLOT15CR4 TP (16:17)
--- NOTE | 2018-06-13 19:25 | PN ---
DATE: 06/11/2018 PSYCHIATRIC PROGRESS NOTE This late entry 06/11/2018 covers elements, not covered in my initial note. SUBJECTIVE: I met with the patient in the evening. The patient slept 7-1/4 hours previous night. She was found to have hoarded a lot of depends and other belongings in her room that the nursing staff found. I addressed this with her that these were under her mattress. She minimizes this. REVIEW OF SYSTEMS: No CV, , pulmonary, eye system symptoms on review. MENTAL STATUS EXAMINATION: Reasonably oriented. Speech is coherent, abstraction fair, computation impaired, language function intact, attention span short. Mood and affect showing improvement. IMPRESSION: Unchanged from initial note. PLAN: No change from initial note. MAN Jose Alfredo MUNGUIA MD DR: MINOR/aamir JOB#: [id number] / [id number]
--- NOTE | 2018-06-13 19:28 | PN ---
DATE: 06/12/2018 PSYCHIATRIC PROGRESS NOTE This late entry 06/12/2018 covers elements not covered in my initial note. SUBJECTIVE: I met with the patient in the evening. The patient slept 5-1/2 hours previous night. She has been somewhat less obsessive after this was addressed with her yesterday, less compulsive. She talked at length about using the situation option consequence choice protocol for cognitive behavioral therapy, I have addressed with her. REVIEW OF SYSTEMS: No CV, , pulmonary, eye, ENT system symptoms on review. Slept 5-1/2 hours. MENTAL STATUS EXAMINATION: Reasonably oriented. Speech coherent, abstraction fair, computation impaired, language function intact, attention span fair. Mood and affect is improved. LABORATORY DATA: Reviewed. IMPRESSION: Unchanged from initial note. PLAN: No change from initial note. MAN Jose Alfredo MUNGUIA MD DR: MINOR/aamir JOB#: [id number] / [id number]
[2018-06-13] MEDS ORDERED: CLOTRIMAZOLE 1% VAGINAL CREAM 45GM TUBE. VG SCH (21:00)
[2018-06-13] MEDS: ATORVASTATIN CALCIUM 10 MG TABLET. PO SCH (21:11)
[2018-06-13] MEDS: MELATONIN 3 MG TABLET PO SCH (21:11)
[2018-06-13] MEDS: risperiDONE 0.5 MG TABLET. PO SCH (21:11)
[2018-06-13] MEDS: MIRTAZAPINE 15 MG TABLET PO SCH (21:11)
--- NOTE | 2018-06-13 22:17 | PDOC ---
Exam Note: Luis Note: Please also refer to the separate dictated note~for this date of service dictated separately.~Patient seen individually. Discussed the patient with Nursing staff reviewed the chart.~Reviewed interim history and current functioning. Reviewed vital signs,~Labs/ Radiology~and current medications noted below. Continue current treatment with the changes noted in the dictated addendum note Assessment: Vital Signs: Vital Signs Date Time Temp Pulse Resp B/P (MAP) Pulse Ox O2 Delivery O2 Flow Rate FiO2 06/13/18 15:54 97.1 69 18 113/72 (86) 96 06/10/18 06:25 Room Air I&O Intake and Output 06/13/18 07:00 Intake Total 960 ml Balance 960 ml Intake Oral 960 ml Labs: Laboratory Tests Test 06/13/18 07:16 06/13/18 11:20 06/13/18 16:35 06/13/18 19:36 Glucose (Fingerstick) 92 mg/dL (70-99) 91 mg/dL (70-99) 119 mg/dL (70-99) H 147 mg/dL (70-99) H Current Medications: Meds: Current Medications Lactated Ringer's 1,000 ml @ 100 mls/hr Q10H IV ; Start 05/30/18 at 18:15; Stop 05/31/18 at 02:26; Status DC Cephalexin HCl (Keflex) 500 mg 1X ONCE PO Last administered on 05/30/18at 20:47 ; Start 05/30/18 at 20:45; Stop 05/30/18 at 20:46; Status DC Cephalexin HCl (Keflex) 500 mg TID PO Last administered on 06/10/18at 08:13; Start 05/31/18 at 09:00; Stop 06/10/18 at 08:59; Status DC Bupropion HCl (Wellbutrin Xl) 300 mg DAILY PO Last administered on 06/13/18at 08 :01; Start 05/31/18 at 09:00 Clonazepam (KlonoPIN) 0.5 mg PRN DAILY PRN PO ANXIETY / AGITATION Last administered on 06/07/18at 22:26; Start 05/30/18 at 21:30 Divalproex Sodium (Depakote Sprinkles) 250 mg DAILY PO Last administered on 04/06at 09:37; Start 05/31/18 at 09:00; Stop 05/31/18 at 17:19; Status DC Divalproex Sodium (Depakote Sprinkles) 500 mg BID PO Last administered on 21:11; Start 05/31/18 at 21:00 Melatonin 9 mg QHS PO Last administered on 06/13/18 21:11; Start 05/31/18 at 21:00 Mirtazapine (Remeron) 15 mg QHS PO Last administered on 06/13/18 21:11; Start 05/31/18 at 21:00 Acetaminophen (Tylenol) 650 mg PRN Q6HRS PRN PO PAIN / TEMP Last administered on 06/13/18 05:40; Start 05/30/18 at 21:45 Throat Lozenges (Cepacol Sore Throat Lozenge) 1 richard PRN Q2HR PRN MM sore throat ; Start 05/30/18 at 21:45 Bisacodyl (Dulcolax Tab) 10 mg PRN DAILY PRN PO CONSTIPATION; Start 05/30/18 at 21:45 Calcium Carbonate/ Glycine (Tums) 500 mg PRN Q8HRS PRN PO HEARTBURN / GAS; Start 05/30/18 at 21:45 Vitamin D (Vitamin D3) 2,000 unit DAILY PO Last administered on 06/13/18 08:01 ; Start 05/31/18 at 09:00 Dicyclomine HCl (Bentyl) 10 mg DAILY PO Last administered on 06/13/18 08:01; Start 05/31/18 at 09:00 Gabapentin (Neurontin) 200 mg TID PO Last administered on 06/05/18at 08:47; Start 05/31/18 at 09:00; Stop 06/05/18 at 14:05; Status DC Guaifenesin (Robitussin Dm) 10 ml PRN Q6HRS PRN PO COUGH; Start 05/30/18 at 21: 45 Lactobacillus Rhamnosus (Culturelle) 1 cap BID PO Last administered on 21:11; Start 05/31/18 at 09:00 Levothyroxine Sodium (Synthroid) 100 mcg DAILY06 PO Last administered on 05:40; Start 05/31/18 at 06:00 Magnesium Hydroxide (Milk Of Magnesia) 2,400 mg PRN QHS PRN PO CONSTIPATION; Start 05/30/18 at 21:45 Albuterol Sulfate (Ventolin) 2.5 mg PRN Q4HRS PRN NEB SHORTNESS OF BREATH; Start 05/30/18 at 21:45 Atorvastatin Calcium (Lipitor) 10 mg QHS PO Last administered on 06/13/18at 21: 11; Start 05/31/18 at 21:00 Pantoprazole Sodium (Protonix) 40 mg DAILYAC PO Last administered on 06/13/18at 08:01; Start 05/31/18 at 07:30 Famotidine (Pepcid) 20 mg PRN Q8HRS PRN PO HEARTBURN / GAS Last administered on 06/12/18 21:07; Start 05/30/18 at 21:45 Fluticasone Propionate (Flonase) 2 spray PRN DAILY PRN NS NASAL INFLAMATION; Start 05/30/18 at 21:45 Insulin Human Lispro (HumaLOG) 10 units TIDWMEALS SQ Last administered on at 17:38; Start 05/31/18 at 08:00 Insulin Glargine (Lantus) 60 units DAILY SQ Last administered on 06/13/18 08: 04; Start 05/31/18 at 09:00 Multi-Ingredient Ointment (Analgesic [place]) 1 nnamdi PRN TID PRN TP MUSCLE PAIN Last administered on 05/31/18 22:30; Start 05/31/18 at 07:45 Ondansetron HCl (Zofran Odt) 4 mg PRN Q8HRS PRN PO NAUSEA/VOMITING; Start 05/30 at 21:45 Non-Formulary Medication (Ranitidine Hcl (Zantac)) 75 mg PRN Q8HRS PRN PO HEARTBURN / GAS; Start 05/30/18 at 21:45; Status UNV Acetaminophen (Tylenol) 650 mg PRN Q6HRS PRN PO PAIN / TEMP; Start 05/30/18 at 21:45; Status Cancel Al Hydroxide/Mg Hydroxide (Mylanta Plus Xs) 15 ml PRN AFTMEALHC PRN PO DYSPEPSIA; Start 05/30/18 at 21:45 Magnesium Hydroxide (Milk Of Magnesia) 2,400 mg PRN QHS PRN PO CONSTIPATION; Start 05/30/18 at 21:45; Status Cancel Insulin Human Lispro (HumaLOG) 0-5 UNITS TIDWMEALS SQ Last administered on 06/04at 12:02; Start 05/31/18 at 17:00 Dextrose 12.5 gm PRN Q15MIN PRN IV SEE COMMENTS; Start 05/31/18 at 15:30 Risperidone (RisperDAL) 0.5 mg HS PO Last administered on 06/13/18at 21:11; Start 06/01/18 at 21:00 Gabapentin (Neurontin) 400 mg TID PO Last administered on 06/13/18at 21:11; Start 06/05/18 at 21:00 Trazodone HCl (Desyrel) 50 mg PRN QHS PRN PO INSOMNIA, MAY REPEAT X1 Last administered on 06/11/18at 20:10; Start 06/05/18 at 22:30 Clotrimazole (Mycelex-7) 1 nnamdi HS VG Last administered on 06/13/18at 21:15; Start 06/13/18 at 21:00; Stop 06/20/18 at 20:59 Active Scripts Active Reported Clotrimazole 15 Gm Cream..g. 1 Nnamdi TP HS 6 Days Trazodone Hcl 50 Mg Tablet 50 Mg PO PRN QHS PRN Risperdal (Risperidone) 0.5 Mg Tablet 0.5 Mg PO QHS Novolog Flexpen (Insulin Aspart) 100 Unit/1 Ml Insuln.pen 0-5 Unit SQ PRN BFRMEAL PRN Maalox Maximum Strength Susp (Mag Hydrox/Al Hydrox/Simeth) 355 Ml Oral.susp 15 Ml PO PRN AFTMEALHC PRN Gabapentin (Gabapentin) 400 Mg Capsule 400 Mg PO TID Famotidine 20 Mg Tablet 20 Mg PO Q8HRS PRN Guaifenesin Dm Syrup (Guaifenesin/Dextromethorphan) 5 Ml Syrup 10 Ml PO PRN Q6HRS PRN Zofran (Ondansetron Hcl) 4 Mg Tablet 4 Mg PO PRN Q8HRS PRN Milk Of Magnesia (Magnesium Hydroxide) 400 Mg/5 Ml Oral.susp 2,400 Mg PO PRN QHS PRN Culturelle (Lactobacillus Rhamnosus Gg) 1 Each Cap.sprink 1 Each PO BID Depakote Sprinkle (Divalproex Sodium) 125 Mg Cap.sprink 250 Mg PO DAILY Depakote Sprinkle (Divalproex Sodium) 125 Mg Cap.sprink 500 Mg PO QHS Cepacol Sore Throat Lozenge (Benzocaine/Menthol) 1 Each Lozenge 1 Each MM PRN Q2HR PRN Mirtazapine 15 Mg Tablet 15 Mg PO QHS Levemir Flextouch (Insulin Detemir) 100 Unit/1 Ml Insuln.pen 60 Unit SQ DAILY Nexium Capsule (Esomeprazole Magnesium) 40 Mg Capsule.dr 40 Mg PO DAILYAC Vitamin D3 (Cholecalciferol (Vitamin D3)) 1,000 Unit Tablet 2,000 Unit PO DAILY Flonase Allergy Relief (Fluticasone Propionate) 9.9 Ml [place].susp 2 Sprays NS PRN DAILY PRN Dicyclomine Hcl 10 Mg Capsule 10 Mg PO DAILY Biofreeze (Menthol) 118 Ml Gel..ml. 1 Nnamdi TP PRN TID PRN Klonopin (Clonazepam) 0.5 Mg Tablet 0.5 Mg PO PRN DAILY PRN Levothyroxine Sodium 100 Mcg Tablet 100 Mcg PO DAILYAC Gabapentin (Gabapentin) 100 Mg Capsule 200 Mg PO TID Tums (Calcium Carbonate) 200 Mg Tab.chew 500 Mg PO PRN Q8HRS PRN Zantac (Ranitidine Hcl) 150 Mg Tablet 75 Mg PO PRN Q8HRS PRN Tylenol (Acetaminophen) 325 Mg Tablet 650 Mg PO PRN Q6HRS PRN Bupropion Xl (Bupropion Hcl) 300 Mg Tab.er.24h 300 Mg PO DAILY Melatonin 3 Mg Tablet 10 Mg PO DAILY Novolog Flexpen (Insulin Aspart) 100 Unit/1 Ml Insuln.pen 10 Unit SQ TIDWMEALS Albuterol Sulfate Conc Neb Soln (Albuterol Sulfate) 2.5 Mg/0.5 Ml Vial.neb 2.5 Mg NEB PRN Q4HRS PRN Hydrocodone-Apap 7.5-325 (Hydrocodone Bit/Acetaminophen) 1 Each Tablet 2 Tab PO PRN Q6HRS PRN Bisacodyl 5 Mg Tablet.dr 10 Mg PO PRN DAILY PRN Atorvastatin Calcium 10 Mg Tablet 10 Mg PO QHS I have reviewed the current psychotropics carefully including drug interactions. Risk benefit ratio favors no change other than as noted in my dictated progress note. Diagnosis: Problems: (1) Anxiety disorder (2) Bipolar 1 disorder, manic, moderate (3) Impulse control disorder (4) Schizoaffective disorder, bipolar type FAYE MUNGUIA MD Jun 13, 2018 22:17
[2018-06-14 05:39] VITALS: BP 121/83
[2018-06-14] MEDS: LEVOTHYROXINE 100 MCG TABLET PO SCH (06:01)
[2018-06-14] MEDS: INSULIN LISPRO 300 UNITS/3 ML INSULN.PEN. SQ SCH ×2 (08:00→08:45)
[2018-06-14] MEDS: buPROPion XL 300 MG TAB.ER.24H. PO SCH (08:38)
[2018-06-14] MEDS: DIVALPROEX 125 MG CAP.SPRINK PO SCH (08:39)
[2018-06-14] MEDS: LACTOBACILLUS RHAMNOSUS GG 1 CAPSULE. PO SCH (08:39)
[2018-06-14] MEDS: CHOLECALCIFEROL (VITAMIN D3) 1,000 UNIT TABLET PO SCH (08:39)
[2018-06-14] MEDS: DICYCLOMINE HCL 10 MG CAPSULE PO SCH (08:39)
[2018-06-14] MEDS: PANTOPRAZOLE 40 MG TABLET. PO SCH (08:39)
[2018-06-14] MEDS: GABAPENTIN 400 MG CAPSULE. PO SCH (08:41)
[2018-06-14] MEDS: INSULIN GLARGINE 300 UNITS/3 ML INSULN.PEN. SQ SCH (08:43)
--- NOTE | 2018-06-14 18:53 | PDOC ---
Exam Note: Luis Note: Please also refer to the separate dictated note~for this date of service dictated separately.~Patient seen individually. Discussed the patient with Nursing staff reviewed the chart.~Reviewed interim history and current functioning. Reviewed vital signs,~Labs/ Radiology~and current medications noted below. Continue current treatment with the changes noted in the dictated addendum note Assessment: Vital Signs: Vital Signs Date Time Temp Pulse Resp B/P (MAP) Pulse Ox O2 Delivery O2 Flow Rate FiO2 06/14/18 05:39 97.6 58 18 121/83 (96) 96 Room Air I&O Intake and Output 06/14/18 07:00 Intake Total 1320 ml Balance 1320 ml Intake Oral 1320 ml # Bowel Movements 1 Labs: Laboratory Tests Test 06/13/18 19:36 06/14/18 07:46 Glucose (Fingerstick) 147 mg/dL (70-99) H 88 mg/dL (70-99) Current Medications: Meds: Current Medications Lactated Ringer's 1,000 ml @ 100 mls/hr Q10H IV ; Start 05/30/18 at 18:15; Stop 05/31/18 at 02:26; Status DC Cephalexin HCl (Keflex) 500 mg 1X ONCE PO Last administered on 05/30/18at 20:47 ; Start 05/30/18 at 20:45; Stop 05/30/18 at 20:46; Status DC Cephalexin HCl (Keflex) 500 mg TID PO Last administered on 06/10/18at 08:13; Start 05/31/18 at 09:00; Stop 06/10/18 at 08:59; Status DC Bupropion HCl (Wellbutrin Xl) 300 mg DAILY PO Last administered on 06/14/18at 08 :38; Start 05/31/18 at 09:00; Stop 06/14/18 at 11:07; Status DC Clonazepam (KlonoPIN) 0.5 mg PRN DAILY PRN PO ANXIETY / AGITATION Last administered on 06/07/18at 22:26; Start 05/30/18 at 21:30; Stop 06/14/18 at 11:07 ; Status DC Divalproex Sodium (Depakote Sprinkles) 250 mg DAILY PO Last administered on 04/06at 09:37; Start 05/31/18 at 09:00; Stop 05/31/18 at 17:19; Status DC Divalproex Sodium (Depakote Sprinkles) 500 mg BID PO Last administered on at 08:39; Start 05/31/18 at 21:00; Stop 06/14/18 at 11:07; Status DC Melatonin 9 mg QHS PO Last administered on 06/13/18at 21:11; Start 05/31/18 at 21:00; Stop 06/14/18 at 11:07; Status DC Mirtazapine (Remeron) 15 mg QHS PO Last administered on 06/13/18at 21:11; Start 05/31/18 at 21:00; Stop 06/14/18 at 11:07; Status DC Acetaminophen (Tylenol) 650 mg PRN Q6HRS PRN PO PAIN / TEMP Last administered on 06/13/18at 05:40; Start 05/30/18 at 21:45; Stop 06/14/18 at 11:07; Status DC Throat Lozenges (Cepacol Sore Throat Lozenge) 1 richard PRN Q2HR PRN MM sore throat ; Start 05/30/18 at 21:45; Stop 06/14/18 at 11:07; Status DC Bisacodyl (Dulcolax Tab) 10 mg PRN DAILY PRN PO CONSTIPATION; Start 05/30/18 at 21:45; Stop 06/14/18 at 11:07; Status DC Calcium Carbonate/ Glycine (Tums) 500 mg PRN Q8HRS PRN PO HEARTBURN / GAS; Start 05/30/18 at 21:45; Stop 06/14/18 at 11:07; Status DC Vitamin D (Vitamin D3) 2,000 unit DAILY PO Last administered on 06/14/18at 08:39 ; Start 05/31/18 at 09:00; Stop 06/14/18 at 11:07; Status DC Dicyclomine HCl (Bentyl) 10 mg DAILY PO Last administered on 06/14/18at 08:39; Start 05/31/18 at 09:00; Stop 06/14/18 at 11:07; Status DC Gabapentin (Neurontin) 200 mg TID PO Last administered on 06/05/18at 08:47; Start 05/31/18 at 09:00; Stop 06/05/18 at 14:05; Status DC Guaifenesin (Robitussin Dm) 10 ml PRN Q6HRS PRN PO COUGH; Start 05/30/18 at 21: 45; Stop 06/14/18 at 11:07; Status DC Lactobacillus Rhamnosus (Culturelle) 1 cap BID PO Last administered on at 08:39; Start 05/31/18 at 09:00; Stop 06/14/18 at 11:07; Status DC Levothyroxine Sodium (Synthroid) 100 mcg DAILY06 PO Last administered on at 06:01; Start 05/31/18 at 06:00; Stop 06/14/18 at 11:07; Status DC Magnesium Hydroxide (Milk Of Magnesia) 2,400 mg PRN QHS PRN PO CONSTIPATION; Start 05/30/18 at 21:45; Stop 06/14/18 at 11:07; Status DC Albuterol Sulfate (Ventolin) 2.5 mg PRN Q4HRS PRN NEB SHORTNESS OF BREATH; Start 05/30/18 at 21:45; Stop 06/14/18 at 11:07; Status DC Atorvastatin Calcium (Lipitor) 10 mg QHS PO Last administered on 06/13/18at 21: 11; Start 05/31/18 at 21:00; Stop 06/14/18 at 11:07; Status DC Pantoprazole Sodium (Protonix) 40 mg DAILYAC PO Last administered on 06/14/18at 08:39; Start 05/31/18 at 07:30; Stop 06/14/18 at 11:07; Status DC Famotidine (Pepcid) 20 mg PRN Q8HRS PRN PO HEARTBURN / GAS Last administered on 06/12/18at 21:07; Start 05/30/18 at 21:45; Stop 06/14/18 at 11:07; Status DC Fluticasone Propionate (Flonase) 2 spray PRN DAILY PRN NS NASAL INFLAMATION; Start 05/30/18 at 21:45; Stop 06/14/18 at 11:07; Status DC Insulin Human Lispro (HumaLOG) 10 units TIDWMEALS SQ Last administered on at 08:45; Start 05/31/18 at 08:00; Stop 06/14/18 at 11:07; Status DC Insulin Glargine (Lantus) 60 units DAILY SQ Last administered on 06/14/18at 08: 43; Start 05/31/18 at 09:00; Stop 06/14/18 at 11:07; Status DC Multi-Ingredient Ointment (Analgesic [place]) 1 nnamdi PRN TID PRN TP MUSCLE PAIN Last administered on 05/31/18at 22:30; Start 05/31/18 at 07:45; Stop 06/14/18 at 11:07; Status DC Ondansetron HCl (Zofran Odt) 4 mg PRN Q8HRS PRN PO NAUSEA/VOMITING; Start 05/30 at 21:45; Stop 06/14/18 at 11:07; Status DC Non-Formulary Medication (Ranitidine Hcl (Zantac)) 75 mg PRN Q8HRS PRN PO HEARTBURN / GAS; Start 05/30/18 at 21:45; Status UNV Acetaminophen (Tylenol) 650 mg PRN Q6HRS PRN PO PAIN / TEMP; Start 05/30/18 at 21:45; Status Cancel Al Hydroxide/Mg Hydroxide (Mylanta Plus Xs) 15 ml PRN AFTMEALHC PRN PO DYSPEPSIA; Start 05/30/18 at 21:45; Stop 06/14/18 at 11:07; Status DC Magnesium Hydroxide (Milk Of Magnesia) 2,400 mg PRN QHS PRN PO CONSTIPATION; Start 05/30/18 at 21:45; Status Cancel Insulin Human Lispro (HumaLOG) 0-5 UNITS TIDWMEALS SQ Last administered on 06/04at 12:02; Start 05/31/18 at 17:00; Stop 06/14/18 at 11:07; Status DC Dextrose 12.5 gm PRN Q15MIN PRN IV SEE COMMENTS; Start 05/31/18 at 15:30; Stop 06/14/18 at 11:07; Status DC Risperidone (RisperDAL) 0.5 mg HS PO Last administered on 06/13/18at 21:11; Start 06/01/18 at 21:00; Stop 06/14/18 at 11:07; Status DC Gabapentin (Neurontin) 400 mg TID PO Last administered on 06/14/18at 08:41; Start 06/05/18 at 21:00; Stop 06/14/18 at 11:07; Status DC Trazodone HCl (Desyrel) 50 mg PRN QHS PRN PO INSOMNIA, MAY REPEAT X1 Last administered on 06/11/18at 20:10; Start 06/05/18 at 22:30; Stop 06/14/18 at 11:07 ; Status DC Clotrimazole (Mycelex-7) 1 nnamdi HS VG Last administered on 06/13/18at 21:15; Start 06/13/18 at 21:00; Stop 06/14/18 at 11:07; Status DC Active Scripts Active Reported Clotrimazole 15 Gm Cream..g. 1 Nnamdi TP HS 6 Days Trazodone Hcl 50 Mg Tablet 50 Mg PO PRN QHS PRN Risperdal (Risperidone) 0.5 Mg Tablet 0.5 Mg PO QHS Novolog Flexpen (Insulin Aspart) 100 Unit/1 Ml Insuln.pen 0-5 Unit SQ PRN BFRMEAL PRN Maalox Maximum Strength Susp (Mag Hydrox/Al Hydrox/Simeth) 355 Ml Oral.susp 15 Ml PO PRN AFTMEALHC PRN Gabapentin (Gabapentin) 400 Mg Capsule 400 Mg PO TID Famotidine 20 Mg Tablet 20 Mg PO Q8HRS PRN Guaifenesin Dm Syrup (Guaifenesin/Dextromethorphan) 5 Ml Syrup 10 Ml PO PRN Q6HRS PRN Zofran (Ondansetron Hcl) 4 Mg Tablet 4 Mg PO PRN Q8HRS PRN Milk Of Magnesia (Magnesium Hydroxide) 400 Mg/5 Ml Oral.susp 2,400 Mg PO PRN QHS PRN Culturelle (Lactobacillus Rhamnosus Gg) 1 Each Cap.sprink 1 Each PO BID Depakote Sprinkle (Divalproex Sodium) 125 Mg Cap.sprink 500 Mg PO BID Cepacol Sore Throat Lozenge (Benzocaine/Menthol) 1 Each Lozenge 1 Each MM PRN Q2HR PRN Mirtazapine 15 Mg Tablet 15 Mg PO QHS Levemir Flextouch (Insulin Detemir) 100 Unit/1 Ml Insuln.pen 60 Unit SQ DAILY Nexium Capsule (Esomeprazole Magnesium) 40 Mg Capsule.dr 40 Mg PO DAILYAC Vitamin D3 (Cholecalciferol (Vitamin D3)) 1,000 Unit Tablet 2,000 Unit PO DAILY Flonase Allergy Relief (Fluticasone Propionate) 9.9 Ml [place].susp 2 Sprays NS PRN DAILY PRN Dicyclomine Hcl 10 Mg Capsule 10 Mg PO DAILY Biofreeze (Menthol) 118 Ml Gel..ml. 1 Nnamdi TP PRN TID PRN Klonopin (Clonazepam) 0.5 Mg Tablet 0.5 Mg PO PRN DAILY PRN Levothyroxine Sodium 100 Mcg Tablet 100 Mcg PO DAILYAC Tums (Calcium Carbonate) 200 Mg Tab.chew 500 Mg PO PRN Q8HRS PRN Tylenol (Acetaminophen) 325 Mg Tablet 650 Mg PO PRN Q6HRS PRN Bupropion Xl (Bupropion Hcl) 300 Mg Tab.er.24h 300 Mg PO DAILY Melatonin 3 Mg Tablet 9 Mg PO DAILY Novolog Flexpen (Insulin Aspart) 100 Unit/1 Ml Insuln.pen 10 Unit SQ TIDWMEALS Bisacodyl 5 Mg Tablet.dr 10 Mg PO PRN DAILY PRN Atorvastatin Calcium 10 Mg Tablet 10 Mg PO QHS I have reviewed the current psychotropics carefully including drug interactions. Risk benefit ratio favors no change other than as noted in my dictated progress note. Diagnosis: Problems: (1) Schizoaffective disorder, bipolar type (2) Impulse control disorder (3) Bipolar 1 disorder, manic, moderate (4) Anxiety disorder FAYE MUNGUIA MD Jun 14, 2018 18:53
--- NOTE | 2018-06-14 21:34 | PN ---
DATE: 06/13/2018 PSYCHIATRIC PROGRESS NOTE This late entry 06/13/2018 covers elements not covered in my initial note. SUBJECTIVE: I met with the patient in the evening. Overall, the patient is doing reasonably well. No more holding of diapers and briefs under her mattress have been found. Dr. Aguilera is addressing her yeast infection. She was working on coloring as I met with her in the evening, very perfectionistic and again talked at length about using the situation option consequent choice protocol for helping her impulse control and reactivity. REVIEW OF SYSTEMS: No CV, , pulmonary, eye, ENT system symptoms on review. MENTAL STATUS EXAM: Reasonably oriented. Speech is coherent, has some latency. Abstraction fair, computation impaired, language function intact, attention span short. Mood and affect less labile. LABORATORY DATA: Reviewed. IMPRESSION: Bipolar 1 disorder, mixed with psychotic features, in partial remission schizoaffective disorder, bipolar type, post-traumatic stress disorder, borderline personality disorder. PLAN: No change from initial note. Transition to nursing facility to 06/14/2018. MAN Jose Alfredo MUNGUIA MD DR: MINOR/aamir JOB#: [id number] / [id number]
--- NOTE | 2018-06-15 19:20 | DS ---
DATE OF DISCHARGE: 06/14/2018 DISCHARGE SUMMARY/PSYCHIATRIC PROGRESS NOTE This late entry, date of service, 06/14/2018, covers elements not covered in my initial note. REASON FOR ADMISSION: Please refer to the admission history for details. Briefly, the patient is a 62-year-old female, referred to us from [facility] by her primary care physician and psychiatrist on account of voicing suicidal ideation with a plan to slit her wrists or throat. She had decreased interest in activities, decreased meal intake within the context of her bipolar disorder versus schizoaffective disorder, bipolar type, mixed with psychotic features. She had failed outpatient psychiatric interventions. SIGNIFICANT FINDINGS AND CLINICAL COURSE: Following admission, the patient was seen daily individually by myself from a psychiatric standpoint, medical followup with Dr. Aguilera. She did have a UTI and was treated on Keflex. She is still anxious and labile. Adjustments were made in her psychotropics and she seemed to respond to a combination of Klonopin 0.5 mg daily p.r.n., melatonin 9 mg at bedtime, Remeron 15 mg at bedtime, Wellbutrin-XL 300 mg daily, Depakote Sprinkles 500 mg b.i.d. with a therapeutic valproic acid level of 51, Risperdal 0.5 mg at bedtime, trazodone 50 mg at bedtime p.r.n., may repeat x 1 for insomnia. REVIEW OF SYSTEMS: Prior to discharge on 06/14/2018, no CV, , pulmonary, eye, ENT system symptoms on review. MENTAL STATUS EXAM: Oriented reasonably. Speech is coherent, abstraction fair, computation impaired, language function intact. Mood and affect is improved. She was much less labile, very insightful about the cognitive behavioral therapy that she had learned to solve problems successfully. FINAL DIAGNOSES: Bipolar 1 disorder, mixed with psychotic features, in partial remission; anxiety disorder, unspecified; history of posttraumatic stress disorder, history of borderline personality disorder. Rest unchanged from admission. DISCHARGE MEDICATIONS: Please refer to the MRAD. DISCHARGE INSTRUCTIONS: [facility] MAN Jose Alfredo MUNGUIA MD DR: MINOR/aamir JOB#: [id number] / [id number]
== END 2018-06-14 11:05 | DRG 885 ==
LOC: ER 17:54 → UNDOADMIN 19:00 → GEROPSY 19:00 → ER 21:24 → GEROPSY 21:25
PROVIDERS: ADMIT Psychiatry & Neurology Psychiatry; ATTEND Psychiatry & Neurology Psychiatry
DX: F25.0 Schizoaffective disorder, bipolar type (principal); R45.851 Suicidal ideations; N39.0 Urinary tract infection, site not specified; Q60.2 Renal agenesis, unspecified; Z68.41 Body mass index [BMI] 40.0-44.9, adult; F60.3 Borderline personality disorder; F43.10 Post-traumatic stress disorder, unspecified; F63.9 Impulse disorder, unspecified; B37.9 Candidiasis, unspecified; E03.9 Hypothyroidism, unspecified; E11.40 Type 2 diabetes mellitus with diabetic neuropathy, unspecified; E66.01 Morbid (severe) obesity due to excess calories; E78.5 Hyperlipidemia, unspecified; F03.90 Unspecified dementia, unspecified severity, without behavioral disturbance, psychotic disturbance, mood disturbance, and anxiety; G40.909 Epilepsy, unspecified, not intractable, without status epilepticus; G47.00 Insomnia, unspecified; I10 Essential (primary) hypertension; G89.29 Other chronic pain; J44.9 Chronic obstructive pulmonary disease, unspecified; K21.9 Gastro-esophageal reflux disease without esophagitis; K58.9 Irritable bowel syndrome, unspecified; S61.519A Laceration without foreign body of unspecified wrist, initial encounter; Z87.11 Personal history of peptic ulcer disease; Z87.440 Personal history of urinary (tract) infections; Z90.49 Acquired absence of other specified parts of digestive tract; Z79.899 Other long term (current) drug therapy; Z88.8 Allergy status to other drugs, medicaments and biological substances; E11.42 Type 2 diabetes mellitus with diabetic polyneuropathy; Z79.4 Long term (current) use of insulin
CPT/HCPCS: 36415; 70450; 71045; 73630; 74018; 80048; 80053; 80061; 80076; 80164; 80307; 80329; 81001; 82306; 82550; 82947; 83036; 83540; 83550; 83615; 83690; 83735; 83880; 84436; 84443; 84480; 84484; 84550; 85025; 85027; 85610; 85651; 85730; 86140; 86592; 87086; 87186; 93005; G0480; J1815; 82003; 99285-25